=== PATIENT | female | born 1960 | race Caucasian/White ===

== ENCOUNTER → 2016-11-03 | Outpatient (CLI) | payer BC ==
[~2016-11-03] MED LIST: ASPI-461 PO; ATOR-24 PO; BACL10TA PO; DIAZ5TAB3 PO; EFFSR150 PO; EFFSR75 PO; INSDGIPEN SC; INSUINJ14 SC; INSUINJ4 SC; INSUINJ4 SQ; LRS10 PO; LSN/10125 PO; METF500T5 PO; MIRA1TAB3 PO; MULT-506 PO; NRN800 PO; NRT75 PO; NVLGI/PEN SQ; OXYC7.5T65 PO; SIMV40TA2 PO
--- NOTE | 2016-11-04 08:37 | DIAGNOSTIC IMAGING REPORT ---
MRI OF THE RIGHT FOOT WITHOUT CONTRAST CLINICAL HISTORY: Right foot pain. Evaluate first metatarsal head for osteochondral lesion and fibular sesamoid. COMPARISON STUDY: Right foot radiograph January 22, 2013. TECHNIQUE: Utilizing 1.5 Gina magnet and dedicated coil, multiplanar, multi echo imaging of the right foot was performed without intravenous contrast. FINDINGS: The tarsometatarsal joints are intact. There is no marrow edema or marrow replacement within the right foot. There is moderate joint space narrowing with osteophytosis of the right first metatarsophalangeal joint. This suggests osteoarthritis. No osteochondral lesion is identified. The sesamoids for the right first toe are unremarkable. No mass or fluid collection is shown within the right foot on this unenhanced examination. There is minimal subchondral cystic change within the anterior aspect of the talar dome which is likely degenerative. Navicular is intact. Visualized portions of the flexor, extensor and peroneal tendons are intact. Visualized portions of the Achilles tendon are normal. IMPRESSION: 1. Moderate joint space narrowing and osteophytosis of the right first metatarsophalangeal joint which suggests osteoarthritis. No osteochondral lesion identified. 2. Intact sesamoids of the right first toe. 3. Mild arthritis within the right midfoot. Electronically signed by: Archie Roa M.D. 11/04/2016 8:36 AM Dictated Date/Time: 11/03/2016 4:31 PM
== END | disposition home or self-care (01) ==
LOC: C.MRIBC 14:56
PROVIDERS: ATTEND Podiatrist Foot & Ankle Surgery
DX: L97.511 Non-pressure chronic ulcer of other part of right foot limited to breakdown of skin (principal); M25.774 Osteophyte, right foot

== ENCOUNTER → 2016-11-15 | Outpatient (CLI) | payer BC ==
--- NOTE | 2016-11-16 13:08 | MAMMOGRAPHY REPORT ---
BILATERAL DIGITAL SCREENING MAMMOGRAM TOMOSYNTHESIS WITH CAD: 11/15/2016 CLINICAL HISTORY: Routine screening. Patient has no complaints. TECHNIQUE: Breast tomosynthesis in addition to standard 2D mammography was performed. Current study was also evaluated with a Computer Aided Detection (CAD) system. COMPARISON: Comparison is made to exams dated: 11/07/2015 mammogram, 12/20/2013 mammogram, 12/23/2014 mammogram, 12/19/2012 mammogram, 11/18/2011 mammogram, and 11/17/2010 mammogram - [facility] enter. BREAST COMPOSITION: There are scattered areas of fibroglandular density in both breasts. FINDINGS: There are a few benign round and rim calcifications in the breasts. No suspicious mass, a rchitectural distortion or cluster of microcalcifications is seen. IMPRESSION: ACR BI-RADS CATEGORY 1: NEGATIVE There is no mammographic evidence of malignancy. A 1 year screening mammogram is recommended. The p atient will receive written notification of the results. Approximately 10% of breast cancers are not detected with mammography. A negative mammographic repor t should not delay biopsy if a clinically suggestive mass is present. Vilma Gomez M.D. ay/:11/15/2016 16:58:46 Back Stayer: Janel PALACIO(R)(M), [facility] letter sent: Normal 1/2 BI-RADS Code: ACR BI-RADS Category 1: Negative
== END | disposition home or self-care (01) ==
LOC: C.MAMM 14:18
PROVIDERS: ATTEND Family Medicine
DX: Z12.31 Encounter for screening mammogram for malignant neoplasm of breast (principal)

== ENCOUNTER → 2017-03-08 | Outpatient (CLI) | payer BC ==
[~2017-03-08] MED LIST changes: +AMOX875T PO; +CPR500HP PO; +DOCU-94 PO
== END | disposition home or self-care (01) ==
LOC: C.LABSPEC 17:34
PROVIDERS: ATTEND Podiatrist Foot & Ankle Surgery
DX: L60.0 Ingrowing nail (principal)

== ENCOUNTER → 2017-03-18 | Outpatient (CLI) | payer BC | LOC: C.PAIN 09:57 ==

== ENCOUNTER 2017-04-16 06:23 | Emergency (ER) | payer BC ==
[~2017-04-16] VITALS: Ht 167.6 cm; Wt 91.0 kg
[~2017-04-16 06:23] MED LIST changes: -AMOX875T PO; -ASPI-461 PO; -ATOR-24 PO; -BACL10TA PO; -CPR500HP PO; -DIAZ5TAB3 PO; -DOCU-94 PO; -EFFSR150 PO; -EFFSR75 PO; -INSDGIPEN SC; -LRS10 PO; -LSN/10125 PO; -METF500T5 PO; -MULT-506 PO; -NRN800 PO; -NRT75 PO; -NVLGI/PEN SQ; -OXYC7.5T65 PO
[2017-04-16 06:26] VITALS: TEMP 36.7; Ht 167.6 cm; Wt 91.0 kg
[2017-04-16] MEDS ORDERED: KETOROLAC TROMETHAMINE 60 MG/2 ML VIAL IM STA (06:55)
--- NOTE | 2017-04-16 08:00 | DIAGNOSTIC IMAGING REPORT ---
CT LUMBAR SPINE WITHOUT CT DOSE: 1220.13 mGy.cm CLINICAL HISTORY: Low back pain status post trauma TECHNIQUE: Helical images were acquired in transverse plane. Reformatted sagittal and coronal images were reviewed. CONTRAST: No contrast was administered COMPARISON STUDY: Conventional radiographic study dated 07/25/2015 FINDINGS: L1-2 level: There is no evidence of significant disc bulge or focal herniation. There is no evidence of spinal or foraminal stenosis. L2-3 level: There is no evidence of significant disc bulge or focal herniation. There is no evidence of spinal or foraminal stenosis. L3-4 level: There is no evidence of significant disc bulge or focal herniation. There is no evidence of spinal or foraminal stenosis. L4-5 level: There is a circumferential disc bulge with mild spinal stenosis. There is no significant foraminal narrowing. L5-S1 level: There is no evidence of significant disc bulge or focal herniation. There is no evidence of spinal or foraminal stenosis. No fractures or subluxations are visualized. Spinal cord stimulator electrodes are visualized entering the spinal canal at the T12-L1 level IMPRESSION: 1. No fractures or subluxations identified 2. Mild disc bulge and mild spinal stenosis at the L4-5 level. Electronically signed by: Dominic Henning M.D. 04/16/2017 7:59 AM Dictated Date/Time: 04/16/2017 7:56 AM
--- NOTE | 2017-04-16 09:28 | EMERGENCY ROOM VISIT NOTE ---
History Report prepared by Fabrice: Darian Wagner Under the Supervision of: Dr. Bobby Jang D.O. First contact with patient: 06:52 Chief Complaint: BACK PAIN Stated Complaint: EXTREME LOWER BACK PAIN History of Present Illness The patient is a 57 year old female who presents to the Emergency Room with complaints of worsening low back pain beginning 1.5 weeks ago. She states that her pain began after falling directly onto her back. She states that she fell onto the floor in a hotel room due to losing her balance. The patient has a history of MS and states that she frequently loses her balance. She has taken Percocet for her pain, which she has prescribed for migraines and neuropathy, but nothing has improved her symptoms. She denies any increased leg weakness or numbness. The patient notes that she has a spinal cord stimulator in place. Source of History: patient Onset: 1.5 weeks ago Position: back (lower) Timing: worsening Modifying Factors (Relieving): other (none) Associated Symptoms: No weakness (increased), No numbness (increased) Review of Systems See HPI for pertinent positives & negatives. A total of 10 systems reviewed and were otherwise negative. Past Medical & Surgical Medical Problems: (1) Benign hypertension (2) DIAB SOUMYA WO COMPL, TYPE II OR UNSPEC TYPE, NOT UNCNTRLD (3) MULTIPLE SCLEROSIS (4) Sepsis Family History Diabetes mellitus Heart disease Social History Smoking Status: Never Smoker Alcohol Use: none Drug Use: none Marital Status: Housing Status: lives with significant other Occupation Status: unemployed Current/Historical Medications Scheduled Aspirin (Aspirin), 81 MG PO DAILY Atorvastatin (Lipitor), 40 MG PO HS Baclofen (Lioresal), 20 MG PO HS Baclofen (Baclofen), 10 MG PO TID Diazepam (Valium), 5 MG PO HS Gabapentin (Gabapentin), 1,600 MG PO HS Hctz/Lisinopril (Lisinopril/Hctz 10/12.5 Mg), 1 TAB PO HS Insulin Aspart (Novolog Flexpen), SQ UD Insulin Glargine (Lantus Solostar), 25 SC QAM Insulin Glargine (Lantus Solostar), 20 SC QPM Metformin Hcl Er (Glucophage Er), 500 MG PO TID Mirabegron (Myrbetriq Er), 50 MG PO NOON Multivitamin (Multivitamin), 1 TAB PO QPM Nortriptyline HCl (Nortriptyline HCl), 75 MG PO HS Venlafaxine Hcl (Effexor Extended Rel), 150 MG PO HS Venlafaxine Hcl (Effexor Extended Rel), 75 MG PO HS Scheduled PRN Oxycodone/Acetaminophen 7.5MG/325MG (Percocet 7.5MG/325MG), 1 TAB PO Q8 PRN for Pain Allergies Coded Allergies: Methylphenidate (Verified Allergy, Unknown, RASH, 04/16/17) Sumatriptan (Verified Adverse Reaction, Unknown, RAPID HEART RATE, 04/16/17) Physical Exam Vital Signs Date Time Temp Pulse Resp B/P (MAP) Pulse Ox O2 Delivery O2 Flow Rate FiO2 04/16/17 08:09 80 20 106/69 92 Room Air 04/16/17 06:40 124/74 04/16/17 06:26 36.7 92 20 119/76 94 Room Air Physical Exam CONSTITUTIONAL/VITAL SIGNS: Reviewed / noted above. GENERAL: Non-toxic in appearance. INTEGUMENTARY: Warm, dry, and [place]. HEAD: Normocephalic. EYES: without scleral icterus or trauma. ENT/OROPHARYNX: clear and moist. LYMPHADENOPATHY/NECK: Is supple without lymphadenopathy or meningismus. RESPIRATORY: Lungs clear and equal. CARDIOVASCULAR: Regular rate and rhythm. GI/ABDOMEN: Soft and nontender. No organomegaly or pulsatile mass. No rebound or guarding. Normal bowel sounds. EXTREMITIES: Warm and well perfused. BACK: No CVA tenderness. NEUROLOGICAL: Intact without focal deficits. PSYCHIATRIC: normal affect. MUSCULOSKELETAL: Normally developed with good muscle tone. Medical Decision & Procedures ER Provider Diagnostic Interpretation: CT results as stated below per my review and radiologist interpretation: CT LUMBAR SPINE WITHOUT FINDINGS: L1-2 level: There is no evidence of significant disc bulge or focal herniation. There is no evidence of spinal or foraminal stenosis. L2-3 level: There is no evidence of significant disc bulge or focal herniation. There is no evidence of spinal or foraminal stenosis. L3-4 level: There is no evidence of significant disc bulge or focal herniation. There is no evidence of spinal or foraminal stenosis. L4-5 level: There is a circumferential disc bulge with mild spinal stenosis. There is no significant foraminal narrowing. L5-S1 level: There is no evidence of significant disc bulge or focal herniation. There is no evidence of spinal or foraminal stenosis. No fractures or subluxations are visualized. Spinal cord stimulator electrodes are visualized entering the spinal canal at the T12-L1 level IMPRESSION: 1. No fractures or subluxations identified 2. Mild disc bulge and mild spinal stenosis at the L4-5 level. Electronically signed by: Dominic Henning M.D. Medications Administered Medications (Trade) Dose Ordered Sig/Margaret Route Start Time Stop Time Status Last Admin Dose Admin Ketorolac Tromethamine (Toradol Inj) 60 mg NOW STAT IM 04/16/17 06:55 04/16/17 06:57 DC 04/16/17 07:31 60 MG ED Course 0653: Previous medical records were reviewed. The patient was evaluated in room B6. A complete history and physical examination was performed. 0655: Ordered Toradol Inj 60 mg IM. Medical Decision Differential considered includes cauda equina syndrome, conus medullaris, spinal cord compression syndrome, peripheral nerve compression, fractures or subluxations, intra-abdominal pathology such as abdominal aortic aneurysm or kidney stones, muscle strain, transverse myelitis, spinal cord injury. This is a 57-year-old female who presents to the ED with a chief complaint of low back pain. The patient states that she fell week and a half ago when she lost her balance on her back. She states that her pain is been increasing since that time. The patient has a history of chronic back pain. She takes Percocet at home for migraines and other things. She also has a spinal stimulator. The patient has an unremarkable exam. There is no obvious injury. CT scan lumbar spine did not reveal any significant abnormalities. There is some mild disc bulge at L4-L5. The patient was treated with Toradol IM. She was told the results of the test per she is felt to be stable for discharge and outpatient follow-up. Impression Primary Impression: Lumbar back pain Scribe Attestation The scribe's documentation has been prepared under my direction and personally reviewed by me in its entirety. I confirm that the note above accurately reflects all work, treatment, procedures, and medical decision making performed by me. Departure Information Dispostion Home / Self-Care Referrals Amelia Vazquez D.O. (PCP) Patient Instructions Back Pain - [facility], [facility] Additional Instructions Follow-up with your doctor for further care and evaluation in 1-2 days. Return to the emergency department for worsening or new symptoms or any concerns. You have been examined and treated today on an emergency basis only. This is not a substitute for, or an effort to provide, complete comprehensive medical care. It is impossible to recognize and treat all injuries or illnesses in a single emergency department visit. It is therefore important that you follow up closely with your doctor. Call as soon as possible for an appointment.
[2017-04-16 09:54] VITALS: BP 119/72; PULSE 83; O2SAT 94
[2017-06-28] MEDS ORDERED: BACL10TA PO (03:45)
[2017-06-28] MEDS ORDERED: EFFSR150 PO (03:52)
[2017-06-28] MEDS ORDERED: INSDGIPEN SC ×2 (07:22)
[2017-06-28] MEDS ORDERED: ATOR-24 PO (07:22)
[2017-06-28] MEDS ORDERED: NVLGI/PEN SQ (07:22)
[2017-06-28] MEDS ORDERED: ASPI-461 PO (07:22)
[2017-06-28] MEDS ORDERED: OXYC7.5T65 PO (10:31)
[2017-06-28] MEDS ORDERED: EFFSR75 PO (12:46)
[2017-06-28] MEDS ORDERED: METF500T5 PO (15:43)
[2017-06-28] MEDS ORDERED: NRT75 PO (18:02)
[2017-06-28] MEDS ORDERED: LRS10 PO (18:02)
[2017-06-28] MEDS ORDERED: DIAZ5TAB3 PO (18:02)
[2017-06-28] MEDS ORDERED: NRN800 PO (18:02)
[2017-06-28] MEDS ORDERED: LSN/10125 PO (18:04)
[2017-06-28] MEDS ORDERED: MULT-506 PO (18:05)
== END 2017-04-16 09:55 | disposition home or self-care (01) ==
LOC: C.EDB 06:24
DX: M54.5 Low back pain (principal); G89.29 Other chronic pain; I10 Essential (primary) hypertension; E11.9 Type 2 diabetes mellitus without complications; G35 Multiple sclerosis; Z83.3 Family history of diabetes mellitus; Z82.49 Family history of ischemic heart disease and other diseases of the circulatory system; Z79.82 Long term (current) use of aspirin; Z79.4 Long term (current) use of insulin; Z79.899 Other long term (current) drug therapy

== ENCOUNTER 2017-06-28 18:42 | Emergency (ER) | payer BC ==
[~2017-06-28] VITALS: Ht 167.6 cm; Wt 91.0 kg
[~2017-06-28 18:42] MED LIST changes: +ASPI-461 PO; +ATOR-24 PO; +BACL10TA PO; +DIAZ5TAB3 PO; +EFFSR150 PO; +EFFSR75 PO; +INSDGIPEN SC; -INSUINJ14 SC; -INSUINJ4 SC; -INSUINJ4 SQ; +LRS10 PO; +LSN/10125 PO; +METF500T5 PO; +MULT-506 PO; +NRN800 PO; +NRT75 PO; +NVLGI/PEN SQ; +OXYC7.5T65 PO; -SIMV40TA2 PO
[2017-06-28 18:50] VITALS: TEMP 36.9; Ht 167.6 cm; Wt 91.0 kg
[2017-06-28] MEDS ORDERED: SODIUM CHLORIDE 0.9% 1000ML 1,000 ML IV STA (19:33)
--- NOTE | 2017-06-28 19:50 | DIAGNOSTIC IMAGING REPORT ---
CHEST ONE VIEW PORTABLE CLINICAL HISTORY: Evaluate Fever/Sepsis COMPARISON STUDY: 05/10/2015 FINDINGS: Mild stable cardiomegaly. Poorly defined infiltrate left base. Lungs otherwise appear clear. Diaphragms are smooth. IMPRESSION: Poorly defined infiltrate left base. The above report was generated using voice recognition software. It may contain grammatical, syntax or spelling errors. Electronically signed by: Johnathon Lyon M.D. 06/28/2017 7:49 PM Dictated Date/Time: 06/28/2017 7:48 PM
[2017-06-28 20:15] LABS: HEMATOCRIT 36.7 % (37-47); MEAN CORPUSCULAR HGB CONC 31.1 g/dl (32-36); MEAN PLATELET VOLUME 8.1 fL (7.4-10.4); PLATELET COUNT 297 K/uL (130-400); RED BLOOD COUNT 4.22 M/uL (4.2-5.4); WHITE BLOOD COUNT 16.04 K/uL (4.8-10.8)
[2017-06-28 20:31] LABS: INR 0.9 (0.9-1.1); PROTHROMBIN TIME (PATIENT) 9.9 SECONDS (9.0-12.0)
[2017-06-28 20:38] LABS: ALT/SGPT 32 U/L (12-78); BASO % 0.1 %; BASO ABS # 0.01 K/uL (0-0.2); BLOOD UREA NITROGEN 15 mg/dl (7-18); BUN/CREATININE RATIO 16.8 (10-20); CALCIUM 9.5 mg/dl (8.5-10.1); CARBON DIOXIDE 25 mmol/L (21-32); CHLORIDE 102 mmol/L (98-107); COMPLETE YES; CREATININE 0.88 mg/dl (0.60-1.20); EOS % 0.8 %; GLUCOSE 169 mg/dl (70-99); IG% 0.3 %; LYMPH ABS # 2.41 K/uL (1.2-3.4); MONO % 3.7 %; NEUT % 80.1 %; OVALOCYTES 1+; POTASSIUM 3.3 mmol/L (3.5-5.1); SODIUM 137 mmol/L (136-145)
[2017-06-28 20:43] LABS: ALKALINE PHOSPHATASE 158 U/L (45-117); AST/SGOT 23 U/L (15-37); CKMB/CK RATIO 0.9 (0-3.0)
[2017-06-28 20:57] LABS: URINE APPEARANCE CLEAR (CLEAR); URINE COLOR DK YELLOW; URINE EPITHELIAL CELL AUTO 0-5 /lpf (0-5); URINE NITRITE NEG (NEG); URINE SPECIFIC GRAVITY 1.031 (1.000-1.030); UROBILINOGEN NEG (NEG); ZZUR CULT IF INDIC CLEAN CATCH NO
[2017-06-28 21:08] LABS: MANUAL MICROSCOPIC REQUIRED? NO; REVIEW REQ? NO
[2017-06-28 21:09] LABS: URINE BILIRUBIN NEG (NEG)
--- NOTE | 2017-06-28 21:47 | EMERGENCY ROOM VISIT NOTE ---
History Report prepared by Fabrice: Kristina Oropeza Under the Supervision of: Dr. Bobby Jang D.O. First contact with patient: 19:03 Chief Complaint: FEVER Stated Complaint: FEVER,HIGH BP,NUMBESS,DIZZY History of Present Illness The patient is a 57 year old female who presents to the Emergency Room with complaints of constant fever beginning today. The patient states that she has a history of multiple sclerosis and diabetes. She reports that she also has a history of sepsis after having a UTI and she is concerned today because she believes that she is having similar symptoms. She notes that she has had urinary frequency and has been taking AZO without relief of her symptoms. This afternoon, she notes that she had a temperature of 99.6 and this is high for her as her normal is at 97.3. The patient states that she was recently on steroids but her blood sugar has been okay and she is on insulin. The patient complains of frequent hypertension. Source of History: patient Onset: today Position: other (global) Quality: other (fever) Timing: constant Associated Symptoms: + urinary symptoms Note: Pt complains of hypertension. Review of Systems See HPI for pertinent positives & negatives. A total of 10 systems reviewed and were otherwise negative. Past Medical & Surgical Medical Problems: (1) Benign hypertension (2) DIAB SOUMYA WO COMPL, TYPE II OR UNSPEC TYPE, NOT UNCNTRLD (3) MULTIPLE SCLEROSIS (4) Sepsis Family History Diabetes mellitus Heart disease Social History Smoking Status: Never Smoker Alcohol Use: none Drug Use: none Marital Status: Housing Status: lives with significant other Occupation Status: unemployed Current/Historical Medications Scheduled Aspirin (Aspirin), 81 MG PO DAILY Atorvastatin (Lipitor), 40 MG PO HS Baclofen (Lioresal), 20 MG PO HS Baclofen (Baclofen), 10 MG PO TID Diazepam (Valium), 5 MG PO HS Gabapentin (Gabapentin), 1,600 MG PO HS Hctz/Lisinopril (Lisinopril/Hctz 10/12.5 Mg), 1 TAB PO HS Insulin Aspart (Novolog Flexpen), 1 DOSE SQ UD Insulin Glargine (Lantus Solostar), 25 UNITS SC QAM Insulin Glargine (Lantus Solostar), 20 UNITS SC QPM Metformin Hcl Er (Glucophage Er), 500 MG PO TID Mirabegron (Myrbetriq Er), 50 MG PO QD@1200 Multivitamin (Multivitamin), 1 TAB PO QPM Nortriptyline HCl (Nortriptyline HCl), 75 MG PO HS Venlafaxine Hcl (Effexor Extended Rel), 150 MG PO HS Venlafaxine Hcl (Effexor Extended Rel), 75 MG PO HS Scheduled PRN Oxycodone/Acetaminophen 7.5MG/325MG (Percocet 7.5MG/325MG), 1 TAB PO Q8 PRN for Pain Allergies Coded Allergies: Methylphenidate (Verified Allergy, Unknown, RASH, 04/16/17) Sumatriptan (Verified Adverse Reaction, Unknown, RAPID HEART RATE, 04/16/17) Physical Exam Vital Signs Date Time Temp Pulse Resp B/P (MAP) Pulse Ox O2 Delivery O2 Flow Rate FiO2 06/28/17 22:01 68 20 145/78 99 06/28/17 22:01 68 20 145/78 99 Room Air 06/28/17 21:01 123/73 06/28/17 20:42 104 14 06/28/17 20:37 105 21 06/28/17 20:34 130/73 06/28/17 20:32 110 21 06/28/17 20:27 106 25 06/28/17 20:24 107 06/28/17 18:50 36.9 119 20 123/78 93 Room Air Physical Exam CONSTITUTIONAL/VITAL SIGNS: Reviewed / noted above. GENERAL: Non-toxic in appearance. INTEGUMENTARY: Warm, dry, and [place]. HEAD: Normocephalic. EYES: without scleral icterus or trauma. ENT/OROPHARYNX: clear and moist. LYMPHADENOPATHY/NECK: Is supple without lymphadenopathy or meningismus. RESPIRATORY: Lungs clear and equal. CARDIOVASCULAR: Regular rate and rhythm. GI/ABDOMEN: Soft and nontender. No organomegaly or pulsatile mass. No rebound or guarding. Normal bowel sounds. EXTREMITIES: Warm and well perfused. BACK: No CVA tenderness. NEUROLOGICAL: Intact without focal deficits. PSYCHIATRIC: normal affect. MUSCULOSKELETAL: Normally developed with good muscle tone. Medical Decision & Procedures ER Provider Diagnostic Interpretation: X ray results and stated below per my interpretation and radiology interpretation. CHEST ONE VIEW PORTABLE FINDINGS: Mild stable cardiomegaly. Poorly defined infiltrate left base. Lungs otherwise appear clear. Diaphragms are smooth. IMPRESSION: Poorly defined infiltrate left base. The above report was generated using voice recognition software. It may contain grammatical, syntax or spelling errors. Electronically signed by: Johnathon Lyon M.D. 06/28/2017 7:49 PM Dictated Date/Time: 06/28/2017 7:48 PM Laboratory Results 06/28/17 19:55 Red Blood Count 4.22, Mean Corpuscular Volume 87.0, Mean Corpuscular Hemoglobin 27.0, Mean Corpuscular Hemoglobin Concent 31.1, Mean Platelet Volume 8.1, Neutrophils (%) (Auto) 80.1, Lymphocytes (%) (Auto) 15.0, Monocytes (%) (Auto) 3.7, Eosinophils (%) (Auto) 0.8, Basophils (%) (Auto) 0.1, Neutrophils # (Auto) 12.85, Lymphocytes # (Auto) 2.41, Monocytes # (Auto) 0.59, Eosinophils # (Auto) 0.13, Basophils # (Auto) 0.01 06/28/17 19:55 Test 06/28/17 19:55 06/28/17 20:30 White Blood Count 16.04 K/uL (4.8-10.8) Red Blood Count 4.22 M/uL (4.2-5.4) Hemoglobin 11.4 g/dL (12.0-16.0) Hematocrit 36.7 % (37-47) Mean Corpuscular Volume 87.0 fL (80-100) Mean Corpuscular Hemoglobin 27.0 pg (25-34) Mean Corpuscular Hemoglobin Concent 31.1 g/dl (32-36) Platelet Count 297 K/uL (130-400) Mean Platelet Volume 8.1 fL (7.4-10.4) Neutrophils (%) (Auto) 80.1 % Lymphocytes (%) (Auto) 15.0 % Monocytes (%) (Auto) 3.7 % Eosinophils (%) (Auto) 0.8 % Basophils (%) (Auto) 0.1 % Neutrophils # (Auto) 12.85 K/uL (1.4-6.5) Lymphocytes # (Auto) 2.41 K/uL (1.2-3.4) Monocytes # (Auto) 0.59 K/uL (0.11-0.59) Eosinophils # (Auto) 0.13 K/uL (0-0.5) Basophils # (Auto) 0.01 K/uL (0-0.2) RDW Standard Deviation 44.9 fL (36.4-46.3) RDW Coefficient of Variation 14.2 % (11.5-14.5) Immature Granulocyte % (Auto) 0.3 % Immature Granulocyte # (Auto) 0.05 K/uL (0.00-0.02) Ovalocytes 1+ Prothrombin Time 9.9 SECONDS (9.0-12.0) Prothromb Time International Ratio 0.9 (0.9-1.1) Activated Partial Thromboplast Time 26.6 SECONDS (21.0-31.0) Partial Thromboplastin Ratio 1.0 Anion Gap 10.0 mmol/L (3-11) Est Creatinine Clear Calc Drug Dose 80.1 ml/min Estimated GFR () 84.5 Estimated GFR (Non- 72.9 BUN/Creatinine Ratio 16.8 (10-20) Calcium Level 9.5 mg/dl (8.5-10.1) Total Bilirubin 0.4 mg/dl (0.2-1) Direct Bilirubin < 0.1 mg/dl (0-0.2) Aspartate Amino Transf (AST/SGOT) 23 U/L (15-37) Alanine Aminotransferase (ALT/SGPT) 32 U/L (12-78) Alkaline Phosphatase 158 U/L (45-117) Total Creatine Kinase 58 U/L (26-192) Creatine Kinase MB 0.5 ng/ml (0.5-3.6) Creatine Kinase MB Ratio 0.9 (0-3.0) Troponin I < 0.015 ng/ml (0-0.045) Total Protein 7.8 gm/dl (6.4-8.2) Albumin 3.6 gm/dl (3.4-5.0) Lipase 199 U/L (73-393) Urine Color DK YELLOW Urine Appearance CLEAR (CLEAR) Urine pH 5.0 (4.5-7.5) Urine Specific [place] 1.031 (1.000-1.030) Urine Protein NEG (NEG) Urine Glucose (UA) 2+ (NEG) Urine Ketones TRACE (NEG) Urine Occult Blood NEG (NEG) Urine Nitrite NEG (NEG) Urine Bilirubin NEG (NEG) Urine Urobilinogen NEG (NEG) Urine Leukocyte Esterase NEG (NEG) Urine WBC (Auto) 1-5 /hpf (0-5) Urine RBC (Auto) 0-4 /hpf (0-4) Urine Hyaline Casts (Auto) 1-5 /lpf (0-5) Urine Epithelial Cells (Auto) 0-5 /lpf (0-5) Urine Bacteria (Auto) NEG (NEG) Laboratory results as stated above per my review. Medications Administered Medications (Trade) Dose Ordered Sig/Margaret Route Start Time Stop Time Status Last Admin Dose Admin Sodium Chloride 1,000 ml @ 999 mls/hr Q1H1M STAT IV 06/28/17 19:33 06/28/17 20:33 DC 06/28/17 20:03 999 MLS/HR ECG Indication: other (dizzy) Rate (beats per minute): 110 Rhythm: sinus tachycardia Findings: no acute ischemic change, no ectopy ED Course 1902: Previous medical records were reviewed. The patient was evaluated in room A10. A complete history and physical examination was performed. 1932: Sodium Chloride 1000 ml @ 999 mls/hr IV. 2147: On reevaluation, the patient is doing well. I discussed the results and findings with the patient. She verbalized agreement of the treatment plan. The patient was discharged home. Medical Decision Differential includes viral illness, influenza, streptococcal pharyngitis, meningitis, pneumonia, sinusitis, UTI, pyelonephritis, otitis media. This is a 57-year-old female who presents to the ED with a chief complaint of subjective fever. Her temperature she reports was 99.6. The patient states that her blood pressure has been elevated and she has had some numbness and dizziness. She has a history of MS and has just finished a course of steroids. She was on it for 2 weeks. The patient was concerned about a UTI as she has had some urinary frequency. She also is a diabetic. The patient has some tachycardia on her initial vital signs. This improved with some fluids. Her exam was unremarkable. She is nontoxic in appearance and does not appear to be in any distress. Exam was normal. She denies any recent upper respiratory infections or cough. Chest x-ray shows a left base infiltrate which is likely artifact or atelectasis as per clinical exam. The patient's white blood cell count of 16,000 and is likely related to the recent steroids. Complete metabolic panel was unremarkable. Urine did not show infection. The patient was told the results. She is felt to be stable for discharge. Medication Reconcilliation Current Medication List: was personally reviewed by me Blood Pressure Screening Patient's blood pressure: Normal blood pressure Blood pressure disposition: Did not require urgent referral Impression Primary Impression: Urinary symptom or sign Additional Impression: History of fever Scribe Attestation The scribe's documentation has been prepared under my direction and personally reviewed by me in its entirety. I confirm that the note above accurately reflects all work, treatment, procedures, and medical decision making performed by me. Departure Information Dispostion Home / Self-Care Patient Instructions My [facility] Additional Instructions Your test results today are not suggestive of significant infection. Monitor your symptoms and follow-up with your doctor if symptoms persist. Return for any new or worsening symptoms. Problem Qualifiers
[2017-06-28 22:01] VITALS: BP 145/78; PULSE 68; O2SAT 99
== END 2017-06-28 22:02 | disposition home or self-care (01) ==
LOC: C.EDB 18:43 → C.EDA 22:02
DX: R39.9 Unspecified symptoms and signs involving the genitourinary system (principal); R50.9 Fever, unspecified; I10 Essential (primary) hypertension; E11.9 Type 2 diabetes mellitus without complications; G35 Multiple sclerosis; Z83.3 Family history of diabetes mellitus; Z82.49 Family history of ischemic heart disease and other diseases of the circulatory system; Z79.82 Long term (current) use of aspirin; Z79.4 Long term (current) use of insulin

== ENCOUNTER → 2017-07-19 | Outpatient (CLI) | payer BC | END | disposition home or self-care (01) | LOC: C.LABSPEC 17:06 | PROVIDERS: ATTEND Podiatrist Foot & Ankle Surgery | DX: L97.509 Non-pressure chronic ulcer of other part of unspecified foot with unspecified severity (principal) ==

== ENCOUNTER 2017-08-03 07:35 | Emergency (ER) | payer BC ==
[~2017-08-03] VITALS: Ht 167.6 cm; Wt 91.0 kg
[2017-08-03 07:40] VITALS: Ht 167.6 cm; Wt 91.0 kg
[2017-08-03] MEDS ORDERED: HYDROmorphone INJ 0.5 MG/0.5 ML SYR IV STA (08:24)
[2017-08-03] MEDS ORDERED: ONDANSETRON INJ 2 MG/ML 2 ML VIAL IV STA (08:24)
[2017-08-03] MEDS ORDERED: CPR500HP PO (08:25)
[2017-08-03] MEDS ORDERED: AMOX875T PO (08:25)
--- NOTE | 2017-08-03 09:02 | DIAGNOSTIC IMAGING REPORT ---
CHEST ONE VIEW PORTABLE CLINICAL HISTORY: LEFT ARM PAIN COMPARISON STUDY: 06/28/2017 FINDINGS: The heart is at the upper limits of normal in size. There is aortic tortuosity/ectasia. There is mild central vascular prominence without evidence of overt failure. There is a suboptimal inspiration with hypoventilatory changes the lung bases. Spinal electrodes are visualized.[ IMPRESSION: Low lung volumes with hypoventilatory changes the lung bases. No evidence of lobar consolidation Electronically signed by: Dominic Henning M.D. 08/03/2017 9:00 AM Dictated Date/Time: 08/03/2017 8:59 AM
[2017-08-03 09:07] LABS: URINE APPEARANCE CLEAR (CLEAR); URINE BILIRUBIN NEG (NEG); URINE COLOR YELLOW; URINE NITRITE NEG (NEG); URINE PH 5.5 (4.5-7.5); URINE SPECIFIC GRAVITY 1.012 (1.000-1.030); UROBILINOGEN NEG (NEG)
[2017-08-03 09:08] LABS: MANUAL MICROSCOPIC REQUIRED? NO; REVIEW REQ? NO
[2017-08-03 09:09] VITALS: O2SAT 88
[2017-08-03 09:23] LABS: HEMATOCRIT 32.7 % (37-47); MEAN CELL VOLUME 84.7 fL (80-100); MEAN CORPUSCULAR HEMOGLOBIN 27.5 pg (25-34); MEAN CORPUSCULAR HGB CONC 32.4 g/dl (32-36); MEAN PLATELET VOLUME 8.3 fL (7.4-10.4); PLATELET COUNT 283 K/uL (130-400); RED BLOOD COUNT 3.86 M/uL (4.2-5.4); WHITE BLOOD COUNT 15.84 K/uL (4.8-10.8)
[2017-08-03 09:33] LABS: INR 1.1 (0.9-1.1); PARTIAL THROMBOPLASTIN RATIO 1.1; PROTHROMBIN TIME (PATIENT) 11.4 SECONDS (9.0-12.0)
--- NOTE | 2017-08-03 09:36 | DIAGNOSTIC IMAGING REPORT ---
CT HEAD WITHOUT CONTRAST (CT) CLINICAL HISTORY: Bilateral arm pain and weakness. COMPARISON STUDY: 02/05/2013 TECHNIQUE: Axial CT of the brain is performed from the vertex to the skull base. IV contrast was not administered for this examination. A dose lowering technique was utilized adhering to the principles of ALARA. CT DOSE: 1035.13 mGy.cm FINDINGS: No intra or extra-axial mass lesions are visualized. There is no CT evidence of acute cortical infarction. There is no evidence of midline shift. There is no acute hemorrhage. No calvarial fractures are visualized. There is no evidence of pathologic ventricular dilatation. There is no evidence of acute sinusitis IMPRESSION: No acute intracranial findings Electronically signed by: Dominic Henning M.D. 08/03/2017 9:35 AM Dictated Date/Time: 08/03/2017 9:34 AM
--- NOTE | 2017-08-03 09:37 | DIAGNOSTIC IMAGING REPORT ---
CERVICAL SPINE W/O CT DOSE: HISTORY: Pain. Neuropathy. BILATERAL ARM PAIN L>R TECHNIQUE: Multiaxial CT images of the cervical spine were performed and reformatted in the sagittal and coronal plane without the use of contrast. A dose lowering technique was utilized adhering to the principles of ALARA. COMPARISON: None. FINDINGS: No fractures. No subluxation. Prevertebral soft tissues and the C1-C2 interval are intact. No pneumothorax. IMPRESSION: No fractures within the cervical spine. No significant spinal or foraminal stenosis. The above report was generated using voice recognition software. It may contain grammatical, syntax or spelling errors. Electronically signed by: Johnathon Lyon M.D. 08/03/2017 9:36 AM Dictated Date/Time: 08/03/2017 9:33 AM
[2017-08-03 09:47] LABS: ALT/SGPT 22 U/L (12-78); AST/SGOT 18 U/L (15-37); BLOOD UREA NITROGEN 14 mg/dl (7-18); BUN/CREATININE RATIO 15.3 (10-20); CALCIUM 9.1 mg/dl (8.5-10.1); CARBON DIOXIDE 26 mmol/L (21-32); CHLORIDE 103 mmol/L (98-107); CREATININE 0.92 mg/dl (0.60-1.20); GLUCOSE 191 mg/dl (70-99); MAGNESIUM 1.9 mg/dl (1.8-2.4); POTASSIUM 3.7 mmol/L (3.5-5.1); SODIUM 134 mmol/L (136-145)
[2017-08-03 09:50] LABS: BASO % 0.2 %; BASO ABS # 0.03 K/uL (0-0.2); COMPLETE YES; EOS % 0.8 %; IG% 0.3 %; LYMPH % 12.9 %; LYMPH ABS # 2.05 K/uL (1.2-3.4); MONO % 5.3 %; NEUT % 80.5 %
[2017-08-03 09:53] LABS: ALB/GLOB RATIO 0.8 (0.9-2); ALKALINE PHOSPHATASE 129 U/L (45-117); CKMB/CK RATIO 1.4 (0-3.0)
[2017-08-03] MEDS ORDERED: SODIUM CHLORIDE 0.9% 1000ML 1,000 ML IV STA (10:58)
[2017-08-03] MEDS ORDERED: ONDANSETRON INJ 2 MG/ML 2 ML VIAL ONE (11:12)
[2017-08-03] MEDS ORDERED: HYDROmorphone INJ 0.5 MG/0.5 ML SYR ONE (11:14)
--- NOTE | 2017-08-03 11:42 | EMERGENCY ROOM VISIT NOTE ---
History First contact with patient: 07:56 Chief Complaint: ARM PAIN Stated Complaint: PAIN IN ARM, MID-SECTION History of Present Illness Patient is a 57-year-old white female with history significant for MS, hypertension, dyslipidemia, insulin-requiring diabetes, among other medical problems, who presents emergency department for evaluation of bilateral upper extremity pain. Patient reports that last evening around 6:00, she began to notice some pain in her left hand. She describes it as a constant, stabbing pain throughout all of her fingers. She tried to work through the pain. She wrapped it, which made it worse, and she tried taking Percocet which helped minimally. The pain slowly began to move up her left arm, toward her shoulder. She states that was difficult to sleep secondary to her discomfort. This morning she began to notice pain involving the right hand. She had difficulty using her hands to position herself in bed, and could not get herself dressed due to the discomfort. She notes some slight weakness, but thinks that this is due to pain. She denies any trauma or unusual activity which could've injured herself. She denies any falls. She denies any associated chest pain, palpitations, shortness of breath. There is been no numbness or paresthesias in the upper extremities. She denies any lightheadedness, dizziness, nausea or vomiting. She has a history of migraines, and states that she had a headache yesterday which was consistent with a migraine for which she took Percocet. Patient notes that she has been following with her knitted goods shaper for the last several weeks for an infection in the right second toe. She believes that she may have stepped on something. The knitted goods shaper has been tending to the wound, and has her on Cipro and amoxicillin. She has been on antibiotics for about 2 weeks. Patient also reports noting some bilateral flank pain, external vaginal irritation with urination, and decreased urinary output. She has been applying a topical yeast infection cream to the area. She thinks this is been brought on by the antibiotics. She has been taking probiotics as well. Patient notes that her blood sugars have been high recently, she has been correcting with insulins. She did not check her blood sugar this morning, nor take any of her morning medications. She has not been on any steroids recently. She rates her discomfort an 8/10. Review of Systems Review of systems as per HPI. All other systems reviewed were negative. 10 systems reviewed. Past Medical/Surgical History Medical Problems: (1) Benign hypertension (2) Chronic pain syndrome (3) Dehydration (4) Depressive Disorder Nec (5) DIAB SOUMYA WO COMPL, TYPE II OR UNSPEC TYPE, NOT UNCNTRLD (6) Dyslipidemia (7) Dyspnea (8) Epigastric pain (9) History of fever (10) Hyperglycemia (11) Lumbar back pain (12) Migraine (13) MULTIPLE SCLEROSIS (14) Peripheral neuropathic pain (15) Sepsis (16) Transient hypotension (17) Transient hypotension (18) Urinary symptom or sign (19) UTI (urinary tract infection) Surgical Problems: (1) S/P insertion of spinal cord stimulator Electronic medical records are reviewed and summarized as above/below. See Problem List. Family History Diabetes mellitus Heart disease Social History Smoking Status: Former Smoker Alcohol Use: none Drug Use: none Marital Status: Housing Status: lives with significant other Occupation Status: unemployed Current/Historical Medications Scheduled Amoxicillin & Pot Clavulanate (Augmentin 875-125 mg), 1 TAB PO BID Aspirin (Aspirin), 81 MG PO DAILY Atorvastatin (Lipitor), 40 MG PO HS Baclofen (Lioresal), 20 MG PO HS Baclofen (Baclofen), 10 MG PO TID Ciprofloxacin (Ciprofloxacin HCl), 1 TAB PO BID Diazepam (Valium), 5 MG PO HS Gabapentin (Gabapentin), 1,600 MG PO HS Hctz/Lisinopril (Lisinopril/Hctz 10/12.5 Mg), 1 TAB PO HS Insulin Aspart (Novolog Flexpen), 1 DOSE SQ UD Insulin Glargine (Lantus Solostar), 25 UNITS SC QAM Insulin Glargine (Lantus Solostar), 20 UNITS SC QPM Metformin Hcl Er (Glucophage Er), 500 MG PO TID Mirabegron (Myrbetriq Er), 50 MG PO QD@1200 Multivitamin (Multivitamin), 1 TAB PO QPM Nortriptyline HCl (Nortriptyline HCl), 75 MG PO HS Venlafaxine Hcl (Effexor Extended Rel), 150 MG PO HS Venlafaxine Hcl (Effexor Extended Rel), 75 MG PO HS Scheduled PRN Oxycodone/Acetaminophen 7.5MG/325MG (Percocet 7.5MG/325MG), 1 TAB PO Q8 PRN for Pain Physical Exam Vital Signs Date Time Temp Pulse Resp B/P (MAP) Pulse Ox O2 Delivery O2 Flow Rate FiO2 08/03/17 12:09 36.9 105 16 109/73 96 08/03/17 11:20 108 26 117/66 93 Nasal Cannula 2.0 08/03/17 10:30 111 20 108/63 91 Nasal Cannula 2.0 08/03/17 09:09 Nasal Cannula 2.0 08/03/17 09:09 88 Room Air 08/03/17 09:08 110 08/03/17 09:07 110 16 116/95 88 Room Air 08/03/17 07:40 36.9 114 20 107/61 91 Room Air Physical Exam CONSTITUTIONAL: Patient is a pleasant, well-appearing 57-year-old white female who is awake and alert and in no acute distress. HEENT: Normocephalic, atraumatic. Pupils equal, round, reactive to light and accommodation. EOMs intact without nystagmus. Sclera are anicteric. Tympanic membranes intact, with normal landmarks. External canals are clear. Oral and nasopharynx are clear. Mucous membranes are moist. NECK: No carotid bruits auscultated. Supple, nontender, no lymphadenopathy. Full range of motion. HEART: Regular rate and rhythm, with normal S1 and S2, no murmur or gallop or rub is heard. LUNGS: Breath sounds equal and clear to auscultation without wheezes, rales, or rhonchi heard. Bowel sounds are present. Abdomen is soft, obese, nontender and nondistended. No guarding, rebound or rigidity. SKIN: No lesions or rash, normal skin turgor. EXTREMITIES: No cyanosis, edema, joint tenderness or swelling. No deformity.Focused examination of the upper extremities did not demonstrate any erythema, edema, increased warmth or induration. No lymphangitic streaking. The left hand is globally tender to palpation. Wrist is nontender, elbow is nontender and she has full range of motion of the left upper extremity. Sensation and light touch is intact. Radial and ulnar pulses are easily appreciated. Patient has mild discomfort on palpation of the right hand as well , the remainder the right upper extremity is unremarkable. NEUROLOGICAL: Alert and oriented x4. Cranial nerves 2 through 12, sensation and strength grossly intact. Gait is not assessed. Immediate, recent and remote memories are intact. Concentration is normal. Upper and lower DTRs are equal and symmetrical bilaterally. Slightly diminished sensation to light touch of the lower extremities, chronic per the patient. Medical Decision & Procedures ER Provider Diagnostic Interpretation: CT HEAD WITHOUT CONTRAST (CT) CLINICAL HISTORY: Bilateral arm pain and weakness. COMPARISON STUDY: 02/05/2013 TECHNIQUE: Axial CT of the brain is performed from the vertex to the skull base. IV contrast was not administered for this examination. A dose lowering technique was utilized adhering to the principles of ALARA. CT DOSE: 1035.13 mGy.cm FINDINGS: No intra or extra-axial mass lesions are visualized. There is no CT evidence of acute cortical infarction. There is no evidence of midline shift. There is no acute hemorrhage. No calvarial fractures are visualized. There is no evidence of pathologic ventricular dilatation. There is no evidence of acute sinusitis IMPRESSION: No acute intracranial findings CERVICAL SPINE W/O CT DOSE: HISTORY: Pain. Neuropathy. BILATERAL ARM PAIN L>R TECHNIQUE: Multiaxial CT images of the cervical spine were performed and reformatted in the sagittal and coronal plane without the use of contrast. A dose lowering technique was utilized adhering to the principles of ALARA. COMPARISON: None. FINDINGS: No fractures. No subluxation. Prevertebral soft tissues and the C1-C2 interval are intact. No pneumothorax. IMPRESSION: No fractures within the cervical spine. No significant spinal or foraminal stenosis. Laboratory Results 08/03/17 09:05 Red Blood Count 3.86, Mean Corpuscular Volume 84.7, Mean Corpuscular Hemoglobin 27.5, Mean Corpuscular Hemoglobin Concent 32.4, Mean Platelet Volume 8.3, Neutrophils (%) (Auto) 80.5, Lymphocytes (%) (Auto) 12.9, Monocytes (%) (Auto) 5.3, Eosinophils (%) (Auto) 0.8, Basophils (%) (Auto) 0.2, Neutrophils # (Auto) 12.75, Lymphocytes # (Auto) 2.05, Monocytes # (Auto) 0.84, Eosinophils # (Auto) 0.13, Basophils # (Auto) 0.03 08/03/17 09:05 Test 08/03/17 08:10 08/03/17 08:50 08/03/17 09:05 Bedside Glucose 212 mg/dl (70-90) Urine Color YELLOW Urine Appearance CLEAR (CLEAR) Urine pH 5.5 (4.5-7.5) Urine Specific [place] 1.012 (1.000-1.030) Urine Protein NEG (NEG) Urine Glucose (UA) NEG (NEG) Urine Ketones NEG (NEG) Urine Occult Blood NEG (NEG) Urine Nitrite NEG (NEG) Urine Bilirubin NEG (NEG) Urine Urobilinogen NEG (NEG) Urine Leukocyte Esterase NEG (NEG) White Blood Count 15.84 K/uL (4.8-10.8) Red Blood Count 3.86 M/uL (4.2-5.4) Hemoglobin 10.6 g/dL (12.0-16.0) Hematocrit 32.7 % (37-47) Mean Corpuscular Volume 84.7 fL (80-100) Mean Corpuscular Hemoglobin 27.5 pg (25-34) Mean Corpuscular Hemoglobin Concent 32.4 g/dl (32-36) Platelet Count 283 K/uL (130-400) Mean Platelet Volume 8.3 fL (7.4-10.4) Neutrophils (%) (Auto) 80.5 % Lymphocytes (%) (Auto) 12.9 % Monocytes (%) (Auto) 5.3 % Eosinophils (%) (Auto) 0.8 % Basophils (%) (Auto) 0.2 % Neutrophils # (Auto) 12.75 K/uL (1.4-6.5) Lymphocytes # (Auto) 2.05 K/uL (1.2-3.4) Monocytes # (Auto) 0.84 K/uL (0.11-0.59) Eosinophils # (Auto) 0.13 K/uL (0-0.5) Basophils # (Auto) 0.03 K/uL (0-0.2) RDW Standard Deviation 44.7 fL (36.4-46.3) RDW Coefficient of Variation 14.6 % (11.5-14.5) Immature Granulocyte % (Auto) 0.3 % Immature Granulocyte # (Auto) 0.04 K/uL (0.00-0.02) Erythrocyte Sedimentation Rate 42 mm/hr (0-21) Prothrombin Time 11.4 SECONDS (9.0-12.0) Prothromb Time International Ratio 1.1 (0.9-1.1) Activated Partial Thromboplast Time 28.0 SECONDS (21.0-31.0) Partial Thromboplastin Ratio 1.1 Anion Gap 5.0 mmol/L (3-11) Est Creatinine Clear Calc Drug Dose 76.6 ml/min Estimated GFR () 80.1 Estimated GFR (Non- 69.1 BUN/Creatinine Ratio 15.3 (10-20) Calcium Level 9.1 mg/dl (8.5-10.1) Magnesium Level 1.9 mg/dl (1.8-2.4) Total Bilirubin 0.6 mg/dl (0.2-1) Aspartate Amino Transf (AST/SGOT) 18 U/L (15-37) Alanine Aminotransferase (ALT/SGPT) 22 U/L (12-78) Alkaline Phosphatase 129 U/L (45-117) Total Creatine Kinase 56 U/L (26-192) Creatine Kinase MB 0.8 ng/ml (0.5-3.6) Creatine Kinase MB Ratio 1.4 (0-3.0) Troponin I < 0.015 ng/ml (0-0.045) C-Reactive Protein 10.20 mg/dl (0-0.29) Total Protein 8.0 gm/dl (6.4-8.2) Albumin 3.6 gm/dl (3.4-5.0) Globulin 4.4 gm/dl (2.5-4.0) Albumin/Globulin Ratio 0.8 (0.9-2) Medications Administered Medications (Trade) Dose Ordered Sig/Margaret Route Start Time Stop Time Status Last Admin Dose Admin Sodium Chloride 1,000 ml @ 999 mls/hr Q1H1M STAT IV 08/03/17 10:58 08/03/17 11:58 DC 08/03/17 10:58 999 MLS/HR Ondansetron HCl (Zofran Inj) 4 mg STK-MED ONCE .ROUTE 08/03/17 11:12 08/03/17 11:13 DC 08/03/17 11:21 4 MG Hydromorphone HCl (Dilaudid Inj) 0.5 mg STK-MED ONCE .ROUTE 08/03/17 11:14 08/03/17 11:15 DC 08/03/17 11:22 0.5 MG ECG Indication: other (arm pain) Rate (beats per minute): 107 Rhythm: sinus tachycardia Findings: no acute ischemic change, no ectopy Change: no significant change ED Course The patient was seen and evaluated as above. She has extensive neurologic history including MS and peripheral neuropathy. She is a spinal cord stimulator in place. She presents emergency department for evaluation of left arm pain, and right hand pain. IV lock was initiated. The patient was hydrated with normal saline solution. She was medicated with Dilaudid 0.5 mg IV and Zofran 4 mg IV. A bladder scan was performed given her urinary symptoms, and she had roughly 400 mL of urine in her bladder. A straight cath was performed for a urine sample. BSG was performed and was 212. EKG was performed and was as noted above, without ectopy , arrhythmia or acute ischemic changes. 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 She was mildly tachycardic throughout the entire emergency department stay. At one point, she did drop her oxygen saturation to roughly 88%, which responded to oxygen 2 L by nasal cannula. She had no complaints of chest pain or shortness of breath. Chest x-ray was obtained and was unremarkable. Given her complaints of upper extremity pain, head and cervical spine CTs were obtained. Laboratory studies were performed including CBC with differential, sedimentation rate, CRP, coags, magnesium, cardiac enzymes, CMP and urinalysis. She has a white count of 2800, with left shift, of unclear significance. Slight, nonspecific elevation of her sedimentation rate and CRP are noted. H&H 10.6 and 32.7. Coags and platelets are normal. Electrolytes and renal function are without significant abnormality. LFTs are not elevated. Cardiac enzymes are normal. Total CK was 56. Urine sample was completely clear. Head and cervical spine CTs did not demonstrate any acute pathology. There was no acute intracranial bleed or mass. No cervical spine disease. Patient history, presentation and ED workup were reviewed with the patient and her family, and discussed with the ED physician at length. The etiology of her hand pain is unclear at this time. It is asymmetrical. She has no findings on physical exam to indicate infectious etiology such as cellulitis. Exam is not consistent with upper extremity DVT or superficial thrombophlebitis. She has good pulses and I do not suspect regular etiology. She does not have any findings consistent with cervical radiculopathy. I question whether this could be related to her MS or her underlying neuropathy. Pain does not appear consistent with a cardiac or pulmonary etiology. Pain also could be musculoskeletal in nature, but seems less likely. It seems to wide spread and dispersed to be related to an isolated tendinitis, however this was considered given her recent therapy with Cipro. The patient rated her discomfort a 6/10 after receiving the IV Dilaudid. She was encouraged to continue her Percocet as prescribed, and was advised to follow-up closely with her primary care provider in her neurologist for further care and management. Certainly she is welcome to return to the emergency department at any point if her symptoms are worsening. She reports that it would be difficult to obtain an MRI secondary to her spinal cord stimulator, as she has been told that she can only be in the MRI scanner for 30 minutes at a time due to the device. The patient was discharged to home with her in good condition. Medical Decision See ED Course. Medication Reconcilliation Current Medication List: was personally reviewed by me Blood Pressure Screening Patient's blood pressure: Normal blood pressure Blood pressure disposition: Did not require urgent referral Impression Primary Impression: Bilateral arm pain Departure Information Referrals Amelia Vazquez D.O. (PCP) Patient Instructions My [facility] Additional Instructions DO NOT drive, drink alcohol, operate machinery, or perform dangerous activities today. You were given medications in the ER that can affect your ability to safely function or operate a vehicle. Ibuprofen(Motrin, Advil) may be used for fever or pain. Use 600mg every six hours as needed. Take with food. Avoid using more than 2400mg in a 24 hour period. Do not use 2400mg per day for more than three consecutive days without physician direction. Prolonged inappropriate use can lead to stomach upset or ulcers. (AND/OR) Acetaminophen(Tylenol) may be used for fever or pain. Use 1000mg every six hours as needed. Avoid using more than 3000mg in a 24 hour period. Rest and drink plenty of fluids as tolerated. Continue current medications. Avoid strenuous activities and anything that worsens your pain. Resume normal activities once your symptoms resolve. Return to the ER immediately for worsening or persistent chest pain, abdominal pain, vomiting, fevers, chest pains, difficulty breathing, worsening of your condition, or as needed. Follow up with your primary physician/neurologist in 1-2 days for a recheck of your current condition.
[2017-08-03 12:09] VITALS: BP 109/73; PULSE 105; TEMP 36.9; O2SAT 96
[2017-08-04] MEDS ORDERED: DOCU-94 PO (13:43)
[2017-08-07] MEDS ORDERED: AMOX875T PO (11:15)
[2017-08-07] MEDS ORDERED: OXYC7.5T65 PO (12:50)
== END 2017-08-03 12:10 | disposition home or self-care (01) ==
LOC: C.EDB 07:37
DX: M79.601 Pain in right arm (principal); M79.602 Pain in left arm; G35 Multiple sclerosis; I10 Essential (primary) hypertension; E78.5 Hyperlipidemia, unspecified; G89.4 Chronic pain syndrome; E86.0 Dehydration; F32.9 Major depressive disorder, single episode, unspecified; E11.43 Type 2 diabetes mellitus with diabetic autonomic (poly)neuropathy; Z87.440 Personal history of urinary (tract) infections; Z83.3 Family history of diabetes mellitus; Z87.891 Personal history of nicotine dependence; Z79.82 Long term (current) use of aspirin; Z79.4 Long term (current) use of insulin; Z79.899 Other long term (current) drug therapy

== ENCOUNTER 2017-12-16 12:40 | Emergency (ER) | payer BC ==
[~2017-12-16] VITALS: Ht 167.6 cm; Wt 92.7 kg
[~2017-12-16 12:40] MED LIST changes: +AMOX875T PO; +DOCU-94 PO
[2017-12-16 12:44] VITALS: TEMP 36.6
[2017-12-16 12:50] VITALS: O2SAT 94
--- NOTE | 2017-12-16 13:02 | EMERGENCY ROOM VISIT NOTE ---
History Report prepared by Fabrice: Gurmeet Cook Under the Supervision of: Dr. Luc Silva M.D. First contact with patient: 12:55 Chief Complaint: STROKE SYMPTOMS Stated Complaint: MS ATTACK OR POSSIBLE STROKE History of Present Illness The patient is a 57 year old female with a history of MS who presents to the Emergency Room with complaints of persistent stroke symptoms that started upon waking 7 hours ago. The patient states that she woke up with drooping on the left side of her face. Per the patient's , the patient's balance has been an issue this morning, and she has been dropping items with her left hand. The patient was unable to put her boot onto her right foot when getting out of bed this morning. She denies any vision problems or recent fevers. The patient says that sometimes she does get MS flare-ups, but the last one was a "long time ago". The patient does take an Aspirin daily but no other blood thinners. There has been no trauma. Source of History: patient, spouse/significant other, nursing staff Onset: Upon waking 7 hours ago Position: other (global) Symptom Intensity: balance off Quality: other (stroke symptoms) Timing: other (persistent) Associated Symptoms: + weakness, No fevers Note: Associated symptoms: Dropping items with left hand, balance off this morning. Denies vision problems. Review of Systems See HPI for pertinent positives & negatives. A total of 10 systems reviewed and were otherwise negative. Past Medical & Surgical Medical Problems: (1) Adjustment disorder with depressed mood (2) Benign hypertension (3) Chronic pain syndrome (4) Depressive Disorder Nec (5) DIAB SOUMYA WO COMPL, TYPE II OR UNSPEC TYPE, NOT UNCNTRLD (6) DM type 2 (diabetes mellitus, type 2) (7) Dyslipidemia (8) Dyslipidemia (9) History of fever (10) HTN (hypertension) (11) Iron deficiency anemia (12) Lumbar back pain (13) Metatarsal fracture (14) Migraine (15) Migraine (16) Multiple sclerosis (17) MULTIPLE SCLEROSIS (18) Obesity (BMI 30.0-34.9) (19) Peripheral neuropathic pain (20) Transient hypotension (21) Urinary symptom or sign Surgical Problems: (1) History of dental surgery (2) S/P insertion of spinal cord stimulator (3) S/P insertion of spinal cord stimulator Family History Diabetes mellitus FATHER GRANDFATHER FH: CAD (coronary artery disease) FATHER Hypertension MOTHER Social History Smoking Status: Never Smoker Alcohol Use: none Drug Use: none Marital Status: Housing Status: lives with significant other Current/Historical Medications Scheduled Aspirin (Aspirin), 81 MG PO DAILY@1600 Atorvastatin (Lipitor), 40 MG PO HS Baclofen (Lioresal), 20 MG PO HS Baclofen (Baclofen), 10 MG PO TID Diazepam (Valium), 5 MG PO HS Docusate Sodium (Colace), 1 CAP PO BID Gabapentin (Gabapentin), 1,600 MG PO HS Hctz/Lisinopril (Lisinopril/Hctz 10/12.5 Mg), 1 TAB PO HS Insulin Aspart (Novolog Flexpen), 1 DOSE SQ TIDM Insulin Glargine (Lantus Solostar), 25 UNITS SC QAM Insulin Glargine (Lantus Solostar), 45 UNITS SC QPM Metformin Hcl Er (Glucophage Er), 500 MG PO TID Mirabegron (Myrbetriq Er), 50 MG PO QD@1600 Multivitamin (Multivitamin), 1 TAB PO QPM Nortriptyline HCl (Nortriptyline HCl), 75 MG PO HS Venlafaxine Hcl (Effexor Extended Rel), 150 MG PO HS Venlafaxine Hcl (Effexor Extended Rel), 75 MG PO HS Scheduled PRN Oxycodone/Acetaminophen 7.5MG/325MG (Percocet 7.5MG/325MG), 1 TAB PO Q4 PRN for Pain Allergies Coded Allergies: Methylphenidate (Verified Allergy, Unknown, RASH, 12/16/17) Sumatriptan (Verified Adverse Reaction, Unknown, RAPID HEART RATE, 12/16/17) Physical Exam Vital Signs Date Time Temp Pulse Resp B/P (MAP) Pulse Ox O2 Delivery O2 Flow Rate FiO2 12/16/17 14:20 91 18 145/92 94 12/16/17 14:00 16 151/95 94 Room Air 12/16/17 13:45 89 21 148/89 93 Room Air 12/16/17 13:30 89 21 140/92 93 Room Air 12/16/17 13:25 86 16 144/88 93 Room Air 12/16/17 13:10 88 23 142/94 92 Room Air 12/16/17 12:53 95 12/16/17 12:52 91 23 152/95 95 Room Air 12/16/17 12:50 94 Room Air 12/16/17 12:44 36.6 100 16 148/93 94 Room Air Physical Exam GENERAL: Patient is in no acute distress. HEENT: No acute trauma, normocephalic atraumatic, mucous membranes moist, no nasal congestion, no scleral icterus. NECK: No stridor, no adenopathy, no meningismus, trachea is midline. LUNGS: Clear to auscultation bilaterally, no wheeze, no rhonchi, breath sounds equal. HEART: Without murmurs gallops or rubs, regular rate and rhythm. ABDOMEN: Soft, nontender, bowel sounds positive, no hernias, no peritonitis. EXTREMITIES: No cyanosis or edema, full range of motion of all the joints without pain or difficulty, no signs for acute trauma. NEUROLOGIC: Left facial droop and slight speech slur. Awake and alert, oriented x3. Both lower extremities are weak but equally weak, with some difficulty closing left eye. Upper extremities show no drift or cerebellar dysfunction. SKIN: No rash, no jaundice, no diaphoresis. Medical Decision & Procedures ER Provider Diagnostic Interpretation: CT results as stated below per my review and radiologist interpretation: HEAD CT NONCONTRAST CT DOSE: 537.48 mGy.cm HISTORY: Left-sided weakness. Stroke TECHNIQUE: Multiaxial CT images of the head were performed without the use of intravenous contrast. Automated exposure control was utilized for this study. A dose lowering technique was utilized adhering to the principles of ALARA. Comparison: None. Findings: The paranasal sinuses and mastoid air cells are clear. The calvarium and skull base are intact. Interval development of a right frontal intraparenchymal hematoma measuring 4.4 x 3.2 cm. There is mild surrounding vasogenic edema. There is mild mass effect along the right lateral ventricle. 2 mm of left midline shift. Impression: A 4.4 x 3.2 cm right frontal intraparenchymal hematoma resulting in 2 mm of left midline shift. The exact etiology is not identified on this study and therefore could be due to a hypertensive bleed, a cerebral aneurysm, amyloidosis, or less likely an underlying mass. Follow-up is recommended to ensure resolution. The spinous remaining discussed with Dr. Silva at 1:25 PM on 12/16/2017. Electronically signed by: Dangelo Sandoval M.D. 12/16/2017 1:31 PM Dictated Date/Time: 12/16/2017 1:22 PM Laboratory Results 12/16/17 13:05 Red Blood Count 4.18, Mean Corpuscular Volume 84.2, Mean Corpuscular Hemoglobin 27.8, Mean Corpuscular Hemoglobin Concent 33.0, Mean Platelet Volume 8.2, Neutrophils (%) (Auto) 57.8, Lymphocytes (%) (Auto) 34.6, Monocytes (%) (Auto) 4.8, Eosinophils (%) (Auto) 2.2, Basophils (%) (Auto) 0.5, Neutrophils # (Auto) 4.82, Lymphocytes # (Auto) 2.88, Monocytes # (Auto) 0.40, Eosinophils # (Auto) 0.18, Basophils # (Auto) 0.04 12/16/17 13:05 Test 12/16/17 13:05 12/16/17 13:12 White Blood Count 8.33 K/uL (4.8-10.8) Red Blood Count 4.18 M/uL (4.2-5.4) Hemoglobin 11.6 g/dL (12.0-16.0) Hematocrit 35.2 % (37-47) Mean Corpuscular Volume 84.2 fL (80-100) Mean Corpuscular Hemoglobin 27.8 pg (25-34) Mean Corpuscular Hemoglobin Concent 33.0 g/dl (32-36) Platelet Count 302 K/uL (130-400) Mean Platelet Volume 8.2 fL (7.4-10.4) Neutrophils (%) (Auto) 57.8 % Lymphocytes (%) (Auto) 34.6 % Monocytes (%) (Auto) 4.8 % Eosinophils (%) (Auto) 2.2 % Basophils (%) (Auto) 0.5 % Neutrophils # (Auto) 4.82 K/uL (1.4-6.5) Lymphocytes # (Auto) 2.88 K/uL (1.2-3.4) Monocytes # (Auto) 0.40 K/uL (0.11-0.59) Eosinophils # (Auto) 0.18 K/uL (0-0.5) Basophils # (Auto) 0.04 K/uL (0-0.2) RDW Standard Deviation 41.6 fL (36.4-46.3) RDW Coefficient of Variation 14.0 % (11.5-14.5) Immature Granulocyte % (Auto) 0.1 % Immature Granulocyte # (Auto) 0.01 K/uL (0.00-0.02) Prothrombin Time 10.5 SECONDS (9.0-12.0) Prothromb Time International Ratio 1.0 (0.9-1.1) Activated Partial Thromboplast Time 24.5 SECONDS (21.0-31.0) Partial Thromboplastin Ratio 0.9 Anion Gap 7.0 mmol/L (3-11) Est Creatinine Clear Calc Drug Dose 82.8 ml/min Estimated GFR () 86.9 Estimated GFR (Non- 75.0 BUN/Creatinine Ratio 11.5 (10-20) Calcium Level 9.3 mg/dl (8.5-10.1) Magnesium Level 2.0 mg/dl (1.8-2.4) Total Bilirubin 0.3 mg/dl (0.2-1) Direct Bilirubin < 0.1 mg/dl (0-0.2) Aspartate Amino Transf (AST/SGOT) 22 U/L (15-37) Alanine Aminotransferase (ALT/SGPT) 26 U/L (12-78) Alkaline Phosphatase 151 U/L (45-117) Total Creatine Kinase 103 U/L (26-192) Creatine Kinase MB 1.3 ng/ml (0.5-3.6) Creatine Kinase MB Ratio 1.3 (0-3.0) Troponin I < 0.015 ng/ml (0-0.045) Total Protein 8.0 gm/dl (6.4-8.2) Albumin 3.7 gm/dl (3.4-5.0) Thyroid Stimulating Hormone (TSH) 4.280 uIu/ml (0.300-4.500) Bedside Prothrombin Time INR 1.0 (0.9-1.1) Bedside Glucose 181 mg/dl (70-90) Laboratory results reviewed by me. ECG Per My Interpretation Indication: weakness Rate (beats per minute): 88 Rhythm: normal sinus Findings: other (old inferior infarct, no ST elevation, no PVCs) ED Course 1257: The patient was evaluated in room B1. A complete history and physical exam was performed. 1320: I reevaluated the patient and updater her and her . I told them the test results and recommended transfer to another facility. The patient and her are agreeable with the plan. The patient will be transferred to [facility] for further evaluation and treatment. 1341: I [facility] the [facility] Dr. Gar accepts the patient in transfer, and they are working on getting a helicopter. Medical Decision Differential diagnosis includes but is not limited to stroke, Trinidad's palsy, electrolyte imbalance, anemia, intracranial bleeding, infection, MS flare-up. There is no leukocytosis or worrisome anemia. No significant electrolyte abnormality, kidney failure or hepatitis. EKG shows a sinus rhythm, no acute ischemia. Cardiac enzyme testing 1 is not consistent with acute cardiac injury. Brain CT does show intracranial bleeding on the right with a slight midline shift. There was no coagulopathy. The patient appears to be in a euthyroid state. On exam, the patient has some slight speech slurring a left facial droop. She has some difficulty closing her left eye. I could not truly find any significant motor deficit to her extremities. The patient's blood pressure is adequate. She is awake and alert, she has an adequate airway. I did speak with the intensive care physician at [facility] in [place]. The patient is being sent to their facility via [employer] helicopter. The intracranial bleeding has led to her symptoms today , the cause for the intracranial bleeding is not clear. The patient is aware of her findings, her is aware as well. Case management has been involved. Medication Reconcilliation Current Medication List: was personally reviewed by wi Blood Pressure Screening Patient's blood pressure: Elevated blood pressure Referred to transferred facility. Consults Time Called: 1338 [facility] Returned Call: 1341 I discussed the patient with Dr. Rin [facility] intensive care unit - Dr. Gar accepts the patient in transfer, and they are working on getting a helicopter. Impression Primary Impression: Intracranial bleeding Additional Impression: Stroke-like symptoms Critical Care I have personally spent greater than 35 minutes of critical care time in the direct management of this patient. This includes bedside care, interpretation of diagnostic studies, and testing, discussion with consultants, patient, and family members, and other required patient management activities. This 35 minutes is in excess of all separately billable procedures. Scribe Attestation The scribe's documentation has been prepared under my direction and personally reviewed by me in its entirety. I confirm that the note above accurately reflects all work, treatment, procedures, and medical decision making performed by me. Departure Information Dispostion Transfer Acute Care Facility (to [facility]) Referrals Amelia Vazquez D.O. (PCP) Patient Instructions My [facility] Problem Qualifiers
[2017-12-16 13:07] VITALS: Ht 167.6 cm; Wt 92.7 kg
[2017-12-16 13:16] LABS: BASO % 0.5 %; BASO ABS # 0.04 K/uL (0-0.2); EOS % 2.2 %; EOS ABS # 0.18 K/uL (0-0.5); HEMATOCRIT 35.2 % (37-47); HEMOGLOBIN 11.6 g/dL (12.0-16.0); IG# 0.01 K/uL (0.00-0.02); LYMPH % 34.6 %; LYMPH ABS # 2.88 K/uL (1.2-3.4); MEAN CELL VOLUME 84.2 fL (80-100); MEAN CORPUSCULAR HEMOGLOBIN 27.8 pg (25-34); MEAN PLATELET VOLUME 8.2 fL (7.4-10.4); MONO % 4.8 %; NEUT % 57.8 %; NEUT ABS # 4.82 K/uL (1.4-6.5); PLATELET COUNT 302 K/uL (130-400); RED CELL DISTRIBUTION WIDTH SD 41.6 fL (36.4-46.3); WHITE BLOOD COUNT 8.33 K/uL (4.8-10.8)
[2017-12-16 13:27] LABS: PTT PATIENT 24.5 SECONDS (21.0-31.0)
--- NOTE | 2017-12-16 13:32 | DIAGNOSTIC IMAGING REPORT ---
HEAD CT NONCONTRAST CT DOSE: 537.48 mGy.cm HISTORY: Left-sided weakness. Stroke TECHNIQUE: Multiaxial CT images of the head were performed without the use of intravenous contrast. Automated exposure control was utilized for this study. A dose lowering technique was utilized adhering to the principles of ALARA. Comparison: None. Findings: The paranasal sinuses and mastoid air cells are clear. The calvarium and skull base are intact. Interval development of a right frontal intraparenchymal hematoma measuring 4.4 x 3.2 cm. There is mild surrounding vasogenic edema. There is mild mass effect along the right lateral ventricle. 2 mm of left midline shift. Impression: A 4.4 x 3.2 cm right frontal intraparenchymal hematoma resulting in 2 mm of left midline shift. The exact etiology is not identified on this study and therefore could be due to a hypertensive bleed, a cerebral aneurysm, amyloidosis, or less likely an underlying mass. Follow-up is recommended to ensure resolution. The spinous remaining discussed with Dr. Silva at 1:25 PM on 12/16/2017. Electronically signed by: Dangelo Sandoval M.D. 12/16/2017 1:31 PM Dictated Date/Time: 12/16/2017 1:22 PM
[2017-12-16 13:35] LABS: ALBUMIN 3.7 gm/dl (3.4-5.0); BLOOD UREA NITROGEN 10 mg/dl (7-18); CALCIUM 9.3 mg/dl (8.5-10.1); CARBON DIOXIDE 28 mmol/L (21-32); CREATININE 0.86 mg/dl (0.60-1.20); GLUCOSE 182 mg/dl (70-99); POTASSIUM 3.1 mmol/L (3.5-5.1); SODIUM 139 mmol/L (136-145)
[2017-12-16 13:45] LABS: ALKALINE PHOSPHATASE 151 U/L (45-117); ALT/SGPT 26 U/L (12-78); AST/SGOT 22 U/L (15-37); CKMB 1.3 ng/ml (0.5-3.6)
[2017-12-16 14:20] VITALS: BP 145/92; PULSE 91; O2SAT 94
== END 2017-12-16 14:20 | disposition short-term general hospital (02) ==
LOC: C.EDB 12:41
DX: I62.9 Nontraumatic intracranial hemorrhage, unspecified (principal); R47.81 Slurred speech; R29.810 Facial weakness; I10 Essential (primary) hypertension; F32.9 Major depressive disorder, single episode, unspecified; G89.4 Chronic pain syndrome; E11.9 Type 2 diabetes mellitus without complications; E78.5 Hyperlipidemia, unspecified; G43.909 Migraine, unspecified, not intractable, without status migrainosus; G35 Multiple sclerosis; E66.9 Obesity, unspecified; Z83.3 Family history of diabetes mellitus; Z82.49 Family history of ischemic heart disease and other diseases of the circulatory system; Z79.82 Long term (current) use of aspirin; Z79.4 Long term (current) use of insulin; Z79.899 Other long term (current) drug therapy; Z88.8 Allergy status to other drugs, medicaments and biological substances

== ENCOUNTER 2018-01-31 15:31 | Observation (INO) | payer BC ==
[~2018-01-31] VITALS: Ht 167.6 cm; Wt 84.6 kg
[~2018-01-31 15:31] MED LIST changes: -AMOX875T PO; -LRS10 PO; -METF500T5 PO; -MIRA1TAB3 PO; -NRN800 PO; -NRT75 PO
[2018-01-31] MEDS ORDERED: METF500T5 PO (15:43)
[2018-01-31] MEDS ORDERED: SODIUM CHLORIDE 0.9% 1000ML 1,000 ML IV STA (16:13)
--- NOTE | 2018-01-31 16:51 | DIAGNOSTIC IMAGING REPORT ---
CHEST ONE VIEW PORTABLE CLINICAL HISTORY: Weakness COMPARISON STUDY: 08/03/2017 FINDINGS: The cardiac and mediastinal contours remain stable. There are low lung volumes with hypoventilatory changes the lung bases. There is no lobar consolidation. There are no pleural effusions. A spinal electrode is visualized.[ IMPRESSION: Low lung volumes with hypoventilatory changes at the lung bases. No evidence of lobar consolidation Electronically signed by: Dominic Henning M.D. 01/31/2018 4:50 PM Dictated Date/Time: 01/31/2018 4:49 PM
[2018-01-31 17:13] LABS: BASO % 0.3 %; BASO ABS # 0.03 K/uL (0-0.2); EOS % 2.3 %; EOS ABS # 0.25 K/uL (0-0.5); HEMATOCRIT 39.9 % (37-47); HEMOGLOBIN 12.6 g/dL (12.0-16.0); IG# 0.02 K/uL (0.00-0.02); LYMPH ABS # 3.39 K/uL (1.2-3.4); MEAN CELL VOLUME 86.9 fL (80-100); MEAN CORPUSCULAR HEMOGLOBIN 27.5 pg (25-34); MEAN CORPUSCULAR HGB CONC 31.6 g/dl (32-36); MEAN PLATELET VOLUME 8.1 fL (7.4-10.4); MONO % 6.6 %; MONO ABS # 0.72 K/uL (0.11-0.59); NEUT % 59.6 %; NEUT ABS # 6.53 K/uL (1.4-6.5); PLATELET COUNT 331 K/uL (130-400); RED CELL DISTRIBUTION WIDTH CV 14.2 % (11.5-14.5); RED CELL DISTRIBUTION WIDTH SD 44.9 fL (36.4-46.3); WHITE BLOOD COUNT 10.94 K/uL (4.8-10.8)
[2018-01-31] MEDS ORDERED: DIVA250T4 PO (17:14)
[2018-01-31] MEDS ORDERED: ZOLP5TAB6 PO (17:14)
[2018-01-31] MEDS ORDERED: ATOR-26 PO (17:14)
[2018-01-31] MEDS ORDERED: LISI-461 PO (17:14)
[2018-01-31] MEDS ORDERED: ASPI81TA28 PO (17:14)
[2018-01-31] MEDS ORDERED: POTA-639 PO (17:14)
[2018-01-31] MEDS ORDERED: HYDR12.56 PO (17:14)
[2018-01-31 17:23] LABS: PTT PATIENT 24.1 SECONDS (21.0-31.0)
[2018-01-31] MEDS ORDERED: ACET-1311 PO (17:23)
--- NOTE | 2018-01-31 17:32 | DIAGNOSTIC IMAGING REPORT ---
CT HEAD WITHOUT CONTRAST (CT) CLINICAL HISTORY: Acute change in mental status. Weakness. COMPARISON STUDY: 12/16/2017 TECHNIQUE: Axial CT of the brain is performed from the vertex to the skull base. IV contrast was not administered for this examination. A dose lowering technique was utilized adhering to the principles of ALARA. CT DOSE: 614.27 mGy.cm FINDINGS: There are expected evolutionary changes of the previously identified right frontal hemorrhage. There is right frontal encephalomalacia. No acute hemorrhage is visualized. There is no significant midline shift. There is no CT evidence of acute cortical infarction. Post craniotomy changes are present on the right. There is no evidence of pathologic ventricular dilatation. There is no evidence of acute sinusitis IMPRESSION: 1. Interval right frontal craniotomy with apparent evacuation of the right frontal hemorrhage 2. Right frontal encephalomalacia 3. No evidence of hydrocephalus 4. No evidence of acute hemorrhage Electronically signed by: Dominic Henning M.D. 01/31/2018 5:31 PM Dictated Date/Time: 01/31/2018 5:28 PM
[2018-01-31 17:36] LABS: ALBUMIN 4.1 gm/dl (3.4-5.0); ALT/SGPT 24 U/L (12-78); AST/SGOT 11 U/L (15-37); BLOOD UREA NITROGEN 12 mg/dl (7-18); CALCIUM 9.8 mg/dl (8.5-10.1); CARBON DIOXIDE 29 mmol/L (21-32); CREATININE 0.87 mg/dl (0.60-1.20); GLUCOSE 68 mg/dl (70-99); LIPASE 168 U/L (73-393); POTASSIUM 3.5 mmol/L (3.5-5.1); SODIUM 141 mmol/L (136-145)
[2018-01-31 17:44] LABS: ALKALINE PHOSPHATASE 103 U/L (45-117); CKMB 0.8 ng/ml (0.5-3.6)
[2018-01-31] MEDS ORDERED: NRT75 PO (18:02)
[2018-01-31] MEDS ORDERED: LRS10 PO (18:02)
[2018-01-31] MEDS ORDERED: MIRA1TAB3 PO (18:02)
[2018-01-31] MEDS ORDERED: NRN800 PO (18:02)
[2018-01-31] MEDS ORDERED: CEFTRIAXONE SOD INJ 1 GM ADDVIAL IV STA (21:15)
[2018-01-31] MEDS ORDERED: DEXTROSE 50% 50 ML SYR IV ONE (21:45)
[2018-01-31 22:33] VITALS: Ht 167.6 cm; Wt 84.6 kg
[2018-01-31] MEDS ORDERED: GABAPENTIN 800 MG TAB PO ONE (22:56)
[2018-01-31] MEDS ORDERED: MAGNESIUM SULFATE 1GM / D5W 100 ML IV STA (22:56)
[2018-01-31] MEDS ORDERED: PROCHLORPERAZINE INJ 5 MG in SYRINGE 4 ML IV PRN (23:00)
[2018-01-31] MEDS ORDERED: GLUCAGON FOR INJ 1 MG VIAL SQ PRN (23:00)
[2018-01-31] MEDS ORDERED: GLUCOSE 10 TABS/TUBE PO PRN (23:00)
[2018-01-31] MEDS ORDERED: ZOLPIDEM TARTRATE 5 MG TAB PO PRN (23:00)
[2018-01-31] MEDS ORDERED: ACETAMINOPHEN 325 MG TAB PO PRN (23:00)
[2018-01-31] MEDS ORDERED: DEXTROSE 50% 50 ML SYR IV PRN (23:00)
[2018-01-31] MEDS ORDERED: LACTATED RINGER'S 1000ML 1,000 ML IV ONE (23:00)
[2018-01-31] MEDS ORDERED: MoRPHine SULFATE 4 MG/ML 1 ML CARP\\VIAL IV PRN (23:00)
[2018-01-31] MEDS ORDERED: GLUCOSE 40% GEL 15 GM TUBE PO PRN (23:00)
[2018-01-31] MEDS ORDERED: OXYCODONE/ACETAMINOPHEN 5-325 TAB PO PRN (23:00)
--- NOTE | 2018-01-31 23:13 | EMERGENCY ROOM VISIT NOTE ---
History Report prepared by Fabrice: Pretty Curtis Under the Supervision of: Dr. Clif Reed M.D. First contact with patient: 16:05 Chief Complaint: WEAKNESS Stated Complaint: POSSIBLE STROKE, WEAKNESS, S/P STROKE IN DECEMBER Nursing Triage Summary: Patient had a stroke on December 16. Patient has been doing therapy but was at therapy today and state she was much weaker than normal. C/O generalized weakness all over. Patient states she has been able to walk with a cane but is now having difficulty walking with a walker. Patient had fallen this AM. Denies injury, denies pain. History of Present Illness The patient is a 57 year old female who presents to the Emergency Room with complaints of worsening generalized weakness beginning Tuesday, three days ago. The patient states she fell last night with her walker. She denies any injuries from her fall. The patient had a stroke on the 16 of December. She reports since her stroke she has been able to walk with a walker without difficulty. Per , the patient was unable to talk when she had her last stroke. The patient is on baby aspirin. The patient has a history of MS and diabetes. The patient's states she was given a "clean bill of health after our visit in [place] this past Tuesday". At baseline, the patient reports some lower extremity weakness and she has a left sided facial droop. She reports prior to her stroke she had right sided weakness from her MS. Since her stroke she has left sided weakness. Pt denies LOC, headache, fevers, chills, diaphoresis, visual changes, neck pain, chest pain, breathing difficulties, nausea, vomiting , abdominal pain, back pain, melena, hematochezia, urinary symptoms, numbness, lymphadenopathy, rash, or other complaints. Source of History: patient Onset: three days ago Position: other (generalized) Quality: other (weakness) Timing: constant Associated Symptoms: + weakness Review of Systems See HPI for pertinent positives and negatives. A total of ten systems were reviewed and were otherwise negative. Past Medical & Surgical Medical Problems: (1) Adjustment disorder with depressed mood (2) Benign hypertension (3) Chronic pain syndrome (4) Depressive Disorder Nec (5) DIAB SOUMYA WO COMPL, TYPE II OR UNSPEC TYPE, NOT UNCNTRLD (6) DM type 2 (diabetes mellitus, type 2) (7) Dyslipidemia (8) Dyslipidemia (9) History of fever (10) HTN (hypertension) (11) Iron deficiency anemia (12) Lumbar back pain (13) Metatarsal fracture (14) Migraine (15) Migraine (16) Multiple sclerosis (17) MULTIPLE SCLEROSIS (18) Obesity (BMI 30.0-34.9) (19) Peripheral neuropathic pain (20) Transient hypotension (21) Urinary symptom or sign (22) Weakness Surgical Problems: (1) History of dental surgery (2) S/P insertion of spinal cord stimulator (3) S/P insertion of spinal cord stimulator Family History Diabetes mellitus FATHER GRANDFATHER FH: CAD (coronary artery disease) FATHER Hypertension MOTHER Social History Smoking Status: Never Smoker Alcohol Use: none Drug Use: none Marital Status: Housing Status: lives with significant other Current/Historical Medications Scheduled Aspirin (Aspirin Ec), 81 MG PO DAILY Atorvastatin (Lipitor), 80 MG PO HS Baclofen (Lioresal), 20 MG PO HS Baclofen (Baclofen), 10 MG PO TID Divalproex Sodium (Depakote Delay Rel), 500 MG PO BID Gabapentin (Gabapentin), 1,600 MG PO HS Hydrochlorothiazide (Hctz), 12.5 MG PO DAILY Insulin Aspart (Novolog Flexpen), 1 DOSE SQ TIDM Insulin Glargine (Lantus Solostar), 25 UNITS SC AMPM Lisinopril (Lisinopril), 10 MG PO DAILY Metformin Hcl Er (Glucophage Er), 500 MG PO TID Mirabegron (Myrbetriq Er), 50 MG PO QD@1600 Nortriptyline HCl (Nortriptyline HCl), 75 MG PO HS Potassium Ext Rel (Klor-Con), 20 MEQ PO DAILY Venlafaxine Hcl (Effexor Extended Rel), 150 MG PO HS Venlafaxine Hcl (Effexor Extended Rel), 75 MG PO HS Zolpidem Tartrate (Zolpidem Tartrate), 5 MG PO HS Scheduled PRN Acetaminophen (Tylenol), 650 MG PO Q4H PRN for Pain Allergies Coded Allergies: Methylphenidate (Verified Allergy, Unknown, RASH, 12/16/17) Sumatriptan (Verified Adverse Reaction, Unknown, RAPID HEART RATE, 12/16/17) Physical Exam Vital Signs Date Time Temp Pulse Resp B/P (MAP) Pulse Ox O2 Delivery O2 Flow Rate FiO2 4/24/18 22:33 Room Air 01/31/18 22:08 86 01/31/18 22:00 85 127/69 01/31/18 21:00 88 17 135/66 94 Room Air 01/31/18 20:02 90 18 133/75 95 Room Air 01/31/18 19:17 86 16 146/74 96 Room Air 01/31/18 18:06 82 01/31/18 17:32 86 14 123/72 95 Room Air 01/31/18 17:31 95 Room Air 01/31/18 15:33 36.6 92 18 128/79 95 Room Air Physical Exam GENERAL: Awake, alert, well-appearing, in no distress HENT: Normocephalic, atraumatic. Oropharynx unremarkable. EYES: Normal conjunctiva. Sclera non-icteric. NECK: Supple. No nuchal rigidity. FROM. No masses. RESPIRATORY: Clear to auscultation. No wheezes. No rales. Normal respiratory effort. CARDIAC: Normal rate. Normal rhythm. No murmurs. No rubs. Extremities warm and well perfused. Pulses equal. No JVD. GI: Soft, non-distended. No tenderness to palpation. No rebound or guarding. No masses. RECTAL: Deferred. MUSCULOSKELETAL: Atraumatic. Chest examination reveals no tenderness. The back is kyphotic. There is no CVA tenderness to palpation. No joint edema. LOWER EXTREMITIES: 3.5/5 strength on the left lower extremity, 4/5 right lower extremity. Calves are equal size bilaterally and non-tender. No edema. No discoloration. NEURO: Left sided facial droop at baseline per patient. Normal sensorium. Speech is normal. No other sensory or focal deficits noted. SKIN: No rash or jaundice noted. Medical Decision & Procedures ER Provider Diagnostic Interpretation: Radiology results as stated below per my review and radiologist interpretation: CHEST ONE VIEW PORTABLE FINDINGS: The cardiac and mediastinal contours remain stable. There are low lung volumes with hypoventilatory changes the lung bases. There is no lobar consolidation. There are no pleural effusions. A spinal electrode is visualized.[ IMPRESSION: Low lung volumes with hypoventilatory changes at the lung bases. No evidence of lobar consolidation Electronically signed by: Dominic Henning M.D. CT HEAD WITHOUT CONTRAST (CT) FINDINGS: There are expected evolutionary changes of the previously identified right frontal hemorrhage. There is right frontal encephalomalacia. No acute hemorrhage is visualized. There is no significant midline shift. There is no CT evidence of acute cortical infarction. Post craniotomy changes are present on the right. There is no evidence of pathologic ventricular dilatation. There is no evidence of acute sinusitis IMPRESSION: 1. Interval right frontal craniotomy with apparent evacuation of the right frontal hemorrhage 2. Right frontal encephalomalacia 3. No evidence of hydrocephalus 4. No evidence of acute hemorrhage Electronically signed by: Dominic Henning M.D. Laboratory Results 01/31/18 17:01 Red Blood Count 4.59, Mean Corpuscular Volume 86.9, Mean Corpuscular Hemoglobin 27.5, Mean Corpuscular Hemoglobin Concent 31.6, Mean Platelet Volume 8.1, Neutrophils (%) (Auto) 59.6, Lymphocytes (%) (Auto) 31.0, Monocytes (%) (Auto) 6.6, Eosinophils (%) (Auto) 2.3, Basophils (%) (Auto) 0.3, Neutrophils # (Auto) 6.53, Lymphocytes # (Auto) 3.39, Monocytes # (Auto) 0.72, Eosinophils # (Auto) 0.25, Basophils # (Auto) 0.03 01/31/18 17:01 Test 01/31/18 17:01 01/31/18 17:04 01/31/18 20:00 01/31/18 22:12 White Blood Count 10.94 K/uL (4.8-10.8) Red Blood Count 4.59 M/uL (4.2-5.4) Hemoglobin 12.6 g/dL (12.0-16.0) Hematocrit 39.9 % (37-47) Mean Corpuscular Volume 86.9 fL (80-100) Mean Corpuscular Hemoglobin 27.5 pg (25-34) Mean Corpuscular Hemoglobin Concent 31.6 g/dl (32-36) Platelet Count 331 K/uL (130-400) Mean Platelet Volume 8.1 fL (7.4-10.4) Neutrophils (%) (Auto) 59.6 % Lymphocytes (%) (Auto) 31.0 % Monocytes (%) (Auto) 6.6 % Eosinophils (%) (Auto) 2.3 % Basophils (%) (Auto) 0.3 % Neutrophils # (Auto) 6.53 K/uL (1.4-6.5) Lymphocytes # (Auto) 3.39 K/uL (1.2-3.4) Monocytes # (Auto) 0.72 K/uL (0.11-0.59) Eosinophils # (Auto) 0.25 K/uL (0-0.5) Basophils # (Auto) 0.03 K/uL (0-0.2) RDW Standard Deviation 44.9 fL (36.4-46.3) RDW Coefficient of Variation 14.2 % (11.5-14.5) Immature Granulocyte % (Auto) 0.2 % Immature Granulocyte # (Auto) 0.02 K/uL (0.00-0.02) Prothrombin Time 10.0 SECONDS (9.0-12.0) Prothromb Time International Ratio 1.0 (0.9-1.1) Activated Partial Thromboplast Time 24.1 SECONDS (21.0-31.0) Partial Thromboplastin Ratio 0.9 Anion Gap 7.0 mmol/L (3-11) Est Creatinine Clear Calc Drug Dose 78.5 ml/min Estimated GFR () 85.7 Estimated GFR (Non- 74.0 BUN/Creatinine Ratio 13.3 (10-20) Calcium Level 9.8 mg/dl (8.5-10.1) Total Bilirubin 0.5 mg/dl (0.2-1) Direct Bilirubin 0.1 mg/dl (0-0.2) Aspartate Amino Transf (AST/SGOT) 11 U/L (15-37) Alanine Aminotransferase (ALT/SGPT) 24 U/L (12-78) Alkaline Phosphatase 103 U/L (45-117) Total Creatine Kinase 69 U/L (26-192) Creatine Kinase MB 0.8 ng/ml (0.5-3.6) Creatine Kinase MB Ratio 1.2 (0-3.0) Troponin I < 0.015 ng/ml (0-0.045) Total Protein 9.0 gm/dl (6.4-8.2) Albumin 4.1 gm/dl (3.4-5.0) Lipase 168 U/L (73-393) Thyroid Stimulating Hormone (TSH) 3.690 uIu/ml (0.300-4.500) Urine Color YELLOW Urine Appearance CLOUDY (CLEAR) Urine pH 5.5 (4.5-7.5) Urine Specific [place] 1.024 (1.000-1.030) Urine Protein NEG (NEG) Urine Glucose (UA) NEG (NEG) Urine Ketones 1+ (NEG) Urine Occult Blood NEG (NEG) Urine Nitrite NEG (NEG) Urine Bilirubin NEG (NEG) Urine Urobilinogen NEG (NEG) Urine Leukocyte Esterase MODERATE (NEG) Urine WBC (Auto) >30 /hpf (0-5) Urine RBC (Auto) 0-4 /hpf (0-4) Urine Hyaline Casts (Auto) 0 /lpf (0-5) Urine Epithelial Cells (Auto) >30 /lpf (0-5) Urine Bacteria (Auto) 2+ (NEG) Urine Pathogenic Casts /lpf (0) Urine Mucus PRESENT (NONE PRSENT) Magnesium Level 1.9 mg/dl (1.8-2.4) Valproic Acid (Depakene) Level 71 mcg/ml (50-100) Laboratory results reviewed by me Medications Administered Medications (Trade) Dose Ordered Sig/Margaret Route Start Time Stop Time Status Last Admin Dose Admin Sodium Chloride 1,000 ml @ 125 mls/hr Q8H STAT IV 01/31/18 16:13 02/01/18 00:12 01/31/18 16:13 125 MLS/HR Ceftriaxone Sodium (Rocephin Inj) 1 gm NOW STAT IV 01/31/18 21:15 01/31/18 21:17 DC 01/31/18 21:20 1 GM ECG Per My Interpretation Indication: weakness Rate (beats per minute): 85 Rhythm: normal sinus Findings: Q waves (Inferior), no acute ischemic change, other (LVH) ED Course 1611: The patient was evaluated in room C2B. A complete history and physical exam was performed. 1612: Ordered Sodium Chloride 1000 ml @ 125 mls/hr IV. 2042: I updated the patient and her on her test results. 2114: Ordered Rocephin Inj 1 gm IV. 2123: Discussed the patient's case with Dr. Cain. The patient will be evaluated for further treatment and disposition. Medical Decision Prior records/ancillary studies reviewed and summarized above. Nursing notes reviewed and agree them. Additional history obtained from family. The patient's history was concerning for weakness. Differential diagnosis: Etiologies such as CVA, MS exacerbation, metabolic, infection, hypo/ hyperglycemia, electrolyte abnormalities, cardiac sources, intracerebral event, toxicologic, neurologic, as well as others were entertained. Physical examination: As above. Nonfocal, generally weak, mostly noted in the lower extremity. ER treatment provided: IV Lock Normal saline hydration IV Rocephin On reassessment the patient felt better. Diagnostics interpretation by me: ECG: Unremarkable The labs revealed a mild leukocytosis on CBC. Chemistry panel unremarkable. Urinalysis concerning for infection. Imaging studies: Chest x-ray and head CT as above. Consultation: A consultation was placed with the hospitalist. The case was discussed and diagnostics were reviewed. The patient was evaluated in the ER for further treatment. Medication Reconcilliation Current Medication List: was personally reviewed by me Blood Pressure Screening Patient's blood pressure: Elevated blood pressure Blood pressure disposition: Referred to PCP (referred to hospitalist) Consults Time Called: 2119 Consulting Physician: Dr. Cain Returned Call: 2123 Discussed the patient's case with Dr. Cain. The patient will be evaluated for further treatment and disposition. Impression Primary Impression: UTI (urinary tract infection) Additional Impression: Weakness Scribe Attestation The scribe's documentation has been prepared under my direction and personally reviewed by me in its entirety. I confirm that the note above accurately reflects all work, treatment, procedures, and medical decision making performed by me. Departure Information Dispostion Being Evaluated By Hospitalist Referrals Amelia Vazquez D.O. (PCP) Patient Instructions My [facility] Problem Qualifiers
[2018-01-31 23:37] VITALS: O2SAT 91
[2018-02-01 00:05] VITALS: BP 122/74; PULSE 83; TEMP 36.4; O2SAT 94
[2018-02-01] MEDS ORDERED: IV FLUIDS COMPLETED PRN (00:15)
[2018-02-01] MEDS ORDERED: INSULIN ASPART 100 UNITS/ML 3 ML PEN SC ONE (00:30)
[2018-02-01] MEDS ORDERED: POTASSIUM CHLORIDE 10 MEQ TABCR PO ONE (00:30)
--- NOTE | 2018-02-01 00:46 | HISTORY & PHYSICAL EXAMINATION ---
DATE OF ADMISSION: 01/31/2018 PRIMARY CARE DOCTOR: Dr. Vazquez. CHIEF COMPLAINT: Generalized weakness. HISTORY OF PRESENT ILLNESS: History obtained from patient and records. Medical history is significant for history of hemorrhagic CVA, hypertension, hyperlipidemia, DM2 insulin requiring, history of MS. Recent confinement [facility] last from 12/16/2017 to 12/22/2017 for a spontaneous right frontal intraparenchymal hematoma sp surgery. Postop discharged on Depakote for probable seizure prophylaxis. Underwent rehab at [facility] for a few weeks. Has been home since last month. The last 2 days, patient not feeling well, weak. No chest pain, no shortness of breath. She had fallen this morning while going to bathroom. At physical therapy, more generalized weakness noted. Denies bladder discomfort. No fever, no chills. Patient sent to the Emergency Room. She was given Ceftriaxone for possible UTI. History of sepsis secondary to urinary tract infections in the past without any bladder symptoms as per patient. MEDICAL HISTORY: As above. SURGERIES: Craniotomy, dental surgery. HOME MEDICATIONS: Include aspirin (no concerns from [facility] discharge as per patient), nortriptyline, Klor-Con, Effexor, zolpidem, gabapentin, NovoLog, Lantus, lisinopril, Glucophage, aspirin, Lipitor, Tylenol, baclofen, Depakote. ALLERGIES: METHYLPHENIDATE, SUMATRIPTAN. FAMILY HISTORY: Heart disease, diabetes. PERSONAL AND SOCIAL HISTORY: Nonsmoker, no ETOH intake. 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 REVIEW OF SYSTEMS: As per HPI, all 10 systems were reviewed, all others negative. PHYSICAL EXAMINATION: VITAL SIGNS: Blood pressure was noted to be 130/70, pulse rate 90, RR 18, temperature 36.6, sats 94 on room air. GENERAL: Noted to be obese, slightly uncomfortable, no respiratory distress. SKIN: Normal color, warm. HEENT: [place] palpebral conjunctivae. No ptosis. Dry mucosa. facial asymmetry. NECK: Short neck. Supple CHEST: CTA, no tenderness. HEART: Regular rate and rhythm, no murmur. ABDOMEN: Soft, nondistended, nontender. EXTREMITIES: No edema. No gross deformities. No LE tenderness. NEUROLOGIC: Coherent, left-sided facial asymmetry. Equal MMTs, about 4/5. Gait and stance not assessed. LABORATORY DATA: Hemoglobin was noted to be 12.6, white cell 10, platelets noted to be 331. Sodium noted to be 141, potassium 3.8 chloride 105, CO2 of 19, creatinine 1, and glucose 68. Valproic acid 71. CT head showed interval right frontal craniotomy for right frontal hemorrhage, right frontal encephalomalacia. Chest x-ray, low lung volumes. UA, wbc est, epithelial cells, ketones. ASSESSMENT: 1. Generalized weakness, falling Clinical dehydration with note of ketonuria possible complicated urinary tract infection hx neurogenic bladder as per records no sepsis. 2. Hypertension, stable. 3. DM2, insulin requiring. Well controlled as of recent HgA1c of 7 last 2016 Hypoglycemic episode noted at the ER. 4. Recent ICH 5. History of multiple sclerosis 6. Diabetic foot wound, right Slow healing as per patient Patient follows with Podiatry outpatient. PLAN: Observation GMF IV fluids. Hold home diuretics for now. Follow urine cultures, IV ceftriaxone for now. PT, OT eval. Social service RE discharge planning decrease basal insulin dose given hypoglycemia. ISS BG goal 140-180. Patient due for HgA1c recheck. DVT prophylaxis, SCDs RE recent ICH Full code. Patient's requesting for updates from providers. Mr. Tripp Ocampo at [phone]. [facility]
[2018-02-01 06:09] LABS: BASO % 0.2 %; BASO ABS # 0.02 K/uL (0-0.2); EOS % 2.6 %; EOS ABS # 0.21 K/uL (0-0.5); HEMATOCRIT 33.3 % (37-47); HEMOGLOBIN 10.6 g/dL (12.0-16.0); IG# 0.01 K/uL (0.00-0.02); LYMPH % 44.4 %; LYMPH ABS # 3.63 K/uL (1.2-3.4); MEAN CELL VOLUME 86.5 fL (80-100); MEAN CORPUSCULAR HEMOGLOBIN 27.5 pg (25-34); MEAN CORPUSCULAR HGB CONC 31.8 g/dl (32-36); MEAN PLATELET VOLUME 8.2 fL (7.4-10.4); MONO % 6.5 %; MONO ABS # 0.53 K/uL (0.11-0.59); NEUT % 46.2 %; NEUT ABS # 3.77 K/uL (1.4-6.5); PLATELET COUNT 300 K/uL (130-400); RED CELL DISTRIBUTION WIDTH CV 14.2 % (11.5-14.5); RED CELL DISTRIBUTION WIDTH SD 44.9 fL (36.4-46.3); WHITE BLOOD COUNT 8.17 K/uL (4.8-10.8)
[2018-02-01 06:38] LABS: CALCIUM 8.8 mg/dl (8.5-10.1); CREATININE 0.72 mg/dl (0.60-1.20); POTASSIUM 3.5 mmol/L (3.5-5.1)
[2018-02-01 06:49] LABS: HEMOGLOBIN A1C 6.1 % (4.5-5.6)
[2018-02-01 07:16] VITALS: BP 126/77; PULSE 79; TEMP 36.6; O2SAT 93
[2018-02-01] MEDS: INSULIN ASPART 100 UNITS/ML 3 ML PEN SC SCH ×2 (08:23→12:11)
[2018-02-01] MEDS: BACLOFEN 10 MG TAB PO SCH ×2 (08:25→13:28)
[2018-02-01] MEDS ORDERED: LISINOPRIL 10 MG TAB PO SCH (09:00)
[2018-02-01] MEDS ORDERED: ASPIRIN 81 MG ECTAB PO SCH (09:00)
[2018-02-01] MEDS ORDERED: DIVALPROEX SODIUM 500 MG DELAY RELEASE TAB PO SCH (09:00)
[2018-02-01] MEDS ORDERED: INSULIN GLARGINE SOLOSTAR 100 UNITS/ML 3 ML PEN SC SCH ×2 (09:00)
--- NOTE | 2018-02-01 14:25 | Progress Note ---
Subjective Date of Service: Feb 01, 2018. Subjective Pt evaluation today including: conversation w/ patient, physical exam, lab review, review of studies, review of inpatient medication list Saw/examined the patient in room 254 She's doing well, worked well with both PT and OT states she no longer feels weak and is eager to go home Denies nausea/vomiting/diarrhea Problem List Medical Problems: (1) Benign hypertension Status: Chronic (2) Bilateral arm pain Status: Acute (3) Chronic pain syndrome Status: Chronic (4) Depressive Disorder Nec Status: Chronic (5) DIAB SOUMYA WO COMPL, TYPE II OR UNSPEC TYPE, NOT UNCNTRLD Status: Chronic (6) Dyslipidemia Status: Chronic (7) Intracranial bleeding Status: Acute (8) Migraine Status: Chronic (9) MULTIPLE SCLEROSIS Status: Chronic (10) Peripheral neuropathic pain Status: Chronic (11) Stroke-like symptoms Status: Acute (12) UTI (urinary tract infection) Status: Acute Review of Systems Constitutional: + weakness, No fever, No chills Respiratory: No cough, No sputum, No shortness of breath Abdomen: No pain, No nausea, No vomiting, No diarrhea, No constipation, No GI bleeding Female : No dysuria, No urinary frequency, No hematuria, No incontinence Neurologic: + balance problems (improving) Medications Current Inpatient Medications Medications (Trade) Dose Ordered Sig/Margaret Route Start Time Stop Time Status Last Admin Dose Admin Acetaminophen (Tylenol Tab) 650 mg Q4H PRN PO 01/31/18 23:00 03/02/18 22:59 Insulin Aspart (novoLOG ASPART) SLIDING SCALE If C... ACHS SC 02/01/18 06:30 03/03/18 06:59 Glucose (Glucose 40% Gel) 15-30 GRAMS 15 GRAMS... UD PRN PO 01/31/18 23:00 03/02/18 22:59 Glucose (Glucose Chew Tab) 4-8 Tablets 4 Tabl... UD PRN PO 01/31/18 23:00 03/02/18 22:59 Dextrose (Dextrose 50% 50ML Syringe) 25-50ML OF 50% DW IV FOR... UD PRN IV 01/31/18 23:00 03/02/18 22:59 Glucagon (Glucagon Inj) 1 mg UD PRN SQ 01/31/18 23:00 03/02/18 22:59 Prochlorperazine Edisylate 5 mg/ Syringe 5 ml @ 5 mls/min Q6H PRN IV 01/31/18 23:00 03/02/18 22:59 Morphine Sulfate (MoRPHine SULFATE INJ) 4 mg Q3H PRN IV 01/31/18 23:00 02/14/18 22:59 Atorvastatin Calcium (Lipitor Tab) 80 mg HS PO 02/01/18 21:00 03/03/18 20:59 Baclofen (Lioresal Tab) 10 mg TID PO 02/01/18 09:00 03/03/18 08:59 02/01/18 13:28 10 MG Baclofen (Lioresal Tab) 20 mg HS PO 02/01/18 21:00 03/03/18 20:59 Divalproex Sodium (Depakote Delay Rel Tab) 500 mg BID PO 02/01/18 09:00 03/03/18 08:59 02/01/18 08:24 500 MG Gabapentin (Neurontin Tab) 1,600 mg HS PO 02/01/18 21:00 03/03/18 20:59 Lisinopril (Zestril Tab) 10 mg DAILY PO 02/01/18 09:00 03/03/18 08:59 02/01/18 08:25 10 MG Mirabegron (Myrbetriq Er) 50 mg DAILY@1600 PO 02/01/18 16:00 03/03/18 15:59 Venlafaxine HCl (effeXOR EXTENDED REL CAP) 75 mg HS PO 02/01/18 21:00 03/03/18 20:59 Venlafaxine HCl (effeXOR EXTENDED REL CAP) 150 mg HS PO 02/01/18 21:00 03/03/18 20:59 Zolpidem Tartrate (Ambien Tab) 5 mg HS PRN PO 01/31/18 23:00 03/02/18 22:59 Nortriptyline HCl (Pamelor Cap) 75 mg HS PO 02/01/18 21:00 03/03/18 20:59 Oxycodone/ Acetaminophen (Percocet 5-325mg Tab) 1 tab Q4H PRN PO 01/31/18 23:00 02/14/18 22:59 Ceftriaxone Sodium 1 gm/ Dextrose 50 ml @ 100 mls/hr Q24H IV 02/01/18 22:00 02/10/18 21:59 Aspirin (Ecotrin Tab) 81 mg DAILY PO 02/01/18 09:00 03/03/18 08:59 02/01/18 08:24 81 MG Miscellaneous (Iv Fluids Completed) 1 ea PRN PRN N/A 02/01/18 00:15 02/01/19 00:14 Insulin Glargine (Lantus Solostar Pen) 5 units DAILY SC 02/01/18 09:00 03/03/18 08:59 02/01/18 08:31 5 UNITS Objective Vital Signs Date Time Temp Pulse Resp B/P (MAP) Pulse Ox O2 Delivery O2 Flow Rate FiO2 02/01/18 08:00 Room Air 02/01/18 07:16 36.6 79 18 126/77 (93) 93 Room Air 02/01/18 01:00 Room Air 02/01/18 00:05 36.4 83 18 122/74 (90) 94 Room Air 01/31/18 23:37 90 20 137/67 91 Room Air 01/31/18 22:33 Room Air 01/31/18 22:08 86 01/31/18 22:00 85 127/69 01/31/18 21:00 88 17 135/66 94 Room Air 01/31/18 20:02 90 18 133/75 95 Room Air 01/31/18 19:17 86 16 146/74 96 Room Air 01/31/18 18:06 82 01/31/18 17:32 86 14 123/72 95 Room Air 01/31/18 17:31 95 Room Air 01/31/18 15:33 36.6 92 18 128/79 95 Room Air Physical Exam General Appearance: no apparent distress Respiratory/Chest: chest non-tender, lungs clear, normal breath sounds, no respiratory distress, no accessory muscle use Cardiovascular: regular rate, rhythm, no edema, no murmur Neurologic/Psychiatric: alert, normal mood/affect, + facial droop (chronic L sided facial droop), + motor weakness (mild residual lower extremity weakness) Laboratory Results Last 24 Hours Test 01/31/18 17:01 01/31/18 17:04 01/31/18 20:00 01/31/18 21:23 White Blood Count 10.94 K/uL Red Blood Count 4.59 M/uL Hemoglobin 12.6 g/dL Hematocrit 39.9 % Mean Corpuscular Volume 86.9 fL Mean Corpuscular Hemoglobin 27.5 pg Mean Corpuscular Hemoglobin Concent 31.6 g/dl Platelet Count 331 K/uL Mean Platelet Volume 8.1 fL Neutrophils (%) (Auto) 59.6 % Lymphocytes (%) (Auto) 31.0 % Monocytes (%) (Auto) 6.6 % Eosinophils (%) (Auto) 2.3 % Basophils (%) (Auto) 0.3 % Neutrophils # (Auto) 6.53 K/uL Lymphocytes # (Auto) 3.39 K/uL Monocytes # (Auto) 0.72 K/uL Eosinophils # (Auto) 0.25 K/uL Basophils # (Auto) 0.03 K/uL RDW Standard Deviation 44.9 fL RDW Coefficient of Variation 14.2 % Immature Granulocyte % (Auto) 0.2 % Immature Granulocyte # (Auto) 0.02 K/uL Prothrombin Time 10.0 SECONDS Prothromb Time International Ratio 1.0 Activated Partial Thromboplast Time 24.1 SECONDS Partial Thromboplastin Ratio 0.9 Sodium Level 141 mmol/L Potassium Level 3.5 mmol/L Chloride Level 105 mmol/L Carbon Dioxide Level 29 mmol/L Anion Gap 7.0 mmol/L Blood Urea Nitrogen 12 mg/dl Creatinine 0.87 mg/dl Est Creatinine Clear Calc Drug Dose 78.5 ml/min Estimated GFR () 85.7 Estimated GFR (Non- 74.0 BUN/Creatinine Ratio 13.3 Random Glucose 68 mg/dl Calcium Level 9.8 mg/dl Magnesium Level 2.3 mg/dl Total Bilirubin 0.5 mg/dl Direct Bilirubin 0.1 mg/dl Aspartate Amino Transf (AST/SGOT) 11 U/L Alanine Aminotransferase (ALT/SGPT) 24 U/L Alkaline Phosphatase 103 U/L Total Creatine Kinase 69 U/L Creatine Kinase MB 0.8 ng/ml Creatine Kinase MB Ratio 1.2 Troponin I < 0.015 ng/ml Total Protein 9.0 gm/dl Albumin 4.1 gm/dl Lipase 168 U/L Thyroid Stimulating Hormone (TSH) 3.690 uIu/ml Estimated Average Glucose 128 mg/dl Hemoglobin A1c 6.1 % Urine Color YELLOW Urine Appearance CLOUDY Urine pH 5.5 Urine Specific [place] 1.024 Urine Protein NEG Urine Glucose (UA) NEG Urine Ketones 1+ Urine Occult Blood NEG Urine Nitrite NEG Urine Bilirubin NEG Urine Urobilinogen NEG Urine Leukocyte Esterase MODERATE Urine WBC (Auto) >30 /hpf Urine RBC (Auto) 0-4 /hpf Urine Hyaline Casts (Auto) 0 /lpf Urine Epithelial Cells (Auto) >30 /lpf Urine Bacteria (Auto) 2+ Urine Pathogenic Casts /lpf Urine Mucus PRESENT Bedside Glucose 83 mg/dl Test 01/31/18 22:12 02/01/18 05:32 02/01/18 07:31 02/01/18 11:25 Magnesium Level 1.9 mg/dl Valproic Acid (Depakene) Level 71 mcg/ml White Blood Count 8.17 K/uL Red Blood Count 3.85 M/uL Hemoglobin 10.6 g/dL Hematocrit 33.3 % Mean Corpuscular Volume 86.5 fL Mean Corpuscular Hemoglobin 27.5 pg Mean Corpuscular Hemoglobin Concent 31.8 g/dl Platelet Count 300 K/uL Mean Platelet Volume 8.2 fL Neutrophils (%) (Auto) 46.2 % Lymphocytes (%) (Auto) 44.4 % Monocytes (%) (Auto) 6.5 % Eosinophils (%) (Auto) 2.6 % Basophils (%) (Auto) 0.2 % Neutrophils # (Auto) 3.77 K/uL Lymphocytes # (Auto) 3.63 K/uL Monocytes # (Auto) 0.53 K/uL Eosinophils # (Auto) 0.21 K/uL Basophils # (Auto) 0.02 K/uL RDW Standard Deviation 44.9 fL RDW Coefficient of Variation 14.2 % Immature Granulocyte % (Auto) 0.1 % Immature Granulocyte # (Auto) 0.01 K/uL Sodium Level 141 mmol/L Potassium Level 3.5 mmol/L Chloride Level 108 mmol/L Carbon Dioxide Level 29 mmol/L Anion Gap 4.0 mmol/L Blood Urea Nitrogen 12 mg/dl Creatinine 0.72 mg/dl Est Creatinine Clear Calc Drug Dose 94.4 ml/min Estimated GFR () 107.7 Estimated GFR (Non- 93.0 BUN/Creatinine Ratio 17.2 Random Glucose 85 mg/dl Calcium Level 8.8 mg/dl Bedside Glucose 107 mg/dl 152 mg/dl Assessment and Plan This is a 57 year old female with a past medical history of recent intracranial hemorrhage s/p evacuation, multiple sclerosis, insulin-dependent DM2, HTN, HLD, mood disorder - presents with weakness Generalized Weakness Ambulatory Dysfunction - patient receives outpatient PT and OT at [facility] - worked with PT/OT in-patient and they recommend patient being discharged home - patient states she feels better, has a walker at home, no issues at this time - possibly due to clinical dehydration, recommend patient drink glucose control protein shakes 1-2 daily due to decreased PO intake Insulin-Dependent DM2 - patient's Ha1c is 6.1%, well controlled - can continue home regimen and outpatient follow-up Urinary Tract Infection - doubt this is a UTI, received one dose of Rocephin - will d/c with two more days of Cipro to total 3 days Recent Intracranial Bleed - s/p evacuation - continue outpatient PT/OT/speech - continue aspirin, statin DVT ppx - SCDs FULL CODE
[2018-02-01] MEDS ORDERED: CIPR-255 PO (14:29)
[2018-02-01] MEDS ORDERED: NUTR-298 PO (14:29)
[2018-02-01 14:35] VITALS: BP 139/78; PULSE 90; TEMP 36.8; O2SAT 90
--- NOTE | 2018-02-01 14:35 | Discharge Instructions ---
Discharge Instructions Date of Service Feb 01, 2018. Admission Reason for Admission: Weakness Discharge Discharge Diagnosis / Problem: Generalized weakness, ambulatory dysfunction Discharge Goals Goal(s): Decrease discomfort, Improve function, Diagnostic testing, Therapeutic intervention Activity Recommendations Activity Limitations: resume your previous activity . Instructions / Follow-Up Instructions / Follow-Up Please follow-up with Dr. Amelia Vazquez on February 02 at 10:30AM Please follow-up with neurology on February 09 as scheduled Continue outpatient PT/OT and speech at [facility] Diet Patient's current hospital diet: Diabetes Type 2 Diet, AHA Diet (Heart Healthy) Discharge Diet Recommended Diet: AHA Diet (Heart Healthy), Diabetes Type 2 Diet Pending Studies Studies pending at discharge: no Laboratory Results Hemoglobin A1c Test 01/31/18 17:04 Range/Units Estimated Average Glucose 128 mg/dl Hemoglobin A1c 6.1 H 4.5-5.6 % Medical Emergencies . Who to Call and When: Medical Emergencies: If at any time you feel your situation is an emergency, please call 911 immediately. . Non-Emergent Contact Non-Emergency issues call your: Primary Care Provider . . "Provider Documentation" section prepared by Kiko Prado. .
--- NOTE | 2018-02-01 14:42 | Discharge Summary ---
Discharge Summary Date of Service Feb 01, 2018. Discharge Summary Admission Date: Jan 31, 2018 at 22:40 Discharge Date: Feb 01, 2018 Discharge Disposition: Home Principal Diagnosis: Generalized Weakness Ambulatory Dysfunction UTI Recent Intracranial Bleed Medication Reconciliation New Medications: Ciprofloxacin Hcl (Cipro) 500 Mg Tab 500 MG PO BID for 2 Days, #4 TAB Nutritional Supplements (Boost Diabetic) 1 Liq Liq 1 CAN PO DAILY for 30 Days, CAN Continued Medications: Acetaminophen (Tylenol) 325 Mg Tab 650 MG PO Q4H PRN for Pain, TAB Aspirin (Aspirin Ec) 81 Mg Tab 81 MG PO DAILY Atorvastatin (Lipitor) 80 Mg Tab 80 MG PO HS Baclofen (Lioresal) 10 Mg Tab 20 MG PO HS, TAB Baclofen (Baclofen) 10 Mg Tab 10 MG PO TID TAKE DIRECTED DURING THE DAY. Divalproex Sodium (Depakote Delay Rel) 250 Mg Tab 500 MG PO BID Gabapentin (Gabapentin) 800 Mg Tab 1600 MG PO HS Hydrochlorothiazide (Hctz) 12.5 Mg Cap 12.5 MG PO DAILY Insulin Aspart (Novolog Flexpen) 100 Units/Ml Inj 1 DOSE SQ TIDM COVERAGE DIRECTED BY SLIDING SCALE Insulin Glargine (Lantus Solostar) 100 Unit/Ml Inj 25 UNITS SC AMPM, PEN Lisinopril (Lisinopril) 10 Mg Tab 10 MG PO DAILY Metformin Hcl Er (Glucophage Er) 500 Mg Tab 500 MG PO TID, TAB Mirabegron (Myrbetriq Er) 50 Mg Tab 50 MG PO QD@1600 Nortriptyline HCl (Nortriptyline HCl) 75 Mg Cap 75 MG PO HS Potassium Ext Rel (Klor-Con) 20 Meq Tabcr 20 MEQ PO DAILY Venlafaxine Hcl (Effexor Extended Rel) 150 Mg Capcr 150 MG PO HS, CAP TAKE ONE 150 MG CAPSULE ALONG WITH ONE 75 MG CAPSULE TO EQUAL DAILY DOSE OF 225 MG. Venlafaxine Hcl (Effexor Extended Rel) 75 Mg Capcr 75 MG PO HS, CAP TAKE ONE 75 MG CAPSULE ALONG WITH ONE 150 MG CAPSULE TO EQUAL DAILY DOSE OF 225 MG. Zolpidem Tartrate (Zolpidem Tartrate) 5 Mg Tab 5 MG PO HS Admission Information HPI (per Admitting provider): DATE OF ADMISSION: 01/31/2018 PRIMARY CARE DOCTOR: Dr. Vazquez. CHIEF COMPLAINT: Generalized weakness. HISTORY OF PRESENT ILLNESS: History obtained from patient records. Medical history is significant for history of hemorrhagic CVA, hypertension, hyperlipidemia, diabetes type 2 insulin requiring, history of MS. Recent confinement [facility] last from 12/16/2017 to 12/22/2017 for a spontaneous right frontal intraparenchymal hematoma with ____. Patient underwent surgery. Postop discharged on Depakote ____ for seizure prophylaxis. Underwent rehab at [facility], for a few weeks. Has been on ____ the last month. The last 2 days, patient not feeling well, weak. No chest pain, no shortness of breath. She had fallen this morning while going to bathroom at physical therapy, more weakness, sent to the Emergency Room. Denies bladder discomfort. No fever, no chills. At the Emergency Room, she was given ceftriaxone for possible UTI. Has had bladder infections before, urinary infection ____. MEDICAL HISTORY: As above. SURGERIES: Craniotomy, dental surgery. HOME MEDICATIONS: Include aspirin, ____, nortriptyline, Klor-Con, Effexor, zolpidem, gabapentin, ____, NovoLog, Lantus, lisinopril, Glucophage, aspirin, Lipitor, Tylenol, baclofen, Depakote. ALLERGIES: METHYLPHENIDATE, SUMATRIPTAN. FAMILY HISTORY: Heart disease, diabetes. PERSONAL AND SOCIAL HISTORY: Nonsmoker, nondrinker. 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 REVIEW OF SYSTEMS: As per HPI, all 10 systems were reviewed, all others negative. PHYSICAL EXAMINATION: VITAL SIGNS: Blood pressure was noted to be ____, pulse rate 90, RR 18, temperature 36.6, sats 94 on room air. GENERAL: Noted to be obese, sitting comfortably in no distress. SKIN: Normal color, warm. HEENT: [place] conjunctivae. No ptosis. Dry mucosa. No facial asymmetry. NECK: Short neck. CHEST: There is no tenderness. HEART: Regular rate and rhythm, no murmur. ABDOMEN: Soft, nondistended, nontender. EXTREMITIES: No edema. No gross deformities. No tenderness. NEUROLOGIC: Coherent left-sided facial asymmetry. Equal MMTs, about 4/5. Gait and stance not assessed. LABORATORY DATA: Hemoglobin was noted to be 12.6, hematocrit ____, white cell ____, platelets noted to be 331. Sodium noted to be 141, potassium ____, chloride 105, CO2 of 19, BUN ____, creatinine ____, and glucose 68. Valproic acid 71. CT head showed interval right frontal craniotomy with ____ of right frontal hemorrhage, right frontal encephalomalacia. Chest x-ray, low lung volumes. UA, wbc's ____ cells, ketones. ASSESSMENT: 1. Generalized weakness, falling Clinical dehydration with note of ketonuria possible complicated urinary tract infection hx neurogenic bladder as per records no sepsis. 2. Hypertension, stable. 3. DM2, insulin requiring. Well controlled as of recent HgA1c of 7 last 2016 Hypoglycemic episode noted at the ER. 4. Recent ICH 5. History of multiple sclerosis 6. Diabetic foot wound, right Slow healing as per patient Patient follows with Podiatry outpatient. PLAN: Observation GMF IV fluids. Hold home diuretics for now. Follow urine cultures, IV ceftriaxone for now. PT, OT eval. Social service RE discharge planning decrease basal insulin dose given hypoglycemia. ISS BG goal 140-180. Patient due for HgA1c recheck. DVT prophylaxis, SCDs RE recent ICH Full code. Patient's requesting for updates from providers. Mr. Tripp Ocampo at [phone] Hospital Course This is a 57 year old female with a past medical history of recent intracranial hemorrhage s/p evacuation, multiple sclerosis, insulin-dependent DM2, HTN, HLD, mood disorder - presents with weakness Generalized Weakness Ambulatory Dysfunction - patient receives outpatient PT and OT at [facility] - worked with PT/OT in-patient and they recommend patient being discharged home - patient states she feels better, has a walker at home, no issues at this time - possibly due to clinical dehydration, recommend patient drink glucose control protein shakes 1-2 daily due to decreased PO intake Insulin-Dependent DM2 - patient's Ha1c is 6.1%, well controlled - can continue home regimen and outpatient follow-up Urinary Tract Infection - doubt this is a UTI, received one dose of Rocephin - will d/c with two more days of Cipro to total 3 days Recent Intracranial Bleed - s/p evacuation - continue outpatient PT/OT/speech - continue aspirin, statin DVT ppx - SCDs FULL CODE Total time spent on discharge = 20 minutes This includes examination of the patient, discharge planning, medication reconciliation, and communication with other providers. Discharge Instructions Please follow-up with Dr. Amelia Vazquez on February 02 at 10:30AM Please follow-up with neurology on February 09 as scheduled Continue outpatient PT/OT and speech at [facility]
[2018-02-01 15:22] VITALS: BP 139/78; PULSE 90; TEMP 36.8; O2SAT 90
[2018-02-01] MEDS ORDERED: MIRABEGRON ER 25 MG TAB PO SCH (16:00)
[2018-02-01] MEDS ORDERED: VENLAFAXINE HCL XR 150 MG CAPXR PO SCH (21:00)
[2018-02-01] MEDS ORDERED: NORTRIPTYLINE HCL 25 MG CAP PO SCH (21:00)
[2018-02-01] MEDS ORDERED: GABAPENTIN 800 MG TAB PO SCH (21:00)
[2018-02-01] MEDS ORDERED: VENLAFAXINE HCL XR 75 MG CAPXR PO SCH (21:00)
[2018-02-01] MEDS ORDERED: BACLOFEN 10 MG TAB PO SCH (21:00)
[2018-02-01] MEDS ORDERED: ATORVASTATIN 40 MG TAB PO SCH (21:00)
[2018-02-01] MEDS ORDERED: CEFTRIAXONE SOD INJ 1 GM in DEXTROSE 5% ADD-VANTAGE 50ML 50 ML IV SCH (22:00)
== END 2018-02-01 16:15 | disposition home or self-care (01) ==
LOC: C.EDB 15:32 → C.MS2W 22:40 → ENRESERV 23:35
PROVIDERS: ADMIT Internal Medicine; ATTEND Family Medicine
DX: R53.1 Weakness (principal); R26.89 Other abnormalities of gait and mobility; N39.0 Urinary tract infection, site not specified; Z86.73 Personal history of transient ischemic attack (TIA), and cerebral infarction without residual deficits; I10 Essential (primary) hypertension; E78.5 Hyperlipidemia, unspecified; E11.9 Type 2 diabetes mellitus without complications; Z79.899 Other long term (current) drug therapy; Z79.4 Long term (current) use of insulin; Z79.82 Long term (current) use of aspirin; Z98.890 Other specified postprocedural states; Z82.49 Family history of ischemic heart disease and other diseases of the circulatory system; Z83.3 Family history of diabetes mellitus

== ENCOUNTER → 2018-05-30 | Outpatient (CLI) | payer BC ==
[~2018-05-30] MED LIST changes: +ACET-1311 PO; -ASPI-461 PO; +ASPI81TA28 PO; -ATOR-24 PO; +ATOR-26 PO; +CIPR-255 PO; -DIAZ5TAB3 PO; +DIVA-36 PO; +DIVA250T93 PO; -DOCU-94 PO; +HYDR12.56 PO; +LISI-461 PO; +LRS10 PO; -LSN/10125 PO; +METF500T5 PO; +MIRA1TAB3 PO; -MULT-506 PO; +NRN800 PO; +NRT75 PO; +NUTR-298 PO; +POTA-639 PO; +ZOLP5TAB6 PO
== END ==
LOC: C.PAIN 07:54
PROVIDERS: ATTEND Anesthesiology

== ENCOUNTER → 2018-06-02 | Outpatient (CLI) | payer BC ==
--- NOTE | 2018-06-02 12:15 | DIAGNOSTIC IMAGING REPORT ---
THORACOLUMBAR SPINE 2 VIEWS CLINICAL HISTORY: Check stimulator leads. COMPARISON STUDY: Thoracolumbar spine radiographs July and lumbar spine CT April 16, 2017. FINDINGS: A transitional vertebra is noted the lumbosacral junction which is designated as L5 for purposes of numbering on this exam. The left aspect of L5 is hemisacralized. When utilizing this numbering scheme, there is a mild T11 compression fracture which is age indeterminate but new since exam of July 14, 2015. No additional fractures are identified within the lumbar spine or visualized portions of the lower thoracic spine. Stimulator device is in place. Lead tips terminate at the mid T9 level. Leads appear intact. Bowel gas pattern is normal. IMPRESSION: 1. Left lower quadrant stimulator in place. Leads intact and terminate at the mid T9 level. 2. Mild T11 compression fracture which is age indeterminate but new since exam of July 14, 2015. This is probably subacute to chronic. 3. Transitional vertebra at the lumbosacral junction. Please see above numbering scheme of the lumbar spine. Electronically signed by: Archie Roa M.D. 06/02/2018 12:13 PM Dictated Date/Time: 06/02/2018 12:05 PM
== END | disposition home or self-care (01) ==
LOC: C.RADBC 11:06
PROVIDERS: ATTEND Physician Assistant Medical
DX: T85.192D Other mechanical complication of implanted electronic neurostimulator of spinal cord electrode (lead), subsequent encounter (principal); X58.XXXD Exposure to other specified factors, subsequent encounter

== ENCOUNTER 2019-12-26 07:32 | Inpatient (IN) ==
--- NOTE | 2019-12-26 07:53 | Emergency Department Note ---
ED Provider Note NAME: SHALA LEMONS AGE: 59 SEX: F : 1960 ARRIVES VIA: Walk-In INFORMANT: Patient, ED PROVIDER(S): Zheng Shelley DO CHIEF COMPLAINT: Right hip pain HPI: Patient is a 59-year-old female with a past medical history of MS and CVA who presents the ER following up mechanical fall. She notes she walks with a walker and reached down to pick something up and fell and hit her head off the cabinets. She fell onto her right side. She denies any loss consciousness. She denies any blood thinners. She does have a previous history of a brain bleed. She is not on any MS medications. She notes the pain is constant in her right hip. She denies any headache or neck pain. She notes pain is worsened w ith flexion of her hip. She did take 2 Percocets at home with improvement of her symptoms. Denies any chest pain shortness of breath or belly pain. ROS: See above HPI for pertinent positives & negatives. A total of 10 systems reviewed and were otherwise negative. PAST MEDICAL HISTORY:See Below PAST SURGICAL HISTORY:See Below FAMILY HISTORY:See Below SOCIAL HISTORY:See Below HOME MEDICATIONS:See Below ALLERGIES:See Below VITALS:See Below PHYSICAL EXAMINATION: GENERAL: alert, chronically ill-appearing, no acute distress, nontoxic HEAD: normal cephalic, atraumatic EYE EXAM: normal conjunctiva, PERRL and EOM's grossly intact OROPHARYNX: no exudate, no erythema, lips, buccal mucosa, and tongue normal and mucous membranes are moist NECK: supple, no nuchal rigidity, no adenopathy, non-tender CHEST: stable to compression anteriorly and posteriorly LUNGS: clear to auscultation. Normal chest wall mechanics HEART: no murmurs, S1 normal and S2 normal ABDOMEN: abdomen soft, non-tender, normo-active bowel sounds, no masses, no rebound or guarding. PELVIS: stable to compression anteriorly and posteriorly BACK: Back is symmetrical on inspection and there is no deformity, no midline tenderness, no CVA tenderness. UPPER EXTREMITIES: full active and passive range of motion of all joints without tenderness to palpation LOWER EXTREMITIES: Pain over palpation of the right hip. Minimal flexion extension of the right hip knee. Decreased plantar flexion bilaterally and unable to dorsiflex right lower extremity. DPs 2 out of 4. NEURO EXAM: Normal sensorium, cranial nerves II-XII grossly intact, normal speech, no gross weakness of arms, GCS 15. MEDICAL DECISION MAKING: Patient is a 59-year-old female with a past medical history of MS and CVA that presents the ER following mechanical fall. Complaining of right hip pain. She denies any headache or neck pain. She did hit her head. CT head and cervical spine were negative. X-rays of the right femur hip show a right intertrochanteric fracture. Patient was given IV morphine as well as IV fluids. She was updated bedside. Discussed with orthopedics and the hospitalist for admission for right hip fracture. IV was established blood work was obtained. Labs show a mild leukocytosis 13,000. No significant anemia. INR was unremarkable. BMP was unremarkable as well as UA. Patient was typed and scr eened. Patient remained comfortable while in the ER. Family members were updated bedside. Triage Nursing notes reviewed. Prior medical records reviewed Vital Signs: reviewed and remarkable for no significant abnormalities Differential diagnosis: Differential diagnoses include major intracranial, cervical, spinal, thoracic, abdominal, pelvic and neurologic injury. Fracture, contusion, sprain, strain, laceration, abrasions included as well. ER treatment provided: See below Diagnostics interpreted by me: ECG: none Cardiac Monitoring: sinus tach rate of 95 Laboratory studies: As stated above and show below. Imaging studies: X-ray of the right hip shows a right intertroch fracture. X-ray of the pelvis confirms right intertrochanteric fracture. X-ray of the right femur shows a right intertroch Chest x-ray shows no focal infiltrate. CT of the head and cervical spine show no acute fractures or bleeds. Consultation(s): Discussed with Jose Carlos from [facility] for admission. ED COURSE: Procedures: none Critical Care: None Impression & Plan Hip fracture, Multiple sclerosis, Stroke, Fall Past Med/Surg History Social History Preferred Language: Lithuanian Communication Ability: Effective Visual Impairment: Limited Hearing Ability: Normal [employer] Apprentice Required: No Beliefs That Will Affect Care: None marital status: Current Living Situation: Spouse current occupational status: retired Other Information That Helps Us Care for You: No Feels Safe at Home: Yes Safety Concerns: Feels Safe At This Time Smoking Status: Never smoker Do You Dip or Chew Tobacco: No ; Second Hand Exposure: No ; Tobacco Cessation Education Requested by Patient: No Hx Alcohol Use: No Hx Substance Use: No Results & Data Vital Signs Vital Signs - 24 hr 12/26/19 07:38 12/26/19 09:00 12/26/19 09:01 Temperature 36.5 C Temperature Source Oral Pulse Rate 100 H Pulse Rate [Apical] 100 H Pulse Rhythm [Apical] Regular Respiratory Rate 18 17 Respiratory Effort / Characteristics Non-Labored Spontaneous Non-Labored Spontaneous Respiratory Depth Normal Normal Respiratory Pattern Regular Regular Blood Pressure 119/68 Blood Pressure [Right Arm] 116/70 Blood Pressure Mean 85 Blood Pressure Mean [Right Arm] 85 Blood Pressure Position Sitting Pulse Oximetry 92 89 L 95 Oxygen Delivery Method Room Air Room Air Nasal Cannula Oxygen Flow Rate 3 Sepsis Recent Fever Within 48 Hours No Sepsis New/Unexplained Change in Mental Status No Sepsis Action Taken by Nursing No Action Required Laboratory Data Result diagrams: 12/26/19 08:41 12/26/19 08:41 Lab Results 12/26/19 12/26/19 12/26/19 Range/Units 08:40 08:41 08:41 WBC 13.52 H (4.8-10.8) K/uL RBC 3.96 L (4.2-5.4) M/uL Hgb 11.8 L (12.0-16.0) g/dL Hct 35.8 L (37-47) % MCV 90.4 (80-100) fL MCH 29.8 (25-34) pg MCHC 33.0 (32-36) g/dL RDW Std Deviation 44.4 (36.4-46.3) fL RDW Coeff of Nawaf 13.5 (11.5-14.5) % Plt Count 262 (130-400) K/uL MPV 8.7 (7.4-10.4) fL Immature Gran % (Auto) 0.3 % Neut % (Auto) 68.7 % Lymph % (Auto) 20.8 % [place] % (Auto) 7.6 % Eos % (Auto) 2.3 % Baso % (Auto) 0.3 % Immature Gran # (Auto) 0.04 H (0.00-0.02) K/uL Neut # (Auto) 9.29 H (1.4-6.5) K/uL Lymph # (Auto) 2.81 (1.2-3.4) K/uL [place] # (Auto) 1.03 H (0.11-0.59) K/uL Eos # (Auto) 0.31 (0-0.5) K/uL Baso # (Auto) 0.04 (0-0.2) K/uL PT (9.0-12.0) Seconds INR (0.9-1.1) APTT (21.0-31.0) Seconds PTT Ratio Sodium (136-145) mmol/L Potassium (3.5-5.1) mmol/L Chloride (98-107) mmol/L Carbon Dioxide (21-32) mmol/L Anion Gap (3-11) BUN (7-18) mg/dl Creatinine (0.6-1.2) mg/dl Est Cr Clr Drug Dosing Est GFR ( Amer) Est GFR (Non-Af Amer) BUN/Creatinine Ratio (10-20) Glucose (70-99) mg/dl Calcium (8.5-10.1) mg/dl Urine Color Yellow Urine Appearance Clear (Clear) Urine pH 5.0 (4.5-7.5) Ur Specific [place] 1.030 (1.000-1.030) Urine Protein Negative (Negative) Urine Glucose (UA) 3+ H (Negative) Urine Ketones Trace H (Negative) Urine Blood Negative (Negative) Urine Nitrite Negative (Negative) Urine Bilirubin Negative (Negative) Urine Urobilinogen Negative (Negative) Ur Leukocyte Esterase Negative (Negative) Blood Type O Negative Antibody Screen NEGATIVE 12/26/19 12/26/19 Range/Units 08:41 08:41 WBC (4.8-10.8) K/uL RBC (4.2-5.4) M/uL Hgb (12.0-16.0) g/dL Hct (37-47) % MCV (80-100) fL MCH (25-34) pg MCHC (32-36) g/dL RDW Std Deviation (36.4-46.3) fL RDW Coeff of Nawaf (11.5-14.5) % Plt Count (130-400) K/uL MPV (7.4-10.4) fL Immature Gran % (Auto) % Neut % (Auto) % Lymph % (Auto) % [place] % (Auto) % Eos % (Auto) % Baso % (Auto) % Immature Gran # (Auto) (0.00-0.02) K/uL Neut # (Auto) (1.4-6.5) K/uL Lymph # (Auto) (1.2-3.4) K/uL [place] # (Auto) (0.11-0.59) K/uL Eos # (Auto) (0-0.5) K/uL Baso # (Auto) (0-0.2) K/uL PT 10.5 (9.0-12.0) Seconds INR 1.0 (0.9-1.1) APTT 25.4 (21.0-31.0) Seconds PTT Ratio 0.9 Sodium 143 (136-145) mmol/L Potassium 3.5 (3.5-5.1) mmol/L Chloride 111 H (98-107) mmol/L Carbon Dioxide 27 (21-32) mmol/L Anion Gap 5.0 (3-11) BUN 14 (7-18) mg/dl Creatinine 0.88 (0.6-1.2) mg/dl Est Cr Clr Drug Dosing Not Reportable Est GFR ( Amer) 83.4 Est GFR (Non-Af Amer) 71.9 BUN/Creatinine Ratio 16.2 (10-20) Glucose 203 H (70-99) mg/dl Calcium 9.3 (8.5-10.1) mg/dl Urine Color Urine Appearance (Clear) Urine pH (4.5-7.5) Ur Specific [place] (1.000-1.030) Urine Protein (Negative) Urine Glucose (UA) (Negative) Urine Ketones (Negative) Urine Blood (Negative) Urine Nitrite (Negative) Urine Bilirubin (Negative) Urine Urobilinogen (Negative) Ur Leukocyte Esterase (Negative) Blood Type Antibody Screen Administered Medications Sodium Chloride (Nss 1000ml) 1,000 mls @ 75 mls/hr IV .[id number] CARLOS ALBERTO Stop: 12/26/19 21:49 Last Admin: 12/26/19 08:45 Dose: 75 mls/hr Documented by: [id number] Morphine Sulfate (Morphine Sulfate) 2 mg IV Q1H PRN PRN Reason: Moderate Pain (Rating 3,4,5,6) Stop: 01/09/20 08:18 Last Admin: 12/26/19 09:16 Dose: 2 mg Documented by: [id number] Morphine Sulfate (Morphine Sulfate) 4 mg IV Q1H PRN PRN Reason: Severe Pain (Rating 7,8,9,10) Stop: 01/09/20 08:18 Last Admin: 12/26/19 08:45 Dose: 4 mg Documented by: [id number] Discharge Plan Visit Data Chief Complaint: Fall Stated Complaint: FELL ON HIP ED Provider: Zheng Shelley Discharge Problem: Hip fracture, Multiple sclerosis, Stroke, Fall Discharge Instructions Interventions: ED Discharge Assessment Last Done: 12/26/19 09:37 Forms Stand Alone Forms: [facility] [employer] Prescriptions Prescriptions: No Action Lantus Solostar U-100 Insulin 100 unit/mL (3 mL) insulin pen 20 units SQ QAM RF: 0 Lantus Solostar U-100 Insulin 100 unit/mL (3 mL) insulin pen 15 units SQ QPM RF: 0 Novolog Flexpen U-100 Insulin 100 unit/mL (3 mL) insulin pen 3 units SQ TID RF: 0 alfuzosin 10 mg tablet extended release 24 hr 10 mg PO QAM Qty: 90 RF: 3 mirabegron 50 mg tablet extended release 24 hr 50 mg PO HS Qty: 90 RF: 3 lisinopril 5 mg tablet 5 mg PO HS RF: 0 pregabalin 150 mg capsule 150 mg PO BID RF: 0 atorvastatin 80 mg tablet 80 mg PO PM RF: 0 venlafaxine 75 mg capsule,extended release 24hr 75 mg PO HS RF: 0 venlafaxine 150 mg capsule,extended release 24hr 150 mg PO HS RF: 0 diazepam 5 mg tablet 5 mg PO PM RF: 0 oxycodone-acetaminophen 7.5-325 mg tablet 1 tab PO TID PRN (Reason: Pain) RF: 0 multivitamin Tablet 1 tab PO PM RF: 0 metformin 500 mg Tablet 500 mg PO TID RF: 0 aspirin 81 mg Tablet,Delayed Release (Dr/Ec) 81 mg PO QAM RF: 0 ferrous sulfate [iron] 325 mg (65 mg iron) Tablet 325 mg PO PM RF: 0 Calcium 600 + D(3) 600 mg calcium- 200 unit Capsule 1 cap PO PM RF: 0 nortriptyline 75 mg Capsule 75 mg PO HS RF: 0 baclofen 10 mg Tablet 1 - 2 tab PO QID RF: 0 levothyroxine 50 mcg Tablet 50 mcg PO QAM RF: 0 nystatin 100,000 unit/gram powder 1 appln TOP BID Qty: 60 RF: 1 Discharge Problem: Hip fracture Qualifiers: Encounter type: initial encounter Fracture type: closed Laterality: right Qualified Code(s): S72.001A - Fracture of unspecified part of neck of right femur, initial encounter for closed fracture Stroke Qualifiers: CVA mechanism: unspecified Qualified Code(s): I63.9 - Cerebral infarction, unspecified Fall Qualifiers: Encounter type: initial encounter Qualified Code(s): W19.XXXA - Unspecified fall, initial encounter
[2019-12-26] MEDS ORDERED: MoRPHine SULFATE 4 MG/ML 1 ML CARP\\VIAL IV PRN (08:19)
[2019-12-26] MEDS ORDERED: MoRPHine SULFATE 2 MG/ML CARP IV PRN ×2 (08:19→10:32)
[2019-12-26] MEDS ORDERED: SODIUM CHLORIDE 0.9% 1000ML 1,000 ML IV SCH (08:30)
--- NOTE | 2019-12-26 08:30 | XRay Report ---
XR femur RT 2V routine CLINICAL HISTORY: fall trauma. Pain. COMPARISON: None. DISCUSSION: Intertrochanteric fracture right hip. Slight superior migration right femoral shaft. The remainder of the femur is intact. There is no evidence for soft tissue swelling. IMPRESSION: Intertrochanteric fracture right hip. ACT 112: Negative or not required by law. The above report was generated using voice recognition software. It may contain grammatical, syntax or spelling errors. Electronically signed by: Johnathon Lyon M.D. 12/26/2019 8:29 AM
--- NOTE | 2019-12-26 08:31 | XRay Report ---
XR hip RT 2V w pelvis CLINICAL HISTORY: fall COMPARISON: None. DISCUSSION: Intertrochanteric fracture right hip. Mild superior migration femoral shaft. No evidence for dislocation. There is no evidence for soft tissue swelling. IMPRESSION: Intertrochanteric fracture right hip. ACT 112: Negative or not required by law. The above report was generated using voice recognition software. It may contain grammatical, syntax or spelling errors. Electronically signed by: Johnathon Lyon M.D. 12/26/2019 8:29 AM
--- NOTE | 2019-12-26 08:31 | XRay Report ---
XR chest 1V portable CLINICAL HISTORY: hip fx COMPARISON STUDY: Chest radiograph January 31, 2018. FINDINGS: Lung volumes are normal. There is no pneumothorax or pleural effusion. No consolidation is present. There is no evidence for pulmonary edema. The cardiomediastinal silhouette is stable. Intrac analicular electrodes are partially imaged. IMPRESSION: No acute cardiopulmonary findings. No change in appearance of the chest. ACT 112: Negative or not required by law. Electronically signed by: Archie Roa M.D. 12/26/2019 8:29 AM
--- NOTE | 2019-12-26 08:43 | CT Scan Report ---
CT OF THE HEAD WITHOUT CONTRAST CLINICAL HISTORY: Fall. COMPARISON STUDY: Head CT July 26, 2018. CT DOSE: 638.56 mGycm TECHNIQUE: Helical axial images of the head were obtained without IV contrast. Automated exposure con trol was utilized for the study. A dose lowering technique was utilized adhering to the principles o f ALARA. FINDINGS: No acute intracranial hemorrhage, midline shift or mass effect is present. Encephalomalacia within the right frontal lobe is unchanged. Ventricular system is stable. Basilar cisterns are paten t. Prominence of the extra-axial space overlying the left frontal lobe is unchanged. There are no fin dings to suggest acute dural sinus thrombosis or acute territorial infarct. A right frontal craniotom y is noted. There is no calvarial fracture. IMPRESSION: 1. No acute intracranial findings. No change in appearance of the brain. 2. No calvarial fracture. ACT 112: Negative or not required by law. Electronically signed by: Archie Roa M.D. 12/26/2019 8:41 AM
--- NOTE | 2019-12-26 08:44 | CT Scan Report ---
CT cervical spine wo con CT DOSE: 418.06 mGycm HISTORY: Trauma fall TECHNIQUE: Multiaxial CT images of the cervical spine were performed and reformatted in the sagittal and coronal plane without the use of contrast. A dose lowering technique was utilized adhering to th e principles of ALARA. COMPARISON: None. FINDINGS: No fractures. No subluxation. Prevertebral soft tissues and the C1-C2 interval are intact. No pneumothorax. IMPRESSION: No fractures within the cervical spine. ACT 112: Negative or not required by law. The above report was generated using voice recognition software. It may contain grammatical, syntax or spelling errors. Electronically signed by: Johnathon Lyon M.D. 12/26/2019 8:42 AM
[2019-12-26 08:56] LABS: Basophils # (auto) 0.04 K/uL (0-0.2); Basophils % (auto) 0.3 %; Eosinophils # (auto) 0.31 K/uL (0-0.5); Eosinophils % (auto) 2.3 %; Hematocrit (blood only) 35.8 % (37-47); Hemoglobin 11.8 g/dL (12.0-16.0); Immature Granulocytes # (auto) 0.04 K/uL (0.00-0.02); Immature Granulocytes % (auto) 0.3 %; Lymphocytes # (auto) 2.81 K/uL (1.2-3.4); Lymphocytes % (auto) 20.8 %; Mean Corpuscular Hemoglobin 29.8 pg (25-34); Mean Corpuscular Volume 90.4 fL (80-100); Mean Platelet Volume 8.7 fL (7.4-10.4); Monocytes # (auto) 1.03 K/uL (0.11-0.59); Monocytes % (auto) 7.6 %; Neutrophils # (auto) 9.29 K/uL (1.4-6.5); Neutrophils % (auto) 68.7 %; Platelet Count 262 K/uL (130-400); RDW Coefficient of Variation 13.5 % (11.5-14.5); RDW Standard Deviation 44.4 fL (36.4-46.3); Red Blood Count 3.96 M/uL (4.2-5.4); White Blood Count 13.52 K/uL (4.8-10.8)
[2019-12-26 09:05] LABS: Appearance Urine Clear (Clear); Bilirubin Urine Negative (Negative); Blood Urine Negative (Negative); Color Urine Yellow; Glucose Urine UA 3+ (Negative); Ketones Urine Trace (Negative); Leukocyte Esterase Urine Negative (Negative); Nitrite Urine Negative (Negative); Protein Urine Negative (Negative); Urobilinogen Urine Negative (Negative)
[2019-12-26 09:07] LABS: Partial Thromboplastin Ratio 0.9; Partial Thromboplastin Time 25.4 Seconds (21.0-31.0); Prothrombin Time 10.5 Seconds (9.0-12.0)
[2019-12-26 09:14] LABS: BUN Creatinine Ratio 16.2 (10-20); Blood Urea Nitrogen 14 mg/dl (7-18); Calcium 9.3 mg/dl (8.5-10.1); Carbon Dioxide 27 mmol/L (21-32); Chloride 111 mmol/L (98-107); Est GFR (African American) 83.4; Est GFR (Non-African American) 71.9; Glucose 203 mg/dl (70-99); Potassium 3.5 mmol/L (3.5-5.1); Sodium 143 mmol/L (136-145)
--- NOTE | 2019-12-26 10:03 | History & Physical Report ---
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 In ER vitals stable. H/H: 11.8/35 and stable at pt's baseline. RIGHT FEMUR XRAY: Intertrochanteric fracture right hip. HEAD CT:1. No acute intracranial findings. No change in appearance of the brain. 2. No calvarial fracture. CERVICAL SPINE CT:No fractures within the cervical spine. CXR: No acute cardiopulmonary findings. No change in appearance of the chest. -In ER given Morphine, NSS at 75ml/hr -Morphine prn pain -NPO for now -Pt just had negative stress test yesterday at [facility]. Spoke with cardiology, Dr Gillette and no further risk stratification at this time. Pt moderate surgical risk -Ortho consult, Dr You plans to take pt to OR today -CBC, BMP in am (3) Hemorrhagic stroke: H/O hemorrhagic stroke in 12/2017 s/p craniotomy. Has residual left sided weakness (4) DM type 2 (diabetes mellitus, type 2): A1c: 7.2 om 11/08/2019 -Hold metformin -Continue home Lantus, Novolog sliding scale per protocol (5) HTN (hypertension): Stable -Plan to resume lisinopril tomorrow evening (6) Multiple sclerosis: Has right sided weakness. Has chronic BLE pain and has pain stimulator -Pain stimulator currently turned off by pt -Continue Lyrica, Baclofen -Hold chronic pain oxycodone/acetaminophen as pt currently receiving pain meds for hip fracture (7) Iron deficiency anemia: H/H: 11.8/35. Baseline Hgb: 11-12 -Continue iron supplement -Monitor H&H (8) Dyslipidemia: -Continue atorvastatin (9) HELIO (obstructive sleep apnea): -CPAP HS (10) Depression: -Continue Effexor (11) Hypothyroidism: -Continue levothyroxine DVT Prophylaxis -SCDs Full Code as per discussion with pt Follows with Dr Amelia Vazquez for routine care Pt was seen and care coordinated with Dr Short. See addendum History of Present Illness Chief Complaint: Fall, Right hip pain Primary Care Provider: Amelia Vazquez, Pt is 59 y/o F with PMH Right frontal hemorrhagic CVA s/p craniotomy 12/2017, MS, h/o left-sided weakness from prior stroke and right-sided weakness from MS, right-sided weakness greater than left-sided weakness, ambulates with use of walker, DM II, HTN, dyslipidemia, HELIO, depression, anxiety presented to ER complaint of fall and right hip pain today. Patient states was ambulating in house when she bent over to pick something off floor and lost her balance falling onto her right side. Patient states hit head on cabinet. Denies any LOC, headache, dizziness, vision changes. Was unable to get herself up off the floor. C/O right hip pain with radiation down right leg. Denies neck pain. Chronic leg pain and has pain stimulator. She reports turning off pain stimulator prior to ER arrival. Denies upper extremity pain, back pain. Patient denies any other known injury. Patient with recent follow-up with cardiology-Dr. Gillette for abnormal EKG.Patient has agent determinant inferior infarction pattern on EKG which has been stable since 2018. She had stress test performed yesterday at [facility]. Patient reports intermittent "electric shock" sensation right axilla radiating to right lower abdomen. Denies any similar sensation today. Denies chest pain, shortness of breath, palpitations. Denies fever/chills, diaphoresis, N/V/D/C, vision changes, neck pain, orthopnea, cough, sore throat, choking, otalgia, rhinorrhea, abdominal pain, paresthesias, extremity edema, rashes, urinary symptoms. Allergies Allergy/AdvReac Type Severity Reaction Status Date / Time methylphenidate Allergy Mild RASH Verified 12/26/19 08:02 sumatriptan AdvReac Intermediate RAPID Verified 12/26/19 08:02 HEART RATE Home Medications Home Medications Medication Instructions Recorded Confirmed Type atorvastatin 80 mg PO PM 10/08/18 12/26/19 History diazepam 5 mg PO PM 10/08/18 12/26/19 History venlafaxine 75 mg PO HS 10/08/18 12/26/19 History venlafaxine 150 mg PO HS 10/08/18 12/26/19 History Calcium 600 + D(3) 1 cap PO PM 12/12/18 12/26/19 History aspirin 81 mg PO QDL 12/12/18 12/26/19 History baclofen 1 tab PO UD 12/12/18 12/26/19 History ferrous sulfate [iron] 325 mg PO PM 12/12/18 12/26/19 History levothyroxine 50 mcg PO QAM 12/12/18 12/26/19 History metformin 500 mg PO TID 12/12/18 12/26/19 History multivitamin 1 tab PO PM 12/12/18 12/26/19 History nortriptyline 75 mg PO HS 12/12/18 12/26/19 History insulin aspart U-100 100 unit/mL 3 units SQ TID 12/28/18 12/26/19 History (3 mL) subcutaneous pen insulin glargine 100 unit/mL (3 20 units SQ BID ml 12/28/18 12/26/19 History mL) subcutaneous pen nystatin 1 appln TOP BID #60 gm 01/12/19 12/26/19 Rx oxycodone-acetaminophen 7.5 mg-325 1 tab PO TID PRN tab 05/11/19 12/26/19 History mg tablet alfuzosin 10 mg tablet,extended 10 mg PO QAM #90 tab 10/24/19 12/26/19 Rx release 24 hr mirabegron 50 mg tablet,extended 50 mg PO HS #90 tab 11/02/19 12/26/19 Rx release 24 hr lisinopril 5 mg PO HS 12/26/19 12/26/19 History pregabalin 150 mg PO BID 12/26/19 12/26/19 History Past Med/Surg History Medical History Compression fracture of T11 vertebra Depression DM type 2 (diabetes mellitus, type 2) Dyslipidemia Hemorrhagic stroke HTN (hypertension) Hypothyroidism Iron deficiency anemia Migraine Multiple sclerosis (Acute) Neurogenic bladder Nocturia HELIO (obstructive sleep apnea) Osteoarthritis Peripheral neuropathy Restless leg syndrome Sleep apnea (Acute) Stroke (Acute) DECEMBER 2017 (GENERALIZED WEAKNESS) Temporomandibular joint disorder Clicks, but has never locked Urinary frequency Urinary incontinence UTI (urinary tract infection) Surgical History H/O foot surgery 08/04/17 - ORIF RIGHT 2/3/4 METATARSAL - MAC#3, ETT# 7.0, GRADE 2 VIEW, GRADE 2 VIEW History of colonoscopy History of dental surgery History of dilatation and curettage History of esophagogastroduodenoscopy (EGD) S/P insertion of spinal cord stimulator Family History Father Family history of diabetes mellitus Other FHx: cancer FHx: heart disease Social History Preferred Language: Samoan Communication Ability: Effective Visual Impairment: Limited Hearing Ability: Normal 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 Beliefs That Will Affect Care: None marital status: Current Living Situation: Spouse current occupational status: retired Other Information That Helps Us Care for You: No Feels Safe at Home: Yes Safety Concerns: Feels Safe At This Time Smoking Status: Never smoker Do You Dip or Chew Tobacco: No ; Second Hand Exposure: No ; Tobacco Cessation Education Requested by Patient: No Hx Alcohol Use: No Hx Substance Use: No Review of Systems Review of Systems: All systems reviewed & are unremarkable except as noted in HPI & below Physical Exam Physical Exam: General: no acute distress, obese Head: normocephalic, atraumatic Eyes: PERRL, EOM's intact, conjunctiva non-injected, anicteric ENT: normal inspection external ears, nose, mucous membranes moist Neck: supple, trachea midline, non-tender Lungs: clear, no respiratory distress, no wheezing/rhonchi/rales CV: RRR, no murmur, no pretibial edema Abd: normal BS, soft, non-tender; left posterior hip with palpable pain stimulator is nontender to palpation Ext: no cyanosis, RLE: +leg shortened and internally rotated, +tenderness to palpation entire right hip, calf without edema or tenderness to palpation, distal pulses palpable, sensation to light touch intact; LLE: normal appearance, non-tender, distal pulses intact Neuro: A&O x 3, no focal deficits noted, normal affect Skin: warm, dry Results & Data Vital Signs (Past 12 Hours) Vital Signs Temp Pulse Pulse Resp BP BP Pulse Ox 12/26/19 09:37 104 H 17 116/72 95 12/26/19 09:01 95 12/26/19 09:00 100 H 17 116/70 89 L 12/26/19 07:38 36.5 C 100 H 18 119/68 92 Laboratory Results Short CBC 12/26/19 Range/Units 08:41 WBC 13.52 H (4.8-10.8) K/uL Hgb 11.8 L (12.0-16.0) g/dL Hct 35.8 L (37-47) % Plt Count 262 (130-400) K/uL BMP 12/26/19 08:41 Sodium 143 Potassium 3.5 Chloride 111 H Carbon Dioxide 27 BUN 14 Creatinine 0.88 Glucose 203 H Calcium 9.3 Urine 12/26/19 Range/Units 08:40 Urine Color Yellow Urine Appearance Clear (Clear) Urine pH 5.0 (4.5-7.5) Ur Specific [place] 1.030 (1.000-1.030) Urine Protein Negative (Negative) Urine Glucose (UA) 3+ H (Negative) Diagnostic Findings RIGHT FEMUR XRAY: IMPRESSION: Intertrochanteric fracture right hip. HIP/PELVIS XRAY: IMPRESSION: Intertrochanteric fracture right hip. HEAD CT: IMPRESSION: 1. No acute intracranial findings. No change in appearance of the brain. 2. No calvarial fracture. CERVICAL SPINE CT: IMPRESSION: No fractures within the cervical spine. CXR: IMPRESSION: No acute cardiopulmonary findings. No change in appearance of the chest. ECG Additional Comments: poor tracing, rate 103, sinus tachycardia Code Status & VTE Plan VTE Prophylaxis Plan VTE Prophylaxis will be ordered: Yes Supervising Physician Co-Signing Physician Notes I have seen and examined the patient and have discussed the case with the provider above. I agree with the assessment and plan as stated with the following exceptions. The patient was evaluated postoperatively and was still somewhat groggy from anesthesia. She is also been given morphine 4 mg IV but was still reporting an 8 out of 10 pain. She was tachycardic with a pulse in the low 100s and was normotensive at the time. She was given an additional Roxicodone 5 mg as her tachycardia was presumed to be postoperative pain that was uncontrolled. The nurse then gave her an additional dose of morphine and she became hypotensive with some worsening tachycardia into the 1 teens. She also became more hypoxic requiring 4 L nasal cannula as her respiratory rate was 12 breaths/min on average. Assessment: oversedation. Narcotics were held. Also scheduled baclofen was held. Scheduled Tylenol was started to help stay ahead of pain. As she was hypoxic and hypotensive with minimal improvement after a small bolus of fluids she was transferred to the PCU for further monitoring. If she declines further clinically, Narcan will be given. She is on CPAP at night and this was ordered to be given early to assist with ventilati on. BiPAP may also need to be considered. Mentation was normal. Review of systems revealed no other postoperative concerns. DO Han (1) Fall Encounter type: initial encounter Qualified Code(s): W19.XXXA - Unspecified fall, initial encounter
--- NOTE | 2019-12-26 10:13 | Orthopedic Consultation ---
Date of Consultation December 26, 2019 Assessment & Plan (1) Hip fracture: Patient seen today by Dr You for right hip fracture. was also present. After reviewing her xrays, Dr You discussed with patient conservative vs surgical intervention. He is recommending surgery including o pen reduction internal fixation for right hip fracture. He discussed in detail potential risks and complication of surgery including but no limited to heart attack, strokes, blood clots, nerve/vascular compromise, infection, hardware failure, wound issues, nonunion/malunion, need for further surgery, . Patient and would like to proceed with surgery. Consent was reviewed and signed by the patient and Dr You. She will be admitted to the floor. We will await medicine clearance. She will remain NPO. Orders for Keflex [id number] were placed. I, Dr. You, saw and examined the patient and discussed the management with my PA. I reviewed my PAs note and agree with the documented findings and the plan of care I developed. The patient is a 59 year old female who sustained a right hip fracture from a ground-level fall earlier today. The patients treatment options of conservative versus surgical intervention were discussed. Since the patient was an ambulatory with a walker prior to the injury and to avoid the risks of bed sores, pulmonary complications, and to give the best chance for return to ambulation, I recommended surgery. The patient and family understands the risks of surgery, which include but are not limited to: bleeding, infection, re- operation, damage to nerves and arteries, continued pain, failure of the hardware, mal-union, non-union, DVT, and . In addition she is aware of the 20-30% morbidity associated with hip fracture for up to 1 year following a hip fracture. The patient and family understands all of these instructions and ex planations, all of their questions have been satisfactorily addressed. The patient has elected to proceed with surgery and the informed consent was signed. We will plan on proceeding with ORIF of the right hip once the patient is medically cleared. Present on Admission?: Yes History of Present Illness Reason for Consultation: Right hip fracture History of Present Illness Pt is 59 y/o F with PMH Right frontal hemorrhagic CVA s/p craniotomy 12/2017, MS, h/o left-sided weakness from prior stroke and right-sided weakness from MS, right-sided weakness greater than left-sided weakness with use of AFO, ambulates with use of walker, DM II, HTN, dyslipidemia, HELIO with use of CPAP, depression, anxiety presented to ER complaint of fall she suffered at 5am this morning with acute right hip pain and inability to bear weight. Patient states was ambulating in house when she bent over to pick something off floor and lost her balance falling onto her right side. Patient states hit head on cabinet. Denies any LOC, headache, dizziness, vision changes. Was unable to get herself up off the floor. C/O right hip pain with radiation down right leg. Denies neck pain. Chronic leg pain and has pain stimulator. She reports turning off pain stimulator prior to ER arrival. Denies upper extremity pain, back pain. Patient denies any other known injury. Patient with recent follow-up with cardiology-Dr. Gillette for abnormal EKG and underwent stress test yesterday. Denies chest pain, shortness of breath, palpitations. Denies fever/chills, diaphoresis, N/V/D/C, vision changes, neck pain, orthopnea, cough, sore throat, choking, otalgia, rhinorrhea, abdominal pain, paresthesias, extremity edema, rashes, urinary symptoms. Patient was seen today by Dr You with present for consultation regarding surgical intervention. Allergies Allergy/AdvReac Type Severity Reaction Status Date / Time methylphenidate Allergy Mild RASH Verified 12/26/19 08:02 sumatriptan AdvReac Intermediate RAPID Verified 12/26/19 08:02 HEART RATE Home Medications Home Medications Medication Instructions Recorded Confirmed Type atorvastatin 80 mg PO PM 10/08/18 12/26/19 History diazepam 5 mg PO PM 10/08/18 12/26/19 History venlafaxine 75 mg PO HS 10/08/18 12/26/19 History venlafaxine 150 mg PO HS 10/08/18 12/26/19 History Calcium 600 + D(3) 1 cap PO PM 12/12/18 12/26/19 History aspirin 81 mg PO QDL 12/12/18 12/26/19 History baclofen 1 tab PO UD 12/12/18 12/26/19 History ferrous sulfate [iron] 325 mg PO PM 12/12/18 12/26/19 History levothyroxine 50 mcg PO QAM 12/12/18 12/26/19 History metformin 500 mg PO TID 12/12/18 12/26/19 History multivitamin 1 tab PO PM 12/12/18 12/26/19 History nortriptyline 75 mg PO HS 12/12/18 12/26/19 History insulin aspart U-100 100 unit/mL 3 units SQ TID 12/28/18 12/26/19 History (3 mL) subcutaneous pen insulin glargine 100 unit/mL (3 20 units SQ BID ml 12/28/18 12/26/19 History mL) subcutaneous pen nystatin 1 appln TOP BID #60 gm 01/12/19 12/26/19 Rx oxycodone-acetaminophen 7.5 mg-325 1 tab PO TID PRN tab 05/11/19 12/26/19 History mg tablet alfuzosin 10 mg tablet,extended 10 mg PO QAM #90 tab 10/24/19 12/26/19 Rx release 24 hr mirabegron 50 mg tablet,extended 50 mg PO HS #90 tab 11/02/19 12/26/19 Rx release 24 hr lisinopril 5 mg PO HS 12/26/19 12/26/19 History pregabalin 150 mg PO BID 12/26/19 12/26/19 History Patient History Medical History (Updated 12/26/19 @ 10:21 by Loreta Rendon PA-C) Compression fracture of T11 vertebra Depression DM type 2 (diabetes mellitus, type 2) Dyslipidemia Hemorrhagic stroke HTN (hypertension) Hypothyroidism Iron deficiency anemia Migraine Multiple sclerosis (Acute) Neurogenic bladder Nocturia HELIO (obstructive sleep apnea) Osteoarthritis Peripheral neuropathy Restless leg syndrome Sleep apnea (Acute) Stroke (Acute) DECEMBER 2017 (GENERALIZED WEAKNESS) Temporomandibular joint disorder Clicks, but has never locked Urinary frequency Urinary incontinence UTI (urinary tract infection) Surgical History H/O foot surgery 08/04/17 - ORIF RIGHT 2/3/4 METATARSAL - MAC#3, ETT# 7.0, GRADE 2 VIEW, GRADE 2 VIEW History of colonoscopy History of dental surgery History of dilatation and curettage History of esophagogastroduodenoscopy (EGD) S/P insertion of spinal cord stimulator Family History Father Family history of diabetes mellitus Other FHx: cancer FHx: heart disease Social History Preferred Language: Serbian Communication Ability: Effective Visual Impairment: Limited Hearing Ability: Normal Retail 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 Right LE is shortened and externally rotated at rest. NV intact bilateral lower extremities. Palpable DP and PT pulses. Sensation intact B LEs. Brisk capillary refill. 5/5 left EHL, TA, gastroc strength. Weakness to right EHL and TA (longstanding per patient). No pain with gentle ROM B knees. Skin to right LE is intact. Calf is soft and non- tender. Results & Data ([facility]) Vital Signs (Past 12 Hours) Vital Signs Temp Pulse Pulse Resp BP BP Pulse Ox 12/26/19 09:37 104 H 17 116/72 95 12/26/19 09:01 95 12/26/19 09:00 100 H 17 116/70 89 L 12/26/19 07:38 36.5 C 100 H 18 119/68 92 [facility], [place] [phone] XRay Report Patient: SHALA LEMONS Date: 12/26/19 MR#: [id number]: 93 [facility] Acct ID:[id number]: Date: 1960City Zip: [place] [address] Age: 59Location: ED Sex: F Room/Bed: Att Phy:Diagnosis: FELL ON HIP Ariadne Phy: Amelia Vazquez, DOService Date: 12/26/19 Fam Phy:Interpreting Phy: Johnathon Lyon MD Admit Phy: Ordering Phy: Zheng Shelley, DO cc: ~ XR hip RT 2V w pelvis CLINICAL HISTORY: fall COMPARISON: None. DISCUSSION: Intertrochanteric fracture right hip. Mild superior migration femoral shaft. No evidence for dislocation. There is no evidence for soft tissue swelling. IMPRESSION: Intertrochanteric fracture right hip. ACT 112: Negative or not required by law. The above report was generated using voice recognition software. It may contain grammatical, syntax or spelling errors. (1) Hip fracture Encounter type: initial encounter Fracture type: closed Laterality: right Qualified Code(s): S72.001A - Fracture of unspecified part of neck of right femur, initial encounter for closed fracture
[2019-12-26] MEDS ORDERED: CEFAZOLIN 3000MG 72.5 ML IV SCH (10:30)
[2019-12-26] MEDS ORDERED: ONDANSETRON INJ 2 MG/ML 2 ML VIAL IV PRN ×2 (10:32→11:16)
[2019-12-26] MEDS ORDERED: GLUCAGON FOR INJ 1 MG VIAL SQ PRN (10:32)
[2019-12-26] MEDS ORDERED: MAGNESIUM HYDROXIDE SUSP 30 ML UDC PO PRN (10:32)
[2019-12-26] MEDS ORDERED: bisacodyL 10 MG SUPP PR PRN (10:32)
[2019-12-26] MEDS ORDERED: NALOXONE HCL 0.4 MG/1 ML VIAL/CARP IV PRN (10:32)
[2019-12-26] MEDS ORDERED: GLUCOSE 40% GEL 15 GM TUBE PO PRN (10:32)
[2019-12-26] MEDS ORDERED: OXYCODONE HCL IR 5 MG TAB (IMMEDIATE RELEASE) PO PRN ×2 (10:32→21:55)
[2019-12-26] MEDS ORDERED: ACETAMINOPHEN 325 MG TAB PO PRN (10:32)
[2019-12-26] MEDS ORDERED: GLUCOSE 10 TABS/TUBE PO PRN (10:32)
[2019-12-26] MEDS ORDERED: CARBOHYDRATES FOR HYPOGLYCEMIA PO PRN (10:32)
[2019-12-26] MEDS ORDERED: DEXTROSE 50% 50 ML SYRINGE IV PRN (10:32)
[2019-12-26] MEDS ORDERED: LACTATED RINGER'S 1,000 ML IV SCH ×2 (10:32→23:00)
[2019-12-26] MEDS ORDERED: LIDOCAINE/EPINEPHRINE 1% 20 ML VIAL ONE (10:57)
[2019-12-26] MEDS ORDERED: BUPIVACAINE 0.5 % 5 MG/1 ML MPF 30ML VIAL ONE (10:57)
[2019-12-26] MEDS ORDERED: CEFAZOLIN 3000MG 65 ML IV SCH (11:00)
--- NOTE | 2019-12-26 11:15 | Anesthesiology Consultation ---
Date of Service December 26, 2019 Assessment & Plan Chart Review Chart Review: Acceptable Risk for Surgery Consults Requested none History Surgery Operation Date: 12/26/19 07:00 Proposed Procedures p Right Hip Open Reduction Internal Fixation - Joe Red You MD Height/Weight Height: 5 ft 6 in Weight: 93.5 kg Allergies Allergy/AdvReac Type Severity Reaction Status Date / Time methylphenidate Allergy Mild RASH Verified 12/26/19 08:02 sumatriptan AdvReac Intermediate RAPID Verified 12/26/19 08:02 HEART RATE Medications Home Medications Medication Instructions Recorded Confirmed Last Taken atorvastatin 80 mg PO PM 10/08/18 12/26/19 01/11/19 20:00 diazepam 5 mg PO PM 10/08/18 12/26/19 01/05/19 venlafaxine 75 mg PO HS 10/08/18 12/26/19 01/11/19 22:00 venlafaxine 150 mg PO HS 10/08/18 12/26/19 01/11/19 22:00 Calcium 600 + D(3) 1 cap PO PM 12/12/18 12/26/19 01/11/19 18:00 aspirin 81 mg PO QDL 12/12/18 12/26/19 12/25/19 baclofen 1 tab PO UD 12/12/18 12/26/19 12/25/19 ferrous sulfate [iron] 325 mg PO PM 12/12/18 12/26/19 01/11/19 18:00 levothyroxine 50 mcg PO QAM 12/12/18 12/26/19 12/25/19 metformin 500 mg PO TID 12/12/18 12/26/19 01/11/19 18:00 multivitamin 1 tab PO PM 12/12/18 12/26/19 01/11/19 20:00 nortriptyline 75 mg PO HS 12/12/18 12/26/19 01/11/19 22:00 insulin aspart U-100 100 unit/mL 3 units SQ TID 12/28/18 12/26/19 01/11/19 12:00 (3 mL) subcutaneous pen insulin glargine 100 unit/mL (3 20 units SQ BID ml 12/28/18 12/26/19 12/25/19 mL) subcutaneous pen nystatin 1 appln TOP BID #60 gm 01/12/19 12/26/19 Unknown oxycodone-acetaminophen 7.5 mg-325 1 tab PO TID PRN tab 05/11/19 12/26/19 Unknown mg tablet alfuzosin 10 mg tablet,extended 10 mg PO QAM #90 tab 10/24/19 12/26/19 Unknown release 24 hr mirabegron 50 mg tablet,extended 50 mg PO HS #90 tab 11/02/19 12/26/19 Unknown release 24 hr lisinopril 5 mg PO HS 12/26/19 12/26/19 12/25/19 pregabalin 150 mg PO BID 12/26/19 12/26/19 Unknown NPO Date Last Intake of Fluids: 12/26/19 Time Last Intake of Fluids: 02:00 Date Last Intake of Solids: 12/26/19 Time Last Intake of Solids: 01:00 Past Medical History Medical History Compression fracture of T11 vertebra Depression DM type 2 (diabetes mellitus, type 2) Dyslipidemia Hemorrhagic stroke HTN (hypertension) Hypothyroidism Iron deficiency anemia Migraine Multiple sclerosis (Acute) Neurogenic bladder Nocturia HELIO (obstructive sleep apnea) Osteoarthritis Peripheral neuropathy Restless leg syndrome Sleep apnea (Acute) Stroke (Acute) DECEMBER 2017 (GENERALIZED WEAKNESS) Temporomandibular joint disorder Clicks, but has never locked Urinary frequency Urinary incontinence UTI (urinary tract infection) Past Family History Family History Father Family history of diabetes mellitus Other FHx: cancer FHx: heart disease Past Surgical History Surgical History H/O foot surgery 08/04/17 - ORIF RIGHT 2/3/4 METATARSAL - MAC#3, ETT# 7.0, GRADE 2 VIEW, GRADE 2 VIEW History of colonoscopy History of dental surgery History of dilatation and curettage History of esophagogastroduodenoscopy (EGD) S/P insertion of spinal cord stimulator Social History Smoking Status: Never smoker Do You Dip or Chew Tobacco: No Hx Alcohol Use: No Hx Substance Use: No substance use type: does not use Physical Exam Vital Signs Last Vital Signs Temp 36.9 C 12/26/19 11:06 Pulse 103 H 03/18/20 11:06 Resp 18 12/26/19 11:06 BP 113/57 L 12/26/19 11:06 Pulse Ox 94 12/26/19 11:06 Testing Laboratory Results 12/26/19 08:41 12/26/19 08:41 PT 10.5 Seconds (9.0-12.0) 12/26/19 08:41 INR 1.0 (0.9-1.1) 12/26/19 08:41 APTT 25.4 Seconds (21.0-31.0) 12/26/19 08:41 Urine Color Yellow 12/26/19 08:40 Urine Appearance Clear (Clear) 12/26/19 08:40 Urine pH 5.0 (4.5-7.5) 12/26/19 08:40 Ur Specific [place] 1.030 (1.000-1.030) 12/26/19 08:40 Urine Protein Negative (Negative) 12/26/19 08:40 Urine Glucose (UA) 3+ (Negative) H 12/26/19 08:40 Urine Ketones Trace (Negative) H 12/26/19 08:40 Urine Nitrite Negative (Negative) 12/26/19 08:40 Ur Leukocyte Esterase Negative (Negative) 12/26/19 08:40 Blood Type O Negative 12/26/19 08:41 Antibody Screen NEGATIVE 12/26/19 08:41
[2019-12-26] MEDS ORDERED: ATROPINE SULFATE 0.1 MG/ML 10ML SYR IV PRN (11:16)
[2019-12-26] MEDS ORDERED: PROMETHAZINE HCL 12.5 MG in SODIUM CHLORIDE 0.9% 50 ML IV PRN (11:16)
[2019-12-26] MEDS ORDERED: HYDROmorphone INJ 2 MG/ML SYR/VIAL IV PRN (11:16)
[2019-12-26] MEDS ORDERED: METOCLOPRAMIDE HCL INJ 5 MG/ML 2 ML VIAL IV PRN (11:16)
[2019-12-26] MEDS ORDERED: ePHEDrine sulfate 50 MG/ML AMP IV PRN (11:16)
[2019-12-26] MEDS ORDERED: MIDAZOLAM HCL 1 MG/ML 2ML VIAL ONE (11:27)
[2019-12-26] MEDS ORDERED: ROCURONIUM BROMIDE 10 MG/ML 5 ML VIAL ONE (11:27)
[2019-12-26] MEDS ORDERED: ONDANSETRON INJ 2 MG/ML 2 ML VIAL ONE (11:27)
[2019-12-26] MEDS ORDERED: PROPOFOL IV EMULSION 10 MG/ML 20 ML VIAL IV ONE (11:27)
[2019-12-26] MEDS ORDERED: fentaNYL citrate 100 MCG/2 ML VIAL ONE (11:27)
[2019-12-26] MEDS ORDERED: LIDOCAINE HCL 2% 2 ML VIAL/AMP(20MG/ML) INFIL ONE (11:27)
[2019-12-26] MEDS ORDERED: ROPIVACAINE 0.5% 5 MG/ML 30 ML VIAL ONE (11:31)
[2019-12-26] MEDS ORDERED: ALBUMIN HUMAN 5% 12.5 GM/250 ML VIAL IV ONE (12:31)
[2019-12-26] MEDS ORDERED: MICONAZOLE NITRATE POWDER 43 GM EXT PRN (12:43)
[2019-12-26] MEDS ORDERED: PHENYLEPHRINE 100MCG/ML 5ML SYR ONE (13:08)
[2019-12-26] MEDS ORDERED: ePHEDrine sulfate 50 MG/ML AMP ONE (13:08)
[2019-12-26] MEDS ORDERED: ePHEDrine sulfate 50 MG/ML SYR ONE (13:08)
[2019-12-26] MEDS ORDERED: PHENYLEPHRINE HCL 10 MG/ML VIAL ONE (13:08)
[2019-12-26] MEDS ORDERED: NEOSTIGMINE METHYLSULFATE 5 MG/5 ML SYR ONE (13:51)
[2019-12-26] MEDS ORDERED: GLYCOPYRROLATE 0.2 MG/ML VIAL ONE (13:51)
--- NOTE | 2019-12-26 13:52 | Post Operative Brief Note ---
Immediate Post Op Note v1 Date of Surgery December 26, 2019 Pre & Post Diagnosis Operation Date: 12/26/19 07:00 Pre-Op Diagnosis: Right Hip Fracture Post-Op Diagnosis: Right Hip Fracture I identified the patient and participated in the time-out.: Yes Procedure Operation Date: 12/26/19 07:00 Actual Procedures p Right Hip Open Reduction Internal Fixation(Right) - Joe You MD Surgeon Joe You MD Power Saw Mechanic MD Cassy Estimated Blood Loss 100 Findings Consistent with Post-Op Diagnosis Fluids 250 cc Albumin, 1000 cc LR, 1000 cc NS Drains Bowen Catheter Anesthesia Type General Regional Complications none
--- NOTE | 2019-12-26 13:53 | Operative Report ---
Post Operative Report Pre & Post Diagnosis Operation Date: 12/26/19 07:00 Pre-Op Diagnosis: Right Hip Fracture Post-Op Diagnosis: Right Hip Fracture I identified the patient and participated in the time-out.: Yes Procedure Operation Date: 12/26/19 07:00 Actual Procedures p Right Hip Open Reduction Internal Fixation(Right) - Joe You MD Surgeon Joe You MD Search Engine Optimization Specialist MD Cassy Estimated Blood Loss 100 Findings See Below Displaced, comminuted right Inter-trochanteric hip fracture, 4-part. Fluids 250 cc Albumin, 1L LR, 1L NS Specimens n/a Drains Bowen Anesthesia Type General Regional Complications none Indications The patient is a 59 year old female who sustained a right hip fracture from a fall from ground-level. The patients treatment options of conservative versus surgical intervention were discussed. Since the patient was an ambulatory prior to the injury and to avoid the risks of bed sores, pulmonary complications, and to give the best chance for ambulation, I recommended surgery. The patient and family understands the risks of surgery, which include but are not limited to: bleeding, infection, re-operation, damage to nerves and arteries, continued pain, failure of the hardware, mal-union, non-union, DVT, and . In addition she is aware of the 20-30% morbidity associated with hip fracture for up to 1 year following a hip fracture. The patient and family understands all of these instructions and explanations, all of their questions have been satisfactorily addressed. The patient has elected to proceed with surgery and the informed consent was signed. Description of Procedure IMPLANTS: 1) 11 MM x 400 MM LONG TROCH NAIL (SYNTHES). 2) 11 X 95 MM HELICAL SCREW. 3) 5 X 46 MM LOCKING SCREW. DESCRIPTION OF PROCEDURE: The patient was taken to the Operating Room and placed in the supine position on the fracture table after spinal anesthesia was administered. A multidisciplinary time-out was performed identifying my initials on the right lower limb as the correct and operative limb. Prior to the incision being made, 3 grams of intravenous Ancef were given. Fluoroscopy was brought in to ensure adequate x-rays images could be obtained. A reduction was performed with traction, adduction, and internal rotation of the operative limb. Once this was confirmed with Fluro, the right lower extremity was prepped in the standard fashion. The trochanter was marked as was the planned incision and trajectory of the helical screw. The incisions were injected with a 50:50 mixture of 1% Lidocaine plain and 0.5% Bupivacaine with epinephrine for a total of 12 cc. The planned incision proximal to the greater trochanter was made and carried down through t he Tensor Fascia Rosa to expose the tip of the greater trochanter and the starting position. A starting guide wire was placed and the starting reamer was used to create the entry hole for the long implant. A size 11 was selected. A long guidewire was placed down to the physeal scar and measured and it was decided to use a 400 mm long trunk nail. The canal was reamed with a 12 and half millimeter reamer. The implant was then inserted without difficulty. Small second and third incisions were made for placement of the helical blade and distal locking screw. The Helical blade was placed through the aiming guide in the standard fashion. The Helical blade was locked in place. The traction was released. The distal locking screw was placed with perfect eagle technique in the dynamic screw hole more proximally in the standard fashion. Final x-rays were obtained showing TAD of less than 25mm. The wounds were copiously irrigated. The Tensor Fascia Rosa was closed with 0 Vicryl. The subcutaneous tissue was closed with 3-0 Vicryl. The skin was closed with Zipline and shield. The incisions were covered with 4x4s, ABD, and foam tape. The patient was transfer to her hospital bed and taken to the PACU in stable condition. The sponge and needle counts were correct. POST-OP INSTRUCTIONS: The patient was admitted back to the [facility] and to the hospitalist service. The patient will be WBAT with a walker and assistant winemaker as needed. The patient will be seen by PT/OT. Her labs will be checked in the am. DVT prophylaxis will be with TEDs, mechanical devices and 81 mg of aspirin twice daily for 6 weeks. I attest to the content of the Intraoperative Record and any orders documented therein. Any exceptions are noted below.
--- NOTE | 2019-12-26 14:15 | Operative Report ---
Post Operative Report Pre & Post Diagnosis Operation Date: 12/26/19 07:00 Pre-Op Diagnosis: Right Hip Fracture Post-Op Diagnosis: Right Hip Fracture I identified the patient and participated in the time-out.: Yes Procedure Operation Date: 12/26/19 07:00 Actual Procedures p Right Hip Open Reduction Internal Fixation(Right) - Joe You MD Surgeon Joe You MD Subeditor MD Cassy Estimated Blood Loss 100 Findings Consistent with Post-Op Diagnosis Specimens None Complications none Disposition Accompanied Patient To Recovery: Yes Disposition: Recovery Room Description of Procedure Supine,fracture table, standard prep and drape, time-out Right Hip Open Reduction Internal Fixation Please see Dr You's procedure notes for specific details I was present throughout the case, assisted for wound closure and transferred the patient to PACU in stable condition I attest to the content of the Intraoperative Record and any orders documented therein. Any exceptions are noted below.
--- NOTE | 2019-12-26 14:21 | Fluoroscopy Report ---
FL femur RT 2V CLINICAL HISTORY: RT SIDE TROCH NAIL COMPARISON STUDY: None FLUOROSCOPY TIME: 2 minutes 17 seconds NUMBER OF FLUOROSCOPIC IMAGES: 5 FINDINGS: Image intensifier utilized intraoperatively for assistance of a right trochanteric nailing procedure IMPRESSION: Image intensifier utilized intraoperatively for assistance during a right intertrochanter ic nailing procedure ACT 112: Negative or not required by law. The above report was generated using voice recognition software. It may contain grammatical, syntax or spelling errors. Electronically signed by: Johnathon Lyon M.D. 12/26/2019 2:19 PM
[2019-12-26] MEDS: fentaNYL citrate 100 MCG/2 ML VIAL IV PRN ×4 (14:37→14:52)
--- NOTE | 2019-12-26 15:04 | Anesthesiology Progress Note ---
Date of Service December 26, 2019 Anesthesia Post Procedure Vital Signs Vital Signs: Temp Pulse Pulse Pulse Resp BP BP 12/26/19 15:00 106 H 16 86/55 L 12/26/19 14:50 103 H 16 102/74 12/26/19 14:40 107 H 16 99/69 L 12/26/19 14:30 111 H 16 94/53 L 12/26/19 14:20 36.3 C L 16 119/60 12/26/19 11:06 36.9 C 103 H 18 12/26/19 10:10 37.0 C 103 H 14 12/26/19 09:37 104 H 17 116/72 12/26/19 09:01 12/26/19 09:00 100 H 17 12/26/19 07:38 36.5 C 100 H 18 119/68 BP Pulse Ox 12/26/19 15:00 95 12/26/19 14:50 95 12/26/19 14:40 96 12/26/19 14:30 97 12/26/19 14:20 95 12/26/19 11:06 113/57 L 94 12/26/19 10:10 120/80 92 12/26/19 09:37 95 12/26/19 09:01 95 12/26/19 09:00 116/70 89 L 12/26/19 07:38 92 Pain Intensity Right Leg: Pain Intensity: 6 Transfer of Care Handoff Completed per policy Notes Mental Status: alert / awake / arousable and participated in evaluation Patient Amnestic to Procedure: Yes Nausea / Vomiting: adequately controlled Pain: adequately controlled Airway Patency, RR, SpO2: stable & adequate BP & HR: stable & adequate Hydration State: stable & adequate Anesthetic Complications: no major complications apparent
[2019-12-26] MEDS: MoRPHine SULFATE 4 MG/ML 1 ML CARP\\VIAL IV PRN ×2 (15:43→17:58)
--- NOTE | 2019-12-26 16:10 | Electrocardiogram Report ---
Test Reason : Blood Pressure : / mmHG Vent. Rate : 103 BPM Atrial Rate : 103 BPM P-R Int : 140 ms QRS Dur : 088 ms QT Int : 352 ms P-R-T Axes : 049 -06 050 degrees QTc Int : 461 ms Poor data quality, interpretation may be adversely affected Sinus tachycardia Cannot rule out Anterior infarct (cited on or before 28-JUN-2017) Abnormal ECG When compared with ECG of 21-Dec-2018 15:07, No significant change Confirmed by Crispin Curiel ([id number]) on 12/26/2019 4:10:21 PM Referred By: REFERRED SELF Confirmed By:Crispin Curiel
[2019-12-26] MEDS: INSULIN ASPART 100 UNITS/ML 3 ML PEN SC SCH ×3 (16:23→21:54)
[2019-12-26] MEDS: BACLOFEN 10 MG TAB PO SCH ×2 (16:24→17:09)
--- NOTE | 2019-12-26 17:56 | Orthopedic Progress Note ---
Date of Service December 26, 2019 Assessment & Plan (1) Hip fracture: POD #0, s/p ORIF R Intratrochanteric hip fracture, doing as well as expected. WBAT with walker and pharmacy assistant as needed. Resume diabetic diet. Continue pain control. T/C restarting spinal stimulator. PT/OT. DVT prophylaxis:TEDs for 2 weeks on the operative limb & SCDs while in the hospital. 81 mg aspirin twice daily x6 weeks. Will check labs in the a.m. Will change dressing postop day #2. Continue care per primary service. Discharge planning. Admission and Anticipated Discharge Date Admission Date: December 26, 2019 Subjective Complaining of right hip pain. Review of Systems Review of Systems: All systems reviewed & are unremarkable except as noted in HPI & below Physical Exam Physical Exam: Drowsy, just received IV pain meds. RLE: Dressings are clean, dry, intact. Calf is soft and nontender. Results & Data ([facility]) Vital Signs (Past 12 Hours) Vital Signs Temp Pulse Pulse Pulse Resp BP BP 12/26/19 17:25 113 H 14 137/66 12/26/19 16:23 36.8 C 110 H 18 122/73 12/26/19 15:55 109 H 14 120/68 12/26/19 15:25 36.6 C 110 H 14 125/67 12/26/19 15:10 36.4 C L 106 H 16 102/71 12/26/19 15:00 106 H 16 86/55 L 12/26/19 14:50 103 H 16 102/74 12/26/19 14:40 107 H 16 99/69 L 12/26/19 14:30 111 H 16 94/53 L 12/26/19 14:20 36.3 C L 16 119/60 12/26/19 11:06 36.9 C 103 H 18 12/26/19 10:10 37.0 C 103 H 14 12/26/19 09:37 104 H 17 116/72 12/26/19 09:01 12/26/19 09:00 100 H 17 12/26/19 07:38 36.5 C 100 H 18 119/68 BP Pulse Ox 12/26/19 17:25 90 12/26/19 16:23 90 12/26/19 15:55 93 12/26/19 15:25 95 12/26/19 15:10 95 12/26/19 15:00 95 12/26/19 14:50 95 12/26/19 14:40 96 12/26/19 14:30 97 12/26/19 14:20 95 12/26/19 11:06 113/57 L 94 12/26/19 10:10 120/80 92 12/26/19 09:37 95 12/26/19 09:01 95 12/26/19 09:00 116/70 89 L 12/26/19 07:38 92 (1) Hip fracture Encounter type: initial encounter Fracture type: closed Laterality: right Qualified Code(s): S72.001A - Fracture of unspecified part of neck of right femur, initial encounter for closed fracture
[2019-12-26] MEDS: ACETAMINOPHEN 500 MG TAB PO SCH (19:41)
[2019-12-26] MEDS ORDERED: NALOXONE HCL 0.4 MG/1 ML VIAL/CARP IV STA (19:42)
[2019-12-26] MEDS ORDERED: XOPENEX/ATROVENT 1.25mg/0.5MG NEB COMBO NEB STA (19:56)
[2019-12-26] MEDS ORDERED: LEVALBUTEROL 1.25MG/0.5ML NEB INH STA (19:59)
[2019-12-26] MEDS ORDERED: IPRATROPIUM BROMIDE NEB SOLN 0.02% 2.5 ML VIAL INH STA (19:59)
[2019-12-26] MEDS ORDERED: Nursing to Pharmacy Communication ONE (20:00)
[2019-12-26] MEDS ORDERED: CEFAZOLIN 2000MG 2,000 MG/15 ML SYR IV SCH (20:00)
--- NOTE | 2019-12-26 20:04 | XRay Report ---
XR chest 1V portable HISTORY: 59 years-old Female low o2 acute hypoxia COMPARISON: Chest radiograph of same day at 8:16 AM TECHNIQUE: Portable AP view of the chest FINDINGS: Cardiac silhouette is enlarged. The study is limited secondary to rotation and hypoinflation. Left gr eater than right interstitial opacities are noted along with linear right midlung, left perihilar and left basilar opacities. Bronchovascular crowding with possible pulmonary vascular congestion. Spinal stimulator device is noted overlying the lower thoracic spine. Degenerative changes of the shoulders and spine are noted. IMPRESSION: 1. Limited exam secondary to positioning and hypoinflation. 2. Left greater than right interstitial coarsening with perihilar and left lung base linear densities suggest atelectasis. 3. Possible mild pulmonary vascular congestion. ACT 112: Negative or not required by law. The above report was generated using voice recognition software. It may contain grammatical, syntax o r spelling errors. Electronically signed by: Bandar Valdes M.D. 12/26/2019 8:02 PM
[2019-12-26] MEDS ORDERED: ALBUMIN 25% 50 ML with FUROSEMIDE 20 MG IV ONE (20:15)
[2019-12-26 20:28] LABS: Partial Thromboplastin Ratio 0.9; Partial Thromboplastin Time 23.8 Seconds (21.0-31.0)
[2019-12-26 20:38] LABS: Hematocrit (blood only) 29.3 % (37-47); Hemoglobin 9.4 g/dL (12.0-16.0); Mean Corpuscular Hemoglobin 28.9 pg (25-34); Mean Corpuscular Hgb Conc 32.1 g/dL (32-36); Mean Corpuscular Volume 90.2 fL (80-100); Mean Platelet Volume 8.7 fL (7.4-10.4); Platelet Count 235 K/uL (130-400); RDW Coefficient of Variation 13.6 % (11.5-14.5); Red Blood Count 3.25 M/uL (4.2-5.4); White Blood Count 8.34 K/uL (4.8-10.8)
[2019-12-26 20:40] LABS: Base Excess ABG -0.5 mEq/L (-9-1.8); HCO3 ABG 25 mmol/L (19-24); Oxygen Saturation ABG 93.4 % (90-95); PCO2 ABG 46 mmHg (35-46); PO2 ABG 70 mmHg (80-95); pH ABG 7.35 (7.35-7.45)
[2019-12-26 20:43] LABS: Allen Test POS (Pos)
[2019-12-26 20:44] LABS: Calcium 7.9 mg/dl (8.5-10.1); Creatinine Clr Calc Pharmacy 60.2 ml/min; Est GFR (African American) 59.7; Est GFR (Non-African American) 51.5; Magnesium 1.4 mg/dl (1.8-2.4)
[2019-12-26 20:53] LABS: Albumin Globulin Ratio 0.8 (0.9-2); Bilirubin,Total 0.3 mg/dl (0.2-1); Globulin 3.6 gm/dl (2.5-4.0); Potassium 4.2 mmol/L (3.5-5.1); Thyroid Stimulating Hormone 1.21 uIu/ml (0.300-4.500); Total Protein 6.6 gm/dl (6.4-8.2)
[2019-12-26] MEDS ORDERED: FERROUS SULFATE 325 MG TAB PO SCH (21:00)
[2019-12-26] MEDS ORDERED: MIRABEGRON ER 25 MG TAB PO SCH (21:00)
[2019-12-26] MEDS ORDERED: BACLOFEN 20 MG TAB PO SCH (21:00)
[2019-12-26] MEDS ORDERED: VENLAFAXINE HCL XR 75 MG CAPXR PO SCH (21:00)
[2019-12-26] MEDS ORDERED: diazePAM 5 MG TABLET PO SCH (21:00)
[2019-12-26] MEDS: NORTRIPTYLINE HCL 25 MG CAP PO SCH (21:16)
[2019-12-26] MEDS: ASPIRIN 81 MG ECTAB PO SCH (21:16)
[2019-12-26] MEDS: VENLAFAXINE HCL XR 150 MG CAPXR PO SCH (21:17)
[2019-12-26] MEDS: MULTIVITAMIN TAB PO SCH (21:17)
[2019-12-26] MEDS: ATORVASTATIN 40 MG TAB PO SCH (21:17)
[2019-12-26] MEDS: MAGNESIUM SULFATE / D5W 1 GM/100 ML BAG IV SCH ×3 (21:18→23:43)
[2019-12-26] MEDS: CALCIUM 600MG + VIT D 400 IU TAB PO SCH (21:18)
[2019-12-26] MEDS: PREGABALIN 150 MG CAP PO SCH (21:18)
[2019-12-26] MEDS: DOCUSATE SODIUM/SENNA 50/8.6MG TAB PO SCH (21:18)
[2019-12-26 21:25] LABS: Basophils # (auto) 0.02 K/uL (0-0.2); Basophils % (auto) 0.2 %; Eosinophils # (auto) 0.08 K/uL (0-0.5); Immature Granulocytes # (auto) 0.02 K/uL (0.00-0.02); Immature Granulocytes % (auto) 0.2 %; Lymphocytes # (auto) 1.94 K/uL (1.2-3.4); Lymphocytes % (auto) 23.3 %; Monocytes # (auto) 0.74 K/uL (0.11-0.59); Monocytes % (auto) 8.9 %; Neutrophils # (auto) 5.54 K/uL (1.4-6.5); Neutrophils % (auto) 66.4 %
[2019-12-26] MEDS: INSULIN GLARGINE SOLOSTAR 100 UNITS/ML 3 ML PEN SC SCH (21:54)
[2019-12-26 22:50] LABS: Appearance Urine Clear (Clear); Bacteria Urine Automated Negative (Negative); Bilirubin Urine Negative (Negative); Blood Urine Negative (Negative); Color Urine Yellow; Epithelial Cell Urine Auto 20-30 /lpf (0-5); Glucose Urine UA Negative (Negative); Ketones Urine Negative (Negative); Leukocyte Esterase Urine 1+ (Negative); Nitrite Urine Negative (Negative); Protein Urine Negative (Negative); RBC Urine Automated 0-4 /hpf (0-4); Specific Gravity Urine 1.013 (1.000-1.030); Urobilinogen Urine Negative (Negative)
[2019-12-26] MEDS ORDERED: ALBUMIN 25% 50 ML IV ONE (23:29)
[2019-12-26] MEDS ORDERED: KETOROLAC TROMETHAMINE 15 MG/ML VIAL IV ONE (23:57)
[2019-12-27] MEDS ORDERED: MoRPHine SULFATE 2 MG/ML CARP IV PRN (00:03)
[2019-12-27] MEDS: ACETAMINOPHEN 500 MG TAB PO SCH ×3 (03:45→20:40)
[2019-12-27 06:14] LABS: Hematocrit (blood only) 25.3 % (37-47); Hemoglobin 7.9 g/dL (12.0-16.0); Mean Corpuscular Hemoglobin 28.4 pg (25-34); Mean Corpuscular Hgb Conc 31.2 g/dL (32-36); Mean Platelet Volume 8.8 fL (7.4-10.4); Platelet Count 207 K/uL (130-400); RDW Coefficient of Variation 13.8 % (11.5-14.5); RDW Standard Deviation 45.9 fL (36.4-46.3); Red Blood Count 2.78 M/uL (4.2-5.4); White Blood Count 7.37 K/uL (4.8-10.8)
[2019-12-27 06:20] LABS: BUN Creatinine Ratio 12.4 (10-20); Calcium 8.2 mg/dl (8.5-10.1); Est GFR (African American) 52.5; Est GFR (Non-African American) 45.3; Potassium 4.2 mmol/L (3.5-5.1)
[2019-12-27] MEDS ORDERED: LEVOTHYROXINE SODIUM 50 MCG TABLET PO SCH (06:30)
--- NOTE | 2019-12-27 07:24 | Anesthesiology Progress Note ---
Date of Service December 27, 2019 Anesthesia Post Procedure Vital Signs Vital Signs: Temp Pulse Pulse Pulse Resp BP BP 12/27/19 04:00 12/27/19 03:37 36.9 C 102 H 20 12/27/19 00:00 105 H 12/26/19 22:47 36.9 C 106 H 18 12/26/19 20:40 37.6 C H 104 H 20 12/26/19 20:25 106 H 20 12/26/19 19:20 115 H 93/54 L 12/26/19 19:06 36.8 C 116 H 16 93/54 L 12/26/19 18:33 93/54 L 12/26/19 18:25 116 H 12 88/45 L 12/26/19 17:25 113 H 14 137/66 12/26/19 16:23 36.8 C 110 H 18 122/73 12/26/19 15:55 109 H 14 120/68 12/26/19 15:25 36.6 C 110 H 14 125/67 12/26/19 15:10 36.4 C L 106 H 16 102/71 12/26/19 15:00 106 H 16 86/55 L 12/26/19 14:50 103 H 16 102/74 12/26/19 14:40 107 H 16 99/69 L 12/26/19 14:30 111 H 16 94/53 L 12/26/19 14:20 36.3 C L 16 119/60 12/26/19 11:06 36.9 C 103 H 18 12/26/19 10:10 37.0 C 103 H 14 12/26/19 09:37 104 H 17 116/72 12/26/19 09:01 12/26/19 09:00 100 H 17 12/26/19 07:38 36.5 C 100 H 18 119/68 BP Pulse Ox Pulse Ox 12/27/19 04:00 95 12/27/19 03:37 110/64 95 12/27/19 00:00 95 12/26/19 22:47 103/66 94 12/26/19 20:40 110/69 97 97 12/26/19 20:25 90 12/26/19 19:20 89 L 12/26/19 19:06 90 12/26/19 18:33 12/26/19 18:25 92 12/26/19 17:25 90 12/26/19 16:23 90 12/26/19 15:55 93 12/26/19 15:25 95 12/26/19 15:10 95 12/26/19 15:00 95 12/26/19 14:50 95 12/26/19 14:40 96 12/26/19 14:30 97 12/26/19 14:20 95 12/26/19 11:06 113/57 L 94 12/26/19 10:10 120/80 92 12/26/19 09:37 95 12/26/19 09:01 95 12/26/19 09:00 116/70 89 L 12/26/19 07:38 92 Pain Intensity Right Leg: Pain Intensity: 8 Notes Mental Status: alert / awake / arousable and participated in evaluation Patient Amnestic to Procedure: Yes Nausea / Vomiting: adequately controlled Pain: adequately controlled Airway Patency, RR, SpO2: stable & adequate BP & HR: stable & adequate Hydration State: stable & adequate Anesthetic Complications: no major complications apparent and Pt Satisfied with anesthetic care
[2019-12-27] MEDS: ASPIRIN 81 MG ECTAB PO SCH ×2 (08:17→20:40)
[2019-12-27] MEDS: INSULIN GLARGINE SOLOSTAR 100 UNITS/ML 3 ML PEN SC SCH ×2 (08:18→20:50)
[2019-12-27] MEDS: ALFUZOSIN HCL 10 MG TAB PO SCH (08:18)
[2019-12-27] MEDS: INSULIN ASPART 100 UNITS/ML 3 ML PEN SC SCH ×4 (08:20→20:51)
[2019-12-27] MEDS: PREGABALIN 150 MG CAP PO SCH ×2 (08:30→20:36)
[2019-12-27] MEDS: OXYCODONE HCL IR 5 MG TAB (IMMEDIATE RELEASE) PO PRN ×2 (08:30→20:35)
--- NOTE | 2019-12-27 09:13 | Orthopedic Progress Note ---
Date of Service December 27, 2019 Assessment & Plan (1) Hip fracture: POD #1, s/p ORIF R Intratrochanteric hip fracture Patients Hgb is low at 7.9 with drop since admitted from admission of 11.8. Acute anemia blood loss. Currently patient is asymptomatic. I spoke to Dr Cramer who will follow. She plans to adjust iron intake and monitor Hgb and symptoms. She is recommending holding off on blood transfusion. Will make Dr You aware. Continue diabetic diet. Continue pain control. T/C restarting spinal stimulator. PT/OT. WBAT R LE. I also recommended patient contact her to bring in her AFO to assist with ambulating during therapy. DVT prophylaxis:TEDs for 2 weeks on the operative limb & SCDs while in the hospital. 81 mg aspirin twice daily x6 weeks. Will change dressing postop day #2. Continue care per primary service. Discharge planning. Patient prefers to go home, explained it depends on her ability to transfer. Will continue to follow with social work. Encourage consideration of placement. I, Dr. You, saw and examined the patient and discussed the management with my PA. I reviewed my PAs note and agree with the documented findings and the plan of care I developed. Admission and Anticipated Discharge Date Admission Date: December 26, 2019 Subjective Saw patient this am. Was transferred last evening secondary to hypotension, unresponsive, and increased O2 intake. Pain meds were temporarily held. She currently is A and O. On O2 nasal cannula 4L. Eating breakfast. Hasn't yet been out of bed. States still has pain but some better since last night. Denies CP, SOB (on nasal cannula), lightheadedness, or dizziness. Says director social welfare saw her and she would like to go home upon D/C. Complaining of right hip and leg pain Review of Systems Respiratory: no dyspnea Cardiovascular: no chest pain Physical Exam Physical Exam: Right hip incisions covered with dry dressings intact. Skin without bruising or reddness. No pain with gentle log rolling. No knee pain with gentle ROM. NV intact B LE. B teds and SCDs intact. 5/5 LLE TA, EHL, gastroc. Weakness to Right EHL, TA which is her norm. 5-/5 gastroc. B calves are soft. Results & Data ([facility]) Vital Signs (Past 12 Hours) Vital Signs Temp Pulse Pulse Resp BP Pulse Ox Pulse Ox 12/27/19 07:31 36.5 C 98 H 19 113/71 96 12/27/19 04:00 95 12/27/19 03:37 36.9 C 102 H 20 110/64 95 12/27/19 00:00 105 H 95 12/26/19 22:47 36.9 C 106 H 18 103/66 94 Laboratory Results 12/27/19 12/27/19 12/27/19 Range/Units 07:32 05:49 05:49 WBC 7.37 (4.8-10.8) K/uL RBC 2.78 L (4.2-5.4) M/uL Hgb 7.9 L (12.0-16.0) g/dL Hct 25.3 L (37-47) % MCV 91.0 (80-100) fL MCH 28.4 (25-34) pg MCHC 31.2 L (32-36) g/dL RDW Std Deviation 45.9 (36.4-46.3) fL RDW Coeff of Nawaf 13.8 (11.5-14.5) % Plt Count 207 (130-400) K/uL MPV 8.8 (7.4-10.4) fL Immature Gran % (Auto) % Neut % (Auto) % Lymph % (Auto) % Citrus % (Auto) % Eos % (Auto) % Baso % (Auto) % Immature Gran # (Auto) (0.00-0.02) K/uL Neut # (Auto) (1.4-6.5) K/uL Lymph # (Auto) (1.2-3.4) K/uL Citrus # (Auto) (0.11-0.59) K/uL Eos # (Auto) (0-0.5) K/uL Baso # (Auto) (0-0.2) K/uL APTT (21.0-31.0) Seconds PTT Ratio ABG pH (7.35-7.45) ABG pCO2 (35-46) mmHg ABG pO2 (80-95) mmHg ABG HCO3 (19-24) mmol/L ABG O2 Saturation (90-95) % ABG Base Excess (-9-1.8) mEq/L Jovanny Test (Pos) Barometric Pressure mm/Hg Oxygen Given Sodium 142 (136-145) mmol/L Potassium 4.2 (3.5-5.1) mmol/L Chloride 111 H (98-107) mmol/L Carbon Dioxide 26 (21-32) mmol/L Anion Gap 5.0 (3-11) BUN 16 (7-18) mg/dl Creatinine 1.29 H (0.6-1.2) mg/dl Est Cr Clr Drug Dosing 55.0 Est GFR ( Amer) 52.5 Est GFR (Non-Af Amer) 45.3 BUN/Creatinine Ratio 12.4 (10-20) Glucose 123 H (70-99) mg/dl POC Glucose 186 H (70-99) mg/dl Lactate (0.4-2.0) mmol/L Calcium 8.2 L (8.5-10.1) mg/dl Magnesium (1.8-2.4) mg/dl Total Bilirubin (0.2-1) mg/dl AST (15-37) U/L ALT (12-78) U/L Alkaline Phosphatase (45-117) U/L Ammonia (11-32) umol/L Total Protein (6.4-8.2) gm/dl Albumin (3.4-5.0) gm/dl Globulin (2.5-4.0) gm/dl Albumin/Globulin Ratio (0.9-2) Procalcitonin (0-0.5) ng/ml TSH (0.300-4.500) uIu/ml Urine Color Urine Appearance (Clear) Urine pH (4.5-7.5) Ur Specific Armstrong (1.000-1.030) Urine Protein (Negative) Urine Glucose (UA) (Negative) Urine Ketones (Negative) Urine Blood (Negative) Urine Nitrite (Negative) Urine Bilirubin (Negative) Urine Urobilinogen (Negative) Ur Leukocyte Esterase (Negative) Urine WBC (Auto) (0-5) /hpf Urine RBC (Auto) (0-4) /hpf U Hyaline Cast (Auto) (0-5) /lpf U Epithel Cells (Auto) (0-5) /lpf Urine Bacteria (Auto) (Negative) Nasal Screen MRSA (PCR) (Negative) Blood Type Antibody Screen 12/26/19 12/26/19 12/26/19 Range/Units Unknown 21:58 20:30 WBC (4.8-10.8) K/uL RBC (4.2-5.4) M/uL Hgb (12.0-16.0) g/dL Hct (37-47) % MCV (80-100) fL MCH (25-34) pg MCHC (32-36) g/dL RDW Std Deviation (36.4-46.3) fL RDW Coeff of Nawaf (11.5-14.5) % Plt Count (130-400) K/uL MPV (7.4-10.4) fL Immature Gran % (Auto) % Neut % (Auto) % Lymph % (Auto) % Citrus % (Auto) % Eos % (Auto) % Baso % (Auto) % Immature Gran # (Auto) (0.00-0.02) K/uL Neut # (Auto) (1.4-6.5) K/uL Lymph # (Auto) (1.2-3.4) K/uL Citrus # (Auto) (0.11-0.59) K/uL Eos # (Auto) (0-0.5) K/uL Baso # (Auto) (0-0.2) K/uL APTT (21.0-31.0) Seconds PTT Ratio ABG pH 7.35 (7.35-7.45) ABG pCO2 46 (35-46) mmHg ABG pO2 70 L (80-95) mmHg ABG HCO3 25 H (19-24) mmol/L ABG O2 Saturation 93.4 (90-95) % ABG Base Excess -0.5 (-9-1.8) mEq/L Jovanny Test POS (Pos) Barometric Pressure 738.2 mm/Hg Oxygen Given FLOW RATE 4 Sodium (136-145) mmol/L Potassium (3.5-5.1) mmol/L Chloride (98-107) mmol/L Carbon Dioxide (21-32) mmol/L Anion Gap (3-11) BUN (7-18) mg/dl Creatinine (0.6-1.2) mg/dl Est Cr Clr Drug Dosing Est GFR ( Amer) Est GFR (Non-Af Amer) BUN/Creatinine Ratio (10-20) Glucose (70-99) mg/dl POC Glucose (70-99) mg/dl Lactate (0.4-2.0) mmol/L Calcium (8.5-10.1) mg/dl Magnesium (1.8-2.4) mg/dl Total Bilirubin (0.2-1) mg/dl AST (15-37) U/L ALT (12-78) U/L Alkaline Phosphatase (45-117) U/L Ammonia (11-32) umol/L Total Protein (6.4-8.2) gm/dl Albumin (3.4-5.0) gm/dl Globulin (2.5-4.0) gm/dl Albumin/Globulin Ratio (0.9-2) Procalcitonin (0-0.5) ng/ml TSH (0.300-4.500) uIu/ml Urine Color Yellow Urine Appearance Clear (Clear) Urine pH 5.0 (4.5-7.5) Ur Specific Armstrong 1.013 (1.000-1.030) Urine Protein Negative (Negative) Urine Glucose (UA) Negative (Negative) Urine Ketones Negative (Negative) Urine Blood Negative (Negative) Urine Nitrite Negative (Negative) Urine Bilirubin Negative (Negative) Urine Urobilinogen Negative (Negative) Ur Leukocyte Esterase 1+ H (Negative) Urine WBC (Auto) 10-30 H (0-5) /hpf Urine RBC (Auto) 0-4 (0-4) /hpf U Hyaline Cast (Auto) 1-5 (0-5) /lpf U Epithel Cells (Auto) 20-30 H (0-5) /lpf Urine Bacteria (Auto) Negative (Negative) Nasal Screen MRSA (PCR) Negative (Negative) Blood Type Antibody Screen 12/26/19 12/26/19 12/26/19 Range/Units 20:23 20:17 20:17 WBC 8.34 (4.8-10.8) K/uL RBC 3.25 L (4.2-5.4) M/uL Hgb 9.4 L (12.0-16.0) g/dL Hct 29.3 L (37-47) % MCV 90.2 (80-100) fL MCH 28.9 (25-34) pg MCHC 32.1 (32-36) g/dL RDW Std Deviation 45.0 (36.4-46.3) fL RDW Coeff of Nawaf 13.6 (11.5-14.5) % Plt Count 235 (130-400) K/uL MPV 8.7 (7.4-10.4) fL Immature Gran % (Auto) 0.2 % Neut % (Auto) 66.4 % Lymph % (Auto) 23.3 % Citrus % (Auto) 8.9 % Eos % (Auto) 1.0 % Baso % (Auto) 0.2 % Immature Gran # (Auto) 0.02 (0.00-0.02) K/uL Neut # (Auto) 5.54 (1.4-6.5) K/uL Lymph # (Auto) 1.94 (1.2-3.4) K/uL Citrus # (Auto) 0.74 H (0.11-0.59) K/uL Eos # (Auto) 0.08 (0-0.5) K/uL Baso # (Auto) 0.02 (0-0.2) K/uL APTT (21.0-31.0) Seconds PTT Ratio ABG pH (7.35-7.45) ABG pCO2 (35-46) mmHg ABG pO2 (80-95) mmHg ABG HCO3 (19-24) mmol/L ABG O2 Saturation (90-95) % ABG Base Excess (-9-1.8) mEq/L Jovanny Test (Pos) Barometric Pressure mm/Hg Oxygen Given Sodium (136-145) mmol/L Potassium (3.5-5.1) mmol/L Chloride (98-107) mmol/L Carbon Dioxide (21-32) mmol/L Anion Gap (3-11) BUN (7-18) mg/dl Creatinine (0.6-1.2) mg/dl Est Cr Clr Drug Dosing Est GFR ( Amer) Est GFR (Non-Af Amer) BUN/Creatinine Ratio (10-20) Glucose (70-99) mg/dl POC Glucose 251 H (70-99) mg/dl Lactate (0.4-2.0) mmol/L Calcium (8.5-10.1) mg/dl Magnesium (1.8-2.4) mg/dl Total Bilirubin (0.2-1) mg/dl AST (15-37) U/L ALT (12-78) U/L Alkaline Phosphatase (45-117) U/L Ammonia (11-32) umol/L Total Protein (6.4-8.2) gm/dl Albumin (3.4-5.0) gm/dl Globulin (2.5-4.0) gm/dl Albumin/Globulin Ratio (0.9-2) Procalcitonin 0.18 (0-0.5) ng/ml TSH (0.300-4.500) uIu/ml Urine Color Urine Appearance (Clear) Urine pH (4.5-7.5) Ur Specific Armstrong (1.000-1.030) Urine Protein (Negative) Urine Glucose (UA) (Negative) Urine Ketones (Negative) Urine Blood (Negative) Urine Nitrite (Negative) Urine Bilirubin (Negative) Urine Urobilinogen (Negative) Ur Leukocyte Esterase (Negative) Urine WBC (Auto) (0-5) /hpf Urine RBC (Auto) (0-4) /hpf U Hyaline Cast (Auto) (0-5) /lpf U Epithel Cells (Auto) (0-5) /lpf Urine Bacteria (Auto) (Negative) Nasal Screen MRSA (PCR) (Negative) Blood Type Antibody Screen 12/26/19 12/26/19 12/26/19 Range/Units 20:06 20:06 20:06 WBC (4.8-10.8) K/uL RBC (4.2-5.4) M/uL Hgb (12.0-16.0) g/dL Hct (37-47) % MCV (80-100) fL MCH (25-34) pg MCHC (32-36) g/dL RDW Std Deviation (36.4-46.3) fL RDW Coeff of Nawaf (11.5-14.5) % Plt Count (130-400) K/uL MPV (7.4-10.4) fL Immature Gran % (Auto) % Neut % (Auto) % Lymph % (Auto) % Citrus % (Auto) % Eos % (Auto) % Baso % (Auto) % Immature Gran # (Auto) (0.00-0.02) K/uL Neut # (Auto) (1.4-6.5) K/uL Lymph # (Auto) (1.2-3.4) K/uL Citrus # (Auto) (0.11-0.59) K/uL Eos # (Auto) (0-0.5) K/uL Baso # (Auto) (0-0.2) K/uL APTT 23.8 (21.0-31.0) Seconds PTT Ratio 0.9 ABG pH (7.35-7.45) ABG pCO2 (35-46) mmHg ABG pO2 (80-95) mmHg ABG HCO3 (19-24) mmol/L ABG O2 Saturation (90-95) % ABG Base Excess (-9-1.8) mEq/L Jovanny Test (Pos) Barometric Pressure mm/Hg Oxygen Given Sodium 141 (136-145) mmol/L Potassium 4.2 D (3.5-5.1) mmol/L Chloride 111 H (98-107) mmol/L Carbon Dioxide 26 (21-32) mmol/L Anion Gap 5.0 (3-11) BUN 15 (7-18) mg/dl Creatinine 1.16 (0.6-1.2) mg/dl Est Cr Clr Drug Dosing 60.2 Est GFR ( Amer) 59.7 Est GFR (Non-Af Amer) 51.5 BUN/Creatinine Ratio 13.0 (10-20) Glucose 243 H (70-99) mg/dl POC Glucose (70-99) mg/dl Lactate (0.4-2.0) mmol/L Calcium 7.9 L D (8.5-10.1) mg/dl Magnesium 1.4 L (1.8-2.4) mg/dl Total Bilirubin 0.3 (0.2-1) mg/dl AST 25 (15-37) U/L ALT 24 (12-78) U/L Alkaline Phosphatase 127 H (45-117) U/L Ammonia 25.8 (11-32) umol/L Total Protein 6.6 (6.4-8.2) gm/dl Albumin 3.0 L (3.4-5.0) gm/dl Globulin 3.6 (2.5-4.0) gm/dl Albumin/Globulin Ratio 0.8 L (0.9-2) Procalcitonin (0-0.5) ng/ml TSH 1.210 (0.300-4.500) uIu/ml Urine Color Urine Appearance (Clear) Urine pH (4.5-7.5) Ur Specific Armstrong (1.000-1.030) Urine Protein (Negative) Urine Glucose (UA) (Negative) Urine Ketones (Negative) Urine Blood (Negative) Urine Nitrite (Negative) Urine Bilirubin (Negative) Urine Urobilinogen (Negative) Ur Leukocyte Esterase (Negative) Urine WBC (Auto) (0-5) /hpf Urine RBC (Auto) (0-4) /hpf U Hyaline Cast (Auto) (0-5) /lpf U Epithel Cells (Auto) (0-5) /lpf Urine Bacteria (Auto) (Negative) Nasal Screen MRSA (PCR) (Negative) Blood Type Antibody Screen 12/26/19 12/26/19 12/26/19 Range/Units 20:06 17:05 14:41 WBC (4.8-10.8) K/uL RBC (4.2-5.4) M/uL Hgb (12.0-16.0) g/dL Hct (37-47) % MCV (80-100) fL MCH (25-34) pg MCHC (32-36) g/dL RDW Std Deviation (36.4-46.3) fL RDW Coeff of Nawaf (11.5-14.5) % Plt Count (130-400) K/uL MPV (7.4-10.4) fL Immature Gran % (Auto) % Neut % (Auto) % Lymph % (Auto) % Citrus % (Auto) % Eos % (Auto) % Baso % (Auto) % Immature Gran # (Auto) (0.00-0.02) K/uL Neut # (Auto) (1.4-6.5) K/uL Lymph # (Auto) (1.2-3.4) K/uL Citrus # (Auto) (0.11-0.59) K/uL Eos # (Auto) (0-0.5) K/uL Baso # (Auto) (0-0.2) K/uL APTT (21.0-31.0) Seconds PTT Ratio ABG pH (7.35-7.45) ABG pCO2 (35-46) mmHg ABG pO2 (80-95) mmHg ABG HCO3 (19-24) mmol/L ABG O2 Saturation (90-95) % ABG Base Excess (-9-1.8) mEq/L Jovanny Test (Pos) Barometric Pressure mm/Hg Oxygen Given Sodium (136-145) mmol/L Potassium (3.5-5.1) mmol/L Chloride (98-107) mmol/L Carbon Dioxide (21-32) mmol/L Anion Gap (3-11) BUN (7-18) mg/dl Creatinine (0.6-1.2) mg/dl Est Cr Clr Drug Dosing Est GFR ( Amer) Est GFR (Non-Af Amer) BUN/Creatinine Ratio (10-20) Glucose (70-99) mg/dl POC Glucose 285 H 255 H (70-99) mg/dl Lactate 1.9 (0.4-2.0) mmol/L Calcium (8.5-10.1) mg/dl Magnesium (1.8-2.4) mg/dl Total Bilirubin (0.2-1) mg/dl AST (15-37) U/L ALT (12-78) U/L Alkaline Phosphatase (45-117) U/L Ammonia (11-32) umol/L Total Protein (6.4-8.2) gm/dl Albumin (3.4-5.0) gm/dl Globulin (2.5-4.0) gm/dl Albumin/Globulin Ratio (0.9-2) Procalcitonin (0-0.5) ng/ml TSH (0.300-4.500) uIu/ml Urine Color Urine Appearance (Clear) Urine pH (4.5-7.5) Ur Specific Armstrong (1.000-1.030) Urine Protein (Negative) Urine Glucose (UA) (Negative) Urine Ketones (Negative) Urine Blood (Negative) Urine Nitrite (Negative) Urine Bilirubin (Negative) Urine Urobilinogen (Negative) Ur Leukocyte Esterase (Negative) Urine WBC (Auto) (0-5) /hpf Urine RBC (Auto) (0-4) /hpf U Hyaline Cast (Auto) (0-5) /lpf U Epithel Cells (Auto) (0-5) /lpf Urine Bacteria (Auto) (Negative) Nasal Screen MRSA (PCR) (Negative) Blood Type Antibody Screen 12/26/19 12/26/19 12/26/19 Range/Units 11:50 08:41 08:41 WBC (4.8-10.8) K/uL RBC (4.2-5.4) M/uL Hgb (12.0-16.0) g/dL Hct (37-47) % MCV (80-100) fL MCH (25-34) pg MCHC (32-36) g/dL RDW Std Deviation (36.4-46.3) fL RDW Coeff of Nawaf (11.5-14.5) % Plt Count (130-400) K/uL MPV (7.4-10.4) fL Immature Gran % (Auto) % Neut % (Auto) % Lymph % (Auto) % Citrus % (Auto) % Eos % (Auto) % Baso % (Auto) % Immature Gran # (Auto) (0.00-0.02) K/uL Neut # (Auto) (1.4-6.5) K/uL Lymph # (Auto) (1.2-3.4) K/uL Citrus # (Auto) (0.11-0.59) K/uL Eos # (Auto) (0-0.5) K/uL Baso # (Auto) (0-0.2) K/uL APTT (21.0-31.0) Seconds PTT Ratio ABG pH (7.35-7.45) ABG pCO2 (35-46) mmHg ABG pO2 (80-95) mmHg ABG HCO3 (19-24) mmol/L ABG O2 Saturation (90-95) % ABG Base Excess (-9-1.8) mEq/L Jovanny Test (Pos) Barometric Pressure mm/Hg Oxygen Given Sodium 143 (136-145) mmol/L Potassium 3.5 (3.5-5.1) mmol/L Chloride 111 H (98-107) mmol/L Carbon Dioxide 27 (21-32) mmol/L Anion Gap 5.0 (3-11) BUN 14 (7-18) mg/dl Creatinine 0.88 (0.6-1.2) mg/dl Est Cr Clr Drug Dosing Not Reportable Est GFR ( Amer) 83.4 Est GFR (Non-Af Amer) 71.9 BUN/Creatinine Ratio 16.2 (10-20) Glucose 203 H (70-99) mg/dl POC Glucose 158 H (70-99) mg/dl Lactate (0.4-2.0) mmol/L Calcium 9.3 (8.5-10.1) mg/dl Magnesium (1.8-2.4) mg/dl Total Bilirubin (0.2-1) mg/dl AST (15-37) U/L ALT (12-78) U/L Alkaline Phosphatase (45-117) U/L Ammonia (11-32) umol/L Total Protein (6.4-8.2) gm/dl Albumin (3.4-5.0) gm/dl Globulin (2.5-4.0) gm/dl Albumin/Globulin Ratio (0.9-2) Procalcitonin (0-0.5) ng/ml TSH (0.300-4.500) uIu/ml Urine Color Urine Appearance (Clear) Urine pH (4.5-7.5) Ur Specific Armstrong (1.000-1.030) Urine Protein (Negative) Urine Glucose (UA) (Negative) Urine Ketones (Negative) Urine Blood (Negative) Urine Nitrite (Negative) Urine Bilirubin (Negative) Urine Urobilinogen (Negative) Ur Leukocyte Esterase (Negative) Urine WBC (Auto) (0-5) /hpf Urine RBC (Auto) (0-4) /hpf U Hyaline Cast (Auto) (0-5) /lpf U Epithel Cells (Auto) (0-5) /lpf Urine Bacteria (Auto) (Negative) Nasal Screen MRSA (PCR) (Negative) Blood Type O Negative Antibody Screen NEGATIVE (1) Hip fracture Encounter type: initial encounter Fracture type: closed Laterality: right Qualified Code(s): S72.001A - Fracture of unspecified part of neck of right femur, initial encounter for closed fracture
--- NOTE | 2019-12-27 13:28 | Hospitalist Progress Note ---
Date of Service December 27, 2019 Assessment & Plan (1) Acute respiratory failure with hypoxemia: Acute hypoxemic respiratory failure: Multifactorial: Possible volume overload leading to decompensated CHF, symptomatic acute blood loss anemia, Disposed ORIF of right hip on 12/26/19 POD #1 was unresponsive hypoxic post op secondary to narcotic pain medications, was given IV Naracn pt is awake and alert today , pain medication dose adjusted continues to be hypoxic - (4 L oxygen via nasal cannula ) was not on home O2 -possible due to volume over load /decompensated CHF Acute CHF with diastolic heart failure: HFp EF Given IV Lasix and albumin last night Chest x-ray shows mild vascular congestion Patient continues to be hypoxic requiring 4 L oxygen, intake and out put noted : Total Intake 5370.5 mL/Total Output 1020 mL : positive Balance 4350.5 mL Pt is markedly volume overloaded proBNP 314 Repeat Lasix dose 20 mg IV Continue monitor intake and output Acute Blood loss anemia: Patient's H&H postoperatively dropped Hgb: 11.8- > 7.9 repeat hemoglobin at note 1 PM hb 7.8 per Current guideline, transfusion for hemoglobin less than 7 or hemodynamic instability acute hypoxemic respiratory failure acute hypoxemic respiratory (2) Fall: (3) Closed hip fracture: s/p fall RIGHT FEMUR XRAY: Intertrochanteric fracture right hip. s/p ORIF of left hip POD #1 ortho following /appreciate input (4) Hemorrhagic stroke: H/O hemorrhagic stroke in 12/2017 s/p craniotomy. Has residual left sided weakness (5) DM type 2 (diabetes mellitus, type 2): A1c: 7.2 om 11/08/2019 -Hold metformin -Continue home Lantus, Novolog sliding scale per protocol (6) HTN (hypertension): Stable -hold Lisinopril for MILTON MILTON on CKD stage 3 : received IV Lasix last night for decompensated CHF ( HFpEF) hold ACEI repeat Lasix dose due to continued vol overload > 4 L positive vol /hypoxia repeat BMP in AM avoid NSAIDS' (7) Multiple sclerosis: Has right sided weakness. Has chronic BLE pain and has pain stimulator -Pain stimulator currently turned off by pt -Hold Baclofen for oversedation -Hold chronic pain oxycodone/acetaminophen- PRN IV morphine for post hip surgery pain , hold for sedation (8) Iron deficiency anemia: acute blood loss anemia post op as outlined above will increase Fe supplement (9) Dyslipidemia: -Continue atorvastatin (10) HEILO (obstructive sleep apnea): -CPAP HS (11) Depression: -Continue Effexor (12) Hypothyroidism: -Continue levothyroxine DVT Prophylaxis -Aspirin 81 mg twice daily/SCD as per orthopedic Full Code Follows with Dr Amelia Vazquez for routine care Admission and Anticipated Discharge Date Admission Date: December 26, 2019 Subjective Patient remains hypoxic requiring 4 L oxygen via nasal cannula, Denies of any symptoms of shortness of breath or orthopnea Has not been able to get out of bed to chair No complaint of dizzy spell lightheadedness palpitation or chest heaviness while at rest Having intermittent pain on the left hip area surgical site Getting symptom relief with current pain medication regimen No fever or chills Review of Systems Review of Systems: All systems reviewed & are unremarkable except as noted in HPI & below Constitutional: + fatigue; no fever and no chills Respiratory: no cough, no dyspnea, no dyspnea on exertion and no wheezing Cardiovascular: no chest pain, no orthopnea, no palpitations, no lightheadedness, no syncope and no edema Gastrointestinal: no abdominal pain, no nausea and no vomiting Musculoskeletal: + joint pain (Left hip pain, status post left hip surgery) Physical Exam Constitutional: WD/WN, vitals as above + ill appearing; no acute distress Eyes: + anicteric sclerae ENMT: external ear and nose normal, oropharynx normal Neck: trachea midline, no thyromegaly Respiratory: normal respiratory effort, lungs clear to auscultation Cardiovascular: RRR, no murmur, no edema Gastrointestinal (Abdomen): Inspection/Auscultation: normal bowel sounds Percussion/Palpation: abdomen soft; abdomen nontender Musculoskeletal: Head/Neck/Chest: + abnormal head shape and + evidence of head trauma Extremities: no cyanosis and no clubbing Hip: + surgical incision (Status post right hip ORIF) Skin: no rashes, warm and dry Neurologic: PERRL, EOMI, accommodation nl, no face palsy, no dysarthria Psychiatric: A+Ox3, euthymic affect Results & Data ([facility]) Vital Signs (Past 12 Hours) Vital Signs Temp Pulse Pulse Resp BP BP Pulse Ox 12/27/19 12:58 12/27/19 12:20 36.8 C 109 H 18 101/64 91 12/27/19 08:00 95 H 12/27/19 07:31 36.5 C 98 H 19 113/71 96 12/27/19 04:00 12/27/19 03:37 36.9 C 102 H 20 110/64 95 Pulse Ox Pulse Ox Pulse Ox 12/27/19 12:58 91 92 12/27/19 12:20 12/27/19 08:00 12/27/19 07:31 12/27/19 04:00 95 12/27/19 03:37 Diagnostic Findings RIGHT FEMUR XRAY: IMPRESSION: Intertrochanteric fracture right hip. HIP/PELVIS XRAY: IMPRESSION: Intertrochanteric fracture right hip. HEAD CT: IMPRESSION: 1. No acute intracranial findings. No change in appearance of the brain. 2. No calvarial fracture. CERVICAL SPINE CT: IMPRESSION: No fractures within the cervical spine. CXR: IMPRESSION: No acute cardiopulmonary findings. No change in appearance of the chest. (1) Fall Encounter type: initial encounter Qualified Code(s): W19.XXXA - Unspecified fall, initial encounter
[2019-12-27 13:40] LABS: Hematocrit (blood only) 24.4 % (37-47); Hemoglobin 7.8 g/dL (12.0-16.0)
--- NOTE | 2019-12-27 13:51 | XRay Report ---
XR chest 1V portable CLINICAL HISTORY: SOB/hypoxia COMPARISON STUDY: Chest radiograph December 26, 2019. FINDINGS: Intracanalicular electrodes are noted. Lung volumes are diminished. Linear bibasilar opacit ies are noted. Cardiomegaly is noted. No pneumothorax or pleural effusion is noted. There is no conso lidation or evidence for pulmonary edema. IMPRESSION: 1. No acute findings. 2. Low lung volumes with bibasilar opacities suggestive of atelectasis. ACT 112: Negative or not required by law. Electronically signed by: Archie Roa M.D. 12/27/2019 1:50 PM
[2019-12-27] MEDS ORDERED: FUROSEMIDE 20 MG in SYRINGE 0 ML IV ONE (17:00)
[2019-12-27] MEDS: MAGNESIUM OXIDE 400 MG TAB PO SCH ×2 (17:20→20:37)
[2019-12-27] MEDS: VENLAFAXINE HCL XR 150 MG CAPXR PO SCH (20:36)
[2019-12-27] MEDS: NORTRIPTYLINE HCL 25 MG CAP PO SCH (20:38)
[2019-12-27] MEDS: ATORVASTATIN 40 MG TAB PO SCH (20:38)
[2019-12-27] MEDS: MULTIVITAMIN TAB PO SCH (20:38)
[2019-12-27] MEDS: FERROUS SULFATE 325 MG TAB PO SCH (20:39)
[2019-12-27] MEDS: CALCIUM 600MG + VIT D 400 IU TAB PO SCH (20:39)
[2019-12-27] MEDS ORDERED: lisinopriL 5 MG TAB PO SCH (21:00)
[2019-12-27] MEDS: DOCUSATE SODIUM/SENNA 50/8.6MG TAB PO SCH (21:17)
[2019-12-27] MEDS ORDERED: INSULIN GLARGINE SOLOSTAR 100 UNITS/ML 3 ML PEN SC STA (21:27)
[2019-12-28] MEDS: ACETAMINOPHEN 500 MG TAB PO SCH ×3 (04:19→20:36)
[2019-12-28 05:58] LABS: Hematocrit (blood only) 24.5 % (37-47); Hemoglobin 7.8 g/dL (12.0-16.0); Mean Corpuscular Hemoglobin 28.5 pg (25-34); Mean Corpuscular Hgb Conc 31.8 g/dL (32-36); Mean Corpuscular Volume 89.4 fL (80-100); Mean Platelet Volume 8.6 fL (7.4-10.4); Platelet Count 181 K/uL (130-400); RDW Coefficient of Variation 13.9 % (11.5-14.5); RDW Standard Deviation 45.3 fL (36.4-46.3); Red Blood Count 2.74 M/uL (4.2-5.4); White Blood Count 7.55 K/uL (4.8-10.8)
[2019-12-28 06:35] LABS: BUN Creatinine Ratio 16.6 (10-20); Calcium 8.4 mg/dl (8.5-10.1); Creatinine Clr Calc Pharmacy 88.2 ml/min; Est GFR (African American) 92.1; Est GFR (Non-African American) 79.5; Potassium 3.9 mmol/L (3.5-5.1)
[2019-12-28 06:45] LABS: Estimated Average Glucose 177 mg/dl; Hemoglobin A1C 7.8 % (4.5-5.6)
[2019-12-28] MEDS: ALFUZOSIN HCL 10 MG TAB PO SCH (09:16)
[2019-12-28] MEDS: MAGNESIUM OXIDE 400 MG TAB PO SCH ×2 (09:16→20:39)
[2019-12-28] MEDS: ASPIRIN 81 MG ECTAB PO SCH ×2 (09:16→20:37)
[2019-12-28] MEDS: BACLOFEN 10 MG TAB PO PRN (09:16)
[2019-12-28] MEDS: FERROUS SULFATE 325 MG TAB PO SCH ×2 (09:17→20:38)
[2019-12-28] MEDS: INSULIN GLARGINE SOLOSTAR 100 UNITS/ML 3 ML PEN SC SCH ×2 (09:18→20:38)
[2019-12-28] MEDS: NYSTATIN POWDER 15GM BTL EXT SCH ×2 (09:19→20:40)
[2019-12-28] MEDS: INSULIN ASPART 100 UNITS/ML 3 ML PEN SC SCH ×4 (09:19→20:40)
[2019-12-28] MEDS: OXYCODONE HCL IR 5 MG TAB (IMMEDIATE RELEASE) PO PRN ×3 (09:27→23:50)
[2019-12-28] MEDS: PREGABALIN 150 MG CAP PO SCH ×2 (09:27→20:51)
--- NOTE | 2019-12-28 09:52 | Orthopedic Progress Note ---
Date of Service December 28, 2019 Assessment & Plan (1) Hip fracture: POD 2, s/p ORIF R Intratrochanteric hip fracture Patients Hgb unchanged/stable this am at 7.8. Acute anemia blood loss. Dr Cramer following and also treating diastolic heart failure with lasix. No plans as of yet to transfuse. Iron increased. Continue diabetic diet. Continue ice to right hip at least 3-5times a day for pain/swelling. Continue pain control. Patient restarted spinal stimulator. PT/OT. WBAT R LE. PT aware AFO is in patients room. DVT prophylaxis:TEDs for 2 weeks on the operative limb & SCDs while in the hospital. 81 mg aspirin twice daily x6 weeks. Dressings changed to Silverlon to proximal wound and 2xs and Tegaderm to distal wound. Dressing to remain on until f/u appt. These are waterproof. Patient aware can shower but not submerge. Continue care per primary service. Discharge planning. Referral made to [facility] and [facility]. Patient prefers [facility]. I, Dr. You, saw and examined the patient and discussed the management with my PA. I reviewed my PAs note and agree with the documented findings and the plan of care I developed. Admission and Anticipated Discharge Date Admission Date: December 26, 2019 Subjective Patient remains on nasal cannula decreased to 2L. Denies of any symptoms of shortness of breath or chest pain. Denies lightheadedness, dizziness. Denies f/c/s. brought in her AFO. Has not yet been out of bed. Says unable to sit at edge of bed (falls backwards). Just finished her breakfast. Tolerated PO fluids and diet. Says pain not under good control. Aware though of us monitoring her narcotic intake. Aware we are recommending she go to [facility] or [facility] and she is willing to go. Physical Exam Physical Exam: Patient sitting up in bed. B LE with teds and scds. Right hip dressings removed. Zip line intact. Dry blood. No active drainage. No foul odor. No signs of infection. Pain with log rolling right hip. Slight pain of hip with right knee motion. B calves soft. B LE nv intact. Sensation intact. Palpable DP and PT pulses. RLE baseline weakness to EHL and TA. 5/5 LLE. Results & Data ([facility]) Vital Signs (Past 12 Hours) Vital Signs Temp Pulse Pulse Resp BP Pulse Ox 12/28/19 07:09 37.2 C 105 H 18 116/66 91 12/28/19 03:30 37.1 C 101 H 16 123/77 93 12/27/19 23:33 36.4 C L 111 H 20 106/66 92 12/27/19 22:40 107 H 18 91 Laboratory Results 12/28/19 12/28/19 12/28/19 Range/Units 07:24 05:37 05:37 WBC (4.8-10.8) K/uL RBC (4.2-5.4) M/uL Hgb (12.0-16.0) g/dL Hct (37-47) % MCV (80-100) fL MCH (25-34) pg MCHC (32-36) g/dL RDW Std Deviation (36.4-46.3) fL RDW Coeff of Nawaf (11.5-14.5) % Plt Count (130-400) K/uL MPV (7.4-10.4) fL Sodium 140 (136-145) mmol/L Potassium 3.9 (3.5-5.1) mmol/L Chloride 108 H (98-107) mmol/L Carbon Dioxide 28 (21-32) mmol/L Anion Gap 4.0 (3-11) BUN 13 (7-18) mg/dl Creatinine 0.81 D (0.6-1.2) mg/dl Est Cr Clr Drug Dosing 88.2 ml/min Est GFR ( Amer) 92.1 Est GFR (Non-Af Amer) 79.5 BUN/Creatinine Ratio 16.6 (10-20) Glucose 126 H (70-99) mg/dl POC Glucose 134 H (70-99) mg/dl Estimat Average Glucose 177 mg/dl Hemoglobin A1c 7.8 H (4.5-5.6) % Calcium 8.4 L (8.5-10.1) mg/dl NT-Pro-B Natriuret Pep (0-900) pg/ml 12/28/19 12/27/19 12/27/19 Range/Units 05:37 20:05 20:05 WBC 7.55 (4.8-10.8) K/uL RBC 2.74 L (4.2-5.4) M/uL Hgb 7.8 L (12.0-16.0) g/dL Hct 24.5 L (37-47) % MCV 89.4 (80-100) fL MCH 28.5 (25-34) pg MCHC 31.8 L (32-36) g/dL RDW Std Deviation 45.3 (36.4-46.3) fL RDW Coeff of Nawaf 13.9 (11.5-14.5) % Plt Count 181 (130-400) K/uL MPV 8.6 (7.4-10.4) fL Sodium (136-145) mmol/L Potassium (3.5-5.1) mmol/L Chloride (98-107) mmol/L Carbon Dioxide (21-32) mmol/L Anion Gap (3-11) BUN (7-18) mg/dl Creatinine (0.6-1.2) mg/dl Est Cr Clr Drug Dosing ml/min Est GFR ( Amer) Est GFR (Non-Af Amer) BUN/Creatinine Ratio (10-20) Glucose (70-99) mg/dl POC Glucose 327 H* 347 H* (70-99) mg/dl Estimat Average Glucose mg/dl Hemoglobin A1c (4.5-5.6) % Calcium (8.5-10.1) mg/dl NT-Pro-B Natriuret Pep (0-900) pg/ml 12/27/19 12/27/19 12/27/19 Range/Units 16:07 13:31 13:31 WBC (4.8-10.8) K/uL RBC (4.2-5.4) M/uL Hgb 7.8 L (12.0-16.0) g/dL Hct 24.4 L (37-47) % MCV (80-100) fL MCH (25-34) pg MCHC (32-36) g/dL RDW Std Deviation (36.4-46.3) fL RDW Coeff of Nawaf (11.5-14.5) % Plt Count (130-400) K/uL MPV (7.4-10.4) fL Sodium (136-145) mmol/L Potassium (3.5-5.1) mmol/L Chloride (98-107) mmol/L Carbon Dioxide (21-32) mmol/L Anion Gap (3-11) BUN (7-18) mg/dl Creatinine (0.6-1.2) mg/dl Est Cr Clr Drug Dosing ml/min Est GFR ( Amer) Est GFR (Non-Af Amer) BUN/Creatinine Ratio (10-20) Glucose (70-99) mg/dl POC Glucose 206 H (70-99) mg/dl Estimat Average Glucose mg/dl Hemoglobin A1c (4.5-5.6) % Calcium (8.5-10.1) mg/dl NT-Pro-B Natriuret Pep 314 (0-900) pg/ml 12/27/19 Range/Units 11:33 WBC (4.8-10.8) K/uL RBC (4.2-5.4) M/uL Hgb (12.0-16.0) g/dL Hct (37-47) % MCV (80-100) fL MCH (25-34) pg MCHC (32-36) g/dL RDW Std Deviation (36.4-46.3) fL RDW Coeff of Nawaf (11.5-14.5) % Plt Count (130-400) K/uL MPV (7.4-10.4) fL Sodium (136-145) mmol/L Potassium (3.5-5.1) mmol/L Chloride (98-107) mmol/L Carbon Dioxide (21-32) mmol/L Anion Gap (3-11) BUN (7-18) mg/dl Creatinine (0.6-1.2) mg/dl Est Cr Clr Drug Dosing ml/min Est GFR ( Amer) Est GFR (Non-Af Amer) BUN/Creatinine Ratio (10-20) Glucose (70-99) mg/dl POC Glucose 258 H (70-99) mg/dl Estimat Average Glucose mg/dl Hemoglobin A1c (4.5-5.6) % Calcium (8.5-10.1) mg/dl NT-Pro-B Natriuret Pep (0-900) pg/ml (1) Hip fracture Encounter type: initial encounter Fracture type: closed Laterality: right Qualified Code(s): S72.001A - Fracture of unspecified part of neck of right femur, initial encounter for closed fracture
--- NOTE | 2019-12-28 15:09 | Hospitalist Progress Note ---
Date of Service December 28, 2019 Assessment & Plan (1) Acute respiratory failure with hypoxemia: Acute hypoxemic respiratory failure: Symptom has continues to improve, oxygen requirement decreased to 2 L via nasal cannula Patient denies of any shortness of breath, no orthopnea Multifactorial: Possible volume overload leading to decompensated CHF, symptomatic acute blood loss anemia, On IV Lasix Disposed ORIF of right hip on 12/26/19 POD #2 was unresponsive hypoxic post op secondary to narcotic pain medications, responded to IV Naracn Acute CHF with diastolic heart failure: HFp EF Chest x-ray shows mild vascular congestion Was found to be hypoxic, proBNP 314 Repeat Lasix dose 20 mg x 1 given Ataxia continues to improve, patient's appears to be euvolemic Acute Blood loss anemia: Patient's H&H postoperatively dropped Hgb: 11.8- > 7.9 -> 7.8 hb stays stable, hypoxemia improved after diuresis, continue to monitor per Current guideline, transfusion for hemoglobin less than 7 or hemodynamic instability acute hypoxemic respiratory failure acute hypoxemic respiratory (2) Fall: (3) Closed hip fracture: s/p fall RIGHT FEMUR XRAY: Intertrochanteric fracture right hip. s/p ORIF of left hip POD #2 ortho following /appreciate input (4) Hemorrhagic stroke: H/O hemorrhagic stroke in 12/2017 s/p craniotomy. Has residual left sided weakness (5) DM type 2 (diabetes mellitus, type 2): A1c: 7.2 om 11/08/2019 -Hold metformin -Continue home Lantus, Novolog sliding scale per protocol (6) HTN (hypertension): Stable Lisinopril resumed as renal function improved to baseline MILTON on CKD stage 3 : Creatinine improved to 0.8, patient's approximate baseline Resume MILAD inhibitor avoid NSAIDS' (7) Multiple sclerosis: Has right sided weakness. Has chronic BLE pain and has pain stimulator -Pain stimulator currently turned off by pt -Patient's baclofen/oxycodone outpatient home meds resumed, DC IV morphine (8) Iron deficiency anemia: acute blood loss anemia post op as outlined above will increase Fe supplement (9) Dyslipidemia: -Continue atorvastatin (10) HELIO (obstructive sleep apnea): -CPAP HS (11) Depression: -Continue Effexor (12) Hypothyroidism: -Continue levothyroxine DVT Prophylaxis -Aspirin 81 mg twice daily/SCD as per orthopedic Full Code Follows with Dr Amelia Vazquez for routine care Admission and Anticipated Discharge Date Admission Date: December 26, 2019 Subjective Awake and alert, denies of any symptoms of chest discomfort no shortness of breath or orthopnea Hypoxia improved, on 2 L oxygen via nasal cannula Right hip pain controlled, No fever or chills offers no other complaint Review of Systems Review of Systems: All systems reviewed & are unremarkable except as noted in HPI & below Constitutional: no fever, no chills and no fatigue Respiratory: no cough, no dyspnea, no dyspnea on exertion and no wheezing Cardiovascular: no chest pain, no palpitations, no lightheadedness and no syncope Physical Exam Constitutional: WD/WN, vitals as above no acute distress ENMT: external ear and nose normal, oropharynx normal Neck: trachea midline, no thyromegaly Respiratory: normal respiratory effort, lungs clear to auscultation Cardiovascular: RRR, no murmur, no edema Gastrointestinal (Abdomen): Inspection/Auscultation: normal bowel sounds Percussion/Palpation: abdomen soft; abdomen nontender Musculoskeletal: Extremities: no cyanosis and no clubbing Skin: no rashes, warm and dry Neurologic: PERRL, EOMI, accommodation nl, no face palsy, no dysarthria Psychiatric: A+Ox3, euthymic affect Results & Data ([place]) Vital Signs (Past 12 Hours) Vital Signs Temp Pulse Pulse Resp BP Pulse Ox 12/28/19 12:30 37.0 C 108 H 18 103/64 90 12/28/19 11:03 36.9 C 109 H 18 105/63 91 12/28/19 08:00 108 H 12/28/19 07:09 37.2 C 105 H 18 116/66 91 12/28/19 03:30 37.1 C 101 H 16 123/77 93 (1) Fall Encounter type: initial encounter Qualified Code(s): W19.XXXA - Unspecified fall, initial encounter
[2019-12-28] MEDS: CALCIUM 600MG + VIT D 400 IU TAB PO SCH (20:37)
[2019-12-28] MEDS: VENLAFAXINE HCL XR 150 MG CAPXR PO SCH (20:38)
[2019-12-28] MEDS: ATORVASTATIN 40 MG TAB PO SCH (20:39)
[2019-12-28] MEDS: MULTIVITAMIN TAB PO SCH (20:40)
[2019-12-28] MEDS: NORTRIPTYLINE HCL 25 MG CAP PO SCH (20:41)
[2019-12-28] MEDS: DOCUSATE SODIUM/SENNA 50/8.6MG TAB PO SCH (20:51)
[2019-12-29] MEDS: ACETAMINOPHEN 500 MG TAB PO SCH ×3 (02:47→19:58)
[2019-12-29] MEDS: FERROUS SULFATE 325 MG TAB PO SCH ×2 (07:44→20:00)
[2019-12-29] MEDS: ALFUZOSIN HCL 10 MG TAB PO SCH (07:44)
[2019-12-29] MEDS: ASPIRIN 81 MG ECTAB PO SCH ×2 (07:44→20:03)
[2019-12-29] MEDS: PREGABALIN 150 MG CAP PO SCH ×2 (07:57→20:14)
[2019-12-29] MEDS: INSULIN GLARGINE SOLOSTAR 100 UNITS/ML 3 ML PEN SC SCH ×2 (07:58→21:24)
[2019-12-29] MEDS: INSULIN ASPART 100 UNITS/ML 3 ML PEN SC SCH ×4 (07:59→21:23)
[2019-12-29] MEDS: NYSTATIN POWDER 15GM BTL EXT SCH ×2 (08:00→20:04)
[2019-12-29] MEDS: MAGNESIUM OXIDE 400 MG TAB PO SCH ×2 (08:00→20:01)
[2019-12-29 11:16] LABS: Hematocrit (blood only) 26.2 % (37-47); Hemoglobin 8.5 g/dL (12.0-16.0)
--- NOTE | 2019-12-29 11:33 | Orthopedic Progress Note ---
Date of Service December 29, 2019 Assessment & Plan (1) Hip fracture: POD 3, s/p ORIF R Intratrochanteric hip fracture 1) Patients Hgb improved this am from 7.8 -> 8.5. Acute anemia blood loss. Primary team following and also treating diastolic heart failure with Lasix. No plans as of yet to transfuse. Iron increased. 2) Continue diabetic diet. 3) Continue ice to right hip at least 3-5 times a day for pain/swelling. 4) Continue pain control. 5) Patient restarted spinal stimulator 12/28/2019. 6) PT/OT. WBAT R LE. PT aware AFO is in patients room. 7) DVT prophylaxis: TEDs for 2 weeks on the operative limb & SCDs while in the hospital. 81 mg aspirin twice daily x6 weeks. 8) Dressings changed to Silverlon to proximal wound and 2xs and Tegaderm to distal wound, 12/28/2019. Dressing to remain on until f/u appt. These are waterproof. May changed distal dressing if necessary. Patient aware can shower but not submerge. 9)From an orthopaedic standpoint patient may be discharged. Follow-up with Dr. You's office in 2 weeks for dressing changed and ZipLine removal. Call [phone] for appointment. 10) Continue care per primary service. 11) Discharge planning. Referral made to [facility] and [facility]. Patient prefers [facility]. Admission and Anticipated Discharge Date Admission Date: December 26, 2019 Subjective Feeling better, still with right hip pain. Review of Systems Review of Systems: All systems reviewed & are unremarkable except as noted in HPI & below Physical Exam Physical Exam: RLE: dressings clean, dry, intact. Neurovascular exam unchanged. Calf soft & non-tender. Results & Data ([facility]) Vital Signs (Past 12 Hours) Vital Signs Temp Pulse Pulse Resp BP Pulse Ox 12/29/19 07:34 36.8 C 100 H 20 133/74 92 12/29/19 03:43 36.8 C 98 H 18 131/78 96 12/29/19 02:56 107 H 18 92 12/29/19 00:53 106 H Laboratory Results 12/29/19 12/29/19 12/28/19 Range/Units 11:03 07:50 20:16 Hgb 8.5 L (12.0-16.0) g/dL Hct 26.2 L (37-47) % POC Glucose 202 H 200 H (70-99) mg/dl 12/28/19 Range/Units 16:48 Hgb (12.0-16.0) g/dL Hct (37-47) % POC Glucose 209 H (70-99) mg/dl (1) Hip fracture Encounter type: initial encounter Fracture type: closed Laterality: right Qualified Code(s): S72.001A - Fracture of unspecified part of neck of right femur, initial encounter for closed fracture
[2019-12-29] MEDS ORDERED: FUROSEMIDE 20 MG in SYRINGE 0 ML IV ONE (14:00)
--- NOTE | 2019-12-29 15:52 | Hospitalist Progress Note ---
Date of Service December 29, 2019 Assessment & Plan (1) Acute respiratory failure with hypoxemia: Acute hypoxemic respiratory failure: Symptom has continues to improve, oxygen requirement decreased to 2 L via nasal cannula Patient denies of any shortness of breath, no orthopnea Possible underlying obstructive sleep apnea, positive for nocturnal pulse oximetry Acute CHF with diastolic heart failure: HFp EF Resolved, volume status stable Was treated with IV Lasix for hypoxia, chest x-ray showed vascular congestion Respiratory continues to improve, patient's appears to be euvolemic Acute Blood loss anemia: Secondary to postoperative status Hemoglobin improved Hgb: 11.8- > 7.9 -> 7.8 -8.4 today Continue iron supplement per Current guideline, transfusion for hemoglobin less than 7 or hemodynamic instability acute hypoxemic respiratory failure acute hypoxemic respiratory (2) Fall: (3) Closed hip fracture: s/p fall RIGHT FEMUR XRAY: Intertrochanteric fracture right hip. s/p ORIF of left hip POD #3 ortho following /appreciate input Recommends weightbearing as tolerated on right lower extremity DVT prophylaxis post hip surgery: Teds for 2 weeks on the operative limb, SCDs while in hospital. Aspirin 81 mg twice daily for 6 weeks (4) Hemorrhagic stroke: H/O hemorrhagic stroke in 12/2017 s/p craniotomy. Has residual left sided weakness (5) DM type 2 (diabetes mellitus, type 2): A1c: 7.2 om 11/08/2019 -Hold metformin-resumed on discharge -Continue home Lantus, Novolog sliding scale per protocol (6) HTN (hypertension): Stable Lisinopril resumed as renal function improved to baseline MILTON on CKD stage 3 : Resolved Creatinine improved to 0.8, patient's approximate baseline Resume MILAD inhibitor avoid NSAIDS' (7) Multiple sclerosis: Has right sided weakness. Has chronic BLE pain and has pain stimulator Patient's own spinal pain stimulator restarted on 12/28/2019 -Patient's baclofen/oxycodone outpatient home meds resumed, DC IV morphine (8) Iron deficiency anemia: acute blood loss anemia post op as outlined above Continue iron supplement Hemoglobin has been stable (9) Dyslipidemia: -Continue atorvastatin (10) HELIO (obstructive sleep apnea): -CPAP HS (11) Depression: -Continue Effexor (12) Hypothyroidism: -Continue levothyroxine DVT Prophylaxis -Aspirin 81 mg twice daily/SCD as per orthopedic Full Code Follows with Dr Amelia Vazquez for routine care Disposition: Discharged to acute rehab on Tuesday Follow-up with orthopedics Dr. You's office in 2 weeks for dressing change. Call [phone] for appointment Admission and Anticipated Discharge Date Admission Date: December 26, 2019 Subjective Appears to be comfortable, still requiring 2 L oxygen via nasal cannula desaturating on room air Denies of any complaint of cough no shortness of breath no dyspnea on exertion: No fever or chills, Review of Systems Review of Systems: All systems reviewed & are unremarkable except as noted in HPI & below Respiratory: no cough, no dyspnea, no dyspnea on exertion and no wheezing Physical Exam Constitutional: WD/WN, vitals as above no acute distress Eyes: + anicteric sclerae ENMT: external ear and nose normal, oropharynx normal Neck: trachea midline, no thyromegaly Respiratory: normal respiratory effort, lungs clear to auscultation Cardiovascular: RRR, no murmur, no edema Gastrointestinal (Abdomen): Inspection/Auscultation: normal bowel sounds Percussion/Palpation: abdomen soft; abdomen nontender Musculoskeletal: Head/Neck/Chest: + abnormal head shape and + evidence of head trauma Extremities: no cyanosis and no clubbing Hip: + surgical incision (Status post right hip ORIF) Skin: no rashes, warm and dry Neurologic: PERRL, EOMI, accommodation nl, no face palsy, no dysarthria Psychiatric: A+Ox3, euthymic affect Results & Data ([facility]) Vital Signs (Past 12 Hours) Vital Signs Temp Pulse Resp BP Pulse Ox 12/29/19 15:32 36.3 C L 98 H 20 128/74 94 12/29/19 13:23 91 12/29/19 11:34 36.6 C 104 H 20 143/70 H 90 12/29/19 07:34 36.8 C 100 H 20 133/74 92 (1) Fall Encounter type: initial encounter Qualified Code(s): W19.XXXA - Unspecified fall, initial encounter
[2019-12-29] MEDS: CALCIUM 600MG + VIT D 400 IU TAB PO SCH (20:00)
[2019-12-29] MEDS: ATORVASTATIN 40 MG TAB PO SCH (20:00)
[2019-12-29] MEDS: VENLAFAXINE HCL XR 150 MG CAPXR PO SCH (20:01)
[2019-12-29] MEDS: MULTIVITAMIN TAB PO SCH (20:01)
[2019-12-29] MEDS: NORTRIPTYLINE HCL 25 MG CAP PO SCH (20:02)
[2019-12-29] MEDS: DOCUSATE SODIUM/SENNA 50/8.6MG TAB PO SCH (20:14)
[2019-12-29] MEDS: lisinopriL 5 MG TAB PO SCH (21:21)
[2019-12-29] MEDS: OXYCODONE HCL IR 5 MG TAB (IMMEDIATE RELEASE) PO PRN (23:31)
[2019-12-30] MEDS: ACETAMINOPHEN 500 MG TAB PO SCH ×3 (03:08→19:18)
[2019-12-30 06:41] LABS: Hematocrit (blood only) 26.6 % (37-47); Hemoglobin 8.7 g/dL (12.0-16.0)
[2019-12-30 07:11] LABS: BUN Creatinine Ratio 16.5 (10-20); Calcium 9.2 mg/dl (8.5-10.1); Est GFR (African American) 104.5; Est GFR (Non-African American) 90.1; Potassium 3.7 mmol/L (3.5-5.1)
[2019-12-30] MEDS: ASPIRIN 81 MG ECTAB PO SCH ×2 (08:28→20:48)
[2019-12-30] MEDS: FERROUS SULFATE 325 MG TAB PO SCH ×2 (08:28→20:49)
[2019-12-30] MEDS: ALFUZOSIN HCL 10 MG TAB PO SCH (08:28)
[2019-12-30] MEDS: MAGNESIUM OXIDE 400 MG TAB PO SCH ×2 (08:28→20:50)
[2019-12-30] MEDS: NYSTATIN POWDER 15GM BTL EXT SCH ×2 (08:29→20:51)
[2019-12-30] MEDS: INSULIN ASPART 100 UNITS/ML 3 ML PEN SC SCH ×4 (08:32→20:55)
[2019-12-30] MEDS: INSULIN GLARGINE SOLOSTAR 100 UNITS/ML 3 ML PEN SC SCH ×2 (08:33→20:55)
[2019-12-30] MEDS: BACLOFEN 10 MG TAB PO PRN (08:34)
[2019-12-30] MEDS: OXYCODONE HCL IR 5 MG TAB (IMMEDIATE RELEASE) PO PRN ×2 (08:37→20:53)
[2019-12-30] MEDS: PREGABALIN 150 MG CAP PO SCH ×2 (08:37→20:50)
--- NOTE | 2019-12-30 18:26 | Hospitalist Progress Note ---
Date of Service December 30, 2019 Assessment & Plan (1) Acute respiratory failure with hypoxemia: Acute hypoxemic respiratory failure: Symptom has resolved, not requiring oxygen Adequate oxygenation in room air Possible underlying obstructive sleep apnea Patient denies of any shortness of breath, no orthopnea Acute CHF with diastolic heart failure: HFp EF Resolved, volume status stable Was treated with IV Lasix for hypoxia, chest x-ray showed vascular congestion Respiratory continues to improve, patient's appears to be euvolemic Acute Blood loss anemia: Secondary to postoperative status Globin remained stable Hgb: 11.8- > 7.9 -> 7.8 -8.4 -8.7 Continue iron supplement per Current guideline, transfusion for hemoglobin less than 7 or hemodynamic instability acute hypoxemic respiratory failure acute hypoxemic respiratory (2) Fall: (3) Closed hip fracture: s/p fall RIGHT FEMUR XRAY: Intertrochanteric fracture right hip. s/p ORIF of left hip 4 ortho following /appreciate input Recommends weightbearing as tolerated on right lower extremity DVT prophylaxis post hip surgery: Teds for 2 weeks on the operative limb, SCDs while in hospital. Aspirin 81 mg twice daily for 6 weeks (4) Hemorrhagic stroke: H/O hemorrhagic stroke in 12/2017 s/p craniotomy. Has residual left sided weakness (5) DM type 2 (diabetes mellitus, type 2): A1c: 7.2 om 11/08/2019 -Hold metformin-resumed on discharge -Continue home Lantus, Novolog sliding scale per protocol (6) HTN (hypertension): Stable Lisinopril resumed as renal function improved to baseline MILTON on CKD stage 3 : Resolved Creatinine improved to 0.8, patient's approximate baseline Resume MILAD inhibitor avoid NSAIDS' (7) Multiple sclerosis: Has right sided weakness. Has chronic BLE pain and has pain stimulator Patient's own spinal pain stimulator restarted on 12/28/2019 -Patient's baclofen/oxycodone outpatient home meds resumed, (8) Iron deficiency anemia: acute blood loss anemia post op as outlined above Continue iron supplement Hemoglobin has been stable (9) Dyslipidemia: -Continue atorvastatin (10) HELIO (obstructive sleep apnea): -CPAP HS (11) Depression: -Continue Effexor (12) Hypothyroidism: -Continue levothyroxine DVT Prophylaxis -Aspirin 81 mg twice daily/SCD as per orthopedic Full Code Follows with Dr Amelia Vazquez for routine care Disposition: Discharged to acute rehab /[facility] on Tuesday Follow-up with orthopedics Dr. You's office in 2 weeks for dressing change. Call [phone] for appointment Admission and Anticipated Discharge Date Admission Date: December 26, 2019 Subjective Admits to doing well, sitting up in wheelchair, Not recovering supplemental oxygen, denies of any shortness of breath no cough no fever Physical Exam Constitutional: WD/WN, vitals as above no acute distress Eyes: + anicteric sclerae ENMT: external ear and nose normal, oropharynx normal Neck: trachea midline, no thyromegaly Respiratory: normal respiratory effort, lungs clear to auscultation Cardiovascular: RRR, no murmur, no edema Gastrointestinal (Abdomen): Inspection/Auscultation: normal bowel sounds Percussion/Palpation: abdomen soft; abdomen nontender Musculoskeletal: Head/Neck/Chest: + abnormal head shape and + evidence of head trauma Extremities: no cyanosis and no clubbing Hip: + surgical incision (Status post right hip ORIF) Skin: no rashes, warm and dry Neurologic: PERRL, EOMI, accommodation nl, no face palsy, no dysarthria Psychiatric: A+Ox3, euthymic affect Results & Data ([facility]) Vital Signs (Past 12 Hours) Vital Signs Temp Pulse Pulse Pulse Resp BP Pulse Ox 12/30/19 14:54 36.6 C 99 H 16 109/64 90 12/30/19 11:07 36.6 C 102 H 18 114/66 95 12/30/19 07:27 36.6 C 98 H 20 163/85 H 92 12/30/19 07:02 95 H (1) Fall Encounter type: initial encounter Qualified Code(s): W19.XXXA - Unspecified fall, initial encounter
[2019-12-30] MEDS: VENLAFAXINE HCL XR 150 MG CAPXR PO SCH (20:48)
[2019-12-30] MEDS: CALCIUM 600MG + VIT D 400 IU TAB PO SCH (20:48)
[2019-12-30] MEDS: ATORVASTATIN 40 MG TAB PO SCH (20:49)
[2019-12-30] MEDS: MULTIVITAMIN TAB PO SCH (20:51)
[2019-12-30] MEDS: NORTRIPTYLINE HCL 25 MG CAP PO SCH (20:51)
[2019-12-30] MEDS: DOCUSATE SODIUM/SENNA 50/8.6MG TAB PO SCH (20:52)
[2019-12-30] MEDS: lisinopriL 5 MG TAB PO SCH (20:52)
[2019-12-30] MEDS ORDERED: LACTATED RINGER'S 1,000 ML IV ONE (22:57)
[2019-12-31] MEDS: ACETAMINOPHEN 500 MG TAB PO SCH ×3 (03:28→18:41)
[2019-12-31] MEDS ORDERED: OLANZapine 10 MG/2.1 ML SDV IM PRN (04:58)
[2019-12-31 05:52] LABS: Basophils # (auto) 0.03 K/uL (0-0.2); Basophils % (auto) 0.4 %; Eosinophils # (auto) 0.29 K/uL (0-0.5); Hemoglobin 8.7 g/dL (12.0-16.0); Immature Granulocytes # (auto) 0.02 K/uL (0.00-0.02); Immature Granulocytes % (auto) 0.3 %; Lymphocytes # (auto) 2.08 K/uL (1.2-3.4); Lymphocytes % (auto) 28.4 %; Mean Corpuscular Hemoglobin 28.7 pg (25-34); Mean Corpuscular Hgb Conc 32.2 g/dL (32-36); Mean Corpuscular Volume 89.1 fL (80-100); Mean Platelet Volume 8.7 fL (7.4-10.4); Monocytes # (auto) 0.67 K/uL (0.11-0.59); Monocytes % (auto) 9.1 %; Neutrophils # (auto) 4.24 K/uL (1.4-6.5); Neutrophils % (auto) 57.8 %; Nucleated RBC # (auto) 0.07 K/uL (0-0); Platelet Count 289 K/uL (130-400); RDW Coefficient of Variation 14.2 % (11.5-14.5); RDW Standard Deviation 45.4 fL (36.4-46.3); Red Blood Count 3.03 M/uL (4.2-5.4); White Blood Count 7.33 K/uL (4.8-10.8)
[2019-12-31 06:13] LABS: Est GFR (African American) 106.2; Potassium 3.5 mmol/L (3.5-5.1)
[2019-12-31 06:14] LABS: Albumin Level 2.9 gm/dl (3.4-5.0); Calcium 9.4 mg/dl (8.5-10.1); Creatinine Clr Calc Pharmacy 97.3 ml/min; Est GFR (Non-African American) 91.7; Magnesium 2.2 mg/dl (1.8-2.4)
[2019-12-31 06:16] LABS: Albumin Globulin Ratio 0.6 (0.9-2); Bilirubin,Total 0.9 mg/dl (0.2-1); Globulin 4.8 gm/dl (2.5-4.0); Total Protein 7.7 gm/dl (6.4-8.2)
[2019-12-31] MEDS: ALFUZOSIN HCL 10 MG TAB PO SCH (08:39)
[2019-12-31] MEDS: MAGNESIUM OXIDE 400 MG TAB PO SCH ×2 (08:40→21:19)
[2019-12-31] MEDS: FERROUS SULFATE 325 MG TAB PO SCH ×2 (08:40→21:19)
[2019-12-31] MEDS: ASPIRIN 81 MG ECTAB PO SCH ×2 (08:40→21:19)
[2019-12-31] MEDS: INSULIN ASPART 100 UNITS/ML 3 ML PEN SC SCH ×4 (08:44→21:33)
[2019-12-31] MEDS: INSULIN GLARGINE SOLOSTAR 100 UNITS/ML 3 ML PEN SC SCH ×2 (08:44→21:34)
[2019-12-31] MEDS: NYSTATIN POWDER 15GM BTL EXT SCH ×2 (08:48→21:47)
[2019-12-31] MEDS: PREGABALIN 150 MG CAP PO SCH ×2 (08:48→21:19)
[2019-12-31] MEDS: OXYCODONE HCL IR 5 MG TAB (IMMEDIATE RELEASE) PO PRN (15:23)
--- NOTE | 2019-12-31 15:56 | Hospitalist Progress Note ---
Date of Service December 31, 2019 Assessment & Plan (1) Acute respiratory failure with hypoxemia: Acute hypoxemic respiratory failure: Symptom has resolved, not requiring oxygen Adequate oxygenation in room air Possible underlying obstructive sleep apnea Patient denies of any shortness of breath, no orthopnea Confusion/metabolic encephalopathy/delirium Developed agitation/confusion last night Patient's called concerned about possible side effect of pain medications at home pt is on multiple meds including Percoet 7.5 /baclofen since her last stroke , pt has been very vulnerable to pain meds and sedatives post op -pt started on OxyIR home dose of Percocet kept on hold pts confusion /delirium could be due to change in meds OxyIR D/sonia no new pain medications or sedatives will not be added pt will be continued with her chronic medications : Nortriptyline 75 mg HS /Oxycodone -acetaminophen 7.5 /325mg TID PRN /Baclofen 10 mg TID PRN /Pregabalin 150 mg BID all the medications will be kept on hold for sedation /confusion Acute CHF with diastolic heart failure: HFp EF Resolved, volume status stable Acute Blood loss anemia: Secondary to postoperative status Globin remained stable hb -8.7 Continue iron supplement per Current guideline, transfusion for hemoglobin less than 7 or hemodynamic instability acute hypoxemic respiratory failure acute hypoxemic respiratory (2) Fall: (3) Closed hip fracture: s/p fall RIGHT FEMUR XRAY: Intertrochanteric fracture right hip. s/p ORIF of left hip #5 ortho following /appreciate input Recommends weightbearing as tolerated on right lower extremity DVT prophylaxis post hip surgery: Teds for 2 weeks on the operative limb, SCDs while in hospital. Aspirin 81 mg twice daily for 6 weeks (4) Hemorrhagic stroke: H/O hemorrhagic stroke in 12/2017 s/p craniotomy. Has residual left sided weakness (5) DM type 2 (diabetes mellitus, type 2): A1c: 7.2 om 11/08/2019 -Hold metformin-resumed on discharge -Continue home Lantus, Novolog sliding scale per protocol (6) HTN (hypertension): Stable Lisinopril resumed as renal function improved to baseline MILTON on CKD stage 3 : Resolved Creatinine improved to 0.8, patient's approximate baseline Resume MILAD inhibitor avoid NSAIDS' (7) Multiple sclerosis: Has right sided weakness. Has chronic BLE pain and has pain stimulator Patient's own spinal pain stimulator restarted on 12/28/2019 -Patient's baclofen/oxycodone outpatient home meds resumed, (8) Iron deficiency anemia: acute blood loss anemia post op as outlined above Continue iron supplement Hemoglobin has been stable (9) Dyslipidemia: -Continue atorvastatin (10) HELIO (obstructive sleep apnea): -CPAP HS (11) Depression: -Continue Effexor (12) Hypothyroidism: -Continue levothyroxine DVT Prophylaxis -Aspirin 81 mg twice daily/SCD as per orthopedic Full Code Follows with Dr Amelia Vazquez for routine care Disposition: waiting for insurance approval for acute rehab /[facility] Follow-up with orthopedics Dr. You's office in 2 weeks for dressing change. Call [phone] for appointment Admission and Anticipated Discharge Date Admission Date: December 26, 2019 Subjective Patient has been doing well sitting up on chair, no hypoxia noted Has minimal pain on right hip surgical area, you are doing well with physical therapy Patient mentions she had difficult time last night unable to sleep, Per nursing patient was confused, disoriented last night This morning patient appears to be at her baseline mental status, able to conversation appropriately Does not recall much of last night's events Mentions that she is very sensitive to pain medications - with any change of her chronic pain medications Review of Systems Review of Systems: All systems reviewed & are unremarkable except as noted in HPI & below Constitutional: no fever and no fatigue Respiratory: + pain with cough; no cough, no dyspnea, no dyspnea on exertion and no wheezing Cardiovascular: no dyspnea, no dyspnea on exertion, no orthopnea and no palpitations Psychiatric: no anxiety and no confusion Physical Exam Constitutional: WD/WN, vitals as above no acute distress Eyes: + anicteric sclerae ENMT: external ear and nose normal, oropharynx normal Neck: trachea midline, no thyromegaly Respiratory: normal respiratory effort, lungs clear to auscultation Cardiovascular: RRR, no murmur, no edema Gastrointestinal (Abdomen): Inspection/Auscultation: normal bowel sounds Percussion/Palpation: abdomen soft; abdomen nontender Musculoskeletal: Extremities: no cyanosis and no clubbing Skin: no rashes, warm and dry Neurologic: PERRL, EOMI, accommodation nl, no face palsy, no dysarthria Psychiatric: A+Ox3, euthymic affect Results & Data ([facility]) Vital Signs (Past 12 Hours) Vital Signs Temp Pulse Resp BP Pulse Ox 12/31/19 15:29 36.6 C 103 H 18 144/81 H 91 12/31/19 07:30 36.8 C 101 H 16 145/74 H 91 (1) Fall Encounter type: initial encounter Qualified Code(s): W19.XXXA - Unspecified fall, initial encounter
[2019-12-31] MEDS ORDERED: OXYCODONE/APAP 7.5/325MG TAB PO PRN (15:57)
[2019-12-31] MEDS: NORTRIPTYLINE HCL 25 MG CAP PO SCH (21:19)
[2019-12-31] MEDS: lisinopriL 5 MG TAB PO SCH (21:19)
[2019-12-31] MEDS: MULTIVITAMIN TAB PO SCH (21:19)
[2019-12-31] MEDS: CALCIUM 600MG + VIT D 400 IU TAB PO SCH (21:19)
[2019-12-31] MEDS: ATORVASTATIN 40 MG TAB PO SCH (21:19)
[2019-12-31] MEDS: VENLAFAXINE HCL XR 150 MG CAPXR PO SCH (21:19)
[2019-12-31] MEDS: DOCUSATE SODIUM/SENNA 50/8.6MG TAB PO SCH (21:24)
[2020-01-01 02:46] LABS: Appearance Urine Clear (Clear); Bilirubin Urine Negative (Negative); Blood Urine Negative (Negative); Color Urine Yellow; Glucose Urine UA Negative (Negative); Ketones Urine Negative (Negative); Leukocyte Esterase Urine Trace (Negative); Nitrite Urine Negative (Negative); Protein Urine Negative (Negative); Urobilinogen Urine Negative (Negative)
[2020-01-01 03:01] LABS: Bacteria Urine 1+ (Negative); Epithelial Cell Urine 0-5 /lpf (0-5); RBC Urine 0-4 /hpf (0-4)
[2020-01-01] MEDS: INSULIN ASPART 100 UNITS/ML 3 ML PEN SC SCH ×2 (08:38→13:34)
[2020-01-01] MEDS: INSULIN GLARGINE SOLOSTAR 100 UNITS/ML 3 ML PEN SC SCH (08:41)
[2020-01-01] MEDS: FERROUS SULFATE 325 MG TAB PO SCH (08:50)
[2020-01-01] MEDS: ASPIRIN 81 MG ECTAB PO SCH (08:50)
[2020-01-01] MEDS: PREGABALIN 150 MG CAP PO SCH (08:50)
[2020-01-01] MEDS: MAGNESIUM OXIDE 400 MG TAB PO SCH (08:50)
[2020-01-01] MEDS: ALFUZOSIN HCL 10 MG TAB PO SCH (08:51)
[2020-01-01] MEDS: NYSTATIN POWDER 15GM BTL EXT SCH (08:56)
--- NOTE | 2020-01-01 12:24 | Hospitalist Progress Note ---
Date of Service January 01, 2020 Assessment & Plan (1) Acute respiratory failure with hypoxemia: Acute hypoxemic respiratory failure: Symptom has resolved, not requiring oxygen Adequate oxygenation in room air Possible underlying obstructive sleep apnea Patient denies of any shortness of breath, no orthopnea Confusion/metabolic encephalopathy/delirium Symptom has resolved Stable secondary to pain meds On narcotics pain medications ordered postoperatively during this hospital stay discontinued pt is continued with her chronic medications : Nortriptyline 75 mg HS /Oxycodone -acetaminophen 7.5 /325mg TID PRN /Baclofen 10 mg TID PRN /Pregabalin 150 mg BID No episode of confusion, lethargy or disorientation noted Acute CHF with diastolic heart failure: HFp EF Resolved, volume status stable Acute Blood loss anemia: Secondary to postoperative status Globin remained stable hb -8.7 Continue iron supplement per Current guideline, transfusion for hemoglobin less than 7 or hemodynamic instability acute hypoxemic respiratory failure acute hypoxemic respiratory (2) Fall: (3) Closed hip fracture: s/p fall RIGHT FEMUR XRAY: Intertrochanteric fracture right hip. s/p ORIF of left hip #6 ortho following /appreciate input Recommends weightbearing as tolerated on right lower extremity DVT prophylaxis post hip surgery: Teds for 2 weeks on the operative limb, SCDs while in hospital. Aspirin 81 mg twice daily for 6 weeks (4) Hemorrhagic stroke: H/O hemorrhagic stroke in 12/2017 s/p craniotomy. Has residual left sided weakness (5) DM type 2 (diabetes mellitus, type 2): A1c: 7.2 om 11/08/2019 -Hold metformin-resumed on discharge -Continue home Lantus, Novolog sliding scale per protocol (6) HTN (hypertension): Stable Lisinopril resumed as renal function improved to baseline MILTON on CKD stage 3 : Resolved Creatinine improved to 0.8, patient's approximate baseline Resume MILAD inhibitor avoid NSAIDS' (7) Multiple sclerosis: Has right sided weakness. Has chronic BLE pain and has pain stimulator Patient's own spinal pain stimulator restarted on 12/28/2019 -Patient's baclofen/oxycodone outpatient home meds resumed, (8) Iron deficiency anemia: acute blood loss anemia post op as outlined above Continue iron supplement Hemoglobin has been stable (9) Dyslipidemia: -Continue atorvastatin (10) HELIO (obstructive sleep apnea): -CPAP HS (11) Depression: -Continue Effexor (12) Hypothyroidism: -Continue levothyroxine DVT Prophylaxis -Aspirin 81 mg twice daily/SCD as per orthopedic Full Code Follows with Dr Amelia Vazquez for routine care Disposition: Patient is discharged to acute rehab/[facility] in [place] today Follow-up with orthopedics Dr. You's office in 2 weeks for dressing change. Call [phone] for appointment Admission and Anticipated Discharge Date Admission Date: December 26, 2019 Subjective Patient has been doing well sitting up on chair, no hypoxia noted Has minimal pain on right hip surgical area, doing well with physical therapy Transfer to [facility] for continued rehab today Review of Systems Review of Systems: All systems reviewed & are unremarkable except as noted in HPI & below Physical Exam Constitutional: WD/WN, vitals as above no acute distress Eyes: + anicteric sclerae ENMT: external ear and nose normal, oropharynx normal Neck: trachea midline, no thyromegaly Respiratory: normal respiratory effort, lungs clear to auscultation Cardiovascular: RRR, no murmur, no edema Gastrointestinal (Abdomen): Inspection/Auscultation: normal bowel sounds Percussion/Palpation: abdomen soft; abdomen nontender Musculoskeletal: Extremities: no cyanosis and no clubbing Skin: no rashes, warm and dry Neurologic: PERRL, EOMI, accommodation nl, no face palsy, no dysarthria Psychiatric: A+Ox3, euthymic affect Results & Data ([facility]) Vital Signs (Past 12 Hours) Vital Signs Temp Pulse Pulse Resp BP Pulse Ox 01/01/20 08:10 36.8 C 99 H 18 165/82 H 90 01/01/20 03:46 94 H 19 94 (1) Fall Encounter type: initial encounter Qualified Code(s): W19.XXXA - Unspecified fall, initial encounter
--- NOTE | 2020-01-01 14:36 | Discharge Summary ---
Date of Service January 01, 2020 Admission HPI Per Admitting Provider Pt is 59 y/o F with PMH Right frontal hemorrhagic CVA s/p craniotomy 12/2017, MS, h/o left-sided weakness from prior stroke and right-sided weakness from MS, right-sided weakness greater than left-sided weakness, ambulates with use of walker, DM II, HTN, dyslipidemia, HELIO, depression, anxiety presented to ER complaint of fall and right hip pain today. Patient states was ambulating in house when she bent over to pick something off floor and lost her balance falling onto her right side. Patient states hit head on cabinet. Denies any LOC, headache, dizziness, vision changes. Was unable to get herself up off the floor. C/O right hip pain with radiation down right leg. Denies neck pain. Chronic leg pain and has pain stimulator. She reports turning off pain stimulator prior to ER arrival. Denies upper extremity pain, back pain. Patient denies any other known injury. Patient with recent follow-up with cardiology-Dr. Gillette for abnormal EKG.Patient has agent determinant inferior infarction pattern on EKG which has been stable since 2018. She had stress test performed yesterday at [facility]. Patient reports intermittent "electric shock" sensation right axilla radiating to right lower abdomen. Denies any similar sensation today. Denies chest pain, shortness of breath, palpitations. Denies fever/chills, diaphoresis, N/V/D/C, vision changes, neck pain, orthopnea, cough, sore throat, choking, otalgia, rhinorrhea, abdominal pain, paresthesias, extremity edema, rashes, urinary symptoms. Principal Diagnosis Right hip fracture status post ORIF Discharge Exam Constitutional WD/WN, vitals as above no acute distress Eyes + anicteric sclerae ENMT external ear and nose normal, oropharynx normal Neck trachea midline, no thyromegaly Respiratory normal respiratory effort, lungs clear to auscultation Cardiovascular RRR, no murmur, no edema Gastrointestinal (Abdomen) Inspection/Auscultation: normal bowel sounds Percussion/Palpation: abdomen soft; abdomen nontender Musculoskeletal Head/Neck/Chest: + abnormal head shape and + evidence of head trauma Extremities: no cyanosis and no clubbing Hip: + surgical incision (Status post right hip ORIF) Skin no rashes, warm and dry Neurologic PERRL, EOMI, accommodation nl, no face palsy, no dysarthria Psychiatric A+Ox3, euthymic affect Discharge Data Allergies Allergy/AdvReac Type Severity Reaction Status Date / Time methylphenidate Allergy Mild RASH Verified 12/26/19 08:02 sumatriptan AdvReac Intermediate RAPID Verified 12/26/19 08:02 HEART RATE soy AdvReac Unknown Diarrhea Verified 12/27/19 16:28 Consultations 12/26/19 08:53 ED Decision to Admit Stat 12/26/19 10:32 Consult Anesthesiology Routine Consult Case Management - Discharge Planning Routine Consult Orthopedic Surgery Routine 12/26/19 15:19 Consult Case Management - Discharge Planning Routine Procedures Performed Operation Date: 12/26/19 07:00 Actual Procedures p Right Hip Open Reduction Internal Fixation(Right) - Joe Red You MD Ordered Studies 12/26/19 07:49 CT cervical spine wo con Stat CT head/brain wo con Stat 12/26/19 11:10 FL femur RT 2V Routine FL fluoroscopy <1hr Routine 12/26/19 11:33 US - OR guided needle placemen Stat Hospital Course (1) Acute respiratory failure with hypoxemia: Acute hypoxemic respiratory failure: Symptom has resolved, not requiring oxygen Adequate oxygenation in room air Possible underlying obstructive sleep apnea Patient denies of any shortness of breath, no orthopnea Confusion/metabolic encephalopathy/delirium Symptom has resolved Stable secondary to pain meds On narcotics pain medications ordered postoperatively during this hospital stay discontinued pt is continued with her chronic medications : Nortriptyline 75 mg HS /Oxycodone -acetaminophen 7.5 /325mg TID PRN /Baclofen 10 mg TID PRN /Pregabalin 150 mg BID No episode of confusion, lethargy or disorientation noted Acute CHF with diastolic heart failure: HFp EF Resolved, volume status stable Acute Blood loss anemia: Secondary to postoperative status Globin remained stable hb -8.7 Continue iron supplement per Current guideline, transfusion for hemoglobin less than 7 or hemodynamic instability acute hypoxemic respiratory failure acute hypoxemic respiratory (2) Fall: (3) Closed hip fracture: s/p fall RIGHT FEMUR XRAY: Intertrochanteric fracture right hip. s/p ORIF of left hip #6 ortho following /appreciate input Recommends weightbearing as tolerated on right lower extremity DVT prophylaxis post hip surgery: Teds for 2 weeks on the operative limb, SCDs while in hospital. Aspirin 81 mg twice daily for 6 weeks (4) Hemorrhagic stroke: H/O hemorrhagic stroke in 12/2017 s/p craniotomy. Has residual left sided weakness (5) DM type 2 (diabetes mellitus, type 2): A1c: 7.2 om 11/08/2019 -Hold metformin-resumed on discharge -Continue home Lantus, Novolog sliding scale per protocol (6) HTN (hypertension): Stable Lisinopril resumed as renal function improved to baseline MILTON on CKD stage 3 : Resolved Creatinine improved to 0.8, patient's approximate baseline Resume MILAD inhibitor avoid NSAIDS' (7) Multiple sclerosis: Has right sided weakness. Has chronic BLE pain and has pain stimulator Patient's own spinal pain stimulator restarted on 12/28/2019 -Patient's baclofen/oxycodone outpatient home meds resumed, (8) Iron deficiency anemia: acute blood loss anemia post op as outlined above Continue iron supplement Hemoglobin has been stable (9) Dyslipidemia: -Continue atorvastatin (10) HELIO (obstructive sleep apnea): -CPAP HS (11) Depression: -Continue Effexor (12) Hypothyroidism: -Continue levothyroxine DVT Prophylaxis -Aspirin 81 mg twice daily/SCD as per orthopedic Full Code Follows with Dr Amelia Vazquez for routine care Disposition: Patient is discharged to acute rehab/[facility] in [place] today Follow-up with orthopedics Dr. You's office in 2 weeks for dressing change. Call [phone] for appointment Total Time Total Time Spent Total Time Spent (In Minutes): 35 mins Total Time Includes: Discharge Planning and Medication Reconciliation Discharge Plan Discharge Items Patient Disposition: Transfer Inpatient Rehab Fac Reason For Visit: HIP FRACTURE Discharge Diagnosis: Right hip fracture status post ORIF Activity: Resume your previous activity Weightbearing: Right weightbearing Weightbearing Comment: Right lower extremity weightbearing as tolerated Non-emergency contact: Primary Care Provider Call non-emergency contact if: you have any medication questions Follow-up/Referrals: Joe You MD [Physician] - (Orthopedics surgery follow-up in 2 weeks) Amelia Vazquez DO [Primary Care Provider] - Diet: Heart Healthy Addtl Attending Provider Instructions: Follow-up with orthopedics for postoperative visit in 2 weeks as scheduled Addtl Geophysical Party Chief Provider Instructions: Orthopedic Instructions: *DVT Prophylaxis to include TEDS to right (operative) leg x 2wks post-op. ASA 81mg BID x 6wks. *Keep right hip dressings on/clean/dry until follow-up. Can shower. Do not submerge wounds. *WBAT right leg with walker. Recommend patient also use her AFO. No restrictions with hip motion. *Ice to right hip as needed for pain. *PT/OT *Follow-up with Dr You office on 01-10-20 () at 10:45am with Leeanne Dubose PA-C for wound check. Please call the office at [phone] with any questions or concerns Pending Studies at Discharge: No Stand-Alone Forms: My [facility] Skilled Items Patient informed of condition?: Yes DNR: No Discharge Level of Care: Acute rehab Communicable Disease: No Discharge Prognosis: Stable Lines: None Urinary Catheter: No Medications and DC Order Prescriptions: Continued Lantus Solostar U-100 Insulin 100 unit/mL (3 mL) insulin pen 20 units SQ BID RF: 0 Novolog Flexpen U-100 Insulin 100 unit/mL (3 mL) insulin pen 3 units SQ TID RF: 0 alfuzosin 10 mg tablet extended release 24 hr 10 mg PO QAM Qty: 90 RF: 3 mirabegron 50 mg tablet extended release 24 hr 50 mg PO HS Qty: 90 RF: 3 lisinopril 5 mg tablet 5 mg PO HS RF: 0 pregabalin 150 mg capsule 150 mg PO BID RF: 0 atorvastatin 80 mg tablet 80 mg PO PM RF: 0 venlafaxine 75 mg capsule,extended release 24hr 75 mg PO HS RF: 0 venlafaxine 150 mg capsule,extended release 24hr 150 mg PO HS RF: 0 diazepam 5 mg tablet 5 mg PO PM RF: 0 oxycodone-acetaminophen 7.5-325 mg tablet 1 tab PO TID PRN (Reason: Pain) RF: 0 multivitamin Tablet 1 tab PO PM RF: 0 metformin 500 mg Tablet 500 mg PO TID RF: 0 aspirin 81 mg Tablet,Delayed Release (Dr/Ec) 81 mg PO QDL RF: 0 ferrous sulfate [iron] 325 mg (65 mg iron) Tablet 325 mg PO PM RF: 0 Calcium 600 + D(3) 600 mg calcium- 200 unit Capsule 1 cap PO PM RF: 0 nortriptyline 75 mg Capsule 75 mg PO HS RF: 0 baclofen 10 mg Tablet 1 tab PO UD RF: 0 levothyroxine 50 mcg Tablet 50 mcg PO QAM RF: 0 nystatin 100,000 unit/gram powder 1 appln TOP BID Qty: 60 RF: 1 Discharge Orders: Discharge Order (Routine); Ordered 01/01/20 Ordered By: Kacy Cramer Admission Data Admit Date/Time: 12/26/19 09:12 Attending Provider: Kacy Cramer Admit Provider: Marissa Short Primary Care Provider: Amelia Vazquez Other Providers: Ervin Roberts [place] ; Marissa Short ; Jose Sellers ; Joe You Other Interventions: Discharge Summary Assessment (RN) Last Done: 01/01/20 13:25 DC Date/Time DO NOT enter until pt leaves facility: 01/01/20 13:45
== END 2020-01-01 13:45 | DRG 480 ==
LOC: ED 07:32 → SUATTDRO 09:12 → 3E 09:12 → 2S 19:20 → 2N 12-28 12:33 → 3W 12-30 11:02

== ENCOUNTER 2020-01-28 08:11 | Observation (INO) ==
[2020-01-28] MEDS ORDERED: SODIUM CHLORIDE 0.9% 1000ML 500 ML IV ONE (08:24)
[2020-01-28] MEDS ORDERED: MAGNESIUM SULFATE / D5W 1 GM/100 ML BAG IV ONE (08:24)
--- NOTE | 2020-01-28 08:40 | XRay Report ---
XR chest 1V portable CLINICAL HISTORY: Pt c/o aphasia dysphagia COMPARISON STUDY: 12/27/2019 FINDINGS: The bones soft tissues and hemidiaphragms are normal. The cardiomediastinal silhouette is n ormal. The lungs are clear. The pulmonary vasculature is normal. IMPRESSION: Negative chest. ACT 112: Negative or not required by law. The above report was generated using voice recognition software. It may contain grammatical, syntax or spelling errors. Electronically signed by: Johnathon Lyon M.D. 01/28/2020 8:39 AM
[2020-01-28 08:43] LABS: Basophils # (auto) 0.04 K/uL (0-0.2); Basophils % (auto) 0.5 %; Eosinophils # (auto) 0.28 K/uL (0-0.5); Eosinophils % (auto) 3.3 %; Hematocrit (blood only) 37.6 % (37-47); Hemoglobin 11.7 g/dL (12.0-16.0); Immature Granulocytes # (auto) 0.01 K/uL (0.00-0.02); Immature Granulocytes % (auto) 0.1 %; Lymphocytes # (auto) 2.53 K/uL (1.2-3.4); Lymphocytes % (auto) 29.5 %; Mean Corpuscular Hemoglobin 29.2 pg (25-34); Mean Corpuscular Hgb Conc 31.1 g/dL (32-36); Mean Corpuscular Volume 93.8 fL (80-100); Mean Platelet Volume 9.1 fL (7.4-10.4); Monocytes # (auto) 0.57 K/uL (0.11-0.59); Monocytes % (auto) 6.6 %; Neutrophils # (auto) 5.15 K/uL (1.4-6.5); Platelet Count 355 K/uL (130-400); RDW Coefficient of Variation 15.6 % (11.5-14.5); RDW Standard Deviation 54.2 fL (36.4-46.3); Red Blood Count 4.01 M/uL (4.2-5.4); White Blood Count 8.58 K/uL (4.8-10.8)
[2020-01-28] MEDS ORDERED: OPTIRAY 320 125ml IV PRN (08:45)
--- NOTE | 2020-01-28 08:47 | Emergency Department Note ---
History of Present Illness General Chief complaint: TIA Symptoms Stated complaint: STROKE SYMPTOMS, FACIAL DROOPING Time Seen by Provider: 01/28/20 08:17 Source: patient, family, RN notes reviewed and old records reviewed Mode of arrival: ambulatory Limitations: no limitations History of Present Illness Provider complaint: aphasia, facial droop Onset (ago): hour(s) 1 Location: face Maximum Pain Intensity: 4 Treatments prior to arrival: none This is a 59-year-old female who has a history of a hemorrhagic stroke presents to the emergency department with onset of aphasia. The patient recently broke her hip and just arrived home from [facility] on Tuesday. She was doing her exercises this morning and was becoming frustrated with the exercises when she describes what she felt was like a seizure. The patient reports she was unable to speak though her lips were moving. In addition the patient's reports the patient had a facial droop. She was also unable to swallow at this time. The symptoms resolved. The patient does have a history of a hemorrhagic stroke CVA. Home Medications Home Medications Medication Instructions Recorded Confirmed Type atorvastatin 80 mg PO PM 10/08/18 01/28/20 History venlafaxine 75 mg PO HS 10/08/18 01/28/20 History venlafaxine 150 mg PO HS 10/08/18 01/28/20 History Calcium 600 + D(3) 1 cap PO PM 12/12/18 01/28/20 History aspirin 81 mg PO QDL 12/12/18 01/28/20 History ferrous sulfate [iron] 325 mg PO PM 12/12/18 01/28/20 History levothyroxine 50 mcg PO DAILYBB 12/12/18 01/28/20 History metformin 500 mg PO TID 12/12/18 01/28/20 History multivitamin 1 tab PO PM 12/12/18 01/28/20 History nortriptyline 75 mg PO HS 12/12/18 01/28/20 History insulin aspart U-100 100 unit/mL 3 units SQ TID 12/28/18 01/28/20 History (3 mL) subcutaneous pen insulin glargine 100 unit/mL (3 20 units SQ BID ml 12/28/18 01/28/20 History mL) subcutaneous pen nystatin 1 appln TOP BID #60 gm 01/12/19 01/28/20 Rx oxycodone-acetaminophen 7.5 mg-325 1 tab PO TID PRN tab 05/11/19 01/28/20 History mg tablet alfuzosin 10 mg tablet,extended 10 mg PO QAM #90 tab 10/24/19 01/28/20 Rx release 24 hr mirabegron 50 mg tablet,extended 50 mg PO HS #90 tab 11/02/19 01/28/20 Rx release 24 hr lisinopril 5 mg PO HS 12/26/19 01/28/20 History pregabalin 150 mg PO BID 12/26/19 01/28/20 History baclofen 15 mg PO QID 01/28/20 01/28/20 History metaxalone [Skelaxin] 800 mg PO BID 01/28/20 01/28/20 History Allergies Allergy/AdvReac Type Severity Reaction Status Date / Time methylphenidate Allergy Mild RASH Verified 01/28/20 09:48 sumatriptan AdvReac Intermediate RAPID Verified 01/28/20 09:48 HEART RATE soy AdvReac Unknown Diarrhea Verified 01/28/20 09:48 Past Med/Surg History Medical History Compression fracture of T11 vertebra Depression DM type 2 (diabetes mellitus, type 2) Dyslipidemia Hemorrhagic stroke HTN (hypertension) Hypothyroidism Iron deficiency anemia Migraine Multiple sclerosis (Acute) Neurogenic bladder Nocturia HELIO (obstructive sleep apnea) Osteoarthritis Peripheral neuropathy Restless leg syndrome Sleep apnea (Acute) Stroke (Acute) DECEMBER 2017 (GENERALIZED WEAKNESS) Temporomandibular joint disorder Clicks, but has never locked Urinary frequency Urinary incontinence UTI (urinary tract infection) Surgical History H/O foot surgery 08/04/17 - ORIF RIGHT 2/3/4 METATARSAL - MAC#3, ETT# 7.0, GRADE 2 VIEW, GRADE 2 VIEW History of colonoscopy History of dental surgery History of dilatation and curettage History of esophagogastroduodenoscopy (EGD) S/P insertion of spinal cord stimulator Family History Father Family history of diabetes mellitus Other FHx: cancer FHx: heart disease Social History (Updated 01/28/20 @ 09:57 by Carley Mcmanus PA-C) Preferred Language: Khmer Communication Ability: Effective Hearing Ability: Normal Horn Player Required: No Beliefs That Will Affect Care: None marital status: Current Living Situation: Spouse current occupational status: retired Feels Safe at Home: Yes Smoking Status: Never smoker Second Hand Exposure: No ; Hx Alcohol Use: No Hx Substance Use: No Review of Systems A total of 10 systems reviewed and were otherwise negative Physical Exam Vital Signs Vital Signs - 24 hr 01/28/20 08:13 01/28/20 09:42 01/28/20 10:45 Temperature 36.6 C Temperature Source Oral Pulse Rate 83 Pulse Rate [Apical] 76 77 Pulse Rhythm [Apical] Regular Regular Pulse Strength [Apical] Normal Respiratory Rate 18 18 18 Respiratory Effort / Characteristics Non-Labored Spontaneous Non-Labored Spontaneous Respiratory Depth Normal Normal Respiratory Pattern Regular Regular Blood Pressure 174/96 H Blood Pressure [Left Arm] 163/92 H 155/82 H Blood Pressure Mean 122 Blood Pressure Mean [Left Arm] 115 106 Pulse Oximetry 96 95 98 Oxygen Delivery Method Room Air Room Air Sepsis Recent Fever Within 48 Hours No Sepsis New/Unexplained Change in Mental Status No Sepsis Action Taken by Nursing No Action Required 01/28/20 11:05 Temperature Temperature Source Pulse Rate 75 Pulse Rate [Apical] Pulse Rhythm [Apical] Pulse Strength [Apical] Respiratory Rate 17 Respiratory Effort / Characteristics Respiratory Depth Respiratory Pattern Blood Pressure 148/71 H Blood Pressure [Left Arm] Blood Pressure Mean Blood Pressure Mean [Left Arm] Pulse Oximetry 96 Oxygen Delivery Method Room Air Sepsis Recent Fever Within 48 Hours Sepsis New/Unexplained Change in Mental Status Sepsis Action Taken by Nursing GENERAL: Patient is a healthy-appearing well-nourished female HEAD: Normocephalic atraumatic EYES: Ocular movements intact pupils equal and react to light OROPHARYNX mucous membranes are moist no exudates present no erythema or edema present NECK: Supple no nuchal rigidity CHEST: Good equal expansion LUNGS: Clear and equal to auscultation CARDIAC: Normal S1 and S2 ABDOMEN: Soft nontender no guarding BACK: No CVA tenderness EXTREMITIES: No pain upon palpation normal muscle strength in all groups no clubbing cyanosis or edema NEURO: Patient is following commands is answering questions appropriately. Alert and oriented x3 Cranial Nerves 2-12 grossly intact Course Administered Medications Ioversol (Optiray 320 125ml) 120 ml IV ONCE PRN PRN Reason: Interaction Checking Stop: 02/01/20 08:44 Last Admin: 01/28/20 08:46 Dose: 120 ml Documented by: [id number] Discontinued Medications Sodium Chloride (Nss 1000ml) 500 mls @ 999 mls/hr IV .Q31M ONE Stop: 01/28/20 08:54 Last Infusion: 01/28/20 09:41 Dose: 0 mls/hr Documented by: [id number] Admin: 01/28/20 08:58 Dose: 999 mls/hr Documented by: [id number] Magnesium Sulfate/Dextrose (Magnesium Sulfate / D5w) 1 gm in 100 mls @ 100 mls/hr IV ONE ONE Stop: 01/28/20 09:23 Last Infusion: 01/28/20 09:56 Dose: 0 mls/hr Documented by: [id number] Admin: 01/28/20 08:58 Dose: 100 mls/hr Documented by: [id number] Medical Decision Making Differential Diagnosis Infection, dehydration, metabolic abnormality, hypo/hyperglycemia, electrolyte disturbance, anemia, hypoxia, cardiac sources, intracerebral event, toxicologic, neurologic, as well as other pathologies. Medical Records Attestation: I reviewed the patient's medical records. Home Medications Current Medication List: was personally reviewed by me Laboratory Data Attestation: I reviewed the patient's lab results. Result diagrams: 01/28/20 08:30 01/28/20 08:30 Lab Results 01/28/20 01/28/20 01/28/20 Range/Units 08:20 08:30 08:30 WBC 8.58 (4.8-10.8) K/uL RBC 4.01 L (4.2-5.4) M/uL Hgb 11.7 L (12.0-16.0) g/dL POC Hgb (12.0-16.0) g/dl Hct 37.6 (37-47) % POC Hct (37-47) % MCV 93.8 (80-100) fL MCH 29.2 (25-34) pg MCHC 31.1 L (32-36) g/dL RDW Std Deviation 54.2 H (36.4-46.3) fL RDW Coeff of [place]awaf 15.6 H (11.5-14.5) % Plt Count 355 (130-400) K/uL MPV 9.1 (7.4-10.4) fL Immature Gran % (Auto) 0.1 % Neut % (Auto) 60.0 % Lymph % (Auto) 29.5 % [place] % (Auto) 6.6 % Eos % (Auto) 3.3 % Baso % (Auto) 0.5 % Immature Gran # (Auto) 0.01 (0.00-0.02) K/uL Neut # (Auto) 5.15 (1.4-6.5) K/uL Lymph # (Auto) 2.53 (1.2-3.4) K/uL [place] # (Auto) 0.57 (0.11-0.59) K/uL Eos # (Auto) 0.28 (0-0.5) K/uL Baso # (Auto) 0.04 (0-0.2) K/uL PT Cancelled INR Cancelled APTT Cancelled PTT Ratio Cancelled POC Sodium (135-144) mmol/L Sodium (136-145) mmol/L POC Potassium (3.3-5.0) mmol/L Potassium (3.5-5.1) mmol/L POC Chloride (101-112) mmol/L Chloride (98-107) mmol/L Carbon Dioxide (21-32) mmol/L POC Total CO2 (24-31) mEq/l Anion Gap (3-11) POC Anion Gap (16-25) mmol/L POC BUN (7-18) mg/dl BUN (7-18) mg/dl Creatinine (0.6-1.2) mg/dl POC Creatinine (0.6-1.3) mg/dl Est Cr Clr Drug Dosing ml/min Est GFR ( Amer) Est GFR (Non-Af Amer) BUN/Creatinine Ratio (10-20) Glucose (70-99) mg/dl POC Glucose 147 H (70-99) mg/dl POC Glucose (other) (70-99) mg/dl Calcium (8.5-10.1) mg/dl POC Ioniz Calcium [place] (1.12-1.32) mmol/l Magnesium (1.8-2.4) mg/dl Total Bilirubin (0.2-1) mg/dl AST (15-37) U/L ALT (12-78) U/L Alkaline Phosphatase (45-117) U/L CK-MB (CK-2) (0.5-3.6) ng/ml Troponin I (0-0.045) ng/ml Total Protein (6.4-8.2) gm/dl Albumin (3.4-5.0) gm/dl Globulin (2.5-4.0) gm/dl Albumin/Globulin Ratio (0.9-2) Specimen Hemolysis Urine Color Urine Appearance (Clear) Urine pH (4.5-7.5) Ur Specific [place] (1.000-1.030) Urine Protein (Negative) Urine Glucose (UA) (Negative) Urine Ketones (Negative) Urine Blood (Negative) Urine Nitrite (Negative) Urine Bilirubin (Negative) Urine Urobilinogen (Negative) Ur Leukocyte Esterase (Negative) 01/28/20 01/28/20 01/28/20 Range/Units 08:30 08:37 09:06 WBC (4.8-10.8) K/uL RBC (4.2-5.4) M/uL Hgb (12.0-16.0) g/dL POC Hgb 12.6 (12.0-16.0) g/dl Hct (37-47) % POC Hct 37 (37-47) % MCV (80-100) fL MCH (25-34) pg MCHC (32-36) g/dL RDW Std Deviation (36.4-46.3) fL RDW Coeff of Nawaf (11.5-14.5) % Plt Count (130-400) K/uL MPV (7.4-10.4) fL Immature Gran % (Auto) % Neut % (Auto) % Lymph % (Auto) % [place] % (Auto) % Eos % (Auto) % Baso % (Auto) % Immature Gran # (Auto) (0.00-0.02) K/uL Neut # (Auto) (1.4-6.5) K/uL Lymph # (Auto) (1.2-3.4) K/uL [place] # (Auto) (0.11-0.59) K/uL Eos # (Auto) (0-0.5) K/uL Baso # (Auto) (0-0.2) K/uL PT 11.4 INR 1.1 APTT 26.3 PTT Ratio 0.9 POC Sodium 144 (135-144) mmol/L Sodium 142 (136-145) mmol/L POC Potassium 4.1 (3.3-5.0) mmol/L Potassium 4.1 (3.5-5.1) mmol/L POC Chloride 106 (101-112) mmol/L Chloride 108 H (98-107) mmol/L Carbon Dioxide 30 (21-32) mmol/L POC Total CO2 29 (24-31) mEq/l Anion Gap 4.0 (3-11) POC Anion Gap 14.0 L (16-25) mmol/L POC BUN 15 (7-18) mg/dl BUN 14 (7-18) mg/dl Creatinine 0.96 (0.6-1.2) mg/dl POC Creatinine 0.9 (0.6-1.3) mg/dl Est Cr Clr Drug Dosing 69.8 ml/min Est GFR ( Amer) 75.0 Est GFR (Non-Af Amer) 64.7 BUN/Creatinine Ratio 14.7 (10-20) Glucose 91 (70-99) mg/dl POC Glucose (70-99) mg/dl POC Glucose (other) 95 (70-99) mg/dl Calcium 9.9 (8.5-10.1) mg/dl POC Ioniz Calcium [place] 1.24 (1.12-1.32) mmol/l Magnesium 2.4 (1.8-2.4) mg/dl Total Bilirubin 0.2 (0.2-1) mg/dl AST 38 H (15-37) U/L ALT 39 (12-78) U/L Alkaline Phosphatase 246 H (45-117) U/L CK-MB (CK-2) < 1.0 (0.5-3.6) ng/ml Troponin I < 0.015 (0-0.045) ng/ml Total Protein 8.8 H (6.4-8.2) gm/dl Albumin 3.8 (3.4-5.0) gm/dl Globulin 5.0 H (2.5-4.0) gm/dl Albumin/Globulin Ratio 0.8 L (0.9-2) Specimen Hemolysis Urine Color Urine Appearance (Clear) Urine pH (4.5-7.5) Ur Specific [place] (1.000-1.030) Urine Protein (Negative) Urine Glucose (UA) (Negative) Urine Ketones (Negative) Urine Blood (Negative) Urine Nitrite (Negative) Urine Bilirubin (Negative) Urine Urobilinogen (Negative) Ur Leukocyte Esterase (Negative) 01/28/20 Range/Units 09:40 WBC (4.8-10.8) K/uL RBC (4.2-5.4) M/uL Hgb (12.0-16.0) g/dL POC Hgb (12.0-16.0) g/dl Hct (37-47) % POC Hct (37-47) % MCV (80-100) fL MCH (25-34) pg MCHC (32-36) g/dL RDW Std Deviation (36.4-46.3) fL RDW Coeff of [place]awaf (11.5-14.5) % Plt Count (130-400) K/uL MPV (7.4-10.4) fL Immature Gran % (Auto) % Neut % (Auto) % Lymph % (Auto) % [place] % (Auto) % Eos % (Auto) % Baso % (Auto) % Immature Gran # (Auto) (0.00-0.02) K/uL Neut # (Auto) (1.4-6.5) K/uL Lymph # (Auto) (1.2-3.4) K/uL [place] # (Auto) (0.11-0.59) K/uL Eos # (Auto) (0-0.5) K/uL Baso # (Auto) (0-0.2) K/uL PT INR APTT PTT Ratio POC Sodium (135-144) mmol/L Sodium (136-145) mmol/L POC Potassium (3.3-5.0) mmol/L Potassium (3.5-5.1) mmol/L POC Chloride (101-112) mmol/L Chloride (98-107) mmol/L Carbon Dioxide (21-32) mmol/L POC Total CO2 (24-31) mEq/l Anion Gap (3-11) POC Anion Gap (16-25) mmol/L POC BUN (7-18) mg/dl BUN (7-18) mg/dl Creatinine (0.6-1.2) mg/dl POC Creatinine (0.6-1.3) mg/dl Est Cr Clr Drug Dosing ml/min Est GFR ( Amer) Est GFR (Non-Af Amer) BUN/Creatinine Ratio (10-20) Glucose (70-99) mg/dl POC Glucose (70-99) mg/dl POC Glucose (other) (70-99) mg/dl Calcium (8.5-10.1) mg/dl POC Ioniz Calcium [place] (1.12-1.32) mmol/l Magnesium (1.8-2.4) mg/dl Total Bilirubin (0.2-1) mg/dl AST (15-37) U/L ALT (12-78) U/L Alkaline Phosphatase (45-117) U/L CK-MB (CK-2) (0.5-3.6) ng/ml Troponin I (0-0.045) ng/ml Total Protein (6.4-8.2) gm/dl Albumin (3.4-5.0) gm/dl Globulin (2.5-4.0) gm/dl Albumin/Globulin Ratio (0.9-2) Specimen Hemolysis Urine Color Yellow Urine Appearance Clear (Clear) Urine pH 6.5 (4.5-7.5) Ur Specific [place] > 1.045 H (1.000-1.030) Urine Protein Negative (Negative) Urine Glucose (UA) Negative (Negative) Urine Ketones Negative (Negative) Urine Blood Negative (Negative) Urine Nitrite Negative (Negative) Urine Bilirubin Negative (Negative) Urine Urobilinogen Negative (Negative) Ur Leukocyte Esterase Negative (Negative) Imaging Data Radiologist's Impression: [facility], [place] [phone] XRay Report Patient: SHALA LEMONS Admit Date: 01/28/20 MR#: [id number] Address1: [address] [place] [address] Acct ID:[id number] Address2: Date: [address] [facility] Zip: [place] [address] Age: 59 Location: ED Sex: F Room/Bed: Att Phy: Diagnosis: STROKE SYMPTOMS, FACIAL DROOPING Ariadne Phy: Amelia Vazquez, Service Date: 01/28/20 Fam Phy: Interpreting Phy: Johnathon Lyon MD Admit Phy: Ordering Phy: Bobby Haro MD cc: ~ XR chest 1V portable CLINICAL HISTORY: Pt c/o aphasia dysphagia COMPARISON STUDY: 12/27/2019 FINDINGS: The bones soft tissues and hemidiaphragms are normal. The cardiomediastinal silhouette is normal. The lungs are clear. The pulmonary vasculature is normal. IMPRESSION: Negative chest. ACT 112: Negative or not required by law. The above report was generated using voice recognition software. It may contain grammatical, syntax or spelling errors. Electronically signed by: Johnathon Lyon M.D. 01/28/2020 8:39 AM Dictated: 01/28/20 08 Transcribed: 01/28/20 08 [place], [place] [phone] CT Scan Report Patient: SHALA LEMONS Admit Date: 01/28/20 MR#: [id number] Address1: [address] [place] [address] Acct ID:[id number] Address2: Date: [address] [facility] Zip: [place] [address] Age: 59 Location: ED Sex: F Room/Bed: Att Phy: Diagnosis: STROKE SYMPTOMS, FACIAL DROOPING Ariadne Phy: Amelia Vazquez DO Service Date: 01/28/20 Fam Phy: Interpreting Phy: Johnathon Lyon MD Admit Phy: Ordering Phy: Bobby Haro MD cc: ~ CT angio head w con HISTORY: Mental status change Stroke evaluation TECHNIQUE: Multiaxial CT angiography of the head was performed IV contrast: None. Maximum intensity projection images were also obtained. A dose lowering technique was utilized adhering to the principles of ALARA. COMPARISON: None. FINDINGS: There is no mass, hematoma, midline shift, or acute infarct. Visualized intracranial internal carotid arteries, distal vertebral arteries, and basilar artery are widely patent. There is no significant stenosis, occlusion, or aneurysm seen within the bilateral ACAs, MCAs, or tailer in. IMPRESSION: No significant stenosis, occlusion, or aneurysm within the [place] of [place]. ACT 112: Negative or not required by law. The above report was generated using voice recognition software. It may contain grammatical, syntax or spelling errors. Electronically signed by: Johnathon Lyon M.D. 01/28/2020 9:07 AM Dictated: 01/28/20904 Transcribed: 01/28/20904 [facility], [place] [phone] CT Scan Report Patient: SHALA LEMONS Admit Date: 01/28/20 MR#: [id number] Address1: [address] [place] [address] Acct ID:[id number] Address2: Date: [address] [facility] Zip: [place] [address] Age: 59 Location: ED Sex: F Room/Bed: Att Phy: Diagnosis: STROKE SYMPTOMS, FACIAL DROOPING Ariadne Phy: Amelia Vazquez DO Service Date: 01/28/20 Fam Phy: Interpreting Phy: Johnathon Lyon MD Admit Phy: Ordering Phy: Bobby Haro MD cc: ~ CT angio neck with con HISTORY: Stroke evaluation TECHNIQUE: Multiaxial CT angiography of the neck was performed IV contrast: 100 cc nonionic All measurements were calculated based on NASCET criteria. Maximum intensity projection images were also obtained. A dose lowering technique was utilized adhering to the principles of ALARA. COMPARISON STUDY: None. FINDINGS: The aortic arch and proximal great vessels are widely patent. There is no significant stenosis, occlusion, or dissection identified within the bilateral common carotid, internal carotid, or vertebral arteries. Small filling defect image 280 left jugular vein. This is felt to be secondary to laminar artifact and/or flow related artifact. IMPRESSION: No significant stenosis, occlusion, or dissection identified within the carotid or vertebral arteries. ACT 112: Negative or not required by law. The above report was generated using voice recognition software. It may contain grammatical, syntax or spelling mental status change errors. Electronically signed by: Johnathon Lyon M.D. 01/28/2020 9:11 AM Dictated: 01/28/20907 Transcribed: 01/28/20907 [facility], [place] [phone] CT Scan Report Patient: SHALA LEMONS Admit Date: 01/28/20 MR#: [id number] Address1: [address] [place] [address] Acct ID:[id number] Address2: Date: 1960 [facility] Zip: [facility] [place] [place] [address] Age: 59 Location: ED Sex: F Room/Bed: Att Phy: Diagnosis: STROKE SYMPTOMS, FACIAL DROOPING Ariadne Phy: Amelia Vazquez DO Service Date: 01/28/20 Fam Phy: Interpreting Phy: Archie Roa MD Admit Phy: Ordering Phy: Bobby Haro MD cc: ~ CT OF THE HEAD WITHOUT CONTRAST CLINICAL HISTORY: Stroke evaluation. COMPARISON STUDY: Head CT December 26, 2019 and July 26, 2018. TECHNIQUE: Helical axial images of the head were obtained without IV contrast. Automated exposure control was utilized for the study. A dose lowering technique was utilized adhering to the principles of ALARA. FINDINGS: No acute intracranial hemorrhage, midline shift or mass effect is present. The ventricular system is stable. Basilar cisterns are patent. There are no extra-axial collections. Right frontal craniotomy is noted with right fro ntal encephalomalacia. These findings are unchanged. There are no findings to suggest acute dural sinus thrombosis or acute territorial infarct. IMPRESSION: No acute intracranial findings. No change in appearance of the brain. ACT 112: Negative or not required by law. Electronically signed by: Archie Roa M.D. 01/28/2020 9:13 AM Dictated: 01/28/20 0907 Transcribed: 01/28/20 0907 [place], [place] [phone] Ultrasound Report Patient: SHALA LEMONS Admit Date: 01/28/20 MR#: [id number] Address1: [address] [place] [address] Acct ID:[id number] Address2: Date: [address] [facility] Zip: [place], [place] [address] Age: 59 Location: ED Sex: F Room/Bed: Att Phy: Diagnosis: STROKE SYMPTOMS, FACIAL DROOPING Ariadne Phy: Amelia Vazquez DO Service Date: 01/28/20 Fam Phy: Interpreting Phy: Johnathon Lyon MD Admit Phy: Ordering Phy: Bobby Haro MD cc: ~ US venous doppler LE BI HISTORY: Pain. Edema. Pt c/o TIA COMPARISON STUDY: None. FINDINGS: There is normal compressibility, flow, and augmentation within the bilateral lower extremity deep venous systems. IMPRESSION: No DVT within the right or left lower extremity. ACT 112: Negative or not required by law. The above report was generated using voice recognition software. It may contain grammatical, syntax or spelling errors. Electronically signed by: Johnathon Lyon M.D. 01/28/2020 10:20 AM Blood Pressure Blood Pressure Findings: Elevated blood pressure MDM Narrative This is a 59-year-old female who presents emergency department after being unable to talk with a left-sided facial droop for at least 15 minutes. Upon arrival to the emergency department the patient's symptoms have resolved. She was found to be hypertensive here. The patient has a complicated medical history including a hemorrhagic stroke as well as MS. Based on all these findings patient was sent for CAT scan as well as CTA of the head and neck. This does not show any acute process. Because of the complication of the patient the decision was made to admit. I did discuss case the hospitalist service who did agree to admit the patient. In the meanwhile the patient was given magnesium as well as a normal saline bolus. She does not have an elevation in her white blood cell count has a normal BUN and creatinine. Impression & Plan HTN (hypertension), DM type 2 (diabetes mellitus, type 2), Aphasia Discharge Plan Visit Data Chief Complaint: TIA Symptoms Stated Complaint: STROKE SYMPTOMS, FACIAL DROOPING ED Provider: Bobby Haro Discharge Problem: HTN (hypertension), DM type 2 (diabetes mellitus, type 2), Aphasia Discharge Instructions Interventions: ED Discharge Assessment Last Done: 01/28/20 11:05 Forms Stand Alone Forms: My STARFACE Prescriptions Prescriptions: No Action Lantus Solostar U-100 Insulin 100 unit/mL (3 mL) insulin pen 20 units SQ BID RF: 0 Novolog Flexpen U-100 Insulin 100 unit/mL (3 mL) insulin pen 3 units SQ TID RF: 0 alfuzosin 10 mg tablet extended release 24 hr 10 mg PO QAM Qty: 90 RF: 3 mirabegron 50 mg tablet extended release 24 hr 50 mg PO HS Qty: 90 RF: 3 lisinopril 5 mg tablet 5 mg PO HS RF: 0 pregabalin 150 mg capsule 150 mg PO BID RF: 0 atorvastatin 80 mg tablet 80 mg PO PM RF: 0 venlafaxine 75 mg capsule,extended release 24hr 75 mg PO HS RF: 0 venlafaxine 150 mg capsule,extended release 24hr 150 mg PO HS RF: 0 oxycodone-acetaminophen 7.5-325 mg tablet 1 tab PO TID PRN (Reason: Pain) RF: 0 multivitamin Tablet 1 tab PO PM RF: 0 metformin 500 mg Tablet 500 mg PO TID RF: 0 aspirin 81 mg Tablet,Delayed Release (Dr/Ec) 81 mg PO QDL RF: 0 ferrous sulfate [iron] 325 mg (65 mg iron) Tablet 325 mg PO PM RF: 0 Calcium 600 + D(3) 600 mg calcium- 200 unit Capsule 1 cap PO PM RF: 0 nortriptyline 75 mg Capsule 75 mg PO HS RF: 0 levothyroxine 50 mcg Tablet 50 mcg PO DAILYBB RF: 0 nystatin 100,000 unit/gram powder 1 appln TOP BID Qty: 60 RF: 1 baclofen 10 mg Tablet 15 mg PO QID RF: 0 metaxalone [Skelaxin] 800 mg Tablet 800 mg PO BID RF: 0 Discharge Problem: HTN (hypertension) Qualifiers: Hypertension type: unspecified Qualified Code(s): I10 - Essential (primary) hypertension DM type 2 (diabetes mellitus, type 2) Qualifiers: Diabetes mellitus senior care insulin use: unspecified senior care insulin use status Diabetes mellitus complication status: with other specified complication Qualified Code(s): E11.69 - Type 2 diabetes mellitus with other specified complication
[2020-01-28 08:50] LABS: iSTAT Creatinine 0.9 mg/dl (0.6-1.3); iSTAT Hemoglobin 12.6 g/dl (12.0-16.0); iSTAT Ionized Calcium 1.24 mmol/l (1.12-1.32); iSTAT Potassium 4.1 mmol/L (3.3-5.0)
[2020-01-28 09:05] LABS: Alanine Aminotransferase 39 U/L (12-78); Albumin Level 3.8 gm/dl (3.4-5.0); Aspartate Aminotransferase 38 U/L (15-37); BUN Creatinine Ratio 14.7 (10-20); Blood Urea Nitrogen 14 mg/dl (7-18); Calcium 9.9 mg/dl (8.5-10.1); Carbon Dioxide 30 mmol/L (21-32); Chloride 108 mmol/L (98-107); Creatinine Clr Calc Pharmacy 69.8 ml/min; Est GFR (Non-African American) 64.7; Glucose 91 mg/dl (70-99); Magnesium 2.4 mg/dl (1.8-2.4); Potassium 4.1 mmol/L (3.5-5.1); Sodium 142 mmol/L (136-145)
--- NOTE | 2020-01-28 09:09 | CT Scan Report ---
CT angio head w con HISTORY: Mental status change Stroke evaluation TECHNIQUE: Multiaxial CT angiography of the head was performed IV contrast: None. Maximum intensit y projection images were also obtained. A dose lowering technique was utilized adhering to the princ [place]. COMPARISON: None. FINDINGS: There is no mass, hematoma, midline shift, or acute infarct. Visualized intracranial engineer intern al carotid arteries, distal vertebral arteries, and basilar artery are widely patent. There is no sig nificant stenosis, occlusion, or aneurysm seen within the bilateral ACAs, MCAs, or furnace room supervisor. IMPRESSION: No significant stenosis, occlusion, or aneurysm within the [place] of [place]. ACT 112: Negative or not required by law. The above report was generated using voice recognition software. It may contain grammatical, syntax or spelling errors. Electronically signed by: Johnathon Lyno M.D. 01/28/2020 9:07 AM
[2020-01-28 09:11] LABS: Albumin Globulin Ratio 0.8 (0.9-2); Alkaline Phosphatase 246 U/L (45-117); Bilirubin,Total 0.2 mg/dl (0.2-1); Creatine Kinase MB < 1.0 ng/ml (0.5-3.6); Total Protein 8.8 gm/dl (6.4-8.2); Troponin I < 0.015 ng/ml (0-0.045)
--- NOTE | 2020-01-28 09:12 | CT Scan Report ---
CT angio neck with con HISTORY: Stroke evaluation TECHNIQUE: Multiaxial CT angiography of the neck was performed IV contrast: 100 cc nonionic All scott urements were calculated based on NASCET criteria. Maximum intensity projection images were also obt ained. A dose lowering technique was utilized adhering to the principles of ALARA. COMPARISON STUDY: None. FINDINGS: The aortic arch and proximal great vessels are widely patent. There is no significant sten osis, occlusion, or dissection identified within the bilateral common carotid, internal carotid, or v ertebral arteries. Small filling defect image 280 left jugular vein. This is felt to be secondary to laminar artifact and/or flow related artifact. IMPRESSION: No significant stenosis, occlusion, or dissection identified within the carotid or vertebral arteries . ACT 112: Negative or not required by law. The above report was generated using voice recognition software. It may contain grammatical, syntax or spelling mental status change errors. Electronically signed by: Johnathon Lyon M.D. 01/28/2020 9:11 AM
--- NOTE | 2020-01-28 09:14 | CT Scan Report ---
CT OF THE HEAD WITHOUT CONTRAST CLINICAL HISTORY: Stroke evaluation. COMPARISON STUDY: Head CT December 26, 2019 and July 26, 2018. TECHNIQUE: Helical axial images of the head were obtained without IV contrast. Automated exposure con trol was utilized for the study. A dose lowering technique was utilized adhering to the principles o f ALARA. FINDINGS: No acute intracranial hemorrhage, midline shift or mass effect is present. The ventricular system is stable. Basilar cisterns are patent. There are no extra-axial collections. Right frontal cr aniotomy is noted with right frontal encephalomalacia. These findings are unchanged. There are no fin dings to suggest acute dural sinus thrombosis or acute territorial infarct. IMPRESSION: No acute intracranial findings. No change in appearance of the brain. ACT 112: Negative or not required by law. Electronically signed by: Archie Roa M.D. 01/28/2020 9:13 AM
[2020-01-28 09:32] LABS: INR 1.1 (0.9-1.1); Partial Thromboplastin Ratio 0.9; Partial Thromboplastin Time 26.3 Seconds (21.0-31.0); Prothrombin Time 11.4 Seconds (9.0-12.0)
[2020-01-28 09:46] LABS: Appearance Urine Clear (Clear); Bilirubin Urine Negative (Negative); Blood Urine Negative (Negative); Color Urine Yellow; Glucose Urine UA Negative (Negative); Ketones Urine Negative (Negative); Leukocyte Esterase Urine Negative (Negative); Nitrite Urine Negative (Negative); Protein Urine Negative (Negative); Specific Gravity Urine > 1.045 (1.000-1.030); Urobilinogen Urine Negative (Negative); pH Urine 6.5 (4.5-7.5)
--- NOTE | 2020-01-28 09:59 | History & Physical Report ---
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 Symptoms have resolved. She does have prior history of hemorrhagic CVA in 2018 with residual right-sided weakness and mild left facial droop. She also has multiple sclerosis which complicates the right-sided weakness with spasticity. Symptoms suggestive of likely TIA but cannot rule out any other neurologic event. admit to PCU Consult neurology Obtain MRI Currently on ASA and high intensity statin regimen -will discuss with neurology about initiating dual antiplatelet therapy Symptoms do not sound like seizure activity -defer EEG to neurology CT head, CTA head and neck done with no acute abnormality Lipid panel, A1c in a.m. PT, OT and speech eval Passed dysphagia screen in ED -diabetic diet (2) DM type 2 (diabetes mellitus, type 2): Last A1C 7.2 11/08/2019 home regimen of Lantus, novolog and metformin hold metformin Lantus/novolog per protocol a1c in a.m. (3) HTN (hypertension): blood pressure elevated in ED on lisinopril 5mg daily monitor (4) Hip fracture: R hip Fx s/p ORIF 12/26/[address] You recently discharged from acute rehab on 01/24 consult PT/OT continue prn percocet reviewed PDMP (5) Hemorrhagic stroke: hx of hemorrhagic stroke s/p craniotomy 12/2017 with residual left sided weakness continue high intensity statin, ASA appreciate neurology input (6) Multiple sclerosis: Has right sided weakness. Has chronic BLE pain and has pain stimulator Continue Lyrica, Baclofen, skelaxin prn percocet (7) UTI (urinary tract infection): dx in rehab per pt Continue Cipro for 4 more doses ( 2 days) to complete course urine appears clean obtain records from [facility] to determine organism, pt now asymptomatic (8) Dyslipidemia: continue statin fasting lipid panel in a.m. (9) Hypothyroidism: continue levothyroxine TSH 1.21 on 12/25 (10) Peripheral neuropathy: continue lyrica (11) Depression: continue effexor (12) HELIO (obstructive sleep apnea): CPAP at HS will need set up with CPAP at home (13) DVT prophylaxis: SQ Heparin Disposition: admit to tele Follow up: PCP Dr. Vazquez upon discharge Pt was seen and examined in collaboration with Dr. 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 Of significance pt recently hospitalized 12/25- 01/01/2020 2/ to fall and subsequent R hip fx. She underwent R hip ORIF by Dr. You on 12/26/2019. She tolerated the procedure well. She was discharged to acute rehab [facility] in [place]. She was discharged from rehab on 01/24 and returned to home with . According to patient she got up this morning and was sitting at her kitchen table getting ready to take her morning medications. She then developed acute onset dry mouth, difficulty speaking and dysphagia. She felt like she was talking but nothing was coming out. She noted her felt like she had more of a left facial droop and a blank stare. She was concerned maybe she was having a seizure. She has never experienced anything like this in the past. She denies any bowel or bladder incontinence. She denies any loss of consciousness or syncope. She denies any abnormal jerking extremity movements. She denies any fever, chills, sweats, lightheadedness, dizziness, chest pain, shortness breath, palpitations, nausea, vomiting, abdominal pain, change in bowel or urinary habits. Last BM was a few days ago. She does report that she was diagnosed with UTI while in rehab and was placed on Cipro. She has 2 more days left of treatment. She also explains an episode that occurred during rehab approximately 1 week ago when she had a bowel movement with bright red blood per rectum. She does have occasional pain with bowel movements. She denies any history of GI bleeding or any further recurrence of blood. Her appetite has otherwise been normal. She denies any lower extremity swelling. She denies any weight gain or loss. She was diagnosed with sleep apnea but she does not wear CPAP at night due to mask not fitting right. In ED patient was hypertensive on arrival with blood pressure 190/110 per ED provider. Was otherwise hemodynamically stable. She was asymptomatic from a neurologic standpoint in ED. Lab work revealed WBC 8.58, H&H 11.7 and 37.6, platelet 355, BUN 14, creatinine 0.96, glucose 147, mag 2.4, AST 38, alk phos 246, troponin WNL. Urinalysis with high specific gravity but otherwise WNL. She underwent CT scan of head, CTA head and neck which were all unremarkable. Chest x-ray was also without acute cardiopulmonary abnormality. She received 1 g IV magnesium in ED which did decrease blood pressure to 163/92. She also received IVF. Allergies Allergy/AdvReac Type Severity Reaction Status Date / Time methylphenidate Allergy Mild RASH Verified 01/28/20 09:48 sumatriptan AdvReac Intermediate RAPID Verified 01/28/20 09:48 HEART RATE soy AdvReac Unknown Diarrhea Verified 01/28/20 09:48 Home Medications Home Medications Medication Instructions Recorded Confirmed Type atorvastatin 80 mg PO PM 10/08/18 01/28/20 History venlafaxine 75 mg PO HS 10/08/18 01/28/20 History venlafaxine 150 mg PO HS 10/08/18 01/28/20 History Calcium 600 + D(3) 1 cap PO PM 12/12/18 01/28/20 History aspirin 81 mg PO QDL 12/12/18 01/28/20 History ferrous sulfate [iron] 325 mg PO PM 12/12/18 01/28/20 History levothyroxine 50 mcg PO DAILYBB 12/12/18 01/28/20 History metformin 500 mg PO TID 12/12/18 01/28/20 History multivitamin 1 tab PO PM 12/12/18 01/28/20 History nortriptyline 75 mg PO HS 12/12/18 01/28/20 History insulin aspart U-100 100 unit/mL 3 units SQ TID 12/28/18 01/28/20 History (3 mL) subcutaneous pen insulin glargine 100 unit/mL (3 20 units SQ BID ml 12/28/18 01/28/20 History mL) subcutaneous pen nystatin 1 appln TOP BID #60 gm 01/12/19 01/28/20 Rx oxycodone-acetaminophen 7.5 mg-325 1 tab PO TID PRN tab 05/11/19 01/28/20 History mg tablet alfuzosin 10 mg tablet,extended 10 mg PO QAM #90 tab 10/24/19 01/28/20 Rx release 24 hr mirabegron 50 mg tablet,extended 50 mg PO HS #90 tab 11/02/19 01/28/20 Rx release 24 hr lisinopril 5 mg PO HS 12/26/19 01/28/20 History pregabalin 150 mg PO BID 12/26/19 01/28/20 History baclofen 15 mg PO QID 01/28/20 01/28/20 History ciprofloxacin HCl [Cipro] 500 mg PO Q12H 01/28/20 01/28/20 History metaxalone [Skelaxin] 800 mg PO BID 01/28/20 01/28/20 History Past Med/Surg History Medical History Compression fracture of T11 vertebra Depression DM type 2 (diabetes mellitus, type 2) Dyslipidemia Hemorrhagic stroke HTN (hypertension) Hypothyroidism Iron deficiency anemia Migraine Multiple sclerosis (Acute) Neurogenic bladder Nocturia HELIO (obstructive sleep apnea) Osteoarthritis Peripheral neuropathy Restless leg syndrome Sleep apnea (Acute) Stroke (Acute) DECEMBER 2017 (GENERALIZED WEAKNESS) Temporomandibular joint disorder Clicks, but has never locked Urinary frequency Urinary incontinence UTI (urinary tract infection) Surgical History H/O foot surgery 08/04/17 - ORIF RIGHT 2/3/4 METATARSAL - MAC#3, ETT# 7.0, GRADE 2 VIEW, GRADE 2 VIEW History of colonoscopy History of dental surgery History of dilatation and curettage History of esophagogastroduodenoscopy (EGD) S/P insertion of spinal cord stimulator Family History Father Family history of diabetes mellitus Other FHx: cancer FHx: heart disease Social History (Updated 01/28/20 @ 09:57 by Carley Mcmanus PA-C) Preferred Language: Portuguese Communication Ability: Effective Hearing Ability: Normal Digital Imager Required: No Beliefs That Will Affect Care: None marital status: Current Living Situation: Spouse Current Living Situation Comment: Pt. lives at home with current occupational status: retired Other Information That Helps Us Care for You: No Feels Safe at Home: Yes Smoking Status: Never smoker Second Hand Exposure: No ; Hx Alcohol Use: No Hx Substance Use: No Review of Systems Review of Systems: All systems reviewed & are unremarkable except as noted in HPI & below Physical Exam Physical Exam: Constitutional: WD/WN, vitals as above, NAD, sitting up in bed, pleasant, conversing easily Head: Normocephalic, Atraumatic Eyes: PERRL, conjunctivae normal, anicteric sclerae ENMT: external ear and nose normal, oropharynx normal Neck: trachea midline, no thyromegaly normal visual inspection Respiratory: normal respiratory effort, lungs clear to auscultation, no wheeze, rales, rhonchi. Normal insp/exp effort, no accessory muscle use Cardiovascular: RRR, no murmur, no edema Vessels: no JVD or carotid bruit Chest: normal inspection of chest Abdomen: normal bowel sounds, soft, nontender, no hepatosplenomegaly Musculoskeletal: no cyanosis or clubbing, extremities motor strength 5/5 Skin: no rashes, warm and dry normal turgor Neurologic: PERRL, EOMI, accommodation nl, no face palsy, no dysarthria CN's II-XI intact bilaterally and moves all extremities Psychiatric: A+Ox3, euthymic affect Lymphatic: no cervical or axillary lymphadenopathy : deferred Results & Data Results & Data ([facility]) Vital Signs (Past 12 Hours) Vital Signs Temp Pulse Pulse Resp BP BP Pulse Ox 01/28/20 09:42 76 18 163/92 H 95 01/28/20 08:13 36.6 C 83 18 174/96 H 96 Laboratory Results Short CBC 01/28/20 Range/Units 08:30 WBC 8.58 (4.8-10.8) K/uL Hgb 11.7 L (12.0-16.0) g/dL Hct 37.6 (37-47) % Plt Count 355 (130-400) K/uL BMP 01/28/20 08:30 Sodium 142 Potassium 4.1 Chloride 108 H Carbon Dioxide 30 BUN 14 Creatinine 0.96 Glucose 91 Calcium 9.9 Cardiac Enzymes 01/28/20 Range/Units 08:30 CK-MB (CK-2) < 1.0 (0.5-3.6) ng/ml Troponin I < 0.015 (0-0.045) ng/ml Liver Function 01/28/20 Range/Units 08:30 Total Bilirubin 0.2 (0.2-1) mg/dl AST 38 H (15-37) U/L ALT 39 (12-78) U/L Alkaline Phosphatase 246 H (45-117) U/L Albumin 3.8 (3.4-5.0) gm/dl Urine 01/28/20 Range/Units 09:40 Urine Color Yellow Urine Appearance Clear (Clear) Urine pH 6.5 (4.5-7.5) Ur Specific [place] > 1.045 H (1.000-1.030) Urine Protein Negative (Negative) Urine Glucose (UA) Negative (Negative) Diagnostic Findings Head CT: IMPRESSION: No acute intracranial findings. No change in appearance of the brain. Head/Neck CTA: IMPRESSION: No significant stenosis, occlusion, or aneurysm within the [place]. CXR: IMPRESSION: Negative chest. Medications Administered Ioversol (Optiray 320 125ml) 120 ml IV ONCE PRN PRN Reason: Interaction Checking Stop: 02/01/20 08:44 Last Admin: 01/28/20 08:46 Dose: 120 ml Documented by: [id number] Discontinued Medications Sodium Chloride (Nss 1000ml) 500 mls @ 999 mls/hr IV .Q31M ONE Stop: 01/28/20 08:54 Last Infusion: 01/28/20 09:41 Dose: 0 mls/hr Documented by: [id number] Admin: 01/28/20 08:58 Dose: 999 mls/hr Documented by: [id number] Magnesium Sulfate/Dextrose (Magnesium Sulfate / D5w) 1 gm in 100 mls @ 100 mls/hr IV ONE ONE Stop: 01/28/20 09:23 Last Infusion: 01/28/20 09:56 Dose: 0 mls/hr Documented by: [id number] Admin: 01/28/20 08:58 Dose: 100 mls/hr Documented by: [id number] Code Status & VTE Plan Code Status Full Code VTE Prophylaxis Plan VTE Prophylaxis will be ordered: Yes Supervising Physician Co-Signing Physician Notes ATTENDING ADDENDUM : pt seen and examined , care co ordinated with Carley Khalil PA-c presented with numbness of left face , arm with difficulty of speech symptom has resolved completely possible TIA initial neuroimaging negative MRI of brain ordered cont aspirin ,statin Neurolgoy consult requested Please refer to further documentation by Carley Marcus PA-C for discussion of other chronic issues Kacy Cramer MD (1) Hip fracture Encounter type: initial encounter Fracture type: closed Laterality: right Qualified Code(s): S72.001A - Fracture of unspecified part of neck of right femur, initial encounter for closed fracture
--- NOTE | 2020-01-28 10:21 | Ultrasound Report ---
US venous doppler LE BI HISTORY: Pain. Edema. Pt c/o TIA COMPARISON STUDY: None. FINDINGS: There is normal compressibility, flow, and augmentation within the bilateral lower extremit y deep venous systems. IMPRESSION: No DVT within the right or left lower extremity. ACT 112: Negative or not required by law. The above report was generated using voice recognition software. It may contain grammatical, syntax or spelling errors. Electronically signed by: Johnathon Lyon M.D. 01/28/2020 10:20 AM
[2020-01-28] MEDS ORDERED: GLUCOSE 10 TABS/TUBE PO PRN (11:37)
[2020-01-28] MEDS ORDERED: GLUCOSE 40% GEL 15 GM TUBE PO PRN (11:37)
[2020-01-28] MEDS ORDERED: PHARMACIST DISCHARGE MED REC CONSULT PRN (11:37)
[2020-01-28] MEDS ORDERED: DEXTROSE 50% 50 ML SYRINGE IV PRN (11:37)
[2020-01-28] MEDS ORDERED: OXYCODONE/APAP 7.5/325MG TAB PO PRN (11:37)
[2020-01-28] MEDS ORDERED: ALUMINUM/MAGNESIUM SUSP 30 ML UDC PO PRN (11:37)
[2020-01-28] MEDS ORDERED: ONDANSETRON INJ 2 MG/ML 2 ML VIAL IV PRN (11:37)
[2020-01-28] MEDS ORDERED: POLYETHYLENE (MIRALAX) 17 GM PACK PO PRN (11:37)
[2020-01-28] MEDS ORDERED: GLUCAGON FOR INJ 1 MG VIAL SQ PRN (11:37)
[2020-01-28] MEDS ORDERED: SODIUM CHLORIDE 0.9% 1000ML 1,000 ML IV SCH (11:37)
[2020-01-28] MEDS ORDERED: MAGNESIUM HYDROXIDE SUSP 30 ML UDC PO PRN (11:37)
[2020-01-28] MEDS ORDERED: CARBOHYDRATES FOR HYPOGLYCEMIA PO PRN (11:37)
[2020-01-28] MEDS ORDERED: ACETAMINOPHEN 325 MG TAB PO PRN (11:37)
[2020-01-28] MEDS ORDERED: NITROGLYCERIN SL 0.4 MG/TAB TAB SL PRN (11:37)
[2020-01-28 12:15] LABS: INR 1.1 (0.9-1.1); Prothrombin Time 11.2 Seconds (9.0-12.0)
[2020-01-28 12:56] LABS: Estimated Average Glucose 123 mg/dl; Hemoglobin A1C 5.9 % (4.5-5.6)
[2020-01-28] MEDS: CIPROFLOXACIN 500 MG TAB PO SCH ×2 (12:57→21:46)
[2020-01-28] MEDS: ASPIRIN 81 MG ECTAB PO SCH (12:57)
[2020-01-28] MEDS: INSULIN ASPART 100 UNITS/ML 3 ML PEN SC SCH ×3 (12:58→21:48)
[2020-01-28] MEDS: BACLOFEN 10 MG TAB PO SCH ×3 (14:05→21:46)
--- NOTE | 2020-01-28 14:10 | Magnetic Resonance Report ---
MRI OF THE BRAIN WITHOUT CONTRAST CLINICAL HISTORY: Transient ischemic attack. History of multiple sclerosis. COMPARISON STUDY: MRI of the brain January 28, 2015. Head CT and CTA of the head performed earlier tomindi reddy. TECHNIQUE: Utilizing a 1.5 Gina magnet and dedicated coil, multiplanar, multiecho imaging of the bra in was performed without IV contrast. FINDINGS: There are no foci of restricted diffusion to suggest acute infarct. No acute intracranial h emorrhage, midline shift or mass effect is present. Right frontal craniotomy is noted. Encephalomalac ia within the right frontal lobe is unchanged since exam of July 26, 2018 and December 26, 2019. Vent ricular system is stable. Basilar cisterns are patent. There are no extraaxial collections. A 7 mm T2 hyperintense focus within the right cerebellar hemisphere on axial image 6 of is unchanged since MRI of May 30, 2015. A few periventricular T2 hyperintense foci are also unchanged. No new T2 hype rintense foci are noted. Calvarial signal is normal. Orbits are unremarkable. There is no sinus opaci fication. IMPRESSION: 1. No acute intracranial findings. 2. No change in several T2 hyperintense foci since MRI of May 30, 2015 which suggest previous site s of demyelination given the history of multiple sclerosis. 2. Status post right frontal craniotomy. Rght frontal lobe encephalomalacia. ACT 112: Negative or not required by law. Electronically signed by: Archie Roa M.D. 01/28/2020 2:09 PM
[2020-01-28] MEDS ORDERED: Nursing to Pharmacy Communication ONE (19:21)
[2020-01-28] MEDS ORDERED: lisinopriL 5 MG TAB PO SCH ×3 (19:30→21:00)
[2020-01-28] MEDS ORDERED: VENLAFAXINE HCL XR 150 MG CAPXR PO SCH (21:00)
[2020-01-28] MEDS ORDERED: VENLAFAXINE HCL XR 75 MG CAPXR PO SCH (21:00)
[2020-01-28] MEDS ORDERED: INSULIN GLARGINE SOLOSTAR 100 UNITS/ML 3 ML PEN SQ SCH (21:00)
[2020-01-28] MEDS ORDERED: CALCIUM 600MG + VIT D 400 IU TAB PO SCH (21:00)
[2020-01-28] MEDS ORDERED: ATORVASTATIN 40 MG TAB PO SCH (21:00)
[2020-01-28] MEDS ORDERED: NORTRIPTYLINE HCL 25 MG CAP PO SCH (21:00)
[2020-01-28] MEDS ORDERED: FERROUS SULFATE 325 MG TAB PO SCH (21:00)
[2020-01-28] MEDS: PREGABALIN 150 MG CAP PO SCH (21:45)
[2020-01-28] MEDS: METAXALONE 800 MG TABLET PO SCH (21:47)
[2020-01-28] MEDS: INSULIN GLARGINE SOLOSTAR 100 UNITS/ML 3 ML PEN SQ SCH (21:48)
[2020-01-28] MEDS: HEPARIN SOD 5,000 UNIT/0.5 ML VIAL SQ SCH (21:48)
[2020-01-28] MEDS: NYSTATIN POWDER 15GM BTL EXT SCH (22:20)
[2020-01-29] MEDS: HEPARIN SOD 5,000 UNIT/0.5 ML VIAL SQ SCH (05:31)
[2020-01-29] MEDS ORDERED: LEVOTHYROXINE SODIUM 50 MCG TABLET PO SCH (06:30)
[2020-01-29 07:16] LABS: BUN Creatinine Ratio 15.6 (10-20); Calcium 9.7 mg/dl (8.5-10.1); Creatinine Clr Calc Pharmacy 78.3 ml/min; Est GFR (African American) 88.2; Est GFR (Non-African American) 76.1; Potassium 3.9 mmol/L (3.5-5.1)
[2020-01-29] MEDS: INSULIN ASPART 100 UNITS/ML 3 ML PEN SC SCH ×2 (07:55→11:54)
[2020-01-29] MEDS: CIPROFLOXACIN 500 MG TAB PO SCH (07:55)
[2020-01-29] MEDS: BACLOFEN 10 MG TAB PO SCH ×2 (07:56→11:55)
[2020-01-29] MEDS: NYSTATIN POWDER 15GM BTL EXT SCH (07:57)
[2020-01-29] MEDS: METAXALONE 800 MG TABLET PO SCH (07:57)
[2020-01-29] MEDS: INSULIN GLARGINE SOLOSTAR 100 UNITS/ML 3 ML PEN SQ SCH (07:58)
[2020-01-29] MEDS: PREGABALIN 150 MG CAP PO SCH (08:02)
[2020-01-29] MEDS: ASPIRIN 81 MG ECTAB PO SCH (11:55)
--- NOTE | 2020-01-29 12:28 | Neurology Consultation ---
Date of Consultation January 29, 2020 Assessment & Plan (1) Aphasia: A 59 year old woman with multiple comorbids including history of prior hemorrhagic right MCA stroke with residual left sided weakness and spasticity, IDDM, HELIO, and TIA on ASA admitted with reported brief speech and swallowing difficulty. Symptoms resolved prior to admission. Patient currently back to baseline. MRI reviewed and Negative for ischemic stroke. Unclear etiology of reported symptoms. I do not believe this was due to TIA. Would resume home medications. Ok to discharge. History of Present Illness Attending Physician: Kacy Cramer MD History of Present Illness A 59-year-old woman with PMH of IDDM 2, HTN, HLD, multiple sclerosis not DMT, history of hemorrhagic CVA status post craniotomy with residual left-sided weakness who was admitted secondary to difficulty speaking and swallowing. Symptoms resolved prior to admission. MRI brain completed and showed no signs of acute stroke. Echo completed today. Patient is on ASA at home due to history of TIA. Allergies Allergy/AdvReac Type Severity Reaction Status Date / Time methylphenidate Allergy Mild RASH Verified 01/28/20 09:48 sumatriptan AdvReac Intermediate RAPID Verified 01/28/20 09:48 HEART RATE soy AdvReac Unknown Diarrhea Verified 01/28/20 09:48 Home Medications Home Medications Medication Instructions Recorded Confirmed Type atorvastatin 80 mg PO PM 10/08/18 01/28/20 History venlafaxine 75 mg PO HS 10/08/18 01/28/20 History venlafaxine 150 mg PO HS 10/08/18 01/28/20 History Calcium 600 + D(3) 1 cap PO PM 12/12/18 01/28/20 History aspirin 81 mg PO QDL 12/12/18 01/28/20 History ferrous sulfate [iron] 325 mg PO PM 12/12/18 01/28/20 History levothyroxine 50 mcg PO DAILYBB 12/12/18 01/28/20 History metformin 500 mg PO TID 12/12/18 01/28/20 History multivitamin 1 tab PO PM 12/12/18 01/28/20 History nortriptyline 75 mg PO HS 12/12/18 01/28/20 History insulin aspart U-100 100 unit/mL 3 units SQ TID 12/28/18 01/28/20 History (3 mL) subcutaneous pen insulin glargine 100 unit/mL (3 20 units SQ BID ml 12/28/18 01/28/20 History mL) subcutaneous pen nystatin 1 appln TOP BID #60 gm 01/12/19 01/28/20 Rx oxycodone-acetaminophen 7.5 mg-325 1 tab PO TID PRN tab 05/11/19 01/28/20 History mg tablet alfuzosin 10 mg tablet,extended 10 mg PO QAM #90 tab 10/24/19 01/28/20 Rx release 24 hr mirabegron 50 mg tablet,extended 50 mg PO HS #90 tab 11/02/19 01/28/20 Rx release 24 hr lisinopril 5 mg PO HS 12/26/19 01/28/20 History pregabalin 150 mg PO BID 12/26/19 01/28/20 History baclofen 15 mg PO QID 01/28/20 01/28/20 History ciprofloxacin HCl [Cipro] 500 mg PO Q12H 01/28/20 01/28/20 History metaxalone [Skelaxin] 800 mg PO BID 01/28/20 01/28/20 History Patient History Medical History Compression fracture of T11 vertebra Depression DM type 2 (diabetes mellitus, type 2) Dyslipidemia Hemorrhagic stroke HTN (hypertension) Hypothyroidism Iron deficiency anemia Migraine Multiple sclerosis (Acute) Neurogenic bladder Nocturia HELIO (obstructive sleep apnea) Osteoarthritis Peripheral neuropathy Restless leg syndrome Sleep apnea (Acute) Stroke (Acute) DECEMBER 2017 (GENERALIZED WEAKNESS) Temporomandibular joint disorder Clicks, but has never locked Urinary frequency Urinary incontinence UTI (urinary tract infection) Surgical History H/O foot surgery 08/04/17 - ORIF RIGHT 2/3/4 METATARSAL - MAC#3, ETT# 7.0, GRADE 2 VIEW, GRADE 2 VIEW History of colonoscopy History of dental surgery History of dilatation and curettage History of esophagogastroduodenoscopy (EGD) S/P insertion of spinal cord stimulator Family History Father Family history of diabetes mellitus Other FHx: cancer FHx: heart disease Social History (Updated 01/28/20 @ 09:57 by Carley Mcmanus PA-C) Preferred Language: Yoruba Communication Ability: Effective Hearing Ability: Normal Act English Tutor Required: No Beliefs That Will Affect Care: None marital status: Current Living Situation: Spouse Current Living Situation Comment: Pt. lives at home with current occupational status: retired Other Information That Helps Us Care for You: No Feels Safe at Home: Yes Smoking Status: Never smoker Second Hand Exposure: No ; Hx Alcohol Use: No Hx Substance Use: No Physical Exam Physical Exam: Patient awake and alert sitting in chair. Speech is clear. Face is symmetric. Pupils symmetric. tongue midline. Speech is clear. Following commands. She can repeat. Sensation is intact. tone increased in left arm. Residual mild left sided weakness noted in left arm compared to right. No tremor. Results & Data Vital Signs (Past 12 Hours) Vital Signs Temp Pulse Pulse Resp BP Pulse Ox 01/29/20 12:11 36.8 C 88 18 134/78 93 01/29/20 08:00 70 01/29/20 07:30 36.7 C 73 21 152/89 H 94 01/29/20 03:34 36.5 C 82 16 144/91 H 92 Diagnostic Findings MRI brain w/o: 1. No acute intracranial findings. 2. No change in several T2 hyperintense foci since MRI of May 30, 2015 which suggest previous sites of demyelination given the history of multiple sclerosis. 2. Status post right frontal craniotomy. Rght frontal lobe encephalomalacia. CTA head and neck: No LVO or high grade stenosis.
[2020-01-29] MEDS ORDERED: STROKE PATIENT DISCHARGE STA (14:27)
--- NOTE | 2020-01-30 06:59 | Discharge Summary ---
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 Of significance pt recently hospitalized 12/25- 01/01/2020/ to fall and subsequent R hip fx. She underwent R hip ORIF by Dr. You on 12/26/2019. She tolerated the procedure well. She was [facility] to [facility] [place]. She was discharged from rehab on 01/24 and returned to home with . According to patient she got up this morning and was sitting at her kitchen table getting ready to take her morning medications. She then developed acute onset dry mouth, difficulty speaking and dysphagia. She felt like she was talking but nothing was coming out. She noted her felt like she had more of a left facial droop and a blank stare. She was concerned maybe she was having a seizure. She has never experienced anything like this in the past. She denies any bowel or bladder incontinence. She denies any loss of consciousness or syncope. She denies any abnormal jerking extremity movements. She denies any fever, chills, sweats, lightheadedness, dizziness, chest pain, shortness breath, palpitations, nausea, vomiting, abdominal pain, change in bowel or urinary habits. Last BM was a few days ago. She does report that she was diagnosed with UTI while in rehab and was placed on Cipro. She has 2 more days left of treatment. She also explains an episode that occurred during rehab approximately 1 week ago when she had a bowel movement with bright red blood per rectum. She does have occasional pain with bowel movements. She denies any history of GI bleeding or any further recurrence of blood. Her appetite has otherwise been normal. She denies any lower extremity swelling. She denies any weight gain or loss. She was diagnosed with sleep apnea but she does not wear CPAP at night due to mask not fitting right. In ED patient was hypertensive on arrival with blood pressure 190/110 per ED provider. Was otherwise hemodynamically stable. She was asymptomatic from a neurologic standpoint in ED. Lab work revealed WBC 8.58, H&H 11.7 and 37.6, platelet 355, BUN 14, creatinine 0.96, glucose 147, mag 2.4, AST 38, alk phos 246, troponin WNL. Urinalysis with high specific gravity but otherwise WNL. She underwent CT scan of head, CTA head and neck which were all unremarkable. Chest x-ray was also without acute cardiopulmonary abnormality. She received 1 g IV magnesium in ED which did decrease blood pressure to 163/92. She also received IVF. Principal Diagnosis TIA Discharge Exam Constitutional WD/WN, vitals as above Eyes PERRL, conjunctivae normal, anicteric sclerae ENMT external ear and nose normal, oropharynx normal Neck trachea midline, no thyromegaly Respiratory normal respiratory effort, lungs clear to auscultation Cardiovascular RRR, no murmur, no edema Gastrointestinal (Abdomen) normal bowel sounds, soft, nontender, no hepatosplenomegaly Musculoskeletal no cyanosis or clubbing, extremities motor strength 5/5 Skin no rashes, warm and dry Neurologic PERRL, EOMI, accommodation nl, no face palsy, no dysarthria Psychiatric A+Ox3, euthymic affect Discharge Data Allergies Allergy/AdvReac Type Severity Reaction Status Date / Time methylphenidate Allergy Mild RASH Verified 01/28/20 09:48 sumatriptan AdvReac Intermediate RAPID Verified 01/28/20 09:48 HEART RATE soy AdvReac Unknown Diarrhea Verified 01/28/20 09:48 Consultations 01/28/20 09:43 ED Decision to Admit Stat 01/28/20 11:06 Consult Neurology Routine 01/28/20 11:37 Consult Case Management - Discharge Planning Routine Ordered Studies 01/28/20 08:24 CT angio head w con Stat CT angio neck with con Stat CT head/brain wo con Stat 01/28/20 09:17 MR brain wo con Stat US venous doppler LE BI Stat Hospital Course (1) TIA (transient ischemic attack): This is a 59-year-old female who has significant PMH of IDDM 2, HTN, HLD, multiple sclerosis, 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 Symptoms have resolved. She does have prior history of hemorrhagic CVA in 2018 with residual right-sided weakness and mild left facial droop. She also has multiple sclerosis which complicates the right-sided weakness with spasticity. Symptoms suggestive of likely TIA but cannot rule out any other neurologic event. admit to PCU Consult neurology Obtain MRI Currently on ASA and high intensity statin regimen -will discuss with neurology about initiating dual antiplatelet therapy Symptoms do not sound like seizure activity -defer EEG to neurology CT head, CTA head and neck done with no acute abnormality Lipid panel, A1c in a.m. PT, OT and speech eval Passed dysphagia screen in ED -diabetic diet (2) DM type 2 (diabetes mellitus, type 2): Last A1C 7.2 11/08/2019 home regimen of Lantus, novolog and metformin hold metformin Lantus/novolog per protocol a1c in a.m. (3) HTN (hypertension): blood pressure elevated in ED on lisinopril 5mg daily monitor (4) Hip fracture: R hip Fx s/p ORIF 12/26/[address] You recently discharged from acute rehab on 01/24 consult PT/OT continue prn percocet reviewed PDMP (5) Hemorrhagic stroke: hx of hemorrhagic stroke s/p craniotomy 12/2017 with residual left sided weakness continue high intensity statin, ASA appreciate neurology input (6) Multiple sclerosis: Has right sided weakness. Has chronic BLE pain and has pain stimulator Continue Lyrica, Baclofen, skelaxin prn percocet (7) UTI (urinary tract infection): dx in rehab per pt Continue Cipro for 4 more doses ( 2 days) to complete course urine appears clean obtain records from [facility] to determine organism, pt now asymptomatic (8) Dyslipidemia: continue statin fasting lipid panel in a.m. (9) Hypothyroidism: continue levothyroxine TSH 1.21 on 12/25 (10) Peripheral neuropathy: continue lyrica (11) Depression: continue effexor (12) HELIO (obstructive sleep apnea): CPAP at HS will need set up with CPAP at home (13) DVT prophylaxis: SQ Heparin Disposition: admit to tele Follow up: PCP Dr. Vazquez upon discharge Pt was seen and examined in collaboration with Dr. Cramer please see addendum Total Time Total Time Spent Total Time Spent (In Minutes): 35 mins Discharge Plan Discharge Items Patient Disposition: Home - Home Health Services Reason For Visit: NEURO SYMPTOMS X 15 MINUTES Discharge Diagnosis: TIA Activity: Resume your previous activity Non-emergency contact: Primary Care Provider Call non-emergency contact if: you have any medication questions Follow-up/Referrals: Amelia Vazquez DO [Primary Care Provider] - 02/04/20 9:25 am (HOSPITAL FOLLOW UP WITH DR HOGAN ON Tuesday02/04/20 @ 9: 25 AM ) Diet: Carb Consistent or DM2 and Heart Healthy Addtl Attending Provider Instructions: USE CPAP AT NIGHT Risk Factors for Stroke: You can reduce your chances of stroke by working with your medical provider to adopt a healthy lifestyle. Some specific ways to lower your chance of stroke are: * If you are a smoker, now is the time to stop smoking cigarettes * If you are diabetic, improve the control of your blood sugars * Avoid excessive amounts of alcohol * Control high blood pressure * Lose weight if you are overweight * Be sure to lead an active lifestyle * Eat a healthy diet low in salt, cholesterol and fat You should know about other risk factors for stroke that you are unable to control. These include: * Age 55 years or older * Male gender * Certain racial groups: , or / * Family History of Stroke, Mini stroke or Heart Attack * Sickle Cell Disease Follow Up: It is important for you to keep your follow up appointments with your medical provider. Who to Call and When: Medical Emergencies: Call 911 immediately if you experience any of the following warning signs and symptoms of Stroke: * Sudden numbness or weakness of the face, arm or leg, especially on one side of the body * Sudden confusion, trouble speaking or understanding * Sudden trouble seeing in one or both eyes * Sudden trouble walking, dizziness, loss of balance or coordination * Sudden severe headache with no cause Do not delay calling 911 if you experience any warning signs or symptoms of a stroke. Delay in seeking medical attention may affect what treatments can be given to you. . Pending Studies at Discharge: No Stand-Alone Forms: Medications to Prevent Stroke, My gog[place], Smoking Cessation Medications and DC Order Prescriptions: Continued Lantus Solostar U-100 Insulin 100 unit/mL (3 mL) insulin pen 20 units SQ BID RF: 0 Novolog Flexpen U-100 Insulin 100 unit/mL (3 mL) insulin pen 3 units SQ TID RF: 0 alfuzosin 10 mg tablet extended release 24 hr 10 mg PO QAM Qty: 90 RF: 3 mirabegron 50 mg tablet extended release 24 hr 50 mg PO HS Qty: 90 RF: 3 lisinopril 5 mg tablet 5 mg PO HS RF: 0 pregabalin 150 mg capsule 150 mg PO BID RF: 0 atorvastatin 80 mg tablet 80 mg PO PM RF: 0 venlafaxine 75 mg capsule,extended release 24hr 75 mg PO HS RF: 0 venlafaxine 150 mg capsule,extended release 24hr 150 mg PO HS RF: 0 oxycodone-acetaminophen 7.5-325 mg tablet 1 tab PO TID PRN (Reason: Pain) RF: 0 multivitamin Tablet 1 tab PO PM RF: 0 metformin 500 mg Tablet 500 mg PO TID RF: 0 aspirin 81 mg Tablet,Delayed Release (Dr/Ec) 81 mg PO QDL RF: 0 ferrous sulfate [iron] 325 mg (65 mg iron) Tablet 325 mg PO PM RF: 0 Calcium 600 + D(3) 600 mg calcium- 200 unit Capsule 1 cap PO PM RF: 0 nortriptyline 75 mg Capsule 75 mg PO HS RF: 0 levothyroxine 50 mcg Tablet 50 mcg PO DAILYBB RF: 0 nystatin 100,000 unit/gram powder 1 appln TOP BID Qty: 60 RF: 1 baclofen 10 mg Tablet 15 mg PO QID RF: 0 metaxalone [Skelaxin] 800 mg Tablet 800 mg PO BID RF: 0 ciprofloxacin HCl [Cipro] 500 mg Tablet 500 mg PO Q12H RF: 0 Discharge Orders: Discharge Order (Routine); Ordered 01/29/20 Ordered By: Kacy Cramer Admission Data Admit Date/Time: 01/28/20 09:56 Attending Provider: Kacy Cramer Admit Provider: Kacy Cramer Primary Care Provider: Amelia Vazquez Other Providers: Kacy Cramer ; Iveth De Leon ; Clif Xiao ; Iveth Briones ; Jonathon Rubio ; [facility] Other Interventions: Discharge Summary Assessment (RN) Last Done: 01/29/20 14:27 DC Date/Time DO NOT enter until pt leaves facility: 01/29/20 14:56
== END 2020-01-29 14:56 | disposition home health service (06) ==
LOC: ED 08:11 → 2S 08:11

== ENCOUNTER 2021-01-31 14:59 | Inpatient (IN) ==
--- NOTE | 2021-01-31 15:25 | Emergency Department Note ---
Impression & Plan [place] (acute kidney injury), Weakness, UTI (urinary tract infection), Acute hyperglycemia ED Provider Note NAME: SHALA LEMONS AGE: 60 SEX: F : 1960 ARRIVES VIA: Walk-In INFORMANT: Patient ED PROVIDER(S): Zheng Shelley DO CHIEF COMPLAINT: Altered mental status HPI: Patient is a 60-year-old female with past medical history of MS and stroke who presents to the ER as she rolled out of bed at about 6 AM. Since then she has been very lethargic. She falls asleep quickly. Difficult to keep awake. She denies any headache or change in vision. No chest pain or shortness of breath. She denies any new weakness or numbness in her arms or legs. She took 5 Percocet late last night but nothing today. She denies taking a muscle relaxer today. No belly pain nausea vomiting or diarrhea. No dysuria urgency or frequency. No other exacerbating or remitting factors. notes that she is having difficulty keeping her right eye open which is abnormal. ROS: See above HPI for pertinent positives & negatives. A total of 10 systems reviewed and were otherwise negative. PAST MEDICAL HISTORY:See Below PAST SURGICAL HISTORY:See Below FAMILY HISTORY:See Below SOCIAL HISTORY:See Below HOME MEDICATIONS:See Below ALLERGIES:See Below VITALS:See Below PHYSICAL EXAMINATION: GENERAL: Sitting up in bed, alert but snoring, ill-appearing EYE EXAM: normal conjunctiva. OROPHARYNX: Dry mucous membranes NECK: supple, no nuchal rigidity, no adenopathy, non-tender LUNGS: Clear to auscultation. Normal chest wall mechanics HEART: no murmurs, S1 normal and S2 normal ABDOMEN: abdomen soft, non-tender, normo-active bowel sounds, no masses, no rebound or guarding. BACK: Back is symmetrical on inspection and there is no deformity, no midline tenderness, no CVA tenderness. SKIN: no rashes and no bruising UPPER EXTREMITIES: upper extremities are grossly normal. LOWER EXTREMITIES: No pitting edema. NEURO EXAM: Normal sensorium, cranial nerves II-XII intact, normal speech, no weakness of arms, lower extremities are weak bilaterally but at baseline MEDICAL DECISION MAKING: Patient is a 60-year-old female who presents the ER for sleeping. She got up this morning and has been sleeping pretty much for the remainder of the day. She is difficult to wake up. She is oriented to person place or time when she wakes up. IV was established blood was obtained. Labs show no significant leukocytosis or anemia. INR was unremarkable. VBG with a CO2 of 51. BMP with a creatinine of 2.1 significantly up from baseline of 1. Glucose was also elevated at 3. Patient was given IV fluids and insulin. Troponin was negative. UA did suggest a UTI. Tox was positive for benzos. CT head was negative and showed no acute pathology. Chest x-ray was unremarkable. Patient was updated bedside discussed with hospitalist for further evaluation. Triage Nursing notes reviewed. Limited review of prior medical records performed Vital Signs: reviewed and remarkable for no significant abnormalities Differential diagnosis: Differential diagnoses includes but is not limited to toxic, metabolic, infectious, traumatic, cardiac, neurologic, hematologic, psychiatric and inflammatory etiologies. ER treatment provided: See below Diagnostics interpreted by me: ECG: none Cardiac Monitoring: An order was placed for continuous cardiac monitoring. The monitor shows a rate of 90 with sinus rhythm. Laboratory studies: As stated above and show below. Imaging studies: CT head shows no acute pathology Consultation(s): Discussed the hospitalist for further evaluation Procedures: none Critical Care: None Past Med/Surg History Medical History Compression fracture of T11 vertebra Depression DM type 2 (diabetes mellitus, type 2) Dyslipidemia Hemorrhagic stroke HTN (hypertension) Hypothyroidism Iron deficiency anemia Migraine Multiple sclerosis Neurogenic bladder Nocturia HELIO (obstructive sleep apnea) Osteoarthritis Peripheral neuropathy Restless leg syndrome Sleep apnea Stroke DECEMBER 2017 (GENERALIZED WEAKNESS) Temporomandibular joint disorder Clicks, but has never locked Urinary frequency Urinary incontinence Urinary tract infection symptoms UTI (urinary tract infection) Surgical History H/O foot surgery 08/04/17 - ORIF RIGHT 2/3/4 METATARSAL - MAC#3, ETT# 7.0, GRADE 2 VIEW, GRADE 2 VIEW History of colonoscopy History of dental surgery History of dilatation and curettage History of esophagogastroduodenoscopy (EGD) S/P insertion of spinal cord stimulator Family History Father Family history of diabetes mellitus Other FHx: cancer FHx: heart disease Social History Smoking Status: Never smoker Second Hand Exposure: No; Hx Alcohol Use: No Hx Substance Use: No Preferred Language: Faroese Communication Ability: Effective Hearing Ability: Normal Chair Maker Required: No Beliefs That Will Affect Care: None marital status: Current Living Situation: Spouse Current Living Situation Comment: Pt. lives at home with current occupational status: retired Feels Safe at Home: Yes Assistive Devices: Wheelchair Allergies Allergies Allergy/AdvReac Type Severity Reaction Status Date / Time methylphenidate Allergy Mild RASH Verified 01/31/21 16:54 sumatriptan AdvReac Intermediate RAPID Verified 01/31/21 16:54 HEART RATE soy AdvReac Unknown Diarrhea Verified 01/31/21 16:54 Home Meds Home Medications Medication Instructions Recorded Confirmed atorvastatin 80 mg PO PM 10/08/18 01/31/21 venlafaxine 75 mg PO HS 10/08/18 01/31/21 venlafaxine 150 mg PO HS 10/08/18 01/31/21 Calcium 600 + D(3) 1 cap PO PM 12/12/18 01/31/21 aspirin 81 mg PO QDL 12/12/18 01/31/21 ferrous sulfate [iron] 325 mg PO PM 12/12/18 01/31/21 levothyroxine 50 mcg PO DAILYBB 12/12/18 01/31/21 metformin 500 mg PO TID 12/12/18 01/31/21 multivitamin 1 tab PO PM 12/12/18 01/31/21 nortriptyline 75 mg PO HS 12/12/18 01/31/21 insulin aspart U-100 100 unit/mL 3 units SQ TID 12/28/18 01/31/21 (3 mL) subcutaneous pen insulin glargine 100 unit/mL (3 17 units SQ BID ml 12/28/18 01/31/21 mL) subcutaneous pen oxycodone-acetaminophen 7.5 mg-325 1 tab PO TID PRN tab 05/11/19 01/31/21 mg tablet lisinopril 5 mg PO DAILY 12/26/19 01/31/21 pregabalin 150 mg PO TID 12/26/19 01/31/21 baclofen 15 mg PO QID 01/28/20 01/31/21 metaxalone [Skelaxin] 800 mg PO BID 01/28/20 01/31/21 semaglutide [Ozempic] 1 mg SUBCUT WK 01/31/21 01/31/21 Previous Rx's Medication Instructions Recorded nystatin 1 appln TOP BID #60 gm 01/12/19 alfuzosin 10 mg tablet,extended 10 mg PO QAM #90 tab 12/23/20 release 24 hr mirabegron 50 mg tablet,extended 50 mg PO HS #90 tab 01/05/21 release 24 hr cefuroxime axetil 250 mg tablet 250 mg PO BID 7 Days #14 tab 01/29/21 Results & Data (ED) Vital Signs Vital Signs - 24 hr 01/31/21 15:02 01/31/21 15:30 01/31/21 15:38 Temperature 36.4 C L Temperature Source Oral Pulse Rate 118 H 107 H Pulse Rate from SpO2 Sensor 108 H Pulse Rhythm Regular Pulse Strength Normal Respiratory Rate 18 10 L Respiratory Effort / Characteristics Non-Labored Respiratory Depth Normal Respiratory Pattern Regular Blood Pressure 109/68 118/87 Blood Pressure Mean 81 97 Blood Pressure Position Sitting Pulse Oximetry 91 94 94 Oxygen Delivery Method Room Air Nasal Cannula Oxygen Flow Rate 2 Sepsis Recent Fever Within 48 Hours No Sepsis New/Unexplained Change in Mental Status No Sepsis Action Taken by Nursing No Action Required 01/31/21 15:44 01/31/21 15:45 01/31/21 15:50 Temperature Temperature Source Pulse Rate 108 H 107 H 107 H Pulse Rate from SpO2 Sensor 108 H 107 H 107 H Pulse Rhythm Pulse Strength Respiratory Rate 10 L 13 Respiratory Effort / Characteristics Respiratory Depth Respiratory Pattern Blood Pressure 138/75 Blood Pressure Mean 96 Blood Pressure Position Pulse Oximetry 94 94 94 Oxygen Delivery Method Oxygen Flow Rate Sepsis Recent Fever Within 48 Hours Sepsis New/Unexplained Change in Mental Status Sepsis Action Taken by Nursing 01/31/21 16:06 01/31/21 16:10 01/31/21 16:15 Temperature Temperature Source Pulse Rate 104 H 104 H 103 H Pulse Rate from SpO2 Sensor 104 H 104 H Pulse Rhythm Pulse Strength Respiratory Rate 11 L 14 10 L Respiratory Effort / Characteristics Respiratory Depth Respiratory Pattern Blood Pressure 112/95 120/97 Blood Pressure Mean 100 104 Blood Pressure Position Pulse Oximetry 91 91 Oxygen Delivery Method Oxygen Flow Rate Sepsis Recent Fever Within 48 Hours Sepsis New/Unexplained Change in Mental Status Sepsis Action Taken by Nursing 01/31/21 16:20 01/31/21 16:30 01/31/21 16:31 Temperature Temperature Source Pulse Rate 102 H 101 H 102 H Pulse Rate from SpO2 Sensor Pulse Rhythm Pulse Strength Respiratory Rate 17 14 18 Respiratory Effort / Characteristics Respiratory Depth Respiratory Pattern Blood Pressure 128/85 Blood Pressure Mean 99 Blood Pressure Position Pulse Oximetry Oxygen Delivery Method Oxygen Flow Rate Sepsis Recent Fever Within 48 Hours Sepsis New/Unexplained Change in Mental Status Sepsis Action Taken by Nursing 01/31/21 16:40 01/31/21 16:45 01/31/21 16:48 Temperature Temperature Source Pulse Rate 98 H 99 H 99 H Pulse Rate from SpO2 Sensor 99 H Pulse Rhythm Pulse Strength Respiratory Rate 11 L 11 L 14 Respiratory Effort / Characteristics Respiratory Depth Respiratory Pattern Blood Pressure 115/87 Blood Pressure Mean 96 Blood Pressure Position Pulse Oximetry 97 Oxygen Delivery Method Oxygen Flow Rate Sepsis Recent Fever Within 48 Hours Sepsis New/Unexplained Change in Mental Status Sepsis Action Taken by Nursing 01/31/21 16:50 01/31/21 17:00 01/31/21 17:10 Temperature Temperature Source Pulse Rate 100 H 99 H 99 H Pulse Rate from SpO2 Sensor 100 H 98 H 99 H Pulse Rhythm Pulse Strength Respiratory Rate 12 13 14 Respiratory Effort / Characteristics Respiratory Depth Respiratory Pattern Blood Pressure 116/93 Blood Pressure Mean 100 Blood Pressure Position Pulse Oximetry 97 97 95 Oxygen Delivery Method Oxygen Flow Rate Sepsis Recent Fever Within 48 Hours Sepsis New/Unexplained Change in Mental Status Sepsis Action Taken by Nursing 01/31/21 17:15 01/31/21 17:20 01/31/21 17:30 Temperature Temperature Source Pulse Rate 94 H 96 H 94 H Pulse Rate from SpO2 Sensor 95 H 95 H 92 H Pulse Rhythm Pulse Strength Respiratory Rate 13 21 16 Respiratory Effort / Characteristics Respiratory Depth Respiratory Pattern Blood Pressure 128/95 151/99 H Blood Pressure Mean 106 116 Blood Pressure Position Pulse Oximetry 98 Oxygen Delivery Method Oxygen Flow Rate Sepsis Recent Fever Within 48 Hours Sepsis New/Unexplained Change in Mental Status Sepsis Action Taken by Nursing 01/31/21 17:40 01/31/21 17:45 01/31/21 17:50 Temperature Temperature Source Pulse Rate 95 H 97 H 99 H Pulse Rate from SpO2 Sensor Pulse Rhythm Pulse Strength Respiratory Rate 21 20 10 L Respiratory Effort / Characteristics Respiratory Depth Respiratory Pattern Blood Pressure Blood Pressure Mean Blood Pressure Position Pulse Oximetry Oxygen Delivery Method Oxygen Flow Rate Sepsis Recent Fever Within 48 Hours Sepsis New/Unexplained Change in Mental Status Sepsis Action Taken by Nursing 01/31/21 18:00 01/31/21 18:10 01/31/21 18:15 Temperature Temperature Source Pulse Rate 95 H 98 H 98 H Pulse Rate from SpO2 Sensor Pulse Rhythm Pulse Strength Respiratory Rate 21 17 18 Respiratory Effort / Characteristics Respiratory Depth Respiratory Pattern Blood Pressure 161/90 H Blood Pressure Mean 113 Blood Pressure Position Pulse Oximetry Oxygen Delivery Method Oxygen Flow Rate Sepsis Recent Fever Within 48 Hours Sepsis New/Unexplained Change in Mental Status Sepsis Action Taken by Nursing 01/31/21 18:20 01/31/21 18:30 01/31/21 18:40 Temperature Temperature Source Pulse Rate 97 H 98 H 100 H Pulse Rate from SpO2 Sensor Pulse Rhythm Pulse Strength Respiratory Rate 18 21 15 Respiratory Effort / Characteristics Respiratory Depth Respiratory Pattern Blood Pressure 140/94 Blood Pressure Mean 109 Blood Pressure Position Pulse Oximetry Oxygen Delivery Method Oxygen Flow Rate Sepsis Recent Fever Within 48 Hours Sepsis New/Unexplained Change in Mental Status Sepsis Action Taken by Nursing 01/31/21 18:45 01/31/21 18:50 01/31/21 19:00 Temperature Temperature Source Pulse Rate 96 H 96 H 94 H Pulse Rate from SpO2 Sensor 94 H Pulse Rhythm Pulse Strength Respiratory Rate 12 16 12 Respiratory Effort / Characteristics Respiratory Depth Respiratory Pattern Blood Pressure 157/97 H 146/97 H Blood Pressure Mean 117 113 Blood Pressure Position Pulse Oximetry 98 Oxygen Delivery Method Oxygen Flow Rate Sepsis Recent Fever Within 48 Hours Sepsis New/Unexplained Change in Mental Status Sepsis Action Taken by Nursing 01/31/21 19:10 01/31/21 19:15 01/31/21 19:20 Temperature Temperature Source Pulse Rate 92 H 94 H 88 Pulse Rate from SpO2 Sensor 91 H 93 H 88 Pulse Rhythm Pulse Strength Respiratory Rate 11 L 12 10 L Respiratory Effort / Characteristics Respiratory Depth Respiratory Pattern Blood Pressure 150/103 H Blood Pressure Mean 118 Blood Pressure Position Pulse Oximetry 98 99 98 Oxygen Delivery Method Oxygen Flow Rate Sepsis Recent Fever Within 48 Hours Sepsis New/Unexplained Change in Mental Status Sepsis Action Taken by Nursing 01/31/21 19:30 01/31/21 19:40 01/31/21 19:45 Temperature Temperature Source Pulse Rate 90 87 88 Pulse Rate from SpO2 Sensor 90 53 L 55 L Pulse Rhythm Pulse Strength Respiratory Rate 22 19 18 Respiratory Effort / Characteristics Respiratory Depth Respiratory Pattern Blood Pressure 153/81 H Blood Pressure Mean 105 Blood Pressure Position Pulse Oximetry 98 82 L 84 L Oxygen Delivery Method Oxygen Flow Rate Sepsis Recent Fever Within 48 Hours Sepsis New/Unexplained Change in Mental Status Sepsis Action Taken by Nursing 01/31/21 19:50 01/31/21 20:00 01/31/21 20:10 Temperature Temperature Source Pulse Rate 89 87 90 Pulse Rate from SpO2 Sensor Pulse Rhythm Pulse Strength Respiratory Rate 16 17 17 Respiratory Effort / Characteristics Respiratory Depth Respiratory Pattern Blood Pressure Blood Pressure Mean Blood Pressure Position Pulse Oximetry Oxygen Delivery Method Oxygen Flow Rate Sepsis Recent Fever Within 48 Hours Sepsis New/Unexplained Change in Mental Status Sepsis Action Taken by Nursing 01/31/21 20:15 01/31/21 20:20 01/31/21 21:08 Temperature Temperature Source Pulse Rate 88 87 91 H Pulse Rate from SpO2 Sensor Pulse Rhythm Pulse Strength Respiratory Rate 13 12 13 Respiratory Effort / Characteristics Respiratory Depth Respiratory Pattern Blood Pressure Blood Pressure Mean Blood Pressure Position Pulse Oximetry Oxygen Delivery Method Oxygen Flow Rate Sepsis Recent Fever Within 48 Hours Sepsis New/Unexplained Change in Mental Status Sepsis Action Taken by Nursing 01/31/21 21:10 Temperature Temperature Source Pulse Rate 91 H Pulse Rate from SpO2 Sensor Pulse Rhythm Pulse Strength Respiratory Rate 11 L Respiratory Effort / Characteristics Respiratory Depth Respiratory Pattern Blood Pressure Blood Pressure Mean Blood Pressure Position Pulse Oximetry Oxygen Delivery Method Oxygen Flow Rate Sepsis Recent Fever Within 48 Hours Sepsis New/Unexplained Change in Mental Status Sepsis Action Taken by Nursing Laboratory Data Result diagrams: 01/31/21 15:30 01/31/21 15:30 Lab Results 01/31/21 01/31/21 01/31/21 Range/Units 15:26 15:28 15:30 WBC (4.8-10.8) K/uL RBC (4.2-5.4) M/uL Hgb (12.0-16.0) g/dL Hct (37-47) % MCV (80-100) fL MCH (25-34) pg MCHC (32-36) g/dL RDW Std Deviation (36.4-46.3) fL RDW Coeff of Nawaf (11.5-14.5) % Plt Count (130-400) K/uL MPV (7.4-10.4) fL Immature Gran % (Auto) % Neut % (Auto) % Lymph % (Auto) % Benson % (Auto) % Eos % (Auto) % Baso % (Auto) % Neut # (Auto) (1.4-6.5) K/uL Lymph # (Auto) (1.2-3.4) K/uL Benson # (Auto) (0.11-0.59) K/uL Eos # (Auto) (0-0.5) K/uL Baso # (Auto) (0-0.2) K/uL Immature Gran # (Auto) (0.00-0.02) K/uL PT 9.8 (9.0-12.0) Seconds INR 1.0 (0.9-1.1) VBG pH (7.36-7.41) VBG pCO2 (38-50) mmHg VBG pO2 mmHg VBG HCO3 mmol/L VBG O2 Saturation % VBG Base Excess mEq/L Barometric Pressure mm/Hg Sodium (136-145) mmol/L Potassium (3.5-5.1) mmol/L Chloride (98-107) mmol/L Carbon Dioxide (21-32) mmol/L Anion Gap (3-11) BUN (7-18) mg/dl Creatinine (0.6-1.2) mg/dl Est Cr Clr Drug Dosing Est GFR ( Amer) Est GFR (Non-Af Amer) BUN/Creatinine Ratio (10-20) Glucose (70-99) mg/dl POC Glucose 375 H* 347 H* (70-99) mg/dl Calcium (8.5-10.1) mg/dl Magnesium (1.8-2.4) mg/dl Total Bilirubin (0.2-1) mg/dl AST (15-37) U/L ALT (12-78) U/L Alkaline Phosphatase (45-117) U/L Total Creatine Kinase (26-192) U/L Troponin I (0-0.045) ng/ml Total Protein (6.4-8.2) gm/dl Albumin (3.4-5.0) gm/dl Globulin (2.5-4.0) gm/dl Albumin/Globulin Ratio (0.9-2) Beta-Hydroxybutyric Acd (0.2-2.81) mg/dl TSH (0.300-4.500) uIu/ml Urine Color Urine Appearance (Clear) Urine pH (4.5-7.5) Ur Specific Batchelor (1.000-1.030) Urine Protein (Negative) Urine Glucose (UA) (Negative) Urine Ketones (Negative) Urine Blood (Negative) Urine Nitrite (Negative) Urine Bilirubin (Negative) Urine Urobilinogen (Negative) Ur Leukocyte Esterase (Negative) Urine WBC (Auto) (0-5) /hpf Urine RBC (Auto) (0-4) /hpf U Hyaline Cast (Auto) (0-5) /lpf U Epithel Cells (Auto) (0-5) /lpf Urine Bacteria (Auto) (Negative) Urine Opiates Screen (Neg) Ur Methadone, Qual (Neg) Urine Barbiturates (Neg) Ur Phencyclidine (PCP) (Neg) U Amphetamin/Meth Scrn (Neg) MDMA (Ecstasy) Screen (Neg) U Benzodiazepines Scrn (Neg) Ur Cocaine Metabolite (Neg) U Marijuana (THC) Screen (Neg) COVID-19 Eval Order SARS-CoV-2 (PCR) (Negative) Influenza Type A (PCR) (Neg) Influenza Type B (PCR) (Neg) RSV (RT-PCR) (Neg) 01/31/21 01/31/21 01/31/21 Range/Units 15:30 15:30 15:39 WBC 9.89 (4.8-10.8) K/uL RBC 4.06 L (4.2-5.4) M/uL Hgb 12.1 (12.0-16.0) g/dL Hct 37.6 (37-47) % MCV 92.6 (80-100) fL MCH 29.8 (25-34) pg MCHC 32.2 (32-36) g/dL RDW Std Deviation 44.5 (36.4-46.3) fL RDW Coeff of Nawaf 13.2 (11.5-14.5) % Plt Count 309 (130-400) K/uL MPV 9.1 (7.4-10.4) fL Immature Gran % (Auto) 0.1 % Neut % (Auto) 68.9 % Lymph % (Auto) 22.6 % Benson % (Auto) 6.4 % Eos % (Auto) 1.8 % Baso % (Auto) 0.2 % Neut # (Auto) 6.81 H (1.4-6.5) K/uL Lymph # (Auto) 2.24 (1.2-3.4) K/uL Benson # (Auto) 0.63 H (0.11-0.59) K/uL Eos # (Auto) 0.18 (0-0.5) K/uL Baso # (Auto) 0.02 (0-0.2) K/uL Immature Gran # (Auto) 0.01 (0.00-0.02) K/uL PT (9.0-12.0) Seconds INR (0.9-1.1) VBG pH 7.29 L (7.36-7.41) VBG pCO2 51 H (38-50) mmHg VBG pO2 64 mmHg VBG HCO3 24 mmol/L VBG O2 Saturation 91.6 % VBG Base Excess -3.3 mEq/L Barometric Pressure 729.9 mm/Hg Sodium 139 (136-145) mmol/L Potassium 4.9 (3.5-5.1) mmol/L Chloride 109 H (98-107) mmol/L Carbon Dioxide 24 (21-32) mmol/L Anion Gap 6.0 (3-11) BUN 30 H (7-18) mg/dl Creatinine 2.13 H (0.6-1.2) mg/dl Est Cr Clr Drug Dosing Not Reportable Est GFR ( Amer) 28.4 Est GFR (Non-Af Amer) 24.5 BUN/Creatinine Ratio 14.0 (10-20) Glucose 303 H* (70-99) mg/dl POC Glucose (70-99) mg/dl Calcium 8.6 (8.5-10.1) mg/dl Magnesium 2.1 (1.8-2.4) mg/dl Total Bilirubin 0.3 (0.2-1) mg/dl AST 19 (15-37) U/L ALT 28 (12-78) U/L Alkaline Phosphatase 208 H (45-117) U/L Total Creatine Kinase 68 (26-192) U/L Troponin I < 0.015 (0-0.045) ng/ml Total Protein 8.1 (6.4-8.2) gm/dl Albumin 3.8 (3.4-5.0) gm/dl Globulin 4.3 H (2.5-4.0) gm/dl Albumin/Globulin Ratio 0.9 (0.9-2) Beta-Hydroxybutyric Acd 1.39 (0.2-2.81) mg/dl TSH 1.350 (0.300-4.500) uIu/ml Urine Color Urine Appearance (Clear) Urine pH (4.5-7.5) Ur Specific Bat[place]lor (1.000-1.030) Urine Protein (Negative) Urine Glucose (UA) (Negative) Urine Ketones (Negative) Urine Blood (Negative) Urine Nitrite (Negative) Urine Bilirubin (Negative) Urine Urobilinogen (Negative) Ur Leukocyte Esterase (Negative) Urine WBC (Auto) (0-5) /hpf Urine RBC (Auto) (0-4) /hpf U Hyaline Cast (Auto) (0-5) /lpf U Epithel Cells (Auto) (0-5) /lpf Urine Bacteria (Auto) (Negative) Urine Opiates Screen (Neg) Ur Methadone, Qual (Neg) Urine Barbiturates (Neg) Ur Phencyclidine (PCP) (Neg) U Amphetamin/Meth Scrn (Neg) MDMA (Ecstasy) Screen (Neg) U Benzodiazepines Scrn (Neg) Ur Cocaine Metabolite (Neg) U Marijuana (THC) Screen (Neg) COVID-19 Eval Order SARS-CoV-2 (PCR) (Negative) Influenza Type A (PCR) (Neg) Influenza Type B (PCR) (Neg) RSV (RT-PCR) (Neg) 01/31/21 01/31/21 01/31/21 Range/Units 17:02 17:02 17:28 WBC (4.8-10.8) K/uL RBC (4.2-5.4) M/uL Hgb (12.0-16.0) g/dL Hct (37-47) % MCV (80-100) fL MCH (25-34) pg MCHC (32-36) g/dL RDW Std Deviation (36.4-46.3) fL RDW Coeff of Nawaf (11.5-14.5) % Plt Count (130-400) K/uL MPV (7.4-10.4) fL Immature Gran % (Auto) % Neut % (Auto) % Lymph % (Auto) % Benson % (Auto) % Eos % (Auto) % Baso % (Auto) % Neut # (Auto) (1.4-6.5) K/uL Lymph # (Auto) (1.2-3.4) K/uL Benson # (Auto) (0.11-0.59) K/uL Eos # (Auto) (0-0.5) K/uL Baso # (Auto) (0-0.2) K/uL Immature Gran # (Auto) (0.00-0.02) K/uL PT (9.0-12.0) Seconds INR (0.9-1.1) VBG pH (7.36-7.41) VBG pCO2 (38-50) mmHg VBG pO2 mmHg VBG HCO3 mmol/L VBG O2 Saturation % VBG Base Excess mEq/L Barometric Pressure mm/Hg Sodium (136-145) mmol/L Potassium (3.5-5.1) mmol/L Chloride (98-107) mmol/L Carbon Dioxide (21-32) mmol/L Anion Gap (3-11) BUN (7-18) mg/dl Creatinine (0.6-1.2) mg/dl Est Cr Clr Drug Dosing Est GFR ( Amer) Est GFR (Non-Af Amer) BUN/Creatinine Ratio (10-20) Glucose (70-99) mg/dl POC Glucose 221 H (70-99) mg/dl Calcium (8.5-10.1) mg/dl Magnesium (1.8-2.4) mg/dl Total Bilirubin (0.2-1) mg/dl AST (15-37) U/L ALT (12-78) U/L Alkaline Phosphatase (45-117) U/L Total Creatine Kinase (26-192) U/L Troponin I (0-0.045) ng/ml Total Protein (6.4-8.2) gm/dl Albumin (3.4-5.0) gm/dl Globulin (2.5-4.0) gm/dl Albumin/Globulin Ratio (0.9-2) Beta-Hydroxybutyric Acd (0.2-2.81) mg/dl TSH (0.300-4.500) uIu/ml Urine Color Urine Appearance (Clear) Urine pH (4.5-7.5) Ur Specific Bat[place]lor (1.000-1.030) Urine Protein (Negative) Urine Glucose (UA) (Negative) Urine Ketones (Negative) Urine Blood (Negative) Urine Nitrite (Negative) Urine Bilirubin (Negative) Urine Urobilinogen (Negative) Ur Leukocyte Esterase (Negative) Urine WBC (Auto) (0-5) /hpf Urine RBC (Auto) (0-4) /hpf U Hyaline Cast (Auto) (0-5) /lpf U Epithel Cells (Auto) (0-5) /lpf Urine Bacteria (Auto) (Negative) Urine Opiates Screen (Neg) Ur Methadone, Qual (Neg) Urine Barbiturates (Neg) Ur Phencyclidine (PCP) (Neg) U Amphetamin/Meth Scrn (Neg) MDMA (Ecstasy) Screen (Neg) U Benzodiazepines Scrn (Neg) Ur Cocaine Metabolite (Neg) U Marijuana (THC) Screen (Neg) COVID-19 Eval Order [facility]FluRsv at [facility] SARS-CoV-2 (PCR) NEGATIVE (Negative) Influenza Type A (PCR) Negative (Neg) Influenza Type B (PCR) Negative (Neg) RSV (RT-PCR) Negative (Neg) 01/31/21 01/31/21 Range/Units 19:39 19:39 WBC (4.8-10.8) K/uL RBC (4.2-5.4) M/uL Hgb (12.0-16.0) g/dL Hct (37-47) % MCV (80-100) fL MCH (25-34) pg MCHC (32-36) g/dL RDW Std Deviation (36.4-46.3) fL RDW Coeff of Nawaf (11.5-14.5) % Plt Count (130-400) K/uL MPV (7.4-10.4) fL Immature Gran % (Auto) % Neut % (Auto) % Lymph % (Auto) % Benson % (Auto) % Eos % (Auto) % Baso % (Auto) % Neut # (Auto) (1.4-6.5) K/uL Lymph # (Auto) (1.2-3.4) K/uL Benson # (Auto) (0.11-0.59) K/uL Eos # (Auto) (0-0.5) K/uL Baso # (Auto) (0-0.2) K/uL Immature Gran # (Auto) (0.00-0.02) K/uL PT (9.0-12.0) Seconds INR (0.9-1.1) VBG pH (7.36-7.41) VBG pCO2 (38-50) mmHg VBG pO2 mmHg VBG HCO3 mmol/L VBG O2 Saturation % VBG Base Excess mEq/L Barometric Pressure mm/Hg Sodium (136-145) mmol/L Potassium (3.5-5.1) mmol/L Chloride (98-107) mmol/L Carbon Dioxide (21-32) mmol/L Anion Gap (3-11) BUN (7-18) mg/dl Creatinine (0.6-1.2) mg/dl Est Cr Clr Drug Dosing Est GFR ( Amer) Est GFR (Non-Af Amer) BUN/Creatinine Ratio (10-20) Glucose (70-99) mg/dl POC Glucose (70-99) mg/dl Calcium (8.5-10.1) mg/dl Magnesium (1.8-2.4) mg/dl Total Bilirubin (0.2-1) mg/dl AST (15-37) U/L ALT (12-78) U/L Alkaline Phosphatase (45-117) U/L Total Creatine Kinase (26-192) U/L Troponin I (0-0.045) ng/ml Total Protein (6.4-8.2) gm/dl Albumin (3.4-5.0) gm/dl Globulin (2.5-4.0) gm/dl Albumin/Globulin Ratio (0.9-2) Beta-Hydroxybutyric Acd (0.2-2.81) mg/dl TSH (0.300-4.500) uIu/ml Urine Color Yellow Urine Appearance Cloudy A (Clear) Urine pH 5.0 (4.5-7.5) Ur Specific Bat[place]lor 1.013 (1.000-1.030) Urine Protein Trace H (Negative) Urine Glucose (UA) Negative (Negative) Urine Ketones Negative (Negative) Urine Blood 1+ H (Negative) Urine Nitrite Negative (Negative) Urine Bilirubin Negative (Negative) Urine Urobilinogen Negative (Negative) Ur Leukocyte Esterase 3+ H (Negative) Urine WBC (Auto) >30 H (0-5) /hpf Urine RBC (Auto) 5-10 H (0-4) /hpf U Hyaline Cast (Auto) 0 (0-5) /lpf U Epithel Cells (Auto) 0-5 (0-5) /lpf Urine Bacteria (Auto) Negative (Negative) Urine Opiates Screen Neg (Neg) Ur Methadone, Qual Neg (Neg) Urine Barbiturates Neg (Neg) Ur Phencyclidine (PCP) Neg (Neg) U Amphetamin/Meth Scrn Neg (Neg) MDMA (Ecstasy) Screen Neg (Neg) U Benzodiazepines Scrn Pos H (Neg) Ur Cocaine Metabolite Neg (Neg) U Marijuana (THC) Screen Neg (Neg) COVID-19 Eval Order SARS-CoV-2 (PCR) (Negative) Influenza Type A (PCR) (Neg) Influenza Type B (PCR) (Neg) RSV (RT-PCR) (Neg) Administered Medications Discontinued Medications Sodium Chloride (Nss 1000ml) 1,000 mls @ 999 mls/hr IV .Q1H1M CARLOS ALBERTO Stop: 01/31/21 16:30 Last Infusion: 01/31/21 19:47 Dose: 999 mls/hr Documented by: [id number] Admin: 01/31/21 16:28 Dose: 999 mls/hr Documented by: [id number] Sodium Chloride (Nss 1000ml) 1,000 mls @ 999 mls/hr IV .Q1H1M ONE Stop: 01/31/21 17:49 Last Infusion: 01/31/21 20:37 Dose: 0 mls/hr Documented by: [id number] Infusion: 01/31/21 18:06 Dose: 999 mls/hr Documented by: [id number] Admin: 01/31/21 17:06 Dose: 999 mls/hr Documented by: [id number] Insulin Human Regular (Novolin-R Insulin Per Unit Charge) 5 units IV NOW STA Stop: 01/31/21 17:16 Last Admin: 01/31/21 17:28 Dose: 5 units Documented by: [id number] Cosigned by: [id number] Imaging Data Radiologist's Impression: Head CT 01/31/21 15:19 CT SCAN OF THE BRAIN WITHOUT IV CONTRAST CLINICAL HISTORY: Change in mental status. COMPARISON STUDY: CT of the brain dated 01/28/2020. TECHNIQUE: Unenhanced axial CT scan of the brain is performed from the vertex to the skull base. A dose lowering technique was utilized adhering to the principles of ALARA. The examination is compromised by motion artifact. The patient was scanned 3 times in an effort to improve image quality. CT DOSE: 2320.72 mGy.cm FINDINGS: Brain parenchyma: Right frontal encephalomalacia is consistent with a remote insult. Minimal microangiopathic disease is noted. There is no hemorrhage, mass effect, or evidence of acute territorial ischemia by CT criteria. Higginbotham-white matter differentiation is preserved. No extra-axial fluid collection is seen. Ventricles, sulci, cisterns: Normal in configuration. Intracranial vasculature: There is mild atherosclerotic calcification of the cavernous carotid arteries. Calvarium: There is a right frontal malinda hole. No destructive calvarial lesion is identified. Sinuses and mastoids: Trace mucosal thickening is noted in the maxillary antra. The remaining paranasal sinuses are clear. The mastoid air cells are well pneumatized. Orbits: The bony orbits are grossly intact. IMPRESSION: There is no hemorrhage, mass effect, or evidence of acute territorial ischemia by CT criteria noting a motion compromised examination. ACT 112: Negative or not required by law. Electronically signed by: Luc Winn M.D. 01/31/2021 4:10 PM Chest X-Ray 01/31/21 15:20 SINGLE VIEW CHEST CLINICAL HISTORY: Generalized weakness. FINDINGS: 2 AP, portable, upright chest radiographs are compared to study dated 01/28/2020. Correlation is made with chest CT dated 05/10/2015. The examination is degraded by portable technique, large body habitus, and patient rotation. The heart is mildly enlarged. The pulmonary vasculature is noncongested. There are low lung volumes with bibasilar atelectasis. No airspace consolidation or large pleural effusion is identified. No pneumothorax is seen. The skeletal structures are osteopenic. The bony thorax is grossly intact. Intrathecal leads project over the lower thoracic region. IMPRESSION: Low lung volumes with no acute cardiopulmonary abnormality. ACT 112: Negative or not required by law. Electronically signed by: Luc Winn M.D. 01/31/2021 4:37 PM Discharge Plan Visit Data Chief Complaint: Stroke/CVA Symptoms Stated Complaint: STOKE SYMPTOMS ED Provider: Zheng Shelley Discharge Problem: MILTON (acute kidney injury), Weakness, UTI (urinary tract infection), Acute hyperglycemia Discharge Instructions Interventions: ED Discharge Assessment Last Done: 01/31/21 21:13 Forms Stand Alone Forms: [employer] [facility] Prescriptions Prescriptions: No Action Lantus Solostar U-100 Insulin 100 unit/mL (3 mL) insulin pen 17 units SQ BID RF: 0 Novolog Flexpen U-100 Insulin 100 unit/mL (3 mL) insulin pen 3 units SQ TID RF: 0 alfuzosin 10 mg tablet extended release 24 hr 10 mg PO QAM Qty: 90 RF: 3 mirabegron 50 mg tablet extended release 24 hr 50 mg PO HS Qty: 90 RF: 3 cefuroxime axetil 250 mg tablet 250 mg PO BID 7 Days Qty: 14 RF: 0 lisinopril 5 mg tablet 5 mg PO DAILY RF: 0 pregabalin 150 mg capsule 150 mg PO TID RF: 0 atorvastatin 80 mg tablet 80 mg PO PM RF: 0 venlafaxine 75 mg capsule,extended release 24hr 75 mg PO HS RF: 0 venlafaxine 150 mg capsule,extended release 24hr 150 mg PO HS RF: 0 oxycodone-acetaminophen 7.5-325 mg tablet 1 tab PO TID PRN (Reason: Pain) RF: 0 multivitamin Tablet 1 tab PO PM RF: 0 metformin 500 mg Tablet 500 mg PO TID RF: 0 aspirin 81 mg Tablet,Delayed Release (Dr/Ec) 81 mg PO QDL RF: 0 ferrous sulfate [iron] 325 mg (65 mg iron) Tablet 325 mg PO PM RF: 0 Calcium 600 + D(3) 600 mg calcium- 200 unit Capsule 1 cap PO PM RF: 0 nortriptyline 75 mg Capsule 75 mg PO HS RF: 0 levothyroxine 50 mcg Tablet 50 mcg PO DAILYBB RF: 0 nystatin 100,000 unit/gram powder 1 appln TOP BID Qty: 60 RF: 1 baclofen 10 mg Tablet 15 mg PO QID RF: 0 metaxalone [Skelaxin] 800 mg Tablet 800 mg PO BID RF: 0 Ozempic 1 mg/dose (2 mg/1.5 mL) pen injector 1 mg SUBCUT WK RF: 0 Referrals Referrals: Amelia Vazquez DO [Primary Care Provider] - Discharge Problem: UTI (urinary tract infection) Qualifiers: Urinary tract infection type: site unspecified
[2021-01-31] MEDS ORDERED: SODIUM CHLORIDE 0.9% 1000ML 1,000 ML IV SCH (15:30)
[2021-01-31 15:52] LABS: Base Excess VBG -3.3 mEq/L; Oxygen Saturation VBG 91.6 %; pH VBG 7.29 (7.36-7.41)
[2021-01-31 15:53] LABS: Basophils # (auto) 0.02 K/uL (0-0.2); Basophils % (auto) 0.2 %; Eosinophils # (auto) 0.18 K/uL (0-0.5); Eosinophils % (auto) 1.8 %; Hematocrit (blood only) 37.6 % (37-47); Hemoglobin 12.1 g/dL (12.0-16.0); Immature Granulocytes # (auto) 0.01 K/uL (0.00-0.02); Immature Granulocytes % (auto) 0.1 %; Lymphocytes # (auto) 2.24 K/uL (1.2-3.4); Lymphocytes % (auto) 22.6 %; Mean Corpuscular Hemoglobin 29.8 pg (25-34); Mean Corpuscular Hgb Conc 32.2 g/dL (32-36); Mean Corpuscular Volume 92.6 fL (80-100); Mean Platelet Volume 9.1 fL (7.4-10.4); Monocytes # (auto) 0.63 K/uL (0.11-0.59); Monocytes % (auto) 6.4 %; Neutrophils # (auto) 6.81 K/uL (1.4-6.5); Neutrophils % (auto) 68.9 %; Platelet Count 309 K/uL (130-400); RDW Coefficient of Variation 13.2 % (11.5-14.5); RDW Standard Deviation 44.5 fL (36.4-46.3); Red Blood Count 4.06 M/uL (4.2-5.4); White Blood Count 9.89 K/uL (4.8-10.8)
[2021-01-31 16:11] LABS: Prothrombin Time 9.8 Seconds (9.0-12.0)
--- NOTE | 2021-01-31 16:12 | CT Scan Report ---
CT SCAN OF THE BRAIN WITHOUT IV CONTRAST CLINICAL HISTORY: Change in mental status. COMPARISON STUDY: CT of the brain dated 01/28/2020. TECHNIQUE: Unenhanced axial CT scan of the brain is performed from the vertex to the skull base. A do se lowering technique was utilized adhering to the principles of ALARA. The examination is compromise d by motion artifact. The patient was scanned 3 times in an effort to improve image quality. CT DOSE: 2320.72 mGy.cm FINDINGS: Brain parenchyma: Right frontal encephalomalacia is consistent with a remote insult. Minimal microang iopathic disease is noted. There is no hemorrhage, mass effect, or evidence of acute territorial isch emia by CT criteria. Higginbotham-white matter differentiation is preserved. No extra-axial fluid collection is seen. Ventricles, sulci, cisterns: Normal in configuration. Intracranial vasculature: There is mild atherosclerotic calcification of the cavernous carotid arteri es. Calvarium: There is a right frontal malinda hole. No destructive calvarial lesion is identified. Sinuses and mastoids: Trace mucosal thickening is noted in the maxillary antra. The remaining paranas al sinuses are clear. The mastoid air cells are well pneumatized. Orbits: The bony orbits are grossly intact. IMPRESSION: There is no hemorrhage, mass effect, or evidence of acute territorial ischemia by CT crit landon noting a motion compromised examination. ACT 112: Negative or not required by law. Electronically signed by: Luc Winn M.D. 01/31/2021 4:10 PM
[2021-01-31 16:22] LABS: Alanine Aminotransferase 28 U/L (12-78); Albumin Globulin Ratio 0.9 (0.9-2); Albumin Level 3.8 gm/dl (3.4-5.0); Alkaline Phosphatase 208 U/L (45-117); Aspartate Aminotransferase 19 U/L (15-37); Bilirubin,Total 0.3 mg/dl (0.2-1); Blood Urea Nitrogen 30 mg/dl (7-18); Calcium 8.6 mg/dl (8.5-10.1); Carbon Dioxide 24 mmol/L (21-32); Chloride 109 mmol/L (98-107); Est GFR (African American) 28.4; Est GFR (Non-African American) 24.5; Globulin 4.3 gm/dl (2.5-4.0); Glucose 303 mg/dl (70-99); Magnesium 2.1 mg/dl (1.8-2.4); Potassium 4.9 mmol/L (3.5-5.1); Sodium 139 mmol/L (136-145); Total Protein 8.1 gm/dl (6.4-8.2); Troponin I < 0.015 ng/ml (0-0.045)
[2021-01-31 16:32] LABS: Beta-Hydroxybutyrate 1.39 mg/dl (0.2-2.81)
--- NOTE | 2021-01-31 16:39 | XRay Report ---
SINGLE VIEW CHEST CLINICAL HISTORY: Generalized weakness. FINDINGS: 2 AP, portable, upright chest radiographs are compared to study dated 01/28/2020. Correlatio n is made with chest CT dated 05/10/2015. The examination is degraded by portable technique, large body habitus, and patient rotation. The heart is mildly enlarged. The pulmonary vasculature is noncongest ed. There are low lung volumes with bibasilar atelectasis. No airspace consolidation or large pleural effusion is identified. No pneumothorax is seen. The skeletal structures are osteopenic. The bony th orax is grossly intact. Intrathecal leads project over the lower thoracic region. IMPRESSION: Low lung volumes with no acute cardiopulmonary abnormality. ACT 112: Negative or not required by law. Electronically signed by: Luc Winn M.D. 01/31/2021 4:37 PM
[2021-01-31] MEDS ORDERED: SODIUM CHLORIDE 0.9% 1000ML 1,000 ML IV ONE (16:49)
[2021-01-31] MEDS ORDERED: NovoLIN-R INSULIN PER UNIT CHARGE IV STA (17:15)
[2021-01-31 17:54] LABS: Influenza A virus by PCR Negative (Neg); Influenza B virus by PCR Negative (Neg); RSV by PCR Negative (Neg); SARS CoV2 RNA(COVID-19) InHosp NEGATIVE (Negative)
--- NOTE | 2021-01-31 19:04 | History & Physical Report ---
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 MILTON baseline cr 0.8 bun/cr 30 and 2.13 bladder scan WNL, no retention received 2L of IVF in ED continue IVF hold metformin, lisinopril continue IVF, repeat bmp in a.m strict I&O, maintain adequate urine output if no improvement consult nephro in a.m. UTI pt dx with > 100k kleb UTI as outpt 01/27 on ceftin day [address], [address] on IV rocephin no s/sx of sepsis Hypersomnolence/weakness ? if in setting of medication 2/2 to multiple sedating meds with muscle relaxers, opiates, milton, uti or MS? hold sedating medications including percocet and skelxain IVF place on CPAP given elevation of Co2 and pt with HELIO consult neurology no focal neuro deficits, pt appears at baseline from that stand point, she is A and O x 3 obtain MRI r/o MS lesions HTN hold lisinopril given MILTON prn IV labetolol T2DM Insulin-dependent Lantus/NovoLog per protocol Consult glycemic pharmacist History of hemorrhagic CVA status post craniotomy 12/2017 with residual left- sided weakness Multiple sclerosis Continue Lyrica and baclofen Hold Percocet and Skelaxin Consult neurology HLD continue statin HELIO CPAP at HS and while sleeping during day DVT Prophylaxis SQ Heparin Dispo: TELE PCP: Dr. Vazquez Pt was seen and examined in collaboration with Dr. Barnard, please see addendum History of Present Illness Chief Complaint: Hypersomnolence, increased right facial droop, increased generalized weakness x1 day. 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 is at bedside who provides most of history. Patient's last known well was prior to falling asleep last evening. She took her normal evening medications which included Effexor, baclofen, nortriptyline and Percocet. When she woke up this morning noticed that she had slid out of bed. No known trauma to 's knowledge. She was like, " weight," and he was unable to get her up off the floor. He felt overall she was generally weak. She just slept all day, did not eat or drink and was very difficult to arouse. She had been in her normal state of health up until this morning. She had been fully vaccinated for COVID-19. Patient is drowsy but is arousable to verbal stimulation and is alert and oriented and will answer questions appropriately. She denies any fever, chills, sweats, lightheadedness, dizziness or syncope, chest pain, shortness breath, cough, nausea, vomiting, abdominal pain. Her last bowel movement was yesterday which was normal for her. She has not urinated all day today. She is not anything to eat or drink. She did take her morning insulin. was concerned secondary to possible right facial droop and increased generalized weakness that she may have sustained stroke. denies any possibility of increased narcotic use. She has been doing well with therapy and states she had a hard therapy day yesterday. She did take muscle relaxer Skelaxin which he notes makes her more drowsy. Allergies Allergy/AdvReac Type Severity Reaction Status Date / Time methylphenidate Allergy Mild RASH Verified 01/31/21 16:54 sumatriptan AdvReac Intermediate RAPID Verified 01/31/21 16:54 HEART RATE soy AdvReac Unknown Diarrhea Verified 01/31/21 16:54 Home Medications Medication Instructions Recorded Confirmed Type atorvastatin 80 mg PO PM 10/08/18 01/31/21 History venlafaxine 75 mg PO HS 10/08/18 01/31/21 History venlafaxine 150 mg PO HS 10/08/18 01/31/21 History Calcium 600 + D(3) 1 cap PO PM 12/12/18 01/31/21 History aspirin 81 mg PO QDL 12/12/18 01/31/21 History ferrous sulfate [iron] 325 mg PO PM 12/12/18 01/31/21 History levothyroxine 50 mcg PO DAILYBB 12/12/18 01/31/21 History metformin 500 mg PO TID 12/12/18 01/31/21 History multivitamin 1 tab PO PM 12/12/18 01/31/21 History nortriptyline 75 mg PO HS 12/12/18 01/31/21 History insulin aspart U-100 100 unit/mL 3 units SQ TID 12/28/18 01/31/21 History (3 mL) subcutaneous pen insulin glargine 100 unit/mL (3 17 units SQ BID ml 12/28/18 01/31/21 History mL) subcutaneous pen nystatin 1 appln TOP BID #60 gm 01/12/19 01/31/21 Rx oxycodone-acetaminophen 7.5 mg-325 1 tab PO TID PRN tab 05/11/19 01/31/21 History mg tablet lisinopril 5 mg PO DAILY 12/26/19 01/31/21 History pregabalin 150 mg PO TID 12/26/19 01/31/21 History baclofen 15 mg PO QID 01/28/20 01/31/21 History metaxalone [Skelaxin] 800 mg PO BID 01/28/20 01/31/21 History alfuzosin 10 mg tablet,extended 10 mg PO QAM #90 tab 12/23/20 01/31/21 Rx release 24 hr mirabegron 50 mg tablet,extended 50 mg PO HS #90 tab 01/05/21 01/31/21 Rx release 24 hr Ozempic 1 mg SUBCUT WK 01/31/21 01/31/21 History Past Med/Surg History Medical History Compression fracture of T11 vertebra Depression DM type 2 (diabetes mellitus, type 2) Dyslipidemia Hemorrhagic stroke HTN (hypertension) Hypothyroidism Iron deficiency anemia Migraine Multiple sclerosis Neurogenic bladder Nocturia HELIO (obstructive sleep apnea) Osteoarthritis Peripheral neuropathy Restless leg syndrome Sleep apnea Stroke DECEMBER 2017 (GENERALIZED WEAKNESS) Temporomandibular joint disorder Clicks, but has never locked Urinary frequency Urinary incontinence Urinary tract infection symptoms UTI (urinary tract infection) Surgical History H/O foot surgery 08/04/17 - ORIF RIGHT 2/3/4 METATARSAL - MAC#3, ETT# 7.0, GRADE 2 VIEW, GRADE 2 VIEW History of colonoscopy History of dental surgery History of dilatation and curettage History of esophagogastroduodenoscopy (EGD) S/P insertion of spinal cord stimulator Family History Father Family history of diabetes mellitus Other FHx: cancer FHx: heart disease Social History Smoking Status: Never smoker Second Hand Exposure: No; Hx Alcohol Use: No Hx Substance Use: No Preferred Language: German Communication Ability: Effective 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 lives at home with current occupational status: retired Feels Safe at Home: Yes Assistive Devices: Oxygen - Continuous Review of Systems Review of Systems: All systems reviewed & are unremarkable except as noted in HPI & below Physical Exam Physical Exam: Constitutional: WD/WN, chronically ill-appearing, vitals as above, hypersomnolent, arouses to verbal stimulation, follows all commands and answers questions appropriately, alert and oriented x3, no acute distress Head: Normocephalic, Atraumatic Eyes: PERRL, conjunctivae normal, anicteric sclerae ENMT: external ear and nose normal, oropharynx normal Neck: trachea midline, no thyromegaly normal visual inspection Respiratory: normal respiratory effort, lungs clear to auscultation, no wheeze, rales, rhonchi. Normal insp/exp effort, no accessory muscle use Cardiovascular: RRR, no murmur, no edema Vessels: no JVD or carotid bruit Chest: normal inspection of chest Abdomen: normal bowel sounds, soft, nontender, no hepatosplenomegaly Musculoskeletal: no cyanosis or clubbing, extremities motor strength 4/5 LUE/LLE, RUE 4/5, RLE decreased ROM with flexin/extension 2/5 Skin: no rashes, warm and dry normal turgor Neurologic: PERRL, EOMI, accommodation nl, no face palsy, no dysarthria CN's II-XI intact bilaterally and moves all extremities Psychiatric: A+Ox3, euthymic affect Lymphatic: no cervical or axillary lymphadenopathy : deferred , bladder scan 189ml Results & Data Results & Data ([facility]) Vital Signs (Past 12 Hours) Vital Signs Temp Pulse Resp BP Pulse Ox 01/31/21 17:50 99 H 10 L 01/31/21 17:45 97 H 20 01/31/21 17:40 95 H 21 01/31/21 17:30 94 H 16 151/99 H 01/31/21 17:20 96 H 21 01/31/21 17:15 94 H 13 128/95 98 01/31/21 17:10 99 H 14 95 01/31/21 17:00 99 H 13 116/93 97 01/31/21 16:50 100 H 12 97 01/31/21 16:48 99 H 14 115/87 97 01/31/21 16:45 99 H 11 L 01/31/21 16:40 98 H 11 L 01/31/21 16:31 102 H 18 128/85 01/31/21 16:30 101 H 14 01/31/21 16:20 102 H 17 01/31/21 16:15 103 H 10 L 120/97 01/31/21 16:10 104 H 14 91 01/31/21 16:06 104 H 11 L 112/95 91 01/31/21 15:50 107 H 13 94 01/31/21 15:45 107 H 138/75 94 01/31/21 15:44 108 H 10 L 94 01/31/21 15:38 94 01/31/21 15:30 107 H 10 L 118/87 94 01/31/21 15:02 36.4 C L 118 H 18 109/[address] 01/31/21 15:19 CT SCAN OF THE BRAIN WITHOUT IV CONTRAST CLINICAL HISTORY: Change in mental status. COMPARISON STUDY: CT of the brain dated 01/28/2020. TECHNIQUE: Unenhanced axial CT scan of the brain is performed from the vertex to the skull base. A dose lowering technique was utilized adhering to the principles of ALARA. The examination is compromised by motion artifact. The ju ent was scanned 3 times in an effort to improve image quality. CT DOSE: 2320.72 mGy.cm FINDINGS: Brain parenchyma: Right frontal encephalomalacia is consistent with a remote insult. Minimal microangiopathic disease is noted. There is no hemorrhage, mass effect, or evidence of acute territorial ischemia by CT criteria. Higginbotham-white matter differentiation is preserved. No extra-axial fluid collection is seen. Ventricles, sulci, cisterns: Normal in configuration. Intracranial vasculature: There is mild atherosclerotic calcification of the cavernous carotid arteries. Calvarium: There is a right frontal malinda hole. No destructive calvarial lesion is identified. Sinuses and mastoids: Trace mucosal thickening is noted in the maxillary antra. The remaining paranasal sinuses are clear. The mastoid air cells are well pneumatized. Orbits: The bony orbits are grossly intact. IMPRESSION: There is no hemorrhage, mass effect, or evidence of acute territorial ischemia by CT criteria noting a motion compromised examination. ACT 112: Negative or not required by law. Electronically signed by: Luc Winn M.D. 01/31/2021 4:10 PM Chest X-Ray 01/31/21 15:20 SINGLE VIEW CHEST CLINICAL HISTORY: Generalized weakness. FINDINGS: 2 AP, portable, upright chest radiographs are compared to study dated 01/28/2020. Correlation is made with chest CT dated 05/10/2015. The examination is degraded by portable technique, large body habitus, and patient rotation. The heart is mildly enlarged. The pulmonary vasculature is noncongested. There are low lung volumes with bibasilar atelectasis. No airspace consolidation or large pleural effusion is identified. No pneumothorax is seen. The skeletal structures are osteopenic. The bony thorax is grossly intact. Intrathecal leads project over the lower thoracic region. IMPRESSION: Low lung volumes with no acute cardiopulmonary abnormality. ACT 112: Negative or not required by law. Electronically signed by: Luc Winn M.D. 01/31/2021 4:37 PM Medications Administered Discontinued Medications Sodium Chloride (Nss 1000ml) 1,000 mls @ 999 mls/hr IV .Q1H1M CARLOS ALBERTO Stop: 01/31/21 16:30 Last Admin: 01/31/21 16:28 Dose: 999 mls/hr Documented by: [id number] Sodium Chloride (Nss 1000ml) 1,000 mls @ 999 mls/hr IV .Q1H1M ONE Stop: 01/31/21 17:49 Last Admin: 01/31/21 17:06 Dose: 999 mls/hr Documented by: [id number] Insulin Human Regular (Novolin-R Insulin Per Unit Charge) 5 units IV NOW STA Stop: 01/31/21 17:16 Last Admin: 01/31/21 17:28 Dose: 5 units Documented by: [id number] Cosigned by: [id number] COVID-19 Results Results COVID-19 Adm Lab Results: RBC 3.93 M/uL (4.2-5.4) L 02/02/21 WBC 8.21 K/uL (4.8-10.8) 02/02/21 Hgb 11.7 g/dL (12.0-16.0) L 02/02/21 Hct 36.0 % (37-47) L 02/02/21 Plt Count 280 K/uL (130-400) 02/02/21 Neutrophils (%) (Auto) 67.3 % 02/01/21 Lymphocytes (%) (Auto) 24.5 % 02/01/21 Monocytes # (Auto) 0.53 K/uL (0.11-0.59) 02/01/21 Eosinophils # (Auto) 0.18 K/uL (0-0.5) 02/01/21 Immature Granulocyte % (Auto) 0.2 % 02/01/21 Neutrophils # (Auto) 6.15 K/uL (1.4-6.5) 02/01/21 Lymphocytes # (Auto) 2.24 K/uL (1.2-3.4) 02/01/21 Monocytes # (Auto) 0.53 K/uL (0.11-0.59) 02/01/21 Eosinophils # (Auto) 0.18 K/uL (0-0.5) 02/01/21 Basophils # (Auto) 0.02 K/uL (0-0.2) 02/01/21 Immature Granulocyte # (Auto) 0.02 K/uL (0.00-0.02) 02/01/21 Na 140 mmol/L (136-145) 02/02/21 K 4.0 mmol/L (3.5-5.1) 02/02/21 Cl 108 mmol/L (98-107) H 02/02/21 CO2 27 mmol/L (21-32) 02/02/21 Anion Gap 5.0 (3-11) 02/02/21 BUN 11 mg/dl (7-18) 02/02/21 Creatinine 0.83 mg/dl (0.6-1.2) 02/02/21 BUN/Creatinine Ratio 13.4 (10-20) 02/02/21 Glucose Level 135 mg/dl (70-99) H 02/02/21 Ca 9.6 mg/dl (8.5-10.1) 02/02/21 Total Bilirubin 0.3 mg/dl (0.2-1) 02/01/21 AST/SGOT 19 U/L (15-37) 02/01/21 ALT/SGPT 29 U/L (12-78) 02/01/21 Alkaline Phosphatase 181 U/L (45-117) H 02/01/21 Total Protein 7.8 gm/dl (6.4-8.2) 02/01/21 Albumin 3.3 gm/dl (3.4-5.0) L 02/01/21 Globulin 4.5 gm/dl (2.5-4.0) H 02/01/21 Albumin/Globulin Ratio 0.7 (0.9-2) L 02/01/21 Total CK 68 U/L (26-192) 01/31/21 Troponin I < 0.015 ng/ml (0-0.045) 01/31/21 INR 1.0 (0.9-1.1) 01/31/21 COVID-19 PCR NEGATIVE (Negative) 01/31/21 Influenza Virus Type A (PCR) Negative (Neg) 01/31/21 Influenza Virus Type B (PCR) Negative (Neg) 01/31/21 ABG pH 7.33 (7.35-7.45) L 02/01/21 ABG pCO2 50 mmHg (35-46) H 02/01/21 ABG pO2 84 mmHg (80-95) 02/01/21 ABG HCO3 26 mmol/L (19-24) H 02/01/21 ABG O2 Saturation 96.0 % (90-95) H 02/01/21 ABG Base Excess -0.5 mEq/L (-9-1.8) 02/01/21 Chest X-Ray 01/31/21 Code Status & VTE Plan Code Status Full Code VTE Prophylaxis Plan VTE Prophylaxis will be ordered: Yes Supervising Physician Co-Signing Physician Notes Pt was seen and examined. Agreed with Carley CABRALES exam, assessment and plan. 60-year-old female who has significant PMH of IDDM 2, HTN, HLD, multiple sclerosis, history of hemorrhagic CVA status post craniotomy with residual left- sided weakness and mild left facial droop, history of TIA, diabetic neuropathy, hypothyroidism, history of migraine, vitamin D deficiency, depression with anxiety who presents to ED secondary hypersomnolence, increased right facial droop and increased generalized weakness. History obtained from due to pt lethargy. said that pt was fine last night before going to bed. She took her medications last night Effexor, baclofen, nortriptyline and Percocet. When she woke up this morning noticed that she had slid out of bed. She is very drowsy and unable to keep her eyes open. She denies any fever, chills, sweats, lightheadedness, dizziness or syncope, chest pain, shortness breath, cough, nausea, vomiting, abdominal pain. CT head showed no hemorrhage, mass effect, or evidence of acute territorial ischemia. Creatinine on admission 2.13. No focal neuro deficit on exam and able to follow commands. Symptoms mostly due to multiple sedating meds with muscle relaxers, opiates in the setting of MILTON. Will continue IVF, Will hold sedative meds. Will consider to get a MRI of the head to r/o any MS flares. Will consult neurology. Will monitor BMP. Continue monitor closely in telemetry. MD Akil
[2021-01-31 19:29] LABS: Creatine Kinase 68 U/L (26-192)
[2021-01-31 20:00] LABS: Appearance Urine Cloudy (Clear); Bacteria Urine Automated Negative (Negative); Bilirubin Urine Negative (Negative); Blood Urine 1+ (Negative); Cast Urine Automated 0 /lpf (0-5); Color Urine Yellow; Epithelial Cell Urine Auto 0-5 /lpf (0-5); Glucose Urine UA Negative (Negative); Ketones Urine Negative (Negative); Leukocyte Esterase Urine 3+ (Negative); Nitrite Urine Negative (Negative); Protein Urine Trace (Negative); Specific Gravity Urine 1.013 (1.000-1.030); Urobilinogen Urine Negative (Negative); WBC Urine Automated >30 /hpf (0-5)
[2021-01-31 20:33] LABS: Amphetamines+Metham, Urine Neg (Neg); Barbiturates, Urine Neg (Neg); Benzodiazepine, Urine Pos (Neg); Cocaine, Urine Neg (Neg); MDMA (Ecstacy), Urine Neg (Neg); Methadone, Urine Neg (Neg); Opiate, Urine Neg (Neg); Phencyclidine, Urine Neg (Neg)
[2021-01-31] MEDS ORDERED: ACETAMINOPHEN 325 MG TAB PO PRN (22:00)
[2021-01-31] MEDS ORDERED: GLUCOSE 40% GEL 15 GM TUBE PO PRN (22:00)
[2021-01-31] MEDS ORDERED: ONDANSETRON INJ 2 MG/ML 2 ML VIAL IV PRN (22:00)
[2021-01-31] MEDS ORDERED: MAGNESIUM HYDROXIDE SUSP 30 ML UDC PO PRN (22:00)
[2021-01-31] MEDS ORDERED: ALUMINUM/MAGNESIUM SUSP 30 ML UDC PO PRN (22:00)
[2021-01-31] MEDS ORDERED: POLYETHYLENE (MIRALAX) 17 GM PACK PO PRN (22:00)
[2021-01-31] MEDS ORDERED: BACLOFEN 10 MG TAB PO SCH (22:00)
[2021-01-31] MEDS ORDERED: DEXTROSE 50% 50 ML SYRINGE IV PRN (22:00)
[2021-01-31] MEDS ORDERED: GLUCOSE 10 TABS/TUBE PO PRN (22:00)
[2021-01-31] MEDS ORDERED: INSULIN GLARGINE SOLOSTAR 100 UNITS/ML 3 ML PEN SC ONE (22:00)
[2021-01-31] MEDS ORDERED: CARBOHYDRATES FOR HYPOGLYCEMIA PO PRN (22:00)
[2021-01-31] MEDS ORDERED: GLUCAGON FOR INJ 1 MG VIAL SQ PRN (22:00)
[2021-01-31] MEDS ORDERED: PHARMACY GLYCEMIC MGMT CONSULT PRN (22:44)
[2021-01-31] MEDS ORDERED: cefTRIAXone SODIUM 2,000 MG in DEXTROSE 5% 50 ML IV SCH (23:00)
[2021-01-31] MEDS: CALCIUM 600MG + VIT D 400 IU TAB PO SCH (23:08)
[2021-01-31] MEDS: MIRABEGRON ER 25 MG TAB PO SCH (23:09)
[2021-01-31] MEDS: HEPARIN SOD 5,000 UNIT/0.5 ML VIAL SQ SCH (23:09)
[2021-01-31] MEDS: NYSTATIN POWDER 15GM BTL EXT SCH (23:10)
[2021-01-31] MEDS: NORTRIPTYLINE HCL 25 MG CAP PO SCH (23:10)
[2021-01-31] MEDS: MULTIVITAMIN TAB PO SCH (23:10)
[2021-01-31] MEDS: VENLAFAXINE HCL XR 75 MG CAPXR PO SCH (23:11)
[2021-01-31] MEDS: VENLAFAXINE HCL XR 150 MG CAPXR PO SCH (23:12)
[2021-01-31] MEDS: SODIUM CHLORIDE 0.9% 1000ML 1,000 ML IV SCH (23:16)
[2021-01-31] MEDS: PREGABALIN 150 MG CAP PO SCH (23:16)
[2021-01-31] MEDS: INSULIN ASPART 100 UNITS/ML 3 ML PEN SC SCH (23:47)
[2021-02-01] MEDS ORDERED: LABETALOL HCL IV 5 MG/ML 20ML IV STA (04:43)
[2021-02-01] MEDS ORDERED: PIPERACILL/TAZOBAC CONSULT ACTIVE PRN (05:05)
[2021-02-01] MEDS: INSULIN ASPART 100 UNITS/ML 3 ML PEN SC SCH ×6 (05:07→21:36)
--- NOTE | 2021-02-01 05:07 | Communication Note ---
Date of Service: February 01, 2021 Patient noted to be increasingly lethargic as per RN. Patient moaning as per RN. Right facial droop noted as per HPI. Patient denies headache symptoms. Weaker than usual as per patient Initial SBP 190s as per RN Patient still tachycardic as per RN. CT head initial read: Old encephalomalacia right frontal lobe. No acute infarct or intracranial hemorrhage. AP Encephalopathy ? Uncontrolled hypertension ? MS flareup secondary to complicated UTI, ongoing treatment with Ceftriaxone Lyrica, baclofen, anticholinergic agents contributory to encephalopathy. Labetalol 1 dose now Change Ceftriaxone to Zosyn for broader coverage (history Enterococcus noted on prior urine CS) Hold parameters for Lyrica, baclofen, anticholinergic agents for sedation confusion Follow MRI, Await Neurology input regarding possible MS flare up consideration Will relay to AM provider.
[2021-02-01 05:22] LABS: Allen Test Pos (Pos); Base Excess ABG -0.5 mEq/L (-9-1.8); HCO3 ABG 26 mmol/L (19-24); PCO2 ABG 50 mmHg (35-46); PO2 ABG 84 mmHg (80-95); pH ABG 7.33 (7.35-7.45)
[2021-02-01 05:24] LABS: Basophils # (auto) 0.02 K/uL (0-0.2); Basophils % (auto) 0.2 %; Eosinophils # (auto) 0.18 K/uL (0-0.5); Hematocrit (blood only) 35.1 % (37-47); Hemoglobin 11.6 g/dL (12.0-16.0); Immature Granulocytes # (auto) 0.02 K/uL (0.00-0.02); Immature Granulocytes % (auto) 0.2 %; Lymphocytes # (auto) 2.24 K/uL (1.2-3.4); Lymphocytes % (auto) 24.5 %; Mean Corpuscular Hemoglobin 30.2 pg (25-34); Mean Corpuscular Volume 91.4 fL (80-100); Mean Platelet Volume 8.7 fL (7.4-10.4); Monocytes # (auto) 0.53 K/uL (0.11-0.59); Monocytes % (auto) 5.8 %; Neutrophils # (auto) 6.15 K/uL (1.4-6.5); Neutrophils % (auto) 67.3 %; Platelet Count 298 K/uL (130-400); RDW Coefficient of Variation 13.1 % (11.5-14.5); RDW Standard Deviation 43.7 fL (36.4-46.3); Red Blood Count 3.84 M/uL (4.2-5.4); White Blood Count 9.14 K/uL (4.8-10.8)
[2021-02-01] MEDS: HEPARIN SOD 5,000 UNIT/0.5 ML VIAL SQ SCH ×3 (05:45→19:42)
[2021-02-01] MEDS: PIPERACILLIN/TAZOBACTAM 4.5 GM in DEXTROSE 5% 100 ML IV SCH ×3 (05:45→21:35)
[2021-02-01 06:02] LABS: Albumin Globulin Ratio 0.7 (0.9-2); Albumin Level 3.3 gm/dl (3.4-5.0); BUN Creatinine Ratio 17.6 (10-20); Bilirubin,Total 0.3 mg/dl (0.2-1); Calcium 8.6 mg/dl (8.5-10.1); Est GFR (African American) 78.4; Est GFR (Non-African American) 67.7; Globulin 4.5 gm/dl (2.5-4.0); Potassium 4.4 mmol/L (3.5-5.1); Total Protein 7.8 gm/dl (6.4-8.2)
--- NOTE | 2021-02-01 07:23 | CT Scan Report ---
CT OF THE HEAD WITHOUT CONTRAST CLINICAL HISTORY: Altered mental status. COMPARISON STUDY: Head CT January 31, 2021. MRI of the brain January 27, 2021. CT DOSE: 2726.58 mGy.cm TECHNIQUE: Helical axial images of the head were obtained without IV contrast. Automated exposure con trol was utilized for the study. A dose lowering technique was utilized adhering to the principles o f ALARA. FINDINGS: No acute intracranial hemorrhage, midline shift or mass effect is present. The ventricular system is stable. Right frontal craniotomy is noted. Encephalomalacia within the right frontal lobe i s unchanged. There are no findings to suggest acute dural sinus thrombosis or acute territorial infar ct. There is no calvarial fracture. IMPRESSION: No acute intracranial findings. No change in appearance of the brain. ACT 112: Negative or not required by law. Electronically signed by: Archie Roa M.D. 02/01/2021 7:21 AM
[2021-02-01] MEDS ORDERED: INSULIN GLARGINE SOLOSTAR 100 UNITS/ML 3 ML PEN SC ONE ×2 (08:30→13:00)
[2021-02-01] MEDS: LEVOTHYROXINE SODIUM 50 MCG TABLET PO SCH (08:44)
[2021-02-01] MEDS: SODIUM CHLORIDE 0.9% 1000ML 1,000 ML IV SCH ×2 (08:44→15:51)
[2021-02-01] MEDS: BACLOFEN 10 MG TAB PO SCH ×4 (08:45→19:36)
[2021-02-01] MEDS: NYSTATIN POWDER 15GM BTL EXT SCH ×2 (08:45→19:37)
[2021-02-01] MEDS: ALFUZOSIN HCL 10 MG TAB PO SCH (08:45)
[2021-02-01] MEDS: ASPIRIN 81 MG ECTAB PO SCH (08:46)
[2021-02-01] MEDS: PREGABALIN 150 MG CAP PO SCH ×3 (08:48→21:36)
--- NOTE | 2021-02-01 11:17 | Communication Note ---
Date of Service: February 01, 2021 Rekha is 60 years old and is known to me from multiple prior visits for her multiple sclerosis over the years. 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 This occurs in the setting of diabetes with a diabetic polyneuropathy and she has been seen by myself and by the multiple sclerosis group at [facility] and at this point there is no appropriate disease modifying therapy for her form of the illness and she is only on some symptomatic treatment of spasticity and center She was brought in to the hospital because of the development in the setting of outpatient treatment for Klebsiella pneumonia urinary tract infection for several days with increasing lethargy and perhaps more dysarthric speech and perhaps an increase in right hemiparesis without any particular fever She was seen in the emergency room BUN and creatinine were said to be elevated yet when I look over the laboratory studies I do not find this documented and she was treated with IV fluids, her elevated glucose was treated with insulin and her urinary tract infection treatment was switched to intravenous antibiotics as per the hospitalist notes. A number of her sedative-hypnotic medications have also been discontinued and she is on deck for an MRI to be certain this is not some sort of "MS flare" which I would find to be unusual versus a new CVA which is theoretically possible as the CT scan really would be an adequate to address an acute new vascular event this will be delayed as she does have a spinal cord stimulator in place which will have to be turned off p rior to the study Her other medical problems are listed and in addition to the acute issues include obstructive sleep apnea, hip fracture, multiple falls, neurogenic bladder, recurrent urinary tract infections, compression of T11 vertebral body, restless leg syndrome which is really a manifestation of spasticity and complicated by peripheral neuropathy, depression, TMJ dysfunction, hypothyroidism, moderate obesity, migraine headaches, hypertension, dyslipidemia, iron deficiency anemia, type 2 diabetes, and insertion of a spinal cord stimulator for pain that needs to be turned off prior to the MRI Medications at home include alfuzosin, aspirin, atorvastatin, baclofen 15 mg 4 times a day, calcium for fluctuating no ferrous sulfate, insulin, levothyroxine, lisinopril, Skelaxin, Metformin, Mirabegron, multivitamins, nortriptyline, nystatin oxycodone, Lyrica, semaglutide, Effexor She has allergies to methylphenidate sumatriptan and insulin Review of systems recently is been pretty unremarkable with the exception of the bladder infection and now the lethargy and hypersomnolence that prompted admission. She specifically denies any new issues referable to head eyes ears nose and throat, cardiovascular pulmonary gastrointestinal genitourinary musculoskeletal dermatologic or hematologic systems and neurologically she feels her status is about the same or was up until her current illness when a lot of her neurologic symptoms worsened. She now feels almost back to her normal baseline Family history is noncontributory Social history reveals to be non-smoker nonconsumer of ethanol Exam reveals blood pressure 149/76 pulse 96 and regular respirations 17 she is afebrile O2 saturations are 95% She is awake alert oriented in 3 spheres conversant and with her usual in my opinion baseline dysarthric speech with a mild right upper motor neuron facial asymmetry, some subjective numbness of the right side of the face normal eye movements normal gross visual acuity normal visual rivera. She has a modest right hemiparesis affecting the arm and the leg which appears about the same to me as it was in the clinic and has a symmetrical distal sensory loss to vibration light touch and temperature notes typical of her polyneuropathy. I think her right toe sign is clearly upgoing as is the left and the left is due to her old MS I doubt that this was anything more than a "pseudoflare" of her MS symptoms and more likely of her vascular symptoms emanating from the old left hemispheric stroke caused by dehydration, effects of urinary tract infection and perhaps some elevated glucose levels I agree with proceeding with an MRI scan to be certain there is no new infarction or new areas of disease activity from her MS but I would find these unlikely in light of her slowly progressive disease which at her age and stage is unlikely to be associated with any acute exacerbations I am going order an EEG just to be certain that she does not have some partial seizure activity resulting from the old left hemispheric lesion but I would find this to be an unlikely diagnosis. We will check back with her tomorrow review the EEG but at this point I certainly would not recommend any steroid therapy for MS flareup nor would I added another antiplatelet agent to her anticoagulant program this of course we see clear evidence for a new vascular event Clif Xiao MD
[2021-02-01] MEDS ORDERED: LORazepam 0.25 MG/0.5 ML VIAL IV STA (11:44)
--- NOTE | 2021-02-01 13:45 | Pharmacy Report ---
Pharmacy Glycemic Short Note 2 - Date of Service February 01, 2021 - Glycemic Short BSG Results (Last 24 hours): 01/31/21 01/31/21 01/31/21 15:26 15:28 15:30 Glucose 303 H* POC Glucose 375 H* 347 H* 01/31/21 01/31/21 01/31/21 17:28 21:43 23:18 Glucose POC Glucose 221 H 179 H 138 H 02/01/21 02/01/21 02/01/21 03:58 05:02 07:12 Glucose 152 H POC Glucose 139 H 156 H 02/01/21 11:38 Glucose POC Glucose 135 H OUTPATIENT ANTIDIABETIC REGIMEN: * Metformin 500 mg PO TID * Lantus 17 units SC BID * Novolog 3 units SC w/ meals + SSI * BSG 100-150 = 5 units * BSG 151-200 = 7 units * BSG 201-250 = 10 units * BSG 251-300 = 14 units * BSG 301-350 = 18 units * BSG > 350 = 20 units * Ozempic 1 mg SC once weekly * HbA1c pending ASSESSMENT: * 60 yo F admitted secondary to MILTON and hypersomnolence. Pharmacy has been consulted to assist with inpatient glycemic management. * Upon admission yesterday, BSGs were 375-347 mg/dL. Patient received a 5 unit IV bolus in the ED and BSGs improved to 221-179-138 mg/dL. * She received 10 units of Lantus upon pharmacy consult last evening. * Fasting BSG was 156 mg/dL this AM * She was initially NPO this AM but then a diet was ordered at lunch * Will start Lantus 10 units BID and continue current Novolog orders PLAN FOR INPATIENT GLYCEMIC CONTROL: * Hold outpatient oral diabetes medications * Basal insulin * Lantus 10 units SQ BID * Bolus insulin * NovoLog per scale ACHS or Q6hrs while NPO * Goal Range: Low 120 mg/dL - High 160 mg/dL * Correction Factor: 30 mg/dL/unit * Nutritional / Prandial insulin per carb ratio of 1 unit per 10 grams CHO consumed PLAN FOR DISCHARGE: * To be determined
--- NOTE | 2021-02-01 15:30 | Hospitalist Progress Note ---
Date of Service February 01, 2021 Assessment & Plan (1) MILTON (acute kidney injury): (2) Hypersomnolence: (3) Weakness: (4) UTI (urinary tract infection): This is a 60-year-old female who has significant PMH of IDDM 2, HTN, HLD, multiple sclerosis, history of hemorrhagic CVA status post craniotomy with residual left-sided weakness and mild left facial droop, history of TIA, diabetic neuropathy, hypothyroidism, history of migraine, vitamin D deficiency, depression with anxiety who presents to ED secondary hypersomnolence, increased right facial droop and increased generalized weakness x1 day. MILTON creatinine on admission 2.13, baseline cr 0.8 Received IVF Creatinine improved to 0.9 Continue to avoid metformin, lisinopril Will d/c IVF since pt able to take po Continue monitor BMP UTI pt dx with > 100k kleb UTI as outpt 01/27 on ceftin day 2 afebrile, WBC WNL Ceftin was changed to IV rocephin on admission Stable Hypersomnolence/weakness Possible related to medication in the setting of MILTON VS MS flares (doubt ) CT head showed no acute intracranial finding Continue to hold medication that can cause [employer] HEAD side effect such as lethargy Neuro on board Waiting for MRI and EEG Continue monitor closely HTN Continue to hold lisinopril given MILTON prn IV labetolol Continue monitor BP T2DM BS on admission above 300 Pharmacy on board for glycemic management Check Hba1c in am Insulin-dependent Lantus/NovoLog per protocol Continue monitor BS History of hemorrhagic CVA status post craniotomy 12/2017 with residual left- sided weakness Multiple sclerosis Continue Lyrica and baclofen Continue to hold Percocet and Skelaxin MRI pending to assess for any new lesion HLD continue statin HELIO CPAP at HS and while sleeping during day DVT Prophylaxis SQ Heparin Dispo: TELE PCP: Dr. Vazquez CODE STATUS FULL CODE Admission and Anticipated Discharge Date Admission Date: January 31, 2021 Subjective Pt was seen and examined for follow up of lethargy/drowsiness Lying in bed with no acute distress Pt is back to her baseline conversing and follow commands She said that yesterday that she was very sleepy and took her Lyrica in top of that She is getting ready for the MRI Denies any chest pain, palpitation,dizziness and SOB Review of Systems Review of Systems: All systems reviewed & are unremarkable except as noted in Subjective Physical Exam Physical Exam: General- No acute distress Head- atraumatic Eyes- PERRL, EOMI, ENT- oropharynx clear Neck- supple, no JVD Lungs- clear to auscultation Heart- regular rhythm; no murmur Abdomen- normal bowel sounds, soft, nontender Extremities- no calf tenderness Neuro- alert, oriented x 3; PERRL, EOMI; no facial palsy; no dysarthria, sensation intact Skin- warm & dry Results & Data Results & Data ([facility]) Vital Signs (Past 12 Hours) Vital Signs Temp Pulse Resp BP BP Pulse Ox 02/01/21 12:07 36.9 C 86 16 154/88 H 96 02/01/21 08:26 37.1 C 96 H 17 149/76 H 95 02/01/21 04:45 110 H 16 133/75 93 02/01/21 04:30 171/94 H 02/01/21 04:00 36.8 C 95 H 16 190/106 H 199/106 H 93
[2021-02-01] MEDS: MIRABEGRON ER 25 MG TAB PO SCH (19:34)
[2021-02-01] MEDS: MULTIVITAMIN TAB PO SCH (19:34)
[2021-02-01] MEDS: VENLAFAXINE HCL XR 75 MG CAPXR PO SCH (19:36)
[2021-02-01] MEDS: VENLAFAXINE HCL XR 150 MG CAPXR PO SCH (19:36)
[2021-02-01] MEDS: CALCIUM 600MG + VIT D 400 IU TAB PO SCH (19:37)
[2021-02-01] MEDS: NORTRIPTYLINE HCL 25 MG CAP PO SCH (19:37)
[2021-02-01] MEDS: INSULIN GLARGINE SOLOSTAR 100 UNITS/ML 3 ML PEN SC SCH (21:36)
[2021-02-02] MEDS ORDERED: GADOBUTROL 65ML VIAL IV ONE (01:37)
[2021-02-02] MEDS: PIPERACILLIN/TAZOBACTAM 4.5 GM in DEXTROSE 5% 100 ML IV SCH ×2 (05:51→13:48)
[2021-02-02] MEDS: HEPARIN SOD 5,000 UNIT/0.5 ML VIAL SQ SCH ×3 (05:55→22:14)
[2021-02-02] MEDS: LEVOTHYROXINE SODIUM 50 MCG TABLET PO SCH (05:56)
[2021-02-02 07:40] LABS: Hemoglobin 11.7 g/dL (12.0-16.0); Mean Corpuscular Hemoglobin 29.8 pg (25-34); Mean Corpuscular Hgb Conc 32.5 g/dL (32-36); Mean Corpuscular Volume 91.6 fL (80-100); Mean Platelet Volume 8.7 fL (7.4-10.4); Platelet Count 280 K/uL (130-400); RDW Coefficient of Variation 13.1 % (11.5-14.5); RDW Standard Deviation 44.2 fL (36.4-46.3); Red Blood Count 3.93 M/uL (4.2-5.4); White Blood Count 8.21 K/uL (4.8-10.8)
[2021-02-02 08:13] LABS: BUN Creatinine Ratio 13.4 (10-20); Calcium 9.6 mg/dl (8.5-10.1); Creatinine Clr Calc Pharmacy 75.5 ml/min; Est GFR (African American) 88.8; Est GFR (Non-African American) 76.6
--- NOTE | 2021-02-02 08:22 | Magnetic Resonance Report ---
MRI OF THE BRAIN WITHOUT AND WITH IV CONTRAST CLINICAL HISTORY: weakness, MS LEFT FACIAL DROOP COMPARISON STUDY: Noncontrast head CT dated 02/01/2021, MRI the brain dated 01/28/2020 TECHNIQUE: MRI of the brain was performed from the vertex to the skull base utilizing various T1 and T2 weighted sequences. Following the IV administration of 9 mL of Gadavist contrast, additional enhan sonia images were obtained. FINDINGS: Sagittal T1, axial diffusion, proton density and T2 weighted axial, coronal FLAIR, and pre and post a xial T1-weighted images were acquired. These were supplemented with post gadolinium coronal T1 weight ed images. No intra or extra-axial mass lesions are visualized. Axial diffusion-weighted images reveal no evidence of acute or subacute infarction. A 9 mm focus of i ncreased signal on diffusion-weighted sequences posterior to the atrium of the left lateral ventricle is felt to represent T2 shine through area There is no evidence of ventricular dilatation. Proton density T2-weighted and FLAIR images reveal postsurgical changes are prior right frontal crani otomy. There is evidence for prior right frontal lobe encephalomalacia with areas of hemosiderin depo sition. There are stable foci of increased T2 signal within the white matter most pronounced posterio r to the atria of the lateral ventricles. There is also a persistent 7 mm focus of increased T2 signa l within the right cerebellar hemisphere. There are no abnormal flow voids. There is no evidence of pathologic enhancement. The study is motion degraded. IMPRESSION: 1. Motion degraded study 2. No acute intracranial findings 2. No evidence of intracranial mass 4. No evidence of acute or subacute infarction 5. Postsurgical changes of a prior right frontal craniotomy with right frontal lobe encephalomalacia ACT 112: Negative or not required by law. Electronically signed by: Dominic Henning M.D. 02/02/2021 8:21 AM
[2021-02-02 08:25] LABS: Estimated Average Glucose 169 mg/dl; Hemoglobin A1C 7.5 % (4.5-5.6)
[2021-02-02] MEDS: INSULIN GLARGINE SOLOSTAR 100 UNITS/ML 3 ML PEN SC SCH ×2 (08:25→20:57)
[2021-02-02] MEDS: NYSTATIN POWDER 15GM BTL EXT SCH ×2 (08:25→22:19)
[2021-02-02] MEDS: INSULIN ASPART 100 UNITS/ML 3 ML PEN SC SCH ×4 (08:25→20:58)
[2021-02-02] MEDS: BACLOFEN 10 MG TAB PO SCH ×4 (08:27→20:50)
[2021-02-02] MEDS: PREGABALIN 150 MG CAP PO SCH ×3 (08:28→22:13)
[2021-02-02] MEDS: ALFUZOSIN HCL 10 MG TAB PO SCH (08:28)
[2021-02-02] MEDS: ASPIRIN 81 MG ECTAB PO SCH (12:38)
--- NOTE | 2021-02-02 14:52 | Electroencephalogram ---
EEG Procedure Note Date of Service February 02, 2021 Start / End Times Start Time: 30 End Time: 0650 Referring Physician Clif Xiao MD History transient worsening of dysarthria and right hemiparesis post remote cva Home Medication List Medication Instructions Recorded Confirmed Type atorvastatin 80 mg PO PM 10/08/18 01/31/21 History venlafaxine 75 mg PO HS 10/08/18 01/31/21 History venlafaxine 150 mg PO HS 10/08/18 01/31/21 History Calcium 600 + D(3) 1 cap PO PM 12/12/18 01/31/21 History aspirin 81 mg PO QDL 12/12/18 01/31/21 History ferrous sulfate [iron] 325 mg PO PM 12/12/18 01/31/21 History levothyroxine 50 mcg PO DAILYBB 12/12/18 01/31/21 History metformin 500 mg PO TID 12/12/18 01/31/21 History multivitamin 1 tab PO PM 12/12/18 01/31/21 History nortriptyline 75 mg PO HS 12/12/18 01/31/21 History insulin aspart U-100 100 unit/mL 3 units SQ TID 12/28/18 01/31/21 History (3 mL) subcutaneous pen insulin glargine 100 unit/mL (3 17 units SQ BID ml 12/28/18 01/31/21 History mL) subcutaneous pen nystatin 1 appln TOP BID #60 gm 01/12/19 01/31/21 Rx oxycodone-acetaminophen 7.5 mg-325 1 tab PO TID PRN tab 05/11/19 01/31/21 History mg tablet lisinopril 5 mg PO DAILY 12/26/19 01/31/21 History pregabalin 150 mg PO TID 12/26/19 01/31/21 History baclofen 15 mg PO QID 01/28/20 01/31/21 History metaxalone [Skelaxin] 800 mg PO BID 01/28/20 01/31/21 History alfuzosin 10 mg tablet,extended 10 mg PO QAM #90 tab 12/23/20 01/31/21 Rx release 24 hr mirabegron 50 mg tablet,extended 50 mg PO HS #90 tab 01/05/21 01/31/21 Rx release 24 hr cefuroxime axetil 250 mg tablet 250 mg PO BID 7 Days #14 tab 01/29/21 01/31/21 Rx semaglutide [Ozempic] 1 mg SUBCUT WK 01/31/21 01/31/21 History Inpatient Medication List Alfuzosin HCl (Alfuzosin Hcl 10 Mg Tab) 10 mg PO QAM [facility] Stop: 03/03/21 08:59 Last Admin: 02/02/21 08:28 Dose: Not Given Documented by: [id number] Admin: 02/01/21 08:45 Dose: 10 mg Documented by: [id number] Aspirin (Aspirin 81 Mg Ectab) 81 mg PO QDL [facility] Stop: 03/03/21 11:29 Last Admin: 02/02/21 12:38 Dose: 81 mg Documented by: [id number] Admin: 02/01/21 08:46 Dose: 81 mg Documented by: [id number] Baclofen (Baclofen 10 Mg Tab) 10 mg PO QID [facility] Stop: 03/03/21 08:59 Last Admin: 02/02/21 12:38 Dose: 10 mg Documented by: [id number] Admin: 02/02/21 08:27 Dose: Not Given Documented by: [id number] Admin: 02/01/21 19:36 Dose: 10 mg Documented by: [id number] Admin: 02/01/21 16:55 Dose: 10 mg Documented by: [id number] Admin: 02/01/21 13:10 Dose: Not Given Documented by: [id number] Admin: 02/01/21 08:45 Dose: 10 mg Documented by: [id number] Heparin Sodium (Porcine) (Heparin Sod 5,000 Unit/0.5 Ml Vial) 5,000 units SQ Q8 [facility] Stop: 03/02/21 21:59 Last Admin: 02/02/21 13:48 Dose: 5,000 units Documented by: [id number] Admin: 02/02/21 05:55 Dose: 5,000 units Documented by: [id number] Admin: 02/01/21 19:42 Dose: 5,000 units Documented by: [id number] Admin: 02/01/21 13:14 Dose: 5,000 units Documented by: [id number] Admin: 02/01/21 05:45 Dose: 5,000 units Documented by: [id number] Admin: 01/31/21 23:09 Dose: 5,000 units Documented by: [id number] Piperacillin Sod/Tazobactam (Sod 4.5 gm/ Dextrose) 120 mls @ 30 mls/hr IV Q8H [facility]; Protocol Stop: 02/02/21 18:00 Last Admin: 02/02/21 13:48 Dose: 30 mls/hr Documented by: [id number] Infusion: 02/02/21 10:14 Dose: 0 mls/hr Documented by: [id number] Admin: 02/02/21 05:51 Dose: 30 mls/hr Documented by: [id number] Infusion: 02/02/21 01:49 Dose: 0 mls/hr Documented by: [id number] Admin: 02/01/21 21:35 Dose: 30 mls/hr Documented by: [id number] Infusion: 02/01/21 17:38 Dose: 0 mls/hr Documented by: [id number] Admin: 02/01/21 13:16 Dose: 30 mls/hr Documented by: [id number] Infusion: 02/01/21 10:04 Dose: 0 mls/hr Documented by: [id number] Admin: 02/01/21 05:45 Dose: 30 mls/hr Documented by: [id number] Insulin Aspart (Insulin Aspart 100 Units/Ml 3 Ml Pen) 0 units SC ACHS [facility]; Protocol Stop: 03/03/21 00:00 Last Admin: 02/02/21 12:39 Dose: 5 units Documented by: [id number] Cosigned by: [id number] Admin: 02/02/21 08:25 Dose: Not Given Documented by: [id number] Cosigned by: [id number] Admin: 02/01/21 21:36 Dose: 1 units Documented by: [id number] Cosigned by: [id number] Admin: 02/01/21 17:42 Dose: 7 units Documented by: [id number] Cosigned by: [id number] Admin: 02/01/21 13:11 Dose: 3 units Documented by: [id number] Cosigned by: [id number] Insulin Glargine (Insulin Glargine Solostar 100 Units/Ml 3 Ml Pen) 10 units SC BID [facility]; Protocol Stop: 03/03/21 20:59 Last Admin: 02/02/21 08:25 Dose: 10 units Documented by: [id number] Cosigned by: [id number] Admin: 02/01/21 21:36 Dose: 10 units Documented by: [id number] Cosigned by: [id number] Levothyroxine Sodium (Levothyroxine Sodium 50 Mcg Tablet) 50 mcg PO DAILYBB [facility] Stop: 03/03/21 06:29 Last Admin: 02/02/21 05:56 Dose: 50 mcg Documented by: [id number] Admin: 02/01/21 08:44 Dose: 50 mcg Documented by: [id number] Mirabegron (Mirabegron Er 25 Mg Tab) 50 mg PO HS [facility] Stop: 03/02/21 21:59 Last Admin: 02/01/21 19:34 Dose: 50 mg Documented by: [id number] Admin: 01/31/21 23:09 Dose: 50 mg Documented by: [id number] Multivitamins (Multivitamin Tab) 1 tab PO PM [facility] Stop: 03/02/21 21:59 Last Admin: 02/01/21 19:34 Dose: 1 tab Documented by: [id number] Admin: 01/31/21 23:10 Dose: 1 tab Documented by: [id number] Multivitamins/Minerals (Calcium 600mg + Vit D 400 Iu Tab) 1 tab PO PM [facility] Stop: 03/02/21 21:59 Last Admin: 02/01/21 19:37 Dose: 1 tab Documented by: [id number] Admin: 01/31/21 23:08 Dose: 1 tab Documented by: [id number] Nortriptyline HCl (Nortriptyline Hcl 25 Mg Cap) 75 mg PO [facility] Stop: 03/02/21 21:59 Last Admin: 02/01/21 19:37 Dose: 75 mg Documented by: [id number] Admin: 01/31/21 23:10 Dose: 75 mg Documented by: [id number] Nystatin (Nystatin Powder 15gm Btl) 1 appln EXT BID [facility] Stop: 03/02/21 21:59 Last Admin: 02/02/21 08:25 Dose: 1 appln Documented by: [id number] Admin: 02/01/21 19:37 Dose: 1 appln Documented by: [id number] Admin: 02/01/21 08:45 Dose: 1 appln Documented by: [id number] Admin: 01/31/21 23:10 Dose: 1 appln Documented by: [id number] Pregabalin (Pregabalin 150 Mg Cap) 150 mg PO TID [facility] Stop: 03/02/21 21:59 Last Admin: 02/02/21 13:48 Dose: 150 mg Documented by: [id number] Admin: 02/02/21 08:28 Dose: Not Given Documented by: [id number] Admin: 02/01/21 21:36 Dose: 150 mg Documented by: [id number] Admin: 02/01/21 13:11 Dose: Not Given Documented by: [id number] Admin: 02/01/21 08:48 Dose: 150 mg Documented by: [id number] Admin: 01/31/21 23:16 Dose: 150 mg Documented by: [id number] Venlafaxine HCl (Venlafaxine Hcl Xr 75 Mg Capxr) 75 mg PO [facility] Stop: 03/02/21 21:59 Last Admin: 02/01/21 19:36 Dose: 75 mg Documented by: [id number] Admin: 01/31/21 23:11 Dose: 75 mg Documented by: [id number] Venlafaxine HCl (Venlafaxine Hcl Xr 150 Mg Capxr) 150 mg PO [facility] Stop: 03/02/21 21:59 Last Admin: 02/01/21 19:36 Dose: 150 mg Documented by: [id number] Admin: 01/31/21 23:12 Dose: 150 mg Documented by: [id number] Discontinued Medications Baclofen (Baclofen 10 Mg Tab) 10 mg PO QID [facility] Stop: 03/02/21 21:59 Last Admin: 02/01/21 15:53 Dose: Not Given Documented by: [id number] Gadobutrol (Gadobutrol 65ml Vial) 9 ml IV ONCE ONE Stop: 02/02/21 01:38 Last Admin: 02/02/21 01:38 Dose: 9 ml Documented by: [id number] Sodium Chloride (Nss 1000ml) 1,000 mls @ 999 mls/hr IV .Q1H1M [facility] Stop: 01/31/21 16:30 Last Infusion: 01/31/21 19:47 Dose: 999 mls/hr Documented by: [id number] Admin: 01/31/21 16:28 Dose: 999 mls/hr Documented by: [id number] Sodium Chloride (Nss 1000ml) 1,000 mls @ 999 mls/hr IV .Q1H1M ONE Stop: 01/31/21 17:49 Last Infusion: 01/31/21 20:37 Dose: 0 mls/hr Documented by: [id number] Infusion: 01/31/21 18:06 Dose: 999 mls/hr Documented by: [id number] Admin: 01/31/21 17:06 Dose: 999 mls/hr Documented by: [id number] Sodium Chloride (Nss 1000ml) 1,000 mls @ 125 mls/hr IV .Q8H [facility] Stop: 03/02/21 21:59 Last Admin: 02/01/21 15:51 Dose: Not Given Documented by: [id number] Infusion: 02/01/21 15:49 Dose: 0 mls/hr Documented by: [id number] Admin: 02/01/21 08:44 Dose: 125 mls/hr Documented by: [id number] Infusion: 02/01/21 07:16 Dose: 125 mls/hr Documented by: [id number] Admin: 01/31/21 23:16 Dose: 125 mls/hr Documented by: [id number] Ceftriaxone Sodium 2,000 mg/ (Dextrose) 70 mls @ 100 mls/hr IV Q24H [facility]; Protocol Stop: 02/05/21 22:59 Last Infusion: 02/01/21 00:56 Dose: 0 mls/hr Documented by: [id number] Admin: 01/31/21 23:10 Dose: 100 mls/hr Documented by: [id number] Lorazepam (Ativan) 0.25 mg in 0.5 mls @ 0.5 mls/min IV NOW STA Stop: 02/01/21 11:45 Last Admin: 02/02/21 00:05 Dose: 0.5 mls/min Documented by: [id number] Insulin Aspart (Insulin Aspart 100 Units/Ml 3 Ml Pen) 0 units SC Q4 [facility]; Protocol Stop: 03/03/21 00:00 Last Admin: 02/01/21 12:03 Dose: Not Given Documented by: [id number] Cosigned by: [id number] Admin: 02/01/21 08:44 Dose: Not Given Documented by: [id number] Cosigned by: [id number] Admin: 02/01/21 05:07 Dose: Not Given Documented by: [id number] Admin: 01/31/21 23:47 Dose: Not Given Documented by: [id number] Insulin Glargine (Insulin Glargine Solostar 100 Units/Ml 3 Ml Pen) 10 units SC ONE ONE; Protocol Stop: 01/31/21 22:01 Last Admin: 01/31/21 23:11 Dose: 10 units Documented by: [id number] Cosigned by: [id number] Insulin Glargine (Insulin Glargine Solostar 100 Units/Ml 3 Ml Pen) 10 units SC ONE ONE; Protocol Stop: 02/01/21 13:01 Last Admin: 02/01/21 13:13 Dose: 10 units Documented by: [id number] Cosigned by: [id number] Insulin Human Regular (Novolin-R Insulin Per Unit Charge) 5 units IV NOW STA Stop: 01/31/21 17:16 Last Admin: 01/31/21 17:28 Dose: 5 units Documented by: [id number] Cosigned by: [id number] Labetalol HCl (Labetalol Hcl Iv 5 Mg/Ml 20ml) 10 mg IV NOW STA Stop: 02/01/21 04:44 Last Admin: 02/01/21 15:52 Dose: Not Given Documented by: [id number] Description This is a 21 electrode EEG with a single channel dedicated to limited EKG. The electrodes were placed in accordance with the International 10-20 system. This EEG was done as a bedside recording is of excellent technical quality with few or no muscle movement artifacts. Simultaneous video analysis was obtained. Photic stimulation was performed. Under these conditions there is evidence for normal background rhythm in the alpha range of up to 9 to 10 Hz maximum frequency and 30 V maximal amplitude which is maximum posterior head regions and bilaterally symmetrical. Polymorphic mid frequency theta activity of modest voltage is seen in a symmetrical fashion in central regions. Beta activity seen bifrontally. Photic stimulation produces no important changes. Drowsiness and light sleep not recorded No epileptiform discharges or potentially epileptiform discharges are seen specifically originating over the left hemisphere in the region of the old CVA Interpretation There is a normal EEG during wakefulness without evidence for focal generalized encephalopathy or for potential epileptogenic activity Clinical Correlation This EEG is normal and specifically reveals no evidence for potentially epileptiform discharges related to the prior CVA involving the left hemisphere and reveals no evidence for a focal or generalized encephalopathy Clif Xiao MD
--- NOTE | 2021-02-02 15:39 | Neurology Progress Note ---
Date of Service February 02, 2021 Assessment & Plan (1) Hypersomnolence: 1. SOMNOLENCE has resolved 2. EEG- no seizure focus Present on Admission?: Yes (2) Urinary tract infection symptoms: 1. treat to culture 2. likely contributed to the somnolence along with medicine over use ok to follow up once medically stable will sign off for now will be available for questions concerns. Present on Admission?: Yes Admission and Anticipated Discharge Date Admission Date: January 31, 2021 Supervising Physician Co-Signing Physician Notes I have seen and discussed above patient with Dr Clif Xiao, neurology Rekha looks actually back to her baseline today as far as I can tell in terms of her right hemiparesis following her CVA several years ago and her multiple sclerosis issues are manifested primarily by a slow stiff gait and is equivocal left toe that would correlate with the presence of a myelopathy but most of her deficits are due to the old CVA The EEG is normal revealing not even an area of slowing over her left hemisphere despite the craniotomy in order to reveal anything consistent with a breach rhythm and certainly no evidence for spike discharge or other potentially epileptiform focus is seen More importantly regarding the question of whether she had another CVA or an MS flare is the fact that the MRI shows nothing new and only old lesions from her MS and the old area of infarction Overall then I think we can attribute her transient somnolence and worsening of her old deficits to the effects of dehydration and urinary tract infection both of which are being addressed now and are under much better control. Agustín sign off at this point and will see her as previously scheduled for routine follow-up of her MS. 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 The night prior to her admission she took her normal evening medications which included Effexor, baclofen, nortriptyline and Percocet. Her noticed that she had slid out of bed in the morning. She was like, a " weight," and he was unable to get her up off the floor and had generalized weak. She had been fully vaccinated for COVID-19. Patient is drowsy but is arousable to verbal stimulation and is alert and oriented and will answer questions appropriately. She was not drinking or eating. was concerned secondary to possible right facial droop and increased generalized weakness that she may have sustained stroke. She is back to her baseline today. She had her EEG which was normal. denies CP, SOB, abdominal pain, N, V. Review of Systems Review of Systems: All systems reviewed & are unremarkable except as noted in HPI & below Physical Exam Physical Exam: Physical Exam: Constitutional: appearance over nourished Ears, Nose, Mouth and Throat: mucous membranes moist, no injection and skin normal, eyes normal Cardiovascular: normal S-1 and S-2 and regular rate and rhythm Respiratory: course breath sounds Musculoskeletal: 2++ peripheral edema Skin: no stigmata of neurocutaneous disease noted and normal and intact Eyes: extraocular muscles intact (EOMI) and pupils equal, round and reactive to light (PERRL) NEUROLOGIC EXAMINATION: Mental status: Alert and interactive Oriented to full date and location Oriented to person, [facility], January, [place] Speech fluent with no evidence of aphasia Cranial Nerves smile eye brow raise symmetric Sensory: no sensory deficits, intact to light and cool touch Coordination: finger to nose intact, no tremor Gait/Stance: Posture normal. Gait no assessed Motor: Negative for pronator drift of out stretched arms with eyes closed. Strength: hand poker in biceps, triceps 5/5, hip flex right 4/5, left 5/5, plantar flex ext 5/5 Results & Data ([facility]) Vital Signs (Past 12 Hours) Vital Signs Temp Pulse Resp BP Pulse Ox 02/02/21 11:05 36.7 C 82 16 160/72 H 94 02/02/21 08:12 36.8 C 86 19 121/75 96 02/02/21 03:34 36.8 C 85 18 149/83 H 93 Laboratory Results Abnormal lab results 02/01/21 02/01/21 02/02/21 Range/Units 16:18 20:32 06:57 RBC (4.2-5.4) M/uL Hgb (12.0-16.0) g/dL Hct (37-47) % Chloride (98-107) mmol/L Glucose (70-99) mg/dl POC Glucose 218 H 186 H (70-99) mg/dl Hemoglobin A1c 7.5 H (4.5-5.6) % 02/02/21 02/02/21 02/02/21 Range/Units 06:57 06:57 07:18 RBC 3.93 L (4.2-5.4) M/uL Hgb 11.7 L (12.0-16.0) g/dL Hct 36.0 L (37-47) % Chloride 108 H (98-107) mmol/L Glucose 135 H (70-99) mg/dl POC Glucose 144 H (70-99) mg/dl Hemoglobin A1c (4.5-5.6) % 02/02/21 Range/Units 11:30 RBC (4.2-5.4) M/uL Hgb (12.0-16.0) g/dL Hct (37-47) % Chloride (98-107) mmol/L Glucose (70-99) mg/dl POC Glucose 198 H (70-99) mg/dl Hemoglobin A1c (4.5-5.6) % Diagnostic Findings This EEG is normal and specifically reveals no evidence for potentially epileptiform discharges related to the prior CVA involving the left hemisphere and reveals no evidence for a focal or generalized encephalopathy
--- NOTE | 2021-02-02 18:06 | Hospitalist Progress Note ---
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 MILTON creatinine on admission 2.13, baseline cr 0.8 Received IVF Creatinine improved to 0.8 Continue to avoid metformin, lisinopril Will d/c IVF since pt able to take po Continue monitor BMP Resolved UTI pt dx with > 100k kleb UTI as outpt 01/27 She was given Ceftin and she was on days 2 during the admission Ceftin was changed to IV abx antibiotic on discharge Repeat urine cx on 01/31 no growth IV abx was de-escalate from Zosyn to Rocephin Hypersomnolence/weakness Possible related to medication in the setting of MILTON VS UTI CT head showed no acute intracranial finding MRI showed no acute intracranial abnormality EEG showed no seizure activity Neuro on board No evidence to suggest acute infarct or MS flares Continue monitor closely Follow up with neurology outpatient HTN Continue to hold lisinopril given MILTON BP stable Continue monitor BP T2DM Most recent Hba1c 7.5 on 02/02/21 BS on admission above 300 Pharmacy on board for glycemic management Insulin-dependent Lantus/NovoLog per protocol Continue monitor BS History of hemorrhagic CVA status post craniotomy 12/2017 with residual left- sided weakness Multiple sclerosis Continue Lyrica and baclofen Continue to hold Percocet and Skelaxin MRI head showed no new lesion HLD continue statin HELIO CPAP at HS and while sleeping during day DVT Prophylaxis SQ Heparin Dispo: TELE PCP: Dr. Vazquez CODE STATUS FULL CODE Admission and Anticipated Discharge Date Admission Date: January 31, 2021 Subjective Pt was seen and examined for follow up of drowsiness Lying in bed with no acute distress Early this morning pt was very drowsy Nurse was not able to give her most of her morning med Pt said that she had Ativan last night for the MRI that made her drowsy She continue requiring oxygen supplement Denies any chest pain, palpitation, dizziness and SOB Review of Systems Review of Systems: All systems reviewed & are unremarkable except as noted in Subjective Physical Exam Physical Exam: General- No acute distress Head- atraumatic Eyes- PERRL, EOMI, ENT- oropharynx clear Neck- supple, no JVD Lungs- clear to auscultation Heart- regular rhythm; no murmur Abdomen- normal bowel sounds, soft, nontender Extremities- no calf tenderness Neuro- alert, oriented x 3; PERRL, EOMI; no facial palsy; no dysarthria, sensation intact Skin- warm & dry Results & Data Results & Data ([facility]) Vital Signs (Past 12 Hours) Vital Signs Temp Pulse Resp BP Pulse Ox 02/02/21 15:51 36.8 C 88 20 143/85 H 94 02/02/21 11:05 36.7 C 82 16 160/72 H 94 02/02/21 08:12 36.8 C 86 19 121/75 96
[2021-02-02] MEDS: MIRABEGRON ER 25 MG TAB PO SCH (20:51)
[2021-02-02] MEDS: CALCIUM 600MG + VIT D 400 IU TAB PO SCH (20:51)
[2021-02-02] MEDS: VENLAFAXINE HCL XR 150 MG CAPXR PO SCH (20:51)
[2021-02-02] MEDS: NORTRIPTYLINE HCL 25 MG CAP PO SCH (20:51)
[2021-02-02] MEDS: MULTIVITAMIN TAB PO SCH (20:51)
[2021-02-02] MEDS: VENLAFAXINE HCL XR 75 MG CAPXR PO SCH (20:51)
[2021-02-02] MEDS ORDERED: cefTRIAXone SODIUM 2,000 MG in DEXTROSE 5% 50 ML IV SCH (22:00)
[2021-02-03] MEDS: HEPARIN SOD 5,000 UNIT/0.5 ML VIAL SQ SCH ×2 (06:49→13:55)
[2021-02-03] MEDS: LEVOTHYROXINE SODIUM 50 MCG TABLET PO SCH (06:49)
[2021-02-03] MEDS: INSULIN ASPART 100 UNITS/ML 3 ML PEN SC SCH ×3 (07:51→12:06)
[2021-02-03] MEDS: BACLOFEN 10 MG TAB PO SCH ×2 (08:06→12:08)
[2021-02-03] MEDS: ALFUZOSIN HCL 10 MG TAB PO SCH (08:06)
[2021-02-03] MEDS: PREGABALIN 150 MG CAP PO SCH ×2 (08:07→13:54)
[2021-02-03] MEDS: INSULIN GLARGINE SOLOSTAR 100 UNITS/ML 3 ML PEN SC SCH (08:08)
[2021-02-03] MEDS: NYSTATIN POWDER 15GM BTL EXT SCH (08:11)
[2021-02-03] MEDS: ASPIRIN 81 MG ECTAB PO SCH (11:39)
--- NOTE | 2021-02-03 14:44 | Hospitalist Progress Note ---
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 MILTON creatinine on admission 2.13, baseline cr 0.8 Received IVF Creatinine improved to 0.8 Continue to avoid metformin, lisinopril Will d/c IVF since pt able to take po Continue monitor BMP Resolved UTI pt dx with > 100k kleb UTI as outpt 01/27 She was given Ceftin and she was on days 2 during the admission Ceftin was changed to IV abx antibiotic on admission Repeat urine cx on 01/31 no growth IV abx was de-escalate from Zosyn to Rocephin Received 4 days on IV abx while inpatient + about 2 days course before admission Will d/c abx on discharge Hypersomnolence/weakness Possible related to medication in the setting of MILTON VS UTI CT head showed no acute intracranial finding MRI showed no acute intracranial abnormality EEG showed no seizure activity Neuro on board No evidence to suggest acute infarct or MS flares Continue monitor closely Follow up with neurology outpatient resolved HTN Continue to hold lisinopril given MILTON BP stable Continue monitor BP T2DM Most recent Hba1c 7.5 on 02/02/21 BS on admission above 300 Pharmacy on board for glycemic management Insulin-dependent Lantus/NovoLog per protocol Continue monitor BS History of hemorrhagic CVA status post craniotomy 12/2017 with residual left- sided weakness Multiple sclerosis Continue Lyrica and baclofen Continue to hold Percocet and Skelaxin MRI head showed no new lesion HLD continue statin HELIO CPAP at HS and while sleeping during day DVT Prophylaxis SQ Heparin Dispo: TELE PCP: Dr. Vazquez CODE STATUS FULL CODE Admission and Anticipated Discharge Date Admission Date: January 31, 2021 Subjective Pt was seen and examined for follow up of drowsiness Lying in bed with no acute distress Pt said that she feels much better She is fully awake Oxygen was titrated and saturated well on RA Denies any chest pain, palpitation, dizziness and SOB Review of Systems Review of Systems: All systems reviewed & are unremarkable except as noted in Subjective Physical Exam Physical Exam: General- No acute distress Head- atraumatic Eyes- PERRL, EOMI, ENT- oropharynx clear Neck- supple, no JVD Lungs- clear to auscultation Heart- regular rhythm; no murmur Abdomen- normal bowel sounds, soft, nontender Extremities- no calf tenderness Neuro- alert, oriented x 3; PERRL, EOMI; no facial palsy; no dysarthria, sensation intact Skin- warm & dry Results & Data Results & Data ([facility]) Vital Signs (Past 12 Hours) Vital Signs Temp Pulse Pulse Resp BP Pulse Ox 02/03/21 11:00 36.9 C 86 18 124/69 94 02/03/21 07:26 36.7 C 84 19 130/78 95 02/03/21 07:22 81 02/03/21 04:30 36.8 C 86 18 152/86 H
[2021-02-04 00:21] LABS: 7-Aminoclonaz, Confirm NEGATIVE ng/mL (<25); Hydro-Alp Ur, GC/MS NEGATIVE ng/mL (<25); Hydroxyethylflurazepam, Conf NEGATIVE ng/mL (<50); Hydroxymidazolam Ur, GC/MS NEGATIVE ng/mL (<50); Hydroxytriazolam NEGATIVE ng/mL (<50); Lorazepam, Ur GC/MS NEGATIVE ng/mL (<50); Nordiazepam, Confirm 293 ng/mL (<50); Oxazepam Ur, GC/MS 385 ng/mL (<50); Temazepam, Confirm 437 ng/mL (<50)
--- NOTE | 2021-02-15 21:56 | Discharge Summary ---
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 is at bedside who provides most of history. Patient's last known well was prior to falling asleep last evening. She took her normal evening medications which included Effexor, baclofen, nortriptyline and Percocet. When she woke up this morning noticed that she had slid out of bed. No known trauma to 's knowledge. She was like, " weight," and he was unable to get her up off the floor. He felt overall she was generally weak. She just slept all day, did not eat or drink and was very difficult to arouse. She had been in her normal state of health up until this morning. She had been fully vaccinated for COVID-19. Patient is drowsy but is arousable to verbal stimulation and is alert and oriented and will answer questions appropriately. She denies any fever, chills, sweats, lightheadedness, dizziness or syncope, chest pain, shortness breath, cough, nausea, vomiting, abdominal pain. Her last bowel movement was yesterday which was normal for her. She has not urinated all day today. She is not anything to eat or drink. She did take her morning insulin. was concerned secondary to possible right facial droop and increased generalized weakness that she may have sustained stroke. denies any possibility of increased narcotic use. She has been doing well with therapy and states she had a hard therapy day yesterday. She did take muscle relaxer Skelaxin which he notes makes her more drowsy. Admission Exam Per Admitting Provider Constitutional: WD/WN, chronically ill-appearing, vitals as above, hypersomnolent, arouses to verbal stimulation, follows all commands and answers questions appropriately, alert and oriented x3, no acute distress Head: Normocephalic, Atraumatic Eyes: PERRL, conjunctivae normal, anicteric sclerae ENMT: external ear and nose normal, oropharynx normal Neck: trachea midline, no thyromegaly normal visual inspection Respiratory: normal respiratory effort, lungs clear to auscultation, no wheeze, rales, rhonchi. Normal insp/exp effort, no accessory muscle use Cardiovascular: RRR, no murmur, no edema Vessels: no JVD or carotid bruit Chest: normal inspection of chest Abdomen: normal bowel sounds, soft, nontender, no hepatosplenomegaly Musculoskeletal: no cyanosis or clubbing, extremities motor strength 4/5 LUE/LLE, RUE 4/5, RLE decreased ROM with flexin/extension 2/5 Skin: no rashes, warm and dry normal turgor Neurologic: PERRL, EOMI, accommodation nl, no face palsy, no dysarthria CN's II-XI intact bilaterally and moves all extremities Psychiatric: A+Ox3, euthymic affect Lymphatic: no cervical or axillary lymphadenopathy : deferred , bladder scan 189ml Principal Diagnosis 1) MILTON (acute kidney injury): (2) Hypersomnolence: (3) Weakness: (4) UTI (urinary tract infection) (5) Dyslipidemia (6) Obstructive sleep apnea (7) Multiple sclerosis Discharge Exam General- No acute distress Head- atraumatic Eyes- PERRL, EOMI, ENT- oropharynx clear Neck- supple, no JVD Lungs- clear to auscultation Heart- regular rhythm; no murmur Abdomen- normal bowel sounds, soft, nontender Extremities- no calf tenderness Neuro- alert, oriented x 3; PERRL, EOMI; no facial palsy; no dysarthria, sensation intact Skin- warm & dry Discharge Data Allergies Allergy/AdvReac Type Severity Reaction Status Date / Time methylphenidate Allergy Mild RASH Verified 01/31/21 16:54 sumatriptan AdvReac Intermediate RAPID Verified 01/31/21 16:54 HEART RATE soy AdvReac Unknown Diarrhea Verified 01/31/21 16:54 Consultations 01/31/21 16:49 ED Decision to Admit Stat 01/31/21 22:00 Consult Neurology Routine Ordered Studies 01/31/21 15:19 CT head/brain wo con Stat 02/01/21 04:13 CT head/brain wo con Urgent 02/01/21 22:00 MR brain MS wo/w con Routine MRI OF THE BRAIN WITHOUT AND WITH IV CONTRAST CLINICAL HISTORY: weakness, MS LEFT FACIAL DROOP COMPARISON STUDY: Noncontrast head CT dated 02/01/2021, MRI the brain dated 01/28/2020 TECHNIQUE: MRI of the brain was performed from the vertex to the skull base utilizing various T1 and T2 weighted sequences. Following the IV administration of 9 mL of Gadavist contrast, additional enhanced images were obtained. FINDINGS: Sagittal T1, axial diffusion, proton density and T2 weighted axial, coronal FLAIR, and pre and post axial T1-weighted images were acquired. These were supplemented with post gadolinium coronal T1 weighted images. No intra or extra-axial mass lesions are visualized. Axial diffusion-weighted images reveal no evidence of acute or subacute infarction. A 9 mm focus of increased signal on diffusion-weighted sequences posterior to the atrium of the left lateral ventricle is felt to represent T2 shine through area There is no evidence of ventricular dilatation. Proton density T2-weighted and FLAIR images reveal postsurgical changes are prior right frontal craniotomy. There is evidence for prior right frontal lobe encephalomalacia with areas of hemosiderin deposition. There are stable foci of increased T2 signal within the white matter most pronounced posterior to the atria of the lateral ventricles. There is also a persistent 7 mm focus of increased T2 signal within the right cerebellar hemisphere. There are no abnormal flow voids. There is no evidence of pathologic enhancement. The study is motion degraded. IMPRESSION: 1. Motion degraded study 2. No acute intracranial findings 2. No evidence of intracranial mass 4. No evidence of acute or subacute infarction 5. Postsurgical changes of a prior right frontal craniotomy with right frontal lobe encephalomalacia ACT 112: Negative or not required by law. Electronically signed by: Dominic Henning M.D. 02/02/2021 8:21 AM Dictated: 02/02/21 0812Transcribed: 02/02/[address] OF THE HEAD WITHOUT CONTRAST CLINICAL HISTORY: Altered mental status. COMPARISON STUDY: Head CT January 31, 2021. MRI of the brain January 27, 2021. CT DOSE: 2726.58 mGy.cm TECHNIQUE: Helical axial images of the head were obtained without IV contrast. Automated exposure control was utilized for the study. A dose lowering technique was utilized adhering to the principles of ALARA. FINDINGS: No acute intracranial hemorrhage, midline shift or mass effect is present. The ventricular system is stable. Right frontal craniotomy is noted. Encephalomalacia within the right frontal lobe is unchanged. There are no findings to suggest acute dural sinus thrombosis or acute territorial infarct. There is no calvarial fracture. IMPRESSION: No acute intracranial findings. No change in appearance of the brain. ACT 112: Negative or not required by law. Electronically signed by: Archie Roa M.D. 02/01/2021 7:21 AM Dictated: 02/01/21 0718Transcribed: 02/01/2118 SINGLE VIEW CHEST CLINICAL HISTORY: Generalized weakness. FINDINGS: 2 AP, portable, upright chest radiographs are compared to study dated 01/28/2020. Correlation is made with chest CT dated 05/10/2015. The examination is degraded by portable technique, large body habitus, and patient rotation. The heart is mildly enlarged. The pulmonary vasculature is noncongested. There are low lung volumes with bibasilar atelectasis. No airspace consolidation or large pleural effusion is identified. No pneumothorax is seen. The skeletal structures are osteopenic. The bony thorax is grossly intact. Intrathecal leads project over the lower thoracic region. IMPRESSION: Low lung volumes with no acute cardiopulmonary abnormality. ACT 112: Negative or not required by law. Electronically signed by: Luc Winn M.D. 01/31/2021 4:37 PM Dictated: 01/31/21 1635Transcribed: 01/31/[address] SCAN OF THE BRAIN WITHOUT IV CONTRAST CLINICAL HISTORY: Change in mental status. COMPARISON STUDY: CT of the brain dated 01/28/2020. TECHNIQUE: Unenhanced axial CT scan of the brain is performed from the vertex to the skull base. A dose lowering technique was utilized adhering to the principles of ALARA. The examination is compromised by motion artifact. The patient was scanned 3 times in an effort to improve image quality. CT DOSE: 2320.72 mGy.cm FINDINGS: Brain parenchyma: Right frontal encephalomalacia is consistent with a remote insult. Minimal microangiopathic disease is noted. There is no hemorrhage, mass effect, or evidence of acute territorial ischemia by CT criteria. Higginbotham-white matter differentiation is preserved. No extra-axial fluid collection is seen. Ventricles, sulci, cisterns: Normal in configuration. Intracranial vasculature: There is mild atherosclerotic calcification of the cavernous carotid arteries. Calvarium: There is a right frontal malinda hole. No destructive calvarial lesion is identified. Sinuses and mastoids: Trace mucosal thickening is noted in the maxillary antra. The remaining paranasal sinuses are clear. The mastoid air cells are well pneumatized. Orbits: The bony orbits are grossly intact. IMPRESSION: There is no hemorrhage, mass effect, or evidence of acute territorial ischemia by CT criteria noting a motion compromised examination. ACT 112: Negative or not required by law. Electronically signed by: Luc Winn M.D. 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 MILTON creatinine on admission 2.13, baseline cr 0.8 Received IVF Creatinine improved to 0.8 Continue to avoid metformin, lisinopril Will d/c IVF since pt able to take po Continue monitor BMP Resolved UTI pt dx with > 100k kleb UTI as outpt 01/27 She was given Ceftin and she was on days 2 during the admission Ceftin was changed to IV abx antibiotic on admission Repeat urine cx on 01/31 no growth IV abx was de-escalate from Zosyn to Rocephin Received 4 days on IV abx while inpatient + about 2 days course before admission Will d/c abx on discharge Hypersomnolence/weakness Possible related to medication in the setting of MILTON VS UTI CT head showed no acute intracranial finding MRI showed no acute intracranial abnormality EEG showed no seizure activity Neuro on board No evidence to suggest acute infarct or MS flares Continue monitor closely Follow up with neurology outpatient resolved HTN Continue to hold lisinopril given MILTON BP stable Continue monitor BP T2DM Most recent Hba1c 7.5 on 02/02/21 BS on admission above 300 Pharmacy on board for glycemic management Insulin-dependent Lantus/NovoLog per protocol Continue monitor BS History of hemorrhagic CVA status post craniotomy 12/2017 with residual left- sided weakness Multiple sclerosis Continue Lyrica and baclofen Continue to hold Percocet and Skelaxin MRI head showed no new lesion HLD continue statin HELIO CPAP at HS and while sleeping during day DVT Prophylaxis SQ Heparin Dispo: TELE PCP: Dr. Vazquez CODE STATUS FULL CODE Total Time Total Time Spent Total Time Spent (In Minutes): 35 minutes Total Time Includes: Examination of the Patient, Discharge Planning, Medication Reconciliation, Communication With Other Providers and Other Discharge Plan Discharge Items Patient Disposition: Home - Self-Care Reason For Visit: HYPERSOMNOLENCE,MILTON,WORSENED R FACIAL DROOP Discharge Diagnosis: (1) MILTON (acute kidney injury): (2) Hypersomnolence: (3) Weakness: (4) UTI (urinary tract infection) (5) Dyslipidemia (6) Obstructive sleep apnea (7) Multiple sclerosis Activity: Resume your previous activity Non-emergency contact: Primary Care Provider and Neurologist Call non-emergency contact if: you have any medication questions and your symptoms worsen Follow-up/Referrals: Amelia Vazquez DO [Primary Care Provider] - (Date & Time 02/10/2021 3:00 PM Provider Amelia Vazquez DO Department [facility] ) Iveth Briones MD [Physician] - (Date & Time 03/20/2021 3:40 PM Provider Iveth Briones MD Department Neurology [facility] [place] ) Diet: Carb Consistent or DM2 Addtl Attending Provider Instructions: Follow up with Dr. Puri on 02/10/2021 at 3:00 PM at the [facility] Follow up with neurology Dr. Briones on 03/20/2021 at 3:40 PM [address] [facility] [place] Fall precaution Please hold next dose of narcotic, baclofen, Nortriptyline or Lyrica if you become lethargy or drowsy Seek medical attention if your symptoms (drowsy, lethargy) reoccur Pending Studies at Discharge: No Stand-Alone Forms: My [employer], Smoking Cessation Medications and DC Order Prescriptions: Continued Lantus Solostar U-100 Insulin 100 unit/mL (3 mL) insulin pen 17 units SQ BID RF: 0 Novolog Flexpen U-100 Insulin 100 unit/mL (3 mL) insulin pen 3 units SQ TID RF: 0 alfuzosin 10 mg tablet extended release 24 hr 10 mg PO QAM Qty: 90 RF: 3 mirabegron 50 mg tablet extended release 24 hr 50 mg PO HS Qty: 90 RF: 3 lisinopril 5 mg tablet 5 mg PO DAILY RF: 0 pregabalin 150 mg capsule 150 mg PO TID RF: 0 atorvastatin 80 mg tablet 80 mg PO PM RF: 0 venlafaxine 75 mg capsule,extended release 24hr 75 mg PO HS RF: 0 venlafaxine 150 mg capsule,extended release 24hr 150 mg PO HS RF: 0 oxycodone-acetaminophen 7.5-325 mg tablet 1 tab PO TID PRN (Reason: Pain) RF: 0 multivitamin Tablet 1 tab PO PM RF: 0 metformin 500 mg Tablet 500 mg PO TID RF: 0 aspirin 81 mg Tablet,Delayed Release (Dr/Ec) 81 mg PO QDL RF: 0 ferrous sulfate [iron] 325 mg (65 mg iron) Tablet 325 mg PO PM RF: 0 Calcium 600 + D(3) 600 mg calcium- 200 unit Capsule 1 cap PO PM RF: 0 nortriptyline 75 mg Capsule 75 mg PO HS RF: 0 levothyroxine 50 mcg Tablet 50 mcg PO DAILYBB RF: 0 nystatin 100,000 unit/gram powder 1 appln TOP BID Qty: 60 RF: 1 baclofen 10 mg Tablet 15 mg PO QID RF: 0 metaxalone [Skelaxin] 800 mg Tablet 800 mg PO BID RF: 0 Ozempic 1 mg/dose (2 mg/1.5 mL) pen injector 1 mg SUBCUT WK RF: 0 Discontinued cefuroxime axetil 250 mg tablet 250 mg PO BID 7 Days Qty: 14 RF: 0 Discharge Orders: Discharge Order (Routine); Ordered 02/03/21 Ordered By: Ben Barnard Admission Data Admit Date/Time: 01/31/21 18:42 Attending Provider: Ben Barnard Admit Provider: Ben Barnard Primary Care Provider: Amelia Vazquez Other Providers: Arnel Hauser ; Mateer,Clif E Other Interventions: Discharge Summary Assessment (RN) Last Done: 02/03/21 15:41
== END 2021-02-03 16:41 | disposition home or self-care (01) | DRG 682 ==
LOC: ED 14:59 → 2S 18:42